=== PATIENT | female | born 1945 | race Caucasian/White ===

== ENCOUNTER 2020-04-12 14:14 | Outpatient (CLI) | payer MEDICARE, OTHER, SELFPAY ==
--- NOTE | 2020-04-12 14:26 | ECHO_ITS ---
Patient Info Name: Elham Nuñez Age: 74 years : 1945 Gender: Female Ht: 63 in Wt: 150 lbs BSA: 1.76 m2 HR: 81 bpm BP: 145 / 72 mmHg Heart Rhythm: Sinus Rhythm Technical Quality: Good Exam Date: 04/12/2020 2:37 PM Exam Location: [facility] Patient Status: Outpatient Admit Date: 04/12/2020 Staff Ordering Physician: Galo Hagan DO Instrument Engineer: Joselito Stokes RDCS Attending Provider: Galo Hagan DO Referring Physician: Bentley NEAL; Exam Type: CA echo doppler color flow Study Info Indications I34.0 - Nonrheumatic mitral (valve) insufficiency Complete two-dimensional, color flow and Doppler transthoracic echocardiogram is performed. Strain analysis performed. History/Risk Factors Mitral insufficiency. Summary 1. Left ventricular chamber dimension is normal. 2. Left ventricular systolic function is normal, estimated at 60-65%. 3. There is mildly increased left ventricular wall thickness. 4. The left ventricular diastolic function is grade I diastolic dysfunction. 5. E/e' 5 is not elevated. 6. Global longitudinal strain is normal at -22.2%. 7. There is mild mitral valve regurgitation. 8. There is trace tricuspid valve regurgitation. 9. No pulmonary hypertension, estimated pulmonary arterial systolic pressure is 32 mmHg. Left Ventricle E/e' 5 is not elevated. Global longitudinal strain is normal at -22.2%. Left ventricular chamber dimension is normal. Left ventricular systolic function is normal, estimated at 60-65%. There is mildly increased left ventricular wall thickness. The left ventricular diastolic function is grade I diastolic dysfunction. Right Ventricle Right ventricular chamber dimension is normal. Right ventricular systolic function is normal. Left Atria Left atrial chamber dimension is normal. Right Atria Right atrial chamber dimension is normal. Aortic Valve The aortic valve is trileaflet. There is no aortic valve stenosis. There is no aortic valve regurgitation. Pulmonic Valve There is no pulmonic regurgitation. Mitral Valve There is no mitral valve stenosis. There is mild mitral valve regurgitation. Tricuspid Valve There is trace tricuspid valve regurgitation. No pulmonary hypertension, estimated pulmonary arterial systolic pressure is 32 mmHg. Pericardium/Pleural There is no pericardial effusion. Inferior Vena Cava Normal inferior vena cava with >50% collapse upon inspiration consistent with normal right atrial pressure, 10 mmHg. Aorta The aortic root size at the sinus of Valsalva is normal. Left Ventricular Outflow Tract Name Value Normal LVOT 2D LVOT Diameter 1.8 cm LVOT Doppler LVOT Peak Gradient 5 mmHg LVOT Mean Gradient 2 mmHg LVOT VTI 21 cm LVOT VTI/AV VTI Ratio 0.9 LVOT Stroke Volume 52 ml LVOT CO 4.1 l/min LVOT CI 2.3 l/min/m2 Mitral Valve
== END 2020-04-12 14:15 | disposition home or self-care (01) ==
PROVIDERS: PCP Emergency Medicine; Visit Provider Internal Medicine Cardiovascular Disease
DX: I34.0 Nonrheumatic mitral (valve) insufficiency (principal)
CPT/HCPCS: 93306

== ENCOUNTER 2020-04-15 15:03 | Outpatient (CLI) | payer MEDICARE, OTHER, SELFPAY ==
[2020-04-15 16:13] LABS: Basophils Absolute Auto 0.1 K/mm3 (0.0-0.1); Eosinophils Absolute Auto 0.3 K/mm3 (0-0.3); Eosinophils Percent Auto 3.3 % (0-4.4); Hematocrit 35.5 % (37.0-47.0); Hemoglobin 11.8 g/dL (12.0-15.0); Immature Granulocyte Absolute 0.03 K/mm3 (0.00-0.031); Immature Granulocyte Percent A 0.3 % (0-0.5); Lymphocytes Absolute Auto 2.36 K/mm3 (0.9-3.2); Lymphocytes Percent Auto 27.5 % (18.3-44.2); Mean Corpuscular HGB Conc 33.2 g/dl (32-36); Mean Corpuscular Hemoglobin 29.7 pg (26-34); Mean Corpuscular Volume 89.4 fl (80-100); Mean Platelet Volume 9.9 fl (7.4-10.4); Monocytes Absolute Auto 0.7 K/mm3 (0.1-0.6); Neutrophils Absolute Auto 5.1 K/mm3 (1.3-6.7); Neutrophils Percent Auto 59.9 % (45.5-73.1); Platelet Count Result 310 k/mm3 (150-375); Red Blood Count 3.97 M/mm3 (4.2-5.4); Red Cell Distribution Width 12.9 % (11.5-14.5); White Blood Count 8.6 K/mm3 (4.5-10.0)
[2020-04-15 16:17] LABS: Add Urine Microscopic? YES; Appearance Urine Clear (Clear); Bacteria Urine Trace /hpf; Bilirubin Urine Negative (Negative); Blood Urine 1+ (Negative); Color Urine Straw (Yellow); Glucose Urine UA Negative (Negative); Ketones Urine Negative (Negative); Leukocyte Esterase Ur Negative LEU/UL (Negative); Nitrate Urine Negative (Negative); Protein Urine Negative (Negative); RBC Urine 21-50 /hpf (0-2); Specific Grav Ur 1.011 (1.001-1.035); Squamous Epithelial Cell Urine Many /hpf (Few); Urobilinogen Urine Negative mg/dL (<2.0); WBC Urine 0-3 /hpf
[2020-04-15 17:16] LABS: Alanine Aminotransferase 11 U/L (4-35); Albumin Level 4.4 g/dL (3.5-5.1); Alkaline Phosphatase 81 U/L (38-126); Aspartate Amino Transferase 23 U/L (14-36); Bilirubin,Total 0.3 mg/dL (0.2-1.3); Blood Urea Nitrogen 25 mg/dL (7-17); Calcium 9.3 mg/dL (8.4-10.2); Carbon Dioxide 28 mmol/L (22-30); Chloride 101 mmol/L (98-107); Cholesterol 220 mg/dL (0-200); Estimated Glomerular Filt Rate > 60; Glucose 89 mg/dL (65-105); HDL Direct 65 mg/dL; Phosphorus 3.2 mg/dL (2.5-4.5); Potassium 4.1 mmol/L (3.4-5.0); Sodium 136 mmol/L (137-145); Triglycerides 88 mg/dL (<150)
[2020-04-15 17:27] LABS: LDL Cholesterol Direct 110 mg/dL
[2020-04-15 17:33] LABS: Vitamin D 25 Hydroxy 73.4 ng/mL
[2020-04-15 18:20] LABS: Folic Acid 7.2 ng/mL (2.76->20)
== END 2020-04-15 15:04 | disposition home or self-care (01) ==
PROVIDERS: PCP Emergency Medicine; Visit Provider Emergency Medicine
DX: E78.5 Hyperlipidemia, unspecified (principal); G47.00 Insomnia, unspecified; G47.30 Sleep apnea, unspecified; I10 Essential (primary) hypertension; M79.7 Fibromyalgia; M81.0 Age-related osteoporosis without current pathological fracture; R53.83 Other fatigue
CPT/HCPCS: 36415; 80061; 80069; 80076; 81001; 82306; 82607; 82746; 84439; 84443; 85025

== ENCOUNTER 2020-04-22 14:26 | Outpatient (CLI) | payer MEDICARE, OTHER, SELFPAY ==
--- NOTE | ~2020-04-22 | CT_ITS ---
EXAMINATION: CT abdomen pelvis wo/w con DATE: 04/22/2020 15:52 INDICATION: Hematuria TECHNIQUE: Computed tomography (CT) of the abdomen and pelvis was performed without intravenous contr ast. CT of the abdomen and pelvis was then performed with a total of 130 mL Omnipaque 350 intravenous contrast using a double-bolus technique for simultaneous opacification of the renal parenchyma and r enal collecting system. The dose-length product (DLP) was 1062.02 mGy-cm. Automated exposure control and iterative reconstruction technique were employed. COMPARISON: 04/23/2013 FINDINGS: There are clustered tree-in-bud nodules of the right middle lobe. The heart size is normal. There are changes of bilateral mastectomy. Cysts of the liver measure up to 5 mm. Punctate calcifica tions in an otherwise normal spleen likely represent healed granulomatous disease. The pancreas, gall bladder, and adrenal glands are normal. Cysts of the kidneys measure up to 4.5 cm on the left. There is a 1.9 cm fat attenuation mass of the right kidney, consistent with an angiomyolipoma. There is a 2 mm nonobstructing stone of the right kidney lower pole. There is a 4 mm nonobstructing stone in the lower pole of the left kidney. No stones are identified in the ureters or bladder. There is no hydron ephrosis or hydroureter. A 6 mm hemorrhagic cyst is present in the right kidney lower pole. No suspic ious renal or urothelial lesion is identified. No pathologically enlarged abdominal or pelvic lymph n odes are identified. There is no free intraperitoneal gas or evidence of bowel obstruction. Colonic d iverticulosis is present without evidence of diverticulitis. A moderate volume of colonic stool is pr esent. Orthopedic screws are present in the left femoral neck. There is moderate lumbar spondylosis. IMPRESSION: 1. Bilateral nonobstructing nephrolithiasis. No suspicious renal or urothelial lesion identified. 2. Clustered tree-in-bud nodules of the right middle lobe, likely infectious or inflammatory. Reviewed, dictated and finalized at location A.
[2020-04-22 15:30] LABS: Estimated Glomerular Filt Rate > 60
== END 2020-04-22 14:27 | disposition home or self-care (01) ==
PROVIDERS: PCP Emergency Medicine; Visit Provider Emergency Medicine
DX: R31.9 Hematuria, unspecified (principal); N20.0 Calculus of kidney; R91.8 Other nonspecific abnormal finding of lung field
CPT/HCPCS: 36415; 74178; Q9967

== ENCOUNTER 2020-07-03 07:38 | Outpatient (CLI) | payer MEDICARE, OTHER, SELFPAY ==
[2020-07-03 08:47] LABS: Hematocrit 36.4 % (37.0-47.0); Hemoglobin 11.9 g/dL (12.0-15.0); Mean Corpuscular HGB Conc 32.7 g/dl (32-36); Mean Corpuscular Hemoglobin 29.4 pg (26-34); Mean Corpuscular Volume 89.9 fl (80-100); Mean Platelet Volume 9.6 fl (7.4-10.4); Platelet Count Result 260 k/mm3 (150-375); Red Blood Count 4.05 M/mm3 (4.2-5.4); Red Cell Distribution Width 13.6 % (11.5-14.5); White Blood Count 6.4 K/mm3 (4.5-10.0)
[2020-07-03 09:07] LABS: Iron 81 ug/dL (37-170)
[2020-07-03 09:08] LABS: Anion Gap 6 mmol/L (8-16); Blood Urea Nitrogen 22 mg/dL (7-17); Carbon Dioxide 30 mmol/L (22-30); Chloride 102 mmol/L (98-107); Estimated Glomerular Filt Rate > 60; Glucose 100 mg/dL (65-105); Phosphorus 3.2 mg/dL (2.5-4.5); Sodium 138 mmol/L (137-145)
[2020-07-03 09:12] LABS: Add Urine Microscopic? YES; Appearance Urine Cloudy (Clear); Bacteria Urine Trace /hpf; Bilirubin Urine Negative (Negative); Blood Urine Negative (Negative); Color Urine Yellow (Yellow); Glucose Urine UA Negative (Negative); Ketones Urine Negative (Negative); Leukocyte Esterase Ur Negative LEU/UL (NEGATIVE); Mucus Urine Rare /lpf; Nitrate Urine Negative (Negative); Protein Urine Negative (Negative); RBC Urine 0-2 /hpf (0-2); Specific Grav Ur 1.015 (1.001-1.035); Squamous Epithelial Cell Urine Few /hpf (Few); Urobilinogen Urine Negative mg/dL (<2.0); WBC Urine 0-3 /hpf (0-3)
[2020-07-03 09:20] LABS: Percent Iron Saturation 26 % (20-50)
[2020-07-03 09:22] LABS: Potassium 4.1 mmol/L (3.4-5.0)
== END 2020-07-03 07:39 | disposition home or self-care (01) ==
PROVIDERS: PCP Emergency Medicine; Visit Provider Emergency Medicine
DX: D64.9 Anemia, unspecified (principal); E87.1 Hypo-osmolality and hyponatremia; R31.9 Hematuria, unspecified
CPT/HCPCS: 36415; 80069; 81001; 82728; 83540; 83550; 85027

== ENCOUNTER 2020-07-25 07:43 | Emergency (ER) | payer MEDICARE, OTHER, SELFPAY ==
--- NOTE | ~2020-07-25 | XR_ITS ---
XR humerus LT 07/25/2020 08:34 Indication: Left arm pain. No acute injury. Procedure: 2 views left humerus Comparison: No prior studies for comparison. Findings: There is a healed left humeral diaphyseal fracture transfixed by side plate and screws. No acute fracture or traumatic malalignment. There are degenerative changes of the elbow. No focal soft tissue abnormality. No foreign bodies. Impression: 1: No acute fracture. Reviewed, dictated and finalized at location A. Impression: 1: No acute fracture.
[2020-07-25 07:50] VITALS: BP 138/100; PULSE 79; RESP 20; TEMP 36.4; O2SAT 96
--- NOTE | 2020-07-25 08:11 | ECG_ITS ---
Measurements Intervals [place] Rate: 80 P: 47 NM: 141 QRS: 13 QRSD: 82 T: 60 QT: 375 QTc: 434 Interpretive Statements SINUS RHYTHM EARLY PRECORDIAL R/S TRANSITION BASELINE ARTIFACT- V1 BORDERLINE ECG Electronically Signed On 07-25-2020 8:54:01 CDT by Galo Hagan D.O.
--- NOTE | 2020-07-25 08:11 | ED.GENADULT ---
HPI - General Adult General Chief complaint: Extremity Injury, Upper Stated complaint: Left Arm Pain Time Seen by Provider: 07/25/20 07:48 Source: patient History of Present Illness HPI narrative: Patient is a 75 y/o female complaining of left upper arm pain. She is unable to describe the character of pain. She rates her pain as 10/10. There is no alleviating or exacerbating factor. She states that she took hydrocodone which did not help. 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 She states that she has chronic left arm pain, but pain is worse since last night. There is no recent injury. She denies any chest pain, shortness of breath, neck pain. She is able to move her left arm. Related Data Home Medications Medication Instructions Recorded Confirmed brimonidine 0.2 % eye drops 1 drop EACH EYE Q8H 10/07/19 04/15/20 calcium carbonate 500 mg calcium 500 mg PO DAILY 10/07/19 04/15/20 (1,250 mg) capsule clonazepam 0.5 mg tablet 0.5 mg PO DAILY 10/07/19 04/15/20 ergocalciferol (vitamin D2) 1,250 50,000 unit PO WEEKLY 10/07/19 04/15/20 mcg (50,000 unit) capsule fluticasone propionate 50 1 spray NASAL DAILY 10/07/19 04/15/20 mcg/actuation nasal spray,suspension hydrocodone 10 mg-acetaminophen 1 tablet PO Q8H PRN 10/07/19 04/15/20 325 mg tablet hydroxypropyl cellulose 5 mg eye mg EACH EYE 10/07/19 04/15/20 inserts losartan 50 mg tablet 50 mg PO DAILY 10/07/19 04/15/20 sodium chloride 2 % eye drops 1 drop EACH EYE DAILY 10/07/19 04/15/20 teriparatide 20 mcg/dose (600 20 mcg SUB-Q DAILY 10/07/19 04/15/20 mcg/2.4 mL) subcutaneous pen injector timolol 0.5 % eye drops 1 drop EACH EYE Q12H 10/07/19 04/15/20 brimonidine 0.2 % eye drops 1 drop EACH EYE Q8H 01/05/20 04/15/20 white petrolatum-mineral oil 56.8 1 applic EACH EYE 4-6XD PRN 01/05/20 04/15/20 %-42.5 % eye ointment rosuvastatin 5 mg tablet 5 mg PO DAILY 04/21/20 Allergies Allergy/AdvReac Type Severity Reaction Status Date / Time Sulfa (Sulfonamide Allergy Unknown Unknown Verified 07/25/20 07:54 Antibiotics) trimethoprim Allergy Unknown Unknown Verified 07/25/20 07:54 Review of Systems Constitutional: Constitutional: Denies chills, Denies fever(s), Denies headache(s) and Denies weakness Eyes: Eyes: Denies blurry vision ENT: Denies headache(s) and Denies neck pain Cardiovascular: Cardiovascular: Denies chest pain and Denies dyspnea Respiratory: Respiratory: Denies cough and Denies dyspnea Gastrointestinal: Gastrointestinal: Denies abdominal pain, Denies diarrhea, Denies nausea and Denies vomiting Genitourinary: Genitourinary: Denies hematuria and Denies dysuria Musculoskeletal: Musculoskeletal: Denies back pain, Denies neck pain and Reports other (+left arm pain) Neurologic: Denies headache(s) and Denies weakness PMFSH Past Medical History Medical History 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 Chronic left hip pain Essential hypertension History of breast cancer History of cleft palate History of high cholesterol History of skin cancer Skin neoplasm Stage IV hemorrhoids Surgical History Surgical History History of bladder surgery History of cataract surgery History of eye surgery repair of crossed eyes History of hip surgery happened in 2011 History of hysterectomy performed around 1973 History of left mastectomy happened in 1989 History of repair of congenital cleft palate performed around 194 History of right mastectomy happened in 2012 History of surgery on arm 2019 Status post surgical removal of malignant neoplasm of skin performed around 2017 Family History Family History Sibling Family history of malignant neoplasm of cervix Family history of lung cancer, Onset Age: 58 Hear
[2020-07-25 08:28] LABS: Basophils Absolute Auto 0.1 K/mm3 (0.0-0.1); Basophils Percent Auto 0.7 % (0.2-1.2); Eosinophils Absolute Auto 0.2 K/mm3 (0-0.3); Eosinophils Percent Auto 1.8 % (0-4.4); Hematocrit 36.2 % (37.0-47.0); Immature Granulocyte Absolute 0.02 K/mm3 (0.00-0.031); Immature Granulocyte Percent A 0.2 % (0-0.5); Lymphocytes Absolute Auto 1.14 K/mm3 (0.9-3.2); Lymphocytes Percent Auto 13.9 % (18.3-44.2); Mean Corpuscular HGB Conc 33.1 g/dl (32-36); Mean Corpuscular Hemoglobin 30.3 pg (26-34); Mean Corpuscular Volume 91.4 fl (80-100); Mean Platelet Volume 9.4 fl (7.4-10.4); Monocytes Absolute Auto 0.4 K/mm3 (0.1-0.6); Monocytes Percent Auto 5.3 % (2.6-8.5); Neutrophils Absolute Auto 6.4 K/mm3 (1.3-6.7); Neutrophils Percent Auto 78.1 % (45.5-73.1); Platelet Count Result 224 k/mm3 (150-375); Red Blood Count 3.96 M/mm3 (4.2-5.4); Red Cell Distribution Width 13.1 % (11.5-14.5); White Blood Count 8.2 K/mm3 (4.5-10.0)
[2020-07-25 08:51] LABS: Anion Gap 5 mmol/L (8-16); Blood Urea Nitrogen 19 mg/dL (7-17); Calcium 8.8 mg/dL (8.4-10.2); Carbon Dioxide 31 mmol/L (22-30); Chloride 102 mmol/L (98-107); Estimated CRCL calculation 49 ml/min; Estimated Glomerular Filt Rate > 60; Glucose 162 mg/dL (65-105); Potassium 4.3 mmol/L (3.4-5.0); Sodium 138 mmol/L (137-145)
[2020-07-25 08:54] LABS: Troponin I < 0.012 ng/mL (0.000-0.034)
[2020-07-25 10:30] VITALS: BP 138/91; PULSE 79; RESP 20; O2SAT 98
[2020-07-25] MEDS: HYDROcodone/acetaminophen (*CRX) 5-325 MG TABLET 1 TAB PO (10:45)
--- NOTE | 2020-07-25 11:53 | PC.NURSE ---
PT STATES PAIN MEDICATION DIDNT HELP. DR GALLOWAY NOTIFIED. VRBO.
[2020-07-25 11:54] VITALS: BP 126/66; PULSE 77; RESP 20; O2SAT 98
[2020-07-25] MEDS: CYCLOBENZAPRINE HCL 10 MG TABLET PO (11:57)
[2020-07-25 12:18] LABS: Troponin I < 0.012 ng/mL (0.000-0.034)
[2020-07-25 12:32] LABS: CRP 1.2 mg/dL (<1.0)
[2020-07-25 12:38] VITALS: BP 133/77; PULSE 78; RESP 20; O2SAT 97
[2020-07-25 13:05] LABS: Erythrocyte Sedimentation Rate 20 mm/hr (0-20)
[2020-07-25 13:11] VITALS: BP 140/99; PULSE 74; RESP 20; O2SAT 97
[2020-07-25 13:27] VITALS: BP 140/99; PULSE 74; RESP 20; O2SAT 99
== END 2020-07-25 13:31 | disposition home or self-care (01) ==
PROVIDERS: Emergency Provider Emergency Medicine; PCP Emergency Medicine
DX: M79.622 Pain in left upper arm (principal); I10 Essential (primary) hypertension; E78.00 Pure hypercholesterolemia, unspecified; Z85.3 Personal history of malignant neoplasm of breast; Z90.13 Acquired absence of bilateral breasts and nipples; Z85.828 Personal history of other malignant neoplasm of skin; Z98.49 Cataract extraction status, unspecified eye
CPT/HCPCS: 36415; 73060; 80048; 84484; 85025; 85652; 86140; 93005; 99284; A9270

== ENCOUNTER 2023-01-15 08:24 | Outpatient (CLI) | payer MEDICARE, SELFPAY ==
--- NOTE | 2023-02-05 19:23 | WPDSLEEPSTUD ---
Sleep Study Date of Study: 01/15/23 Ordering Provider: Frederick Mendoza APRN Interpreting Physician: Nani Carvajal MD Sleep Study Type: Split Polysomnogram Height: 1.57 m Weight: 78.018 kg Body Mass Index: 31.4 Neck Circumference (inches): 15 [place]: 19 Reason for Sleep Study Hypersomnolence; prior home sleep test * 12/04/2019, snap home sleep test, AHI 31.6, consistent with severe obstructive sleep apnea;central apnea index 3.6, oxygen desaturation to 75% with 15 minute spent below 88%. Sleep History Elham Nuñez is a 77-year-old woman with a diagnosis of obstructive sleep apnea made on a home sleep test. Patient was on CPAP. She has problems with nasal allergies. She never awakens from sleep feeling short of breath. She rarely awakens at night with heartburn, belching or coughing. She occasionally snores but it is not loud enough that others complain about it. She frequently has trouble sleeping with a cold. She does not wake up gasping for breath at night or of breathing problems at night reported to her by others. She occasionally sweats excessively night. She does not notice her heart pounding or beating irregularly night. She constantly falls asleep during the day, occasionally falls asleep involuntarily but never falls asleep while driving. There is no loss of muscle tone with strong emotion. There is no daytime difficulties due to excessive sleepiness. She is retired. She does not feel paralyzed on waking or falling asleep. She does not have vivid dreamlike scenes on waking or falling asleep. She does not feel afraid to go to sleep. She does not have nightmares. She occasionally remembers her dreams. She does not have racing thoughts. She occasionally feels sad or depressed. She rarely has anxiety. She does not have muscular tension or notice parts her body jerking. She occasionally kicks at night. She constantly has crawling and aching feelings in her legs and leg pain at night. She does not have morning jaw pain. She does not grind her teeth during sleep. She frequently is bothered by pain during the day. She always is awakened by at night, always wakes up feeling stiff in the morning with sore achy muscles and pain in the neck and joints. She has dizziness and fatigue. Normal bedtime 9:30 p.m. falling asleep immediately, typically waking 3-4 times at night to go to the bathroom, walk for a little while and then she returns to sleep. She wakes the morning between 6 and 7:00 a.m.. Weekend schedule is the same. She estimates getting between 5 and 6 hours of sleep at night. she does not take naps during the day. A short nap is not refreshing. She is usually drowsy after waking for 3 hours or longer. She feels better in the morning compared to other times of day. Habits: She never smoked tobacco. No caffeine, alcohol or recreational substances. [facility] Past Medical History Medical History (Updated 02/05/23 @ 20:23 by Nani Carvajal MD) 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 Chronic left hip pain Essential hypertension History of breast cancer History of cleft palate History of high cholesterol History of skin cancer Skin neoplasm Stage IV hemorrhoids Surgical History Surgical History History of bladder surgery History of cataract surgery History of eye surgery repair of crossed eyes History of hip surgery happened in 2011 History of hysterectomy performed around 1973 History of left mastectomy happened in 1989 History of repair of congenital cleft palate performed around 194 History of right mastectomy happened in 2012 History of surgery on arm 2019 Status post surgical removal of malignant neoplasm of skin performed around 2017 Family History Family History Sibling Family history of malignant neoplasm of cervix Family history of lung cancer, Onset Age: 5
[2023-02-05 20:30] VITALS: BMI 31.4
== END 2023-01-16 06:56 | disposition home or self-care (01) ==
LOC: ANHCSM 08:26
PROVIDERS: PCP Emergency Medicine; Visit Provider Nurse Practitioner Family
DX: G47.10 Hypersomnia, unspecified (principal); G47.30 Sleep apnea, unspecified; G47.33 Obstructive sleep apnea (adult) (pediatric); G47.39 Other sleep apnea
CPT/HCPCS: 95810; 95811

== ENCOUNTER 2023-11-09 12:31 | Outpatient (CLI) | payer MEDICARE, SELFPAY ==
--- NOTE | 2023-11-09 12:56 | ECHO_ITS ---
Patient Info Name: Elham Nuñez Age: 78 years : 1945 Gender: Female Ht: 62 in Wt: 165 lbs BSA: 1.84 m2 HR: 82 bpm BP: 151 / 86 mmHg Technical Quality: Fair Exam Date: 11/09/2023 1:01 PM Exam Location: Echo Lab Patient Status: Outpatient Admit Date: 11/09/2023 Staff Ordering Physician: Galo Hagan DO Coat Joiner Lockstitch: Daysi Hoskins RDCS Attending Provider: Galo Hagan DO Referring Physician: Bentley NEAL; Exam Type: CA echo doppler color flow Study Info Indications - nonrheumatic mitral valve insuffieciency Complete two-dimensional, color flow and Doppler transthoracic echocardiogram is performed. Summary 1. Complete two-dimensional, color flow and Doppler transthoracic echocardiogram is performed. 2. Left ventricular chamber dimension is normal. 3. Left ventricular systolic function is normal, estimated at 60-65%. 4. The left ventricular diastolic function is grade I diastolic dysfunction. 5. E/e' 8 is minimally elevated. 6. There is mild aortic valve sclerosis. 7. There is trace aortic valve regurgitation. 8. There is mild mitral valve regurgitation. 9. There is mild tricuspid valve regurgitation. 10. No pulmonary hypertension, estimated pulmonary arterial systolic pressure is 29 mmHg. 11. There is trace pulmonic regurgitation. Left Ventricle E/e' 8 is minimally elevated. Left ventricular chamber dimension is normal. Left ventricular systolic function is normal, estimated at 60-65%. The left ventricular diastolic function is grade I diastolic dysfunction. Right Ventricle Right ventricular systolic function is normal and with normal TAPSE 2.2 cm. Right ventricular chamber dimension is normal. Left Atria Left atrial chamber dimension is normal. Right Atria Right atrial chamber dimension is normal. Aortic Valve The aortic valve is trileaflet. There is mild aortic valve sclerosis. There is no aortic valve stenosis. There is trace aortic valve regurgitation. Pulmonic Valve There is trace pulmonic regurgitation. Mitral Valve There is no mitral valve stenosis. There is mild mitral valve regurgitation. Tricuspid Valve There is mild tricuspid valve regurgitation. No pulmonary hypertension, estimated pulmonary arterial systolic pressure is 29 mmHg. Pericardium/Pleural There is no pericardial effusion. Inferior Vena Cava Normal inferior vena cava with >50% collapse upon inspiration consistent with normal right atrial pressure, 5 mmHg. Aorta The aortic root size at the sinus of Valsalva is normal. Left Ventricular Outflow Tract Name Value Normal LVOT 2D LVOT Diameter 2.0 cm LVOT Doppler LVOT Peak Gradient 4 mmHg LVOT Mean Gradient 3 mmHg LVOT VTI 22 cm LVOT VTI/AV VTI Ratio 1.0 LVOT Stroke Volume 70 ml LVOT CO 14.2 l/min LVOT CI 7.7 l/min/m2 Pulmonic Valve Name Value Normal
== END 2023-11-09 12:32 | disposition home or self-care (01) ==
PROVIDERS: PCP Emergency Medicine; Visit Provider Internal Medicine Cardiovascular Disease
DX: I34.0 Nonrheumatic mitral (valve) insufficiency (principal); I36.1 Nonrheumatic tricuspid (valve) insufficiency
CPT/HCPCS: 93306

== ENCOUNTER 2023-11-28 08:13 | Outpatient (CLI) | payer MEDICARE, SELFPAY ==
--- NOTE | ~2023-11-28 | US_ITS ---
EXAMINATION: US arterial ankle brachial ind DATE: 11/28/2023 09:07 INDICATION: Claudication TECHNIQUE: Segmental pressures and plethysmographic and Doppler waveforms of the brachial and lower e xtremity arteries were obtained. COMPARISON: None. FINDINGS: Right brachial artery pressure of 113 mm Hg. Patient refused pressure measurement in the left upper c hest medially due to prior surgery. The right ankle-brachial index (SHANNAN) is 1.25 (normal >= 0.9-1.0). The right great toe-brachial index (TBI) is 0.69 (normal >= 0.65). Arterial Doppler waveforms are triphasic with brisk systolic upstrok es at both right posterior tibial and dorsalis pedis arteries. The left SHANNAN is 1.25. The left TBI is 0.53. Arterial Doppler waveforms are triphasic with brisk systo lic upstrokes at both left posterior tibial and dorsalis pedis arteries. IMPRESSION: 1. 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 2. No significant arterial occlusive disease to the right lower limb with normal right SHANNAN and TBI. Reviewed, dictated and finalized at location A. 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 2. No significant arterial occlusive disease to the right lower limb with shilpa l right SHANNAN and TBI.
== END 2023-11-28 08:14 | disposition home or self-care (01) ==
LOC: ANHIMG 08:15
PROVIDERS: PCP Emergency Medicine; Visit Provider Emergency Medicine
DX: I73.9 Peripheral vascular disease, unspecified (principal)
CPT/HCPCS: 93922

== ENCOUNTER 2024-03-25 08:00 | Outpatient (CLI) | payer MEDICARE, SELFPAY ==
--- NOTE | ~2024-03-25 | XR_ITS ---
Clinical Indication: Intermittent asthma PA and lateral views of the chest: Comparison: 09/09/2017 Findings: The lungs are clear, without evidence of focal consolidation or pleural effusion. Cardiome diastinal silhouette is within normal limits. Prior ORIF of the left humerus partially imaged. Impression: Clear lungs. Reviewed, dictated and finalized at location . Impression: Clear lungs.
== END 2024-03-25 08:01 | disposition home or self-care (01) ==
PROVIDERS: PCP Emergency Medicine; Visit Provider Emergency Medicine
DX: J45.20 Mild intermittent asthma, uncomplicated (principal)
CPT/HCPCS: 71046

== ENCOUNTER 2025-01-11 12:03 | Emergency (ER) | payer MEDICARE, SELFPAY ==
--- NOTE | ~2025-01-11 | XR_ITS ---
XR hip LT 2V w AP pelvis Ordering provider: Gino Delgadillo MD History: . hip pain . Comparison: None. FINDINGS: BONES: No acute fracture or dislocation. 3 pins are seen in the left femoral neck. HIP JOINT SPACES severe bilateral hip osteoarthritic changes. SACROILIAC JOINT SPACES/LUMBAR SPINE: The sacroiliac joint spaces are normal. Mild degenerative gaspar es of the visualized lower lumbar spine. PUBIC SYMPHYSIS: Normal. SOFT TISSUES: Normal. IMPRESSION: No acute osseous abnormality pelvis and left hip. Reviewed, dictated and finalized at location A.
[2025-01-11 12:05] VITALS: BP 153/72; PULSE 80; RESP 16; TEMP 36.2; O2SAT 98
--- OUTSIDE RECORDS SUMMARY | 2025-01-11 12:05 | XMS_ITS | Continuity of Care Document ---
Author Organization [facility] Address [address] [place] [address] [place] [address] Phone Care Team Providers Care Hand Blocker Name Role Phone Darryl Baker MD Unavailable Unavailable Allergies, Adverse Reactions, Alerts Substance Reaction Status Criticality trimethoprim Active No Information Sulfa (Sulfonamide Antibiotics) Active No Information trimethobenzamide Active No Informa tion sulfamethazine Active No Informatio n Medications Medication Instructions Dosage Effective Dates (start - stop) Status Comments Neurontin 100 mg capsule take 1 capsule by oral route every day at bedtime 100 MG - Active avoid driving or operate machines Ritalin 10 mg tablet take 1 Tablet by oral route in the morning - Active Pepcid 40 mg tablet take 1 tablet by oral route every day 40 MG - Active hydrocodone 10 mg-acetaminophen 325 mg tablet take 1 by Oral route 3 times every day as needed 1 - Active PRN for pain, avoid driving or operate machines Ritalin 5 mg tablet take 1 tablet by oral route every morning - Active pramipexole 1 mg tablet take 1 tablet by oral route every bedtime 1 MG - Active Fosamax 70 mg tablet take 1 tablet by oral route every week in the morning, at least 30 min before first food, beverage, or medication of day 70 MG - Active cyanocobalamin (vit B-12) 1,000 mcg/mL injection solution inject 1 milliliter by intramuscular route every month 1000 MCG - Active syringe with needle 1 mL 25 gauge x 1 use with b12 shot monthly - Active Vitamin D2 1,250 mcg (50,000 unit) capsule take 1 capsule by oral route every other week - Active Singulair 10 mg tablet take 1 tablet by oral route every day in the evening 10 MG - Active Procedures Procedure Date OFFICE/OUTPATIENT VISIT, EST OFFICE/OUTPATIENT VISIT, EST Medicare Addendum OFFICE/OUTPATIENT VISIT, EST Medicare Addendum OFFICE/OUTPATIENT VISIT, EST Medicare Addendum OFFICE/OUTPATIENT VISIT, EST Medicare Addendum OFFICE/OUTPATIENT VISIT, EST Medicare Addendum OFFICE/OUTPATIENT VISIT, EST OFFICE/OUTPATIENT VISIT, EST OFFICE/OUTPATIENT VISIT, EST OFFICE/OUTPATIENT VISIT, EST Medicare Addendum OFFICE/OUTPATIENT VISIT, EST Medicare Addendum OFFICE/OUTPATIENT VISIT, EST OFFICE/OUTPATIENT VISIT, EST Medicare Addendum OFFICE/OUTPATIENT VISIT, EST Medicare Addendum OFFICE/OUTPATIENT VISIT, EST Medicare Addendum OFFICE/OUTPATIENT VISIT, EST Medicare Addendum OFFICE/OUTPATIENT VISIT, EST OFFICE/OUTPATIENT VISIT, EST OFFICE/OUTPATIENT VISIT, EST OFFICE/OUTPATIENT VISIT, EST OFFICE/OUTPATIENT VISIT, EST OFFICE/OUTPATIENT VISIT, EST OFFICE/OUTPATIENT VISIT, EST OFFICE/OUTPATIENT VISIT, EST OFFICE/OUTPATIENT VISIT, EST OFFICE/OUTPATIENT VISIT, EST PPPS, subseq visit OFFICE/OUTPATIENT VISIT, EST OFFICE/OUTPATIENT VISIT, EST OFFICE/OUTPATIENT VISIT, EST OFFICE/OUTPATIENT VISIT, EST OFFICE/OUTPATIENT VISIT, EST OFFICE/OUTPATIENT VISIT, EST OFFICE/OUTPATIENT VISIT, EST OFFICE/OUTPATIENT VISIT, EST OFFICE/OUTPATIENT VISIT, EST OFFICE/OUTPATIENT VISIT, EST OFFICE/OUTPATIENT VISIT, EST OFFICE/OUTPATIENT VISIT, EST OFFICE/OUTPATIENT VISIT, EST OFFICE/OUTPATIENT VISIT, EST OFFICE/OUTPATIENT VISIT, EST OFFICE/OUTPATIENT VISIT, EST OFFICE/OUTPATIENT VISIT, EST OFFICE/OUTPATIENT VISIT, EST OFFICE/OUTPATIENT VISIT, EST OFFICE/OUTPATIENT VISIT, EST OFFICE/OUTPATIENT VISIT, EST OFFICE/OUTPATIENT VISIT, EST OFFICE/OUTPATIENT VISIT, EST OFFICE/OUTPATIENT VISIT, EST OFFICE/OUTPATIENT VISIT, EST OFFICE/OUTPATIENT VISIT, EST OFFICE/OUTPATIENT VISIT, EST OFFICE/OUTPATIENT VISIT, EST OFFICE/OUTPATIENT VISIT, EST OFFICE/OUTPATIENT VISIT, EST OFFICE/OUTPATIENT VISIT, EST OFFICE/OUTPATIENT VISIT, EST OFFICE/OUTPATIENT VISIT, EST -2019 OFFICE/OUTPATIENT VISIT, EST OFFICE/OUTPATIENT VISIT, EST OFFICE/OUTPATIENT VISIT, EST OFFICE/OUTPATIENT VISIT, EST OFFICE/OUTPATIENT VISIT, EST OFFICE/OUTPATIENT VISIT, EST -2019 OFFICE/OUTPATIENT VISIT, EST -2019 OFFICE/OUTPATIENT VISIT, EST -2019 PPPS, initial visit OFFICE/OUTPATIENT VISIT, EST OFFICE/OUTPATIENT VISIT, EST OFFICE/OUTPATIENT VISIT, EST OFFICE/OUTPATIENT VISIT, EST OFFICE/OUTPATIENT VISIT, EST OFFICE/OUTPATIENT VISIT, EST OFFICE/OUTPATIENT VISIT, EST OFFICE/OUTPATIENT VISIT, EST OFFICE/OUTPATIENT VISIT, EST OFFICE/OUTPATIENT VISIT, EST OFFICE/OUTPATIENT VISIT, EST OFFICE/OUTPATIENT VISIT, EST OFFICE/OUTPATIENT VISIT, EST OFFICE/OUTPATIENT VISIT, EST OFFICE/OUTPATIENT VISIT, EST OFFICE/OUTPATIENT VISIT, EST OFFICE/OUTPATIENT VISIT, EST OFFICE/OUTPATIENT VISIT, EST OFFICE/OUTPATIENT VISIT, EST OFFICE/OUTPATIENT VISIT, EST OFFICE/OUTPATIENT VISIT, EST OFFICE/OUTPATIENT VISIT, EST OFFICE/OUTPATIENT VISIT, EST OFFICE/OUTPATIENT VISIT, EST OFFICE/OUTPATIENT VISIT, EST OFFICE/OUTPATIENT VISIT, EST OFFICE/OUTPATIENT VISIT, EST OFFICE/OUTPATIENT VISIT, EST OFFICE/OUTPATIENT VISIT, EST Initial preventive exam OFFICE/OUTPATIENT VISIT, EST OFFICE/OUTPATIENT VISIT, EST OFFICE/OUTPATIENT VISIT, EST OFFICE/OUTPATIENT VISIT, EST OFFICE/OUTPATIENT VISIT, EST OFFICE/OUTPATIENT VISIT, EST OFFICE/OUTPATIENT VISIT, EST OFFICE/OUTPATIENT VISIT, EST OFFICE/OUTPATIENT VISIT, EST OFFICE/OUTPATIENT VISIT, EST OFFICE/OUTPATIENT VISIT, EST OFFICE/OUTPATIENT VISIT, EST OFFICE/OUTPATIENT VISIT, EST OFFICE/OUTPATIENT VISIT, EST OFFICE/OUTPATIENT VISIT, EST OFFICE/OUTPATIENT VISIT, EST OFFICE/OUTPATIENT VISIT, EST PREV VISIT, EST, 65 & OVER OFFICE/OUTPATIENT VISIT, EST OFFICE/OUTPATIENT VISIT, EST OFFICE/OUTPATIENT VISIT, EST OFFICE/OUTPATIENT VISIT, EST OFFICE/OUTPATIENT VISIT, EST OFFICE/OUTPATIENT VISIT, EST OFFICE/OUTPATIENT VISIT, EST OFFICE/OUTPATIENT VISIT, EST OFFICE/OUTPATIENT VISIT, EST OFFICE/OUTPATIENT VISIT, EST OFFICE/OUTPATIENT VISIT, EST OFFICE/OUTPATIENT VISIT, EST OFFICE/OUTPATIENT VISIT, EST OFFICE/OUTPATIENT VISIT, EST OFFICE/OUTPATIENT VISIT, EST PREV VISIT, EST, 65 & OVER OFFICE/OUTPATIENT VISIT, EST OFFICE/OUTPATIENT VISIT, EST OFFICE/OUTPATIENT VISIT, EST OFFICE/OUTPATIENT VISIT, EST -2014 OFFICE/OUTPATIENT VISIT, EST OFFICE/OUTPATIENT VISIT, EST OFFICE/OUTPATIENT VISIT, EST OFFICE/OUTPATIENT VISIT, EST OFFICE/OUTPATIENT VISIT, EST OFFICE/OUTPATIENT VISIT, EST -2013 PREV VISIT, EST, 65 & OVER OFFICE/OUTPATIENT VISIT, EST OFFICE/OUTPATIENT VISIT, EST OFFICE/OUTPATIENT VISIT, EST OFFICE/OUTPATIENT VISIT, EST OFFICE/OUTPATIENT VISIT, EST -2013 OFFICE/OUTPATIENT VISIT, EST OFFICE/OUTPATIENT VISIT, EST OFFICE/OUTPATIENT VISIT, EST OFFICE/OUTPATIENT VISIT, EST OFFICE/OUTPATIENT VISIT, EST OFFICE/OUTPATIENT VISIT, EST OFFICE/OUTPATIENT VISIT, EST OFFICE/OUTPATIENT VISIT, EST OFFICE/OUTPATIENT VISIT, EST PREV VISIT, NEW, 65 & OVER Advance Directives Directive Yes / No Effective Date File Name No Information Encounters Encounter Description Practice Location Reason(s) For Visit Diagnoses Date Provider Providers Copied on Encounter OFFICE/OUTPA TIENT VISIT, [facility], [address] [place], [address], tel:[phone] [facility] RLS (chief complaint)fib romyalgia1 (chief complaint)fat igue1 (chief complaint)VENKATESH D1 (chief complaint) FatigueFibromyal giaRestless Legs SyndromeGERD w/o esophagitis 5 Samuel Garcia [address], [place], [place], [address] , [place]. tel:[phone] OFFICE/OUTPA TIENT VISIT, [facility], [address] [place], [address], [place] tel:[phone] [facility] pain (chief complaint)leg pain1 (chief complaint)fat igue1 (chief complaint) Restless Legs SyndromeFatigueF ibromyalgia 5 Samuel Garcia [address], [place], [place], [address] , [place]. tel:[phone] OFFICE/OUTPA TIENT VISIT, [facility], [address] [place], [address], [place] tel:[phone] [facility] lightheadness 1 (chief complaint)RLS (chief complaint) HypotensionRestl ess Legs Syndrome 5 Samuel Garcia [address], [address], [place], [place], [address] , [place]. tel:[phone] OFFICE/OUTPA TIENT VISIT, [facility], [address] [place], [address], [place] tel:[phone] [facility] pain (chief complaint)cou gh1 (chief complaint)RLS (chief complaint)sle ep apnea1 (chief complaint) FibromyalgiaAcut e bronchitisRestle ss Legs SyndromeObstruct lloyd sleep apnea hypopnea 5 Samuel Garcia [address], [place], [place], [address] , [place]. tel:[phone] OFFICE/OUTPA TIENT VISIT, [facility], [address] [place], [address], [place] tel:[phone] [facility] HTN (chief complaint)nec k pain1 (chief complaint)fib romyalgia1 (chief complaint) Essential (primary) hypertensionFibr omyalgiaOther muscle spasm 4 Samuel Andrews. [address], [place], [place], [address] , [place]. tel:[phone] OFFICE/OUTPA TIENT VISIT, [facility], [address] [place], [address], [place] tel:[phone] [facility] pain (chief complaint)RLS (chief complaint)nec k pain1 (chief complaint) FibromyalgiaRest less Legs SyndromeOther muscle spasm 4 Samuel Andrews. [address], [place], [place], [address] , [place]. tel:[phone] OFFICE/OUTPA TIENT VISIT, [facility], [address] [place], [address], [place] tel:[phone] [facility] pain (chief complaint)ost eoporosis1 (chief complaint)VENKATESH D1 (chief complaint) FibromyalgiaOste oporosisGERD w/o esophagitis 4 Samuel Andrews. [address] [place], [address] , [place]. tel:[phone] OFFICE/OUTPA TIENT VISIT, [facility], [address] [place], [address], [place] tel:[phone] [facility] pain (chief complaint)HTN (chief complaint)ophelia ma1 (chief complaint)hyp erglycemia1 (chief complaint) EdemaEssential (primary) hypertensionFibr omyalgiaHypergly cemiaRestless legs syndrome 4 Samuel Andrews. [address], [place], [place], [address] , [place]. tel:[phone] OFFICE/OUTPA TIENT VISIT, [facility], [address] [place], [address], [place] tel:[phone] [facility] pain (chief complaint)HTN (chief complaint)b12 (chief complaint)dry mouth1 (chief complaint) EdemaEssential (primary) hypertensionCyan ocobalamin deficiencyFibrom yalgiaDry mouth 4 Samuel Andrews. [address], [place], [place], [address] , [place]. [phone] OFFICE/OUTPA TIENT VISIT, [facility], [address] [place], [address], [place] tel:[phone] [facility] HTN (chief complaint)HLP (chief complaint)cou gh1 (chief complaint)ane mia1 (chief complaint)DM (chief complaint)fat igue1 (chief complaint) Essential (primary) hypertensionMixe d hyperlipidemiaTy pe 2 diabetes mellitus with diabetic nephropathyAnemi aFatigueCyanocob alamin deficiencyDry mouthFibromyalgi aOsteoporosisChr onic cough 4 Samuel Andrews. [address], [place], [place], [address] , [place]. [phone] OFFICE/OUTPA TIENT VISIT, [facility], [address] [place], [address], [place] tel:[phone] [facility] pain1 (chief complaint)cou gh1 (chief complaint)fat igue1 (chief complaint) FatigueChronic coughEssential (primary) hypertensionFibr omyalgia 4 Samuel Andrews. [address], [place], [place], [address] , [place]. [phone] OFFICE/OUTPA TIENT VISIT, [facility], [address], [place], [place], [address], [place] tel:[phone] [facility] cough1 (chief complaint)RLS (chief complaint)fat igue1 (chief complaint) FatigueMild intermittent asthma, uncomplicatedRes tless Legs Syndrome 4 Samuel Andrews. [address], [place], [place], [address] , [place]. tel:[phone] OFFICE/OUTPA TIENT VISIT, [facility], [address] [place], [address], [place] tel:[phone] [facility] fibromyalgia1 (chief complaint)ost eoporosis1 (chief complaint)cou gh1 (chief complaint)fat igue1 (chief complaint) Mild intermittent asthma, uncomplicatedFat igueFibromyalgia Osteoporosis 4 Samuel Andrews. [address], [place], [place], [address] , [place]. tel:[phone] OFFICE/OUTPA TIENT VISIT, [facility], [address] [place], [address], [place] tel:[phone] [facility] osteoporosis1 (chief complaint)dona n (chief complaint)fat igue1 (chief complaint)RLS 1 (chief complaint)cou gh1 (chief complaint) FatigueOsteoporo sisRestless Legs SyndromeFibromya lgiaMild intermittent asthma, uncomplicated Jan- 4 Samuel Andrews. [address], [place], [place], [address] , [place]. tel:[phone] OFFICE/OUTPA TIENT VISIT, [facility], [address] [place], [address], [place] tel:[phone] [facility] pain (chief complaint)ADD (chief complaint)cou gh1 (chief complaint)HTN (chief complaint) Acute bronchitisFibrom yalgiaFatigueObs tructive Sleep Apnea HypopneaEssentia l (primary) hypertension Jan-0 4 Samuel Andrews. [address], [place], [place], [address] , [place]. tel:[phone] OFFICE/OUTPA TIENT VISIT, [facility], [address] [place], [address], [place] tel:[phone] [facility] pain (chief complaint)fat igue1 (chief complaint) FatigueFibromyal laly 4 Baker Darryl. [address], [place], [place], [address] , [place]. tel:[phone] OFFICE/OUTPA TIENT VISIT, [facility], [address] [place], [address], [place] tel:[phone] [facility] pain1 (chief complaint)leg pain1 (chief complaint)leg weakness1 (chief complaint)fat igue1 (chief complaint) FibromyalgiaRest less Legs SyndromeObstruct lloyd Sleep Apnea HypopneaFatigueP eripheral vascular disease, unspecified 4 Samuel Andrews. [address], [place], [place], [address] , [place]. tel:[phone] OFFICE/OUTPA TIENT VISIT, [facility], [address], [address], [place] tel:[phone] [facility] GERD1 (chief complaint)dona n (chief complaint)leg pain1 (chief complaint)HTN (chief complaint) FibromyalgiaGERD w/o esophagitisRestl ess Legs SyndromeEssentia l (primary) hypertension 4 Baker Darryl. [address], [place], [place], [address] , [place]. tel:[phone] OFFICE/OUTPA TIENT VISIT, [facility], [address] [place], [address], [place] tel:[phone] [facility] pain (chief complaint)RLS (chief complaint)HTN (chief complaint)VENKATESH D1 (chief complaint) FibromyalgiaRest less Legs SyndromeEssentia l (primary) hypertensionGERD w/o esophagitis 3 Baker Darryl. [address], [place], [place], [address] , [place]. tel:[phone] OFFICE/OUTPA TIENT VISIT, [facility], [address] [place], [address], [place] tel:[phone] [facility] pain (chief complaint)RLS 1 (chief complaint)sin us (chief complaint) FibromyalgiaChro meera sinusitisRestles s legs syndrome 3 Samuel Andrews. [address], [place], [place], [address] , [place]. tel:[phone] OFFICE/OUTPA TIENT VISIT, [facility], [address], [place], [place], [address], [place] tel:[phone] [facility] fibromyalgia1 (chief complaint)RLS 1 (chief complaint)HTN (chief complaint)all ergy1 (chief complaint) Restless Legs SyndromeEssentia l (primary) hypertensionFibr omyalgiaAllergic rhinitis due to pollen 3 Samuel Andrews. [address], [place], [place], [address] , [place]. tel:[phone] OFFICE/OUTPA TIENT VISIT, [facility], [address], [place], [place], [address], [place] tel:[phone] [facility] HTN (chief complaint)all ergy1 (chief complaint)RLS (chief complaint)fib romyalgia1 (chief complaint) FibromyalgiaEsse ntial (primary) hypertensionAlle rgic rhinitis due to pollenRestless Legs Syndrome 3 Samuel Andrews. [address], [place], [place], [address] , [place]. tel:[phone] OFFICE/OUTPA TIENT VISIT, [facility], [address], [place], [place], [address], [place] tel:[phone] [facility] pain (chief complaint)RLS 1 (chief complaint)all ergy1 (chief complaint)VENKATESH D1 (chief complaint) FibromyalgiaRest less Legs SyndromeGERD w/o esophagitisAller gic rhinitis due to pollenEssential (primary) hypertension 3 Samuel Andrews. [address], [place], [place], [address] , [place]. tel:[phone] OFFICE/OUTPA TIENT VISIT, [facility], [address], [place], [place], [address], [place] tel:[phone] [facility] pain (chief complaint)leg 1 (chief complaint)all ergy1 (chief complaint)sle ep apnea1 (chief complaint) Restless Legs SyndromePrimary central sleep apneaFibromyalgi aAllergic rhinitis due to pollen 3 Samuel Andrews. [address], [place], [place], [address] , [place]. tel:[phone] OFFICE/OUTPA TIENT VISIT, [facility], [address], [place], [place], [address], [place] tel:[phone] [facility] pain (chief complaint)res tless leg (chief complaint)sle epapnea1 (chief complaint) FibromyalgiaPrim teodora central sleep apneaRestless Legs Syndrome 3 Samuel Andrews. [address], [place], [place], [address] , [place]. tel:[phone] OFFICE/OUTPA TIENT VISIT, [facility], [address], [place], [place], [address], [place] tel:[phone] [facility] pain (chief complaint)glu cose1 (chief complaint)ost eoporosis1 (chief complaint)ane mia1 (chief complaint)sic k (chief complaint)HTN (chief complaint) HyperglycemiaRen al diseaseAnemiaOst eoporosisEssenti al (primary) hypertensionAcut e bronchitisPrimar y central sleep apneaFibromyalgi a 3 Samuel Andrews. [address], [place], [place], [address] , [place]. tel:[phone] OFFICE/OUTPA TIENT VISIT, [facility], [address], [place], [place], [address], [place] tel:[phone] [facility] physical (chief complaint) Encounter for general adult medical exam w abnormal findingsOsteopor osisFibromyalgia Primary central sleep apneaEssential (primary) hypertensionGERD w/o esophagitis February-0 3 Samuel Andrews. [address], [place], [place], [address] , [place]. tel:[phone] OFFICE/OUTPA TIENT VISIT, [facility], [address], [place], [place], [address], [place] tel:[phone] [facility] osteoporosis1 (chief complaint)dona n (chief complaint)HTN (chief complaint)sle ep apnea1 (chief complaint)VENKATESH D1 (chief complaint) Essential (primary) hypertensionFibr omyalgiaOsteopor osisGERD w/o esophagitisPrima ry central sleep apnea Jan-0 3 Samuel Andrews. [address], [place], [place], [address] , [place]. tel:[phone] OFFICE/OUTPA TIENT VISIT, [facility], [address], [place], [place], [address], [place] tel:[phone] [facility] HTN (chief complaint)sle ep apnea1 (chief complaint)dona n (chief complaint)all ergy1 (chief complaint) Allergic rhinitis due to pollenEssential (primary) hypertensionFibr omyalgiaPrimary central sleep apnea Dec-0 3 Samuel Garcia [address], [place], [place], [address] , [place]. tel:[phone] OFFICE/OUTPA TIENT VISIT, [facility], [address], [place], [place], [address], [place] tel:[phone] [facility] HTN (chief complaint)sle ep apnea1 (chief complaint)dona n (chief complaint)VENKATESH D1 (chief complaint) FibromyalgiaAlle rgic rhinitis due to pollenGERD w/o esophagitisOsteo porosisPrimary central sleep apneaEssential (primary) hypertension Feb-0 2 3 Samuel Garcia [address], [place], [place], [address] , [place]. tel:[phone] OFFICE/OUTPA TIENT VISIT, [facility], [address], [place], [place], [address], tel:[phone] [facility] HTN (chief complaint)dona n (chief complaint) Essential (primary) hypertensionFibr omyalgia 3 Samuel Andrews. [address], [place], [place], [address] , [place]. tel:[phone] OFFICE/OUTPA TIENT VISIT, [facility], [address], [place], [place], [address], [place] tel:[phone] [facility] HTN (chief complaint)all ergy1 (chief complaint)dona n (chief complaint) FibromyalgiaEsse ntial (primary) hypertensionAlle rgic rhinitis due to pollen 2 Samuel Andrews. [address], [place], [place], [address] , [place]. tel:[phone] OFFICE/OUTPA TIENT VISIT, [facility], [address], [place], [place], [address], [place] tel:[phone] [facility] HTN (chief complaint)sle ep apnea1 (chief complaint)ost eoporosis1 (chief complaint)VENKATESH D1 (chief complaint)all ergy1 (chief complaint) OsteoporosisPrim teodora central sleep apneaEssential (primary) hypertensionFibr omyalgiaAllergic rhinitis due to pollenGERD w/o esophagitis 2 Samuel Andrews. [address], [place], [place], [address] , [place]. [phone] OFFICE/OUTPA TIENT VISIT, [facility], [address], [place], [place], [address], [place] tel:[phone] [facility] pain (chief complaint)sle ep apnea1 (chief complaint) FibromyalgiaPrim teodora central sleep apnea 2 Samuel Andrews. [address], [place], [place], [address] , [place]. tel:[phone] OFFICE/OUTPA TIENT VISIT, [facility], [address], [place], [place], [address], [place] tel:[phone] [facility] pain (chief complaint)sle ep apnea1 (chief complaint)HTN (chief complaint)ost eoporosis1 (chief complaint) OsteoporosisPrim teodora central sleep apneaEssential (primary) hypertensionFibr omyalgia 2 Samuel Andrews. [address], [place], [place], [address] , [place]. [phone] OFFICE/OUTPA TIENT VISIT, [facility], [address], [place], [place], [address], [place] tel:[phone] [facility] pain (chief complaint)HTN (chief complaint) FibromyalgiaEsse ntial (primary) hypertension 2 Samuel Andrews. [address], [place], [place], [address] , [place]. [phone] OFFICE/OUTPA TIENT VISIT, [facility], [address], [place], [place], [address], [place] tel:[phone] [facility] HTN (chief complaint)sle ep apnea1 (chief complaint)dona n1 (chief complaint) Essential (primary) hypertensionFibr omyalgiaPrimary central sleep apneaAllergic rhinitis due to pollen 2 Samuel Andrews. [address], [place], [place], [address] , [place]. [phone] OFFICE/OUTPA TIENT VISIT, [facility], [address] [place], [address], [place] tel:[phone] [facility] HTN (chief complaint)stephanie lucination1 (chief complaint) Hypertensive emergencyVisual hallucinations 2 Samuel Andrews. [address], [place], [place], [address] , [place]. tel:[phone] OFFICE/OUTPA TIENT VISIT, [facility], [address], [place], [place], [address], [place] tel:[phone] [facility] HTN (chief complaint) Hypertensive emergencyFatigue Dizziness 2 Samuel Andrews. [address], [place], [place], [address] , [place]. tel:[phone] OFFICE/OUTPA TIENT VISIT, [facility], [address], [place], [place], [address], [place] tel:[phone] [facility] fibromyalgia1 (chief complaint)sle ep apnea1 (chief complaint)HTN (chief complaint) Essential (primary) hypertensionSlee p apneaFibromyalgi aBenign paroxysmal vertigo, bilateral 2 Samuel Andrews. [address], [place], [place], [address] , [place]. tel:[phone] OFFICE/OUTPA TIENT VISIT, [facility], [address], [place], [place], [address], [place] tel:[phone] [facility] pain (chief complaint)diz ziness1 (chief complaint)ins omnia1 (chief complaint)fat igue1 (chief complaint)VENKATESH D1 (chief complaint) Sleep apneaInsomniaDiz zinessGERD w/o esophagitisFibro myalgia 2 Samuel Andrews. [address], [place], [place], [address] , [place]. tel:[phone] OFFICE/OUTPA TIENT VISIT, [facility], [address] [place], [address], [place] tel:[phone] [facility] osteoporosis1 (chief complaint)dona n (chief complaint)ins omnia1 (chief complaint)HTN (chief complaint) OsteoporosisEsse ntial (primary) hypertensionFibr omyalgiaInsomnia 2 Samuel Andrews. [address], [place], [place], [address] , [place]. [phone] OFFICE/OUTPA TIENT VISIT, [facility], [address], [place], [id number], [place] tel:[phone] [facility] pain (chief complaint)ins omnia1 (chief complaint) FibromyalgiaInso mnia Dec- 2 Samuel Andrews. [address], [place], [place], [address] , [place]. tel:[phone] OFFICE/OUTPA TIENT VISIT, [facility], [address], [place], [place], [address], [place] tel:[phone] [facility] pain (chief complaint)ins omnia1 (chief complaint)HTN (chief complaint) DizzinessEssenti al (primary) hypertensionFibr omyalgiaInsomnia Fe 2 Samuel Darryl. [address], [address], [place], [place], [address] , [place]. [phone] OFFICE/OUTPA TIENT VISIT, [facility], [address], [place], [place], [address], [place] tel:[phone] [facility] pain (chief complaint)ins omnia1 (chief complaint)lig htheadedness (chief complaint)arm pain1 (chief complaint) Lateral epicondylitis, right elbowFibromyalgi aInsomniaDizzine ss 2 Samuel Andrews. [address], [address], [place], [place], [address] , [place]. [phone] OFFICE/OUTPA TIENT VISIT, [facility], [address], [place], [place], [address], [place] tel:[phone] [facility] pain1 (chief complaint)ins omnia1 (chief complaint)diz zy1 (chief complaint)ost eoporosis1 (chief complaint)VENKATESH D1 (chief complaint) DizzinessGERD w/o esophagitisOsteo porosisInsomniaF ibromyalgia Sep- 1 Samuel Andrews. [address], [address], [place], [place], [address] , [place]. tel:[phone] OFFICE/OUTPA TIENT VISIT, [facility], [address], [place], [place], [address], [place] tel:[phone] [facility] HTN (chief complaint)dona n (chief complaint)ins omnia1 (chief complaint)sin us (chief complaint) FibromyalgiaEsse ntial (primary) hypertensionChro meera sinusitisInsomni a 1 Samuel Garcia [address], [place], [place], [address] , [place]. tel:[phone] OFFICE/OUTPA TIENT VISIT, [facility], [address], [place], [place], [address], [place] tel:[phone] [facility] sinus1 (chief complaint)HTN (chief complaint)fib romyalgia1 (chief complaint)ins omnia1 (chief complaint) Chronic sinusitisFibromy algiaEssential (primary) hypertensionEdem aInsomniaSolitar y lung nodule 1 Samuel Garcia [address], [address], [place], [place], [address] , [place]. tel:[phone] OFFICE/OUTPA TIENT VISIT, [facility], [address], [place], [place], [address], [place] tel:[phone] [facility] pain (chief complaint)ins omnia1 (chief complaint)HTN (chief complaint)sin us1 (chief complaint) InsomniaFibromya lgiaEssential (primary) hypertensionAlle rgic rhinitisEdema 1 Samuel Garcia [address], [address], [place], [place], [address] , [place]. [phone] OFFICE/OUTPA TIENT VISIT, [facility], [address], [place], [place], [address], [place] tel:[phone] [facility] pain (chief complaint)ins omnia1 (chief complaint)HTN (chief complaint)GED 1 (chief complaint) GERD w/o esophagitisFibro myalgiaInsomniaE ssential (primary) hypertension 1 Samuel Garcia [address], [place], [place], [address] , [place]. tel:[phone] OFFICE/OUTPA TIENT VISIT, [facility], [address], [place], [place], [address], [place] tel:[phone] [facility] insomnia1 (chief complaint)dona n (chief complaint)VENKATESH D1 (chief complaint)HTN (chief complaint) GERD w/o esophagitisFibro myalgiaInsomniaE ssential (primary) hypertension 1 Samuel Garcia [address], [address], [place], [place], [address] , [place]. tel:[phone] OFFICE/OUTPA TIENT VISIT, [facility], [address], [place], [place], [address], [place] tel:[phone] [facility] insomnia1 (chief complaint)dona n1 (chief complaint)VENKATESH D1 (chief complaint) GERD w/o esophagitisConst ipationFibromyal giaInsomnia 1 Samuel Garcia [address], [place], [place], [address] , [place]. tel:[phone] OFFICE/OUTPA TIENT VISIT, [facility], [address] [place], [address], tel:[phone] [facility] left arm numbness1 (chief complaint)dona n (chief complaint)ins omnia1 (chief complaint)con stipation1 (chief complaint)fat igue1 (chief complaint) ConstipationNeur opathyInsomniaFi bromyalgiaFatigu e 1 Samuel Garcia [address], [place], [place], [address] , [place]. tel:[phone] OFFICE/OUTPA TIENT VISIT, [facility], [address] [place], [address], [place] tel:[phone] [facility] pain (chief complaint)ins omnia1 (chief complaint)ost eoporosis1 (chief complaint)diz ziness1 (chief complaint) FibromyalgiaInso mniaOsteoporosis Dizziness 1 Samuel Garcia [address], [address], [place], [place], [address] , [place]. tel:[phone] OFFICE/OUTPA TIENT VISIT, [facility], [address], [place], [place], [address], [place] tel:[phone] [facility] pain (chief complaint)ins omnia1 (chief complaint)UTI 1 (chief complaint)ost eoporosis1 (chief complaint) Urinary tract infectionFibromy algiaInsomnia 1 Samuel Garcia [address], [place], [place], [address] , [place]. tel:[phone] OFFICE/OUTPA TIENT VISIT, [facility], [address], [place], [place], [address], [place] tel:[phone] [facility] fibromyalgia1 (chief complaint)ins omnia1 (chief complaint) FibromyalgiaInso mniaUrinary tract infection 1 Samuel Garcia [address], [place], [place], [address] , [place]. tel:[phone] OFFICE/OUTPA TIENT VISIT, [facility], [address], [place], [place], [address], [place] tel:[phone] [facility] sinus1 (chief complaint) Acute sinusitis 1 Samuel Garcia [address], [place], [place], [address] , [place]. tel:[phone] OFFICE/OUTPA TIENT VISIT, [facility], [address], [place], [place], [address], [place] tel:[phone] [facility] fibromyalgia1 (chief complaint)ins omnia1 (chief complaint) FibromyalgiaInso mnia 1 Samuel Garcia [address], [place], [place], [address] , [place]. tel:[phone] Referring Provider: Darryl Baker, [address], [place], [place], [address]. tel:[phone] OFFICE/OUTPA TIENT VISIT, [facility], [address], [place], [place], [address], [place] tel:[phone] [facility] pain (chief complaint)ins omnia1 (chief complaint) FibromyalgiaInso mnia Dec- 0 Samuel Andrews. [address], [place], [place], [address] , [place]. tel:[phone] Referring Provider: Betty Zelaya [address], [place], [place], [address]. tel:[phone] OFFICE/OUTPA TIENT VISIT, [facility], [address], [place], [place], [address], [place] tel:[phone] [facility] pain (chief complaint)ins omnia1 (chief complaint)HTN (chief complaint) FibromyalgiaInso mniaEssential (primary) hypertension Dec 0 Samuel Andrews. [address], [place], [place], [address] , [place]. tel:[phone] Referring Provider: Betty Zelaya [address], [place], [place], [address]. tel:[phone] OFFICE/OUTPA TIENT VISIT, [facility], [address], [place], [place], [address], [place] tel:[phone] [facility] pain (chief complaint)ins omnia1 (chief complaint) FibromyalgiaInso mnia 0 Samuel Andrews. [address], [place], [place], [address] , [place]. tel:[phone] Referring Provider: Darryl Baker [address], [place], [place], [address]. tel:[phone] OFFICE/OUTPA TIENT VISIT, [facility], [address], [place], [place], [address], [place] tel:[phone] [facility] pain (chief complaint)ins omnia1 (chief complaint)sle ep apnea1 (chief complaint)hem orrhoid (chief complaint) FibromyalgiaAnem iaInsomniaSleep apneaHemorrhoid 0 Samuel Andrews. [address], [facility], [place], [place], [address] , [place]. tel:[phone] Referring Provider: Darryl Baker, [address] [facility] A, [place], [place], [address]. tel:[phone] OFFICE/OUTPA TIENT VISIT, [facility], [address] [place], [address], [place] tel:[phone] [facility] fibromyalgia1 (chief complaint)ins omnia1 (chief complaint)ost eoporosis1 (chief complaint)hyp onatremia1 (chief complaint)ane mia1 (chief complaint)hem aturia1 (chief complaint) AnemiaHematuriaH yponatremiaInsom niaFibromyalgiaO steoporosis 0 Samuel Andrews. [address] [facility] [address], [place], [place], [address] , [place]. tel:[phone] Referring Provider: Betty Zelaya [facility] A, [place], [place], [address]. tel:[phone] OFFICE/OUTPA TIENT VISIT, [facility], [address] [facility] [place], [address], [place] tel:[phone] [facility] pain (chief complaint)ins omnia1 (chief complaint)HLP (chief complaint)sle ep apnea1 (chief complaint)sic k (chief complaint)hem orrhoid1 (chief complaint) FibromyalgiaHype rlipidemiaAnemia Sleep apneaHemorrhoidA cute bronchitisInsomn iaHyponatremia 0 Samuel Andrews. [address], [facility], [place], [place], [address] , [place]. tel:[phone] Referring Provider: Darryl Baker [address] [facility] [place], [address]. tel:[phone] OFFICE/OUTPA TIENT VISIT, [facility], [address] [facility] [place], [address], [place] tel:[phone] [facility] HLP (chief complaint)sle ep apnea1 (chief complaint)fib romyalgia1 (chief complaint)ins omnia1 (chief complaint)ane mia1 (chief complaint) AnemiaFibromyalg iaHematuriaHemor rhoidHyperlipide miaSleep apneaInsomniaSol itary lung nodule 0 Samuel Andrews. [address], [place], [place], [address] , [place]. tel:[phone] Referring Provider: Darryl Baker, [address], [place], [place], [address]. tel:[phone] OFFICE/OUTPA TIENT VISIT, [facility], [address], [place], [place], [address], [place] tel:[phone] [facility] HLP (chief complaint)ane mia1 (chief complaint)ane mia1 (chief complaint)dona n1 (chief complaint)sle ep apnea1 (chief complaint) HyperlipidemiaAn emiaInsomniaHema turiaHemorrhoidS leep apneaFibromyalgi a 0 Samuel Andrews. [address], [place], [place], [address] , [place]. tel:[phone] Referring Provider: Darryl Baker, [address], [place], [place], [address]. tel:[phone] OFFICE/OUTPA TIENT VISIT, [facility], [address], [place], [place], [address], [place] tel:[phone] [facility] sinus1 (chief complaint) Acute sinusitis 0 Samuel Andrews. [address], [place], [place], [address] , [place]. tel:[phone] Referring Provider: Darryl Baker, [address], [place], [place], [address]. tel:[phone] OFFICE/OUTPA TIENT VISIT, [facility], [address], [place], [place], [address], [place] tel:[phone] [facility] PHysical (chief complaint) Encounter for general adult medical exam w abnormal findingsFibromya lgiaSleep apneaOsteoporosi sInsomniaEssenti al (primary) hypertension 0 Samuel Andrews. [address], [place], [place], [address] , [place]. tel:[phone] Referring Provider: Darryl Baker, [address], [place], [place], [address]. tel:[phone] OFFICE/OUTPA TIENT VISIT, [facility], [address], [place], [place], [address], [place] tel:[phone] [facility] pain (chief complaint)ins omnia1 (chief complaint)sle ep apnea1 (chief complaint) FibromyalgiaSlee p apneaInsomnia 0 Samuel Andrews. [address], [place], [place], [address] , [place]. tel:[phone] Referring Provider: Darryl Baker [address], [place], [place], [address]. tel:[phone] OFFICE/OUTPA TIENT VISIT, [facility], [address], [place], [place], [address], [place] tel:[phone] [facility] HTN (chief complaint)fib romyalgia1 (chief complaint)ins omnia1 (chief complaint)sle ep apnea1 (chief complaint)glu cose (chief complaint) InsomniaSleep apneaFibromyalgi aEssential (primary) hypertensionEnco unter for screening for malignant neoplasm of colonHyperglycem ia 0 Samuel Andrews. [address], [place], [place], [address] , [place]. tel:[phone] Referring Provider: Betty Zelaya [address], [place], [place], [address]. tel:[phone] OFFICE/OUTPA TIENT VISIT, [facility], [address], [place], [place], [address], [place] tel:[phone] [facility] fibromyalgia1 (chief complaint)ost eoporosis1 (chief complaint)ins omnia1 (chief complaint)sle ep apnea1 (chief complaint) FibromyalgiaSlee p apneaOsteoporosi sInsomnia 0 Samuel Andrews. [address], [place], [place], [address] , [place]. tel:[phone] Referring Provider: Betty Zelaya [address], [place], [place], [address]. tel:[phone] OFFICE/OUTPA TIENT VISIT, [facility], [address], [place], [place], [address], [place] tel:[phone] [facility] pain (chief complaint)ins omnia1 (chief complaint)sin us (chief complaint)kne e pain1 (chief complaint) FatigueFibromyal giaInsomniaOsteo arthritis of knee, unspecifiedAller gic rhinitis 0 Samuel Andrews. [address], [place], [place], [address] , [place]. tel:[phone] Referring Provider: Betty Zelaya [address], [place], [place], [address]. tel:[phone] OFFICE/OUTPA TIENT VISIT, [facility], [address], [place], [place], [address], [place] tel:[phone] [facility] fibromyalgia1 (chief complaint)ins omnia1 (chief complaint)fat igue1 (chief complaint)sin us1 (chief complaint)HTN (chief complaint) FibromyalgiaInso mniaFatigueAcute sinusitisEssenti al (primary) hypertension 0 Samuel Andrews. [address], [place], [place], [address] , [place]. tel:[phone] Referring Provider: Betty Zelaya [address], [place], [place], [address]. tel:[phone] OFFICE/OUTPA TIENT VISIT, [facility], [address], [place], [place], [address], [place] tel:[phone] [facility] sinus allergy1 (chief complaint)dona n (chief complaint)ins omnia1 (chief complaint)fat igue1 (chief complaint) Allergic rhinitisFibromya lgiaInsomniaFati alejandra 9 Samuel Andrews. [address], [place], [place], [address] , [place]. tel:[phone] Referring Provider: Darryl Baker, Betty [address], [place], [place], [address]. tel:[phone] OFFICE/OUTPA TIENT VISIT, [facility], [address], [place], [place], [address], [place] tel:[phone] [facility] HTN (chief complaint)fib romyalgia1 (chief complaint)ins omnia1 (chief complaint)sin us allergy1 (chief complaint) FibromyalgiaInso mniaEssential (primary) hypertensionAlle rgic rhinitis 9 Samuel Andrews. [address], [place], [place], [address] , [place]. tel:[phone] Referring Provider: Betty Zelaya [address], [place], [place], [address]. tel:[phone] OFFICE/OUTPA TIENT VISIT, [facility], [address], [place], [place], [address], [place] tel:[phone] [facility] HTN (chief complaint)ophelia ma1 (chief complaint)chr onic pain1 (chief complaint)ins omnia1 (chief complaint) Essential (primary) hypertensionEdem aFibromyalgiaIns omnia 9 Samuel Andrews. [address], [place], [place], [address] , [place]. tel:[phone] Referring Provider: Betty Zelaya [address], [place], [place], [address]. tel:[phone] OFFICE/OUTPA TIENT VISIT, [facility], [address], [place], [place], [address], [place] tel:[phone] [facility] toe pain1 (chief complaint)fib romyalgia1 (chief complaint)ins omnia1 (chief complaint) FibromyalgiaInso mniaDermatophyto sis of nail 9 Samuel Andrews. [address], [place], [place], [address] , [place]. tel:[phone] Referring Provider: Darryl Baker, [address], [place], [place], [address]. tel:[phone] OFFICE/OUTPA TIENT VISIT, [facility], [address], [place], [place], [address], [place] tel:[phone] [facility] chronic pain1 (chief complaint)ins omnia1 (chief complaint) FibromyalgiaInso mnia 9 Samuel Andrews. [address], [place], [place], [address] , [place]. tel:[phone] Referring Provider: Betty Zelaya [address], [place], [place], [address]. tel:[phone] OFFICE/OUTPA TIENT VISIT, [facility], [address], [place], [place], [address], [place] tel:[phone] [facility] sinusitis1 (chief complaint)HTN (chief complaint)fib romyalgia1 (chief complaint)ins omnia1 (chief complaint) InsomniaFibromya lgiaEssential (primary) hypertensionAcut e sinusitis 9 Samuel Andrews. [address], [place], [place], [address] , [place]. tel:[phone] Referring Provider: Betty Zelaya [address], [place], [place], [address]. tel:[phone] OFFICE/OUTPA TIENT VISIT, [facility], [address], [place], [place], [address], [place] tel:[phone] [facility] HTN (chief complaint)fib romyalgia1 (chief complaint)ins omnia1 (chief complaint) Essential (primary) hypertensionFibr omyalgiaInsomnia 9 Samuel Garcia [address], [place], [place], [address] , [place]. tel:[phone] Referring Provider: Betty [address], [place], [place], [address]. tel:[phone] OFFICE/OUTPA TIENT VISIT, [facility], [address], [place], [place], [address], [place] tel:[phone] [facility] numbness1 (chief complaint)fib romyalgia1 (chief complaint)anx iety1 (chief complaint)gurinder ral regu (chief complaint) OsteoporosisFibr omyalgiaParesthe quinton of skinInsomniaNonr heumatic mitral valve prolapse 9 Samuel Garcia [address], [place], [place], [address] , [place]. tel:[phone] Referring Provider: Betty [address], [place], [place], [address]. tel:[phone] OFFICE/OUTPA TIENT VISIT, [facility], [address], [place], [place], [address], [place] tel:[phone] [facility] numbness1 (chief complaint)chr onic pain (chief complaint)ins omnia1 (chief complaint) FibromyalgiaInso mniaParesthesia of skin 9 Samuel [address], [place], [place], [address] , [place]. tel:[phone] Referring Provider: Betty [address], [place], [place], [address]. tel:[phone] OFFICE/OUTPA TIENT VISIT, [facility], [address], [place], [place], [address], [place] tel:[phone] [facility] PHysical (chief complaint) Encounter for general adult medical exam w abnormal findingsHyperlip idemiaEssential (primary) hypertensionOste oporosisFibromya lgiaInsomnia 9 Samuel Garcia [address], [place], [place], [address] , [place]. tel:[phone] Referring Provider: Betty Zelaya [facility], [place], [place], [address]. tel:[phone] OFFICE/OUTPA TIENT VISIT, [facility], [address], [place], [place], [address], tel:[phone] [facility] osteoporosis1 (chief complaint)fib romyalgia1 (chief complaint)sin us1 (chief complaint)HTN (chief complaint)ins omnia1 (chief complaint) FibromyalgiaOste oporosisEssentia l (primary) hypertensionAlle rgic rhinitisInsomnia 9 Samuel Andrews. [address], [place], [place], [address] , . tel:[phone] Referring Provider: Betty Zelaya [place], [address]. tel:[phone] OFFICE/OUTPA TIENT VISIT, [facility], [address] [place], [address], [place] tel:[phone] [facility] fibromyalgia1 (chief complaint)anx iety1 (chief complaint)fat igue1 (chief complaint)sin us (chief complaint) Allergic rhinitisFatigueF ibromyalgiaInsom fabiana 9 Samuel Andrews. [address] [facility] [address], [place], [place], [address] , [place]. tel:[phone] Referring Provider: Betty Zelaya [facility] A, [place], [place], [address]. tel:[phone] OFFICE/OUTPA TIENT VISIT, [facility], [address] [place], [address], [place] tel:[phone] [facility] sinus allergy1 (chief complaint)chr onic pain (chief complaint)ins omnia1 (chief complaint) InsomniaFibromya lgiaAllergic rhinitis 9 Samuel Andrews. [address], [place], [place], [address] , [place]. tel:[phone] Referring Provider: Betty Zelaya [address], [place], [place], [address]. tel:[phone] OFFICE/OUTPA TIENT VISIT, [facility], [address], [place], [place], [address], [place] tel:[phone] [facility] fibromyalgia1 (chief complaint)ins omnia1 (chief complaint)ost eoporosis1 (chief complaint)HTN (chief complaint) OsteoporosisEsse ntial (primary) hypertensionFibr omyalgiaInsomnia 8 Samuel Andrews. [address], [place], [place], [address] , [place]. tel:[phone] Referring Provider: Betty Zelaya [facility], [place], [place], [address]. tel:[phone] OFFICE/OUTPA TIENT VISIT, [facility], [address], [place], [place], [address], [place] tel:[phone] [facility] fibromyalgia1 (chief complaint)ins omnia1 (chief complaint) FibromyalgiaInso mnia 8 Samuel Andrews. [address], [place], [place], [address] , [place]. tel:[phone] Referring Provider: Betty Zelaya [address] [facility], [place], [place], [address]. tel:[phone] OFFICE/OUTPA TIENT VISIT, [facility], [address], [place], [place], [address], [place] tel:[phone] [facility] hlp (chief complaint)fib romyalgia1 (chief complaint)ins omnia1 (chief complaint) FibromyalgiaHype rlipidemiaInsomn iaPain in left shoulder 8 Samuel Andrews. [address], [place], [place], [address] , [place]. tel:[phone] Referring Provider: Betty Zelaya [address], [place], [place], [address]. tel:[phone] OFFICE/OUTPA TIENT VISIT, [facility], [address], [place], [place], [address], [place] tel:[phone] [facility] fibromyalgia1 (chief complaint)HTN (chief complaint)ins omnia1 (chief complaint)yaya ght loss1 (chief complaint) Essential (primary) hypertensionFibr omyalgiaAbnormal weight lossInsomnia 8 Samuel Andrews. [address], [place], [place], [address] , [place]. tel:[phone] Referring Provider: Betty Zelaya [address] [facility], [place], [place], [address]. tel:[phone] OFFICE/OUTPA TIENT VISIT, [facility], [address] [place], [address], [place] tel:[phone] [facility] arm pain1 (chief complaint)ins omnia1 (chief complaint)fib romyalgia1 (chief complaint)HTN (chief complaint)ost eoporosis1 (chief complaint) Essential (primary) hypertensionOste oporosisPain in left upper armFibromyalgiaI nsomniaHemorrhoi d 8 Samuel Andrews. [address], [place], [place], [address] , [place]. tel:[phone] Referring Provider: Betty Zelaya [facility], [place], [place], [address]. tel:[phone] OFFICE/OUTPA TIENT VISIT, [facility], [address], [place], [place], [address], [place] tel:[phone] [facility] hemorrhoid1 (chief complaint)fib romyalgia1 (chief complaint)anx iety1 (chief complaint)lauren dder prolase1 (chief complaint) FibromyalgiaCyst oceleBenign neoplasm of right kidneyHemorrhoid Insomnia 0 8 Samuel Andrews. [address], [place], [place], [address] , [place]. tel:[phone] Referring Provider: Darryl Baker, [address], [place], [place], [address]. tel:[phone] OFFICE/OUTPA TIENT VISIT, [facility], [address], [place], [place], [address], [place] tel:[phone] [facility] fibromyalgia1 (chief complaint)ins omnia1 (chief complaint)ang iomyolipoma1 (chief complaint)ora l numbness 1 (chief complaint) Benign neoplasm of right kidneyAcute sinusitisFibromy algiaParesthesia of skin 8 Samuel Andrews. [address], [place], [place], [address] , [place]. tel:[phone] Referring Provider: Darryl Baker [address], [place], [place], [address]. tel:[phone] OFFICE/OUTPA TIENT VISIT, [facility], [address], [place], [place], [address], [place] tel:[phone] [facility] fibromyalgia1 (chief complaint)ins omnia1 (chief complaint)gill al cyst1 (chief complaint) FibromyalgiaInso mniaBenign neoplasm of right kidneyCystocele 8 Samuel Andrews. [address], [place], [place], [address] , [place]. tel:[phone] Referring Provider: Betty Zelaya [address], [place], [place], [address]. tel:[phone] OFFICE/OUTPA TIENT VISIT, [facility], [address], [place], [place], [address], [place] tel:[phone] [facility] chronic pain (chief complaint)ins omnia1 (chief complaint)sin us1 (chief complaint) FibromyalgiaInso mniaChronic sinusitis 8 Samuel Andrews. [address], [address], [place], [place], [address] , [place]. tel:[phone] OFFICE/OUTPA TIENT VISIT, [facility], [address], [place], [place], [address], [place] tel:[phone] [facility] fibromyalgia1 (chief complaint)ost eoporosis1 (chief complaint)sin us1 (chief complaint)ins omnia1 (chief complaint) FibromyalgiaOste oporosisChronic sinusitisInsomni a 8 Samuel Andrews. [address], [place], [place], [address] , [place]. tel:[phone] OFFICE/OUTPA TIENT VISIT, [facility], [address], [place], [place], [address], [place] tel:[phone] [facility] Medicine PHysical (chief complaint) Encounter for general adult medical exam w abnormal findingsFibromya lgiaEssential (primary) hypertensionOste oporosis 8 Samuel Andrews. [address], [address], [place], [place], [address] , [place]. tel:[phone] OFFICE/OUTPA TIENT VISIT, [facility], [address], [place], [place], [address], [place] tel:[phone] [facility] sick (chief complaint) Acute bronchitisAcute upper respiratory infection, unspecified 8 Samuel Andrews. [address], [place], [place], [address] , [place]. tel:[phone] Referring Provider: Darryl Baker, [address], [place], [place], [address]. tel:[phone] OFFICE/OUTPA TIENT VISIT, [facility], [address], [place], [place], [address], [place] tel:[phone] [facility] fibromyalgia1 (chief complaint)ins omnia1 (chief complaint)HTn (chief complaint) FibromyalgiaInso mniaEssential (primary) hypertension 0 8 Samuel Andrews. [address], [place], [place], [address] , [place]. tel:[phone] OFFICE/OUTPA TIENT VISIT, [facility], [address], [place], [place], [address], [place] tel:[phone] [facility] fibromyalgia1 (chief complaint)ins omnia1 (chief complaint)ost eoporosis1 (chief complaint)col d (chief complaint) OsteoporosisFibr omyalgiaInsomnia Acute upper respiratory infection, unspecified 0 4 8 Samuel Andrews. [address], [place], [place], [address] , [place]. tel:[phone] Referring Provider: Betty Zelaya [address], [place], [place], [address]. tel:[phone] OFFICE/OUTPA TIENT VISIT, [facility], [address] [place], [address], [place] tel:[phone] [facility] sob1 (chief complaint)ins omnia1 (chief complaint)fib romyalgia1 (chief complaint) Shortness of breathAcute bronchitisFibrom yalgiaInsomnia Sep-0 6201 7 Samuel Andrews. [address], [place], [place], [address] , [place]. tel:[phone] Referring Provider: Betty Zelaya [facility] [place], [address]. tel:[phone] OFFICE/OUTPA TIENT VISIT, [facility], [address] [place], [address], [place] tel:[phone] [facility] jonit pain1 (chief complaint)anx iety1 (chief complaint)ost eoporosis1 (chief complaint)brant t pain1 (chief complaint)SOB (chief complaint) Shortness of breathOsteoporos isInsomniaFibrom yalgia Aug-0 8201 7 Samuel Andrews. [address], [place], [place], [address] , [place]. tel:[phone] Referring Provider: Betty Zelaya [facility] A, [place], [place], [address]. tel:[phone] OFFICE/OUTPA TIENT VISIT, [facility], [address], [place], [place], [address], [place] tel:[phone] [facility] osteoporosis1 (chief complaint)fib romyalgia1 (chief complaint)ins omnia1 (chief complaint)gill al cyst1 (chief complaint) InsomniaFibromya lgiaOsteoporosis Acquired renal cyst 7 Samuel Garcia [address] [facility] [address], [place], [place], [address] , [place]. tel:[phone] OFFICE/OUTPA TIENT VISIT, [facility], [address], [place], [place], [address], [place] tel:[phone] [facility] fibromyalgia1 (chief complaint)ins omnia1 (chief complaint) FibromyalgiaInso mnia 7 Samuel De La [address], [place], [place], [address] , [place]. [phone] OFFICE/OUTPA TIENT VISIT, [facility], [address], [place], [place], [address], [place] tel:[phone] [facility] insomnia1 (chief complaint)fib romyalgia1 (chief complaint)fat igue1 (chief complaint)HTN (chief complaint) FibromyalgiaFati gueInsomniaEssen tial (primary) hypertension 7 Samuel Garcia [address] [facility] A, [place], [place], [address] , [place]. tel:[phone] Referring Provider: Darryl Baker, [address] [facility] A, [place], [place], [address]. tel:[phone] OFFICE/OUTPA TIENT VISIT, [facility], [address], [place], [place], [address], [place] tel:[phone] [facility] fatigue1 (chief complaint)lef t shoulder pain1 (chief complaint)ost eoporosis1 (chief complaint)fib romyalgia1 (chief complaint)ins omnia1 (chief complaint) FatigueOsteoporo sisFibromyalgiaI nsomnia 7 Samuel Garcia [address] [facility] [place], [place], [address] , [place]. tel:[phone] Referring Provider: Betty Zelaya [facility] A, [place], [place], [address]. tel:[phone] OFFICE/OUTPA TIENT VISIT, [facility], [address], [place], [place], [address], [place] tel:[phone] [facility] fibromyalgia1 (chief complaint)anx iety1 (chief complaint)fat igue1 (chief complaint) FatigueGeneraliz ed anxiety disorderFibromya lgia 7 Samuel Andrews. [address] [facility] A, [place], [place], [address] , [place]. tel:[phone] Referring Provider: Betty Zelaya [facility] A, [place], [place], [address]. tel:[phone] OFFICE/OUTPA TIENT VISIT, [facility], [address], [place], [place], [address], [place] tel:[phone] [facility] fibromyalgia1 (chief complaint)ost eoporosis1 (chief complaint)anx iety1 (chief complaint)ski n CA1 (chief complaint) OsteoporosisFibr omyalgiaGenerali zed anxiety disorderBasal cell carcinoma of skin, unspecified 7 Samuel Andrews. [address], [place], [place], [address] , [place]. tel:[phone] Referring Provider: Betty Zelaya [facility] A, [place], [place], [address]. tel:[phone] OFFICE/OUTPA TIENT VISIT, [facility], [address], [place], [place], [address], [place] tel:[phone] [facility] osteoporosis1 (chief complaint)HTN (chief complaint)fib romyalgia1 (chief complaint)ins omnia1 (chief complaint) OsteoporosisChro meera pain syndromeGenerali zed anxiety disorderEssentia l (primary) hypertension 0 7 Samuel Andrews. [address], [place], [place], [address] , [place]. tel:[phone] Referring Provider: Betty Zelaya [address], [place], [place], [address]. tel:[phone] OFFICE/OUTPA TIENT VISIT, [facility], [address], [place], [place], [address], [place] tel:[phone] [facility] anxiety1 (chief complaint)fib romyalgia1 (chief complaint) FibromyalgiaGene ralized anxiety disorder Apr-0 4 7 Samuel Andrews. [address], [place], [place], [address] , [place]. tel:[phone] Referring Provider: Betty Zelaya [address], [place], [place], [address]. tel:[phone] OFFICE/OUTPA TIENT VISIT, [facility], [address], [place], [place], [address], [place] tel:[phone] [facility] fibromyalgia1 (chief complaint)anx iety1 (chief complaint) FibromyalgiaGene ralized Anxiety Disorder Mar-0 2 7 Samuel Andrews. [address], [place], [place], [address] , [place]. tel:[phone] Referring Provider: Betty Zelaya [address], [place], [place], [address]. tel:[phone] OFFICE/OUTPA TIENT VISIT, [facility], [address], [place], [place], [address], [place] tel:[phone] [facility] jont pain (chief complaint)anx iety1 (chief complaint)ost eoprosis1 (chief complaint) Chronic pain syndromeGenerali zed Anxiety DisorderOsteopor osis Feb-0 7 Samuel Andrews. [address], [place], [place], [address] , [place]. tel:[phone] Referring Provider: Betty Zelaya [address], [place], [place], [address]. tel:[phone] OFFICE/OUTPA TIENT VISIT, [facility], [address], [place], [place], [address], [place] tel:[phone] [facility] anxiety1 (chief complaint)fib romyalgia (chief complaint)elb ow pain1 (chief complaint)HLP (chief complaint) Chronic pain syndromeGenerali zed Anxiety DisorderPain in right elbow 7 Samuel Andrews. [address], [place], [place], [address] , [place]. tel:[phone] Referring Provider: Darryl Baker, [address], [place], [place], [address]. tel:[phone] PREV VISIT, EST, 65 & OVER [facility], [address], [place], [place], [address], [place] tel:[phone] [facility] PHysical (chief complaint) Encntr for general adult medical exam w/o abnormal findings 6 Samuel Andrews. [address], [place], [place], [address] , [place]. tel:[phone] Referring Provider: Betty Zelaya [address], [place], [place], [address]. tel:[phone] OFFICE/OUTPA TIENT VISIT, [facility], [address], [place], [place], [address], [place] tel:[phone] [facility] chronic pain1 (chief complaint)anx iety1 (chief complaint) FibromyalgiaGene ralized Anxiety Disorder 6 Samuel Andrews. [address], [place], [place], [address] , [place]. tel:[phone] Referring Provider: Betty Zelaya [address], [place], [place], [address]. tel:[phone] OFFICE/OUTPA TIENT VISIT, [facility], [address], [place], [place], [address], [place] tel:[phone] [facility] fibromyalgia1 (chief complaint)anx iety1 (chief complaint) FibromyalgiaGene ralized Anxiety Disorder 6 Samuel Andrews. [address], [place], [place], [address] , [place]. tel:[phone] Referring Provider: Betty Zelaya [address], [place], [place], [address]. tel:[phone] OFFICE/OUTPA TIENT VISIT, [facility], [address], [place], [place], [address], [place] tel:[phone] [facility] fibromyalgia1 (chief complaint)anx iety1 (chief complaint)vis ion change (chief complaint) FibromyalgiaGene ralized Anxiety Disorder 6 Samuel Andrews. [address], [place], [place], [address] , [place]. tel:[phone] Referring Provider: Betty Zelaya [address], [place], [place], [address]. tel:[phone] OFFICE/OUTPA TIENT VISIT, [facility], [address], [place], [place], [address], [place] tel:[phone] [facility] neck pain1 (chief complaint) Spasmodic torticollis 6 Samuel Andrews. [address], [place], [place], [address] , [place]. tel:[phone] Referring Provider: Betty Zelaya [address], [place], [place], [address]. tel:[phone] OFFICE/OUTPA TIENT VISIT, [facility], [address], [place], [place], [address], [place] tel:[phone] [facility] chronic pain (chief complaint)anx iety1 (chief complaint)HTN (chief complaint) FibromyalgiaGene ralized Anxiety DisorderEssentia l (primary) hypertension 6 Samuel Andrews. [address], [place], [place], [address] , [place]. tel:[phone] Referring Provider: Betty Zelaya [address], [place], [place], [address]. tel:[phone] OFFICE/OUTPA TIENT VISIT, [facility], [address], [place], [place], [address], [place] tel:[phone] [facility] chronic pedro (chief complaint)anx iety1 (chief complaint) Chronic pain syndromeGenerali zed Anxiety Disorder 6 Samuel Andrews. [address], [place], [place], [address] , [place]. tel:[phone] Referring Provider: Betty Zelaya [address], [place], [place], [address]. tel:[phone] OFFICE/OUTPA TIENT VISIT, [facility], [address], [place], [place], [address], [place] tel:[phone] [facility] chrnoic pain (chief complaint)Anx iety1 (chief complaint) FibromyalgiaGene ralized Anxiety Disorder 6 Samuel Andrews. [address], [place], [place], [address] , [place]. tel:[phone] Referring Provider: Betty Zelaya [address], [place], [place], [address]. tel:[phone] OFFICE/OUTPA TIENT VISIT, [facility], [address], [place], [place], [address], [place] tel:[phone] [facility] fibromyalgia (chief complaint)anx iety1 (chief complaint)HTN 1 (chief complaint) FibromyalgiaEsse ntial (primary) hypertensionGene ralized anxiety disorder 6 Samuel Andrews. [address], [place], [place], [address] , [place]. tel:[phone] Referring Provider: Betty Zelaya [address], [place], [place], [address]. tel:[phone] OFFICE/OUTPA TIENT VISIT, [facility], [address], [place], [place], [address], [place] tel:[phone] [facility] back pain1 (chief complaint)anx iety1 (chief complaint) FibromyalgiaGene ralized Anxiety Disorder 6 Samuel Andrews. [address], [address] [place], [address] , [place]. [phone] Referring Provider: Betty Zelaya [facility] [place], [address]. tel:[phone] OFFICE/OUTPA TIENT VISIT, [facility], [address] [place], [address], [place] [phone] [facility] HTN (chief complaint)anx iety1 (chief complaint)fib romyalgia (chief complaint)ost eoporosis1 (chief complaint) Other chronic painOsteoporosis Generalized Anxiety DisorderEssentia l (primary) hypertension 6 Samuel Andrews. [address] [facility] [address] [place], [address] , [place]. tel:[phone] Referring Provider: Betty Zelaya [facility] [place], [address]. tel:[phone] OFFICE/OUTPA TIENT VISIT, [facility], [address] [place], [address], [place] tel:[phone] [facility] HTN1 (chief complaint)fib romyalgia1 (chief complaint)anx iety1 (chief complaint)fat igue1 (chief complaint) FibromyalgiaGene ralized Anxiety DisorderSleep apneaEssential (primary) hypertension 6 Samuel Andrews. [address], [place], [place], [address] , [place]. [phone] Referring Provider: Betty Zelaya [facility] [place], [address]. tel:[phone] OFFICE/OUTPA TIENT VISIT, [facility], [address] [place], [address], [place] tel:[phone] [facility] HTN1 (chief complaint)ost eoporosis1 (chief complaint)Fib romyalgia1 (chief complaint)anx iety1 (chief complaint) Essential (primary) hypertensionFibr omyalgiaGenerali zed anxiety disorderOsteopor osis 6 5 Samuel Andrews. [address], [place], [place], [address] , [place]. tel:[phone] Referring Provider: Darryl Baker, Betty [facility] A, [place], [place], [address]. tel:[phone] OFFICE/OUTPA TIENT VISIT, [facility], [address], [place], [place], [address], [place] tel:[phone] [facility] HTN1 (chief complaint)Anx iety1 (chief complaint)fib romyalgia1 (chief complaint) FibromyalgiaGene ralized anxiety disorderEssentia l (primary) hypertensionAcqu ired renal cyst 5 Samuel Andrews. [address] [facility] [address], [place], [place], [address] , [place]. tel:[phone] Referring Provider: Betty Zelaya [facility] A, [place], [place], [address]. tel:[phone] OFFICE/OUTPA TIENT VISIT, [facility], [address] [facility] [place], [address], [place] tel:[phone] [facility] insulin resistance1 (chief complaint)anx iety1 (chief complaint)HTN 1 (chief complaint)gill al cyst1 (chief complaint) FibromyalgiaMeta bolic syndromeAcquired renal cystEssential (primary) hypertension 2 0201 5 Samuel Andrews. [address], [place], [place], [address] , [place]. tel:[phone] Referring Provider: Betty Zelaya [facility] A, [place], [place], [address]. tel:[phone] OFFICE/OUTPA TIENT VISIT, [facility], [address] [place], [address], [place] tel:[phone] [facility] Anxiety (chief complaint)fib romyalgia (chief complaint)glu cose (chief complaint) Dietary surveillance and counselingHyperg lycemiaProteinur iaGeneralized anxiety disorderUnspecif ied essential hypertension 5 Samuel Andrews. [address], [place], [place], [address] , [place]. tel:[phone] Referring Provider: Betty Zelaya [address], [place], [place], [address]. tel:[phone] PREV VISIT, EST, 65 & OVER [facility], [address], [place], [place], [address], [place] tel:[phone] [facility] Physical (chief complaint) Routine medical exam 5 Samuel Andrews. [address], [place], [place], [address] , [place]. [phone] Referring Provider: Betty Zelaya [address], [place], [place], [address]. tel:[phone] OFFICE/OUTPA TIENT VISIT, [facility], [address], [place], [place], [address], [place] [phone] [facility] osteoporosis (chief complaint)Crh oinc pain (chief complaint)Anx eity (chief complaint) OsteoporosisFibr omyalgiaGenerali zed anxiety disorder 5 Samuel Garcia [address], [place], [place], [address] , [place]. tel:[phone] Referring Provider: Betty Zelaya [address], [place], [place], [address]. tel:[phone] OFFICE/OUTPA TIENT VISIT, [facility], [address], [place], [place], [address], [place] tel:[phone] [facility] fibromyalgia (chief complaint)anx iety (chief complaint)ost eoporosis (chief complaint) Dietary surveillance and counselingMyalgi a and myositis, unspecifiedGener alized anxiety disorderMalignan t neoplasm of central portion of female breastOther osteoporosis Jan- 5 Samuel Andrews. [address], [place], [address] , . tel:[phone] Referring Provider: Betty Zelaya [place], [place], [address]. tel:[phone] OFFICE/OUTPA TIENT VISIT, [facility], [address] [place], [address], [place] tel:[phone] [facility] sinus symptoms (acute) (chief complaint)chr onic pain (chief complaint)anx iety (chief complaint)ost eoporosis (chief complaint) Other and unspecified diseases of upper respiratory tractInsomnia, OtherOther osteoporosisMyal laly and myositis, unspecified 5 Samuel Andrews. [address] [place], [place], [address] , . tel:[phone] Referring Provider: Betty Zelaya [place], [address]. tel:[phone] OFFICE/OUTPA TIENT VISIT, [facility], [address] [facility] [facility] [place], [address], [place] tel:[phone] [facility] osteoporosis (chief complaint)cou gh (chief complaint)dona n (chief complaint)anx iety (chief complaint) Dietary surveillance and counselingOther osteoporosisGene ralized anxiety disorderBronchit is, AcuteOpioid type dependence, unspecified use 5 Samuel Andrews. [address] [place], [place], [address] , [place]. tel:[phone] Referring Provider: Betty Zelaya [place], [place], [address]. tel:[phone] OFFICE/OUTPA TIENT VISIT, [facility], [address] [facility] [place], [address], [place] tel:[phone] [facility] chronic pain (chief complaint)Anx iety (chief complaint)HTN (chief complaint) Dietary surveillance and counselingLumbag oPain in joint involving pelvic region and thighHypertensio n, UnspecifiedGener alized anxiety disorder 5 Samuel Garcia [address], [place], [place], [address] , [place]. tel:[phone] Referring Provider: Betty Zelaya [address], [place], [place], [address]. tel:[phone] OFFICE/OUTPA TIENT VISIT, [facility], [address], [place], [place], [address], [place] tel:[phone] [facility] chronic pain (chief complaint)anx iety (chief complaint) Dietary surveillance and counselingMyalgi a and myositis, unspecifiedGener alized anxiety disorder 4 Samuel Garcia [address], [place], [place], [address] , [place]. tel:[phone] Referring Provider: Betty Zelaya [address], [place], [place], [address]. tel:[phone] OFFICE/OUTPA TIENT VISIT, [facility], [address], [place], [place], [address], [place] tel:[phone] [facility] osteoporosis (chief complaint)chr onic pain (chief complaint)ins omnia (chief complaint)quinten er cyst (chief complaint) Dietary surveillance and counselingOther osteoporosisGene ralized anxiety disorderCHRONIC PAIN NECSynovial cyst of popliteal space 4 Samuel Garcia [address], [place], [place], [address] , [place]. tel:[phone] Referring Provider: Betty Zelaya [address], [place], [place], [address]. tel:[phone] OFFICE/OUTPA TIENT VISIT, [facility], [address], [place], [place], [address], [place] tel:[phone] [facility] leg pain (chief complaint)ost eoporosis (chief complaint)HTN (chief complaint) Pain in joint involving lower legOther osteoporosisCHRO MEERA PAIN NECHypertension, Unspecified 4 Baker Darryl. [address], [place], [place], [address] , [place]. tel:[phone] Referring Provider: Darryl Baker, Betty [address], [place], [place], [address]. tel:[phone] OFFICE/OUTPA TIENT VISIT, [facility], [address], [place], [place], [address], [place] tel:[phone] [facility] osteoporosis (chief complaint)fib romyalgia (chief complaint)anx iety (chief complaint) Other osteoporosisCHRO MEERA PAIN NECGeneralized anxiety disorder 4 Samuel Andrews. [address], [place], [place], [address] , [place]. tel:[phone] Referring Provider: Darryl Baker, Betty [address], [place], [place], [address]. tel:[phone] OFFICE/OUTPA TIENT VISIT, [facility], [address], [place], [place], [address], [place] tel:[phone] [facility] osteoporosis (chief complaint)HLP (chief complaint)A1c (chief complaint)anx iety (chief complaint) Dietary surveillance and counselingOther osteoporosisOthe r and unspecified hyperlipidemiaHy perglycemiaGener alized anxiety disorder 4 Samuel Andrews. [address], [place], [place], [address] , [place]. tel:[phone] Referring Provider: Betty Zelaya [address], [place], [place], [address]. tel:[phone] PREV VISIT, EST, 65 & OVER [facility], [address], [place], [place], [address], [place] tel:[phone] [facility] Physical (chief complaint) Routine Medical ExamDietary surveillance and counselingRoutin e Medical Exam 4 Samuel Andrews. [address], [place], [place], [address] , [place]. tel:[phone] Referring Provider: Betty Zelaya [address], [place], [place], [address]. tel:[phone] OFFICE/OUTPA TIENT VISIT, [facility], [address] [place], [address], [place] tel:[phone] [facility] HTN (chief complaint)fib romyalgia (chief complaint)Ins omnia (chief complaint) Dietary surveillance and counselingHypert ension, UnspecifiedDizzi nessCHRONIC PAIN NEC 4 Samuel Andrews. [address], [place], [place], [address] , [place]. tel:[phone] Referring Provider: Betty Zelaya [facility] [place], [address]. tel:[phone] OFFICE/OUTPA TIENT VISIT, [facility], [address] [place], [address], [place] tel:[phone] [facility] SOB (chief complaint)cho rnic pain (chief complaint)Anx iety (chief complaint)diz ziness (chief complaint) Respiratory abnormality, unspecifiedCHRON IC PAIN NECDizzinessGene ralized anxiety disorder 4 Samuel Andrews. [address] [facility] [place] [address] , [place]. [phone] Referring Provider: Betty Zelaya [facility] [facility] [place], [address]. tel:[phone] OFFICE/OUTPA TIENT VISIT, [facility], [address] [place], [address], [place] tel:[phone] [facility] fibromyalgia (chief complaint)ins omnia (chief complaint)HTN (chief complaint)ost eoporosis (chief complaint) CHRONIC PAIN NECInsomnia, OtherHypertensio n, UnspecifiedOther osteoporosis 4 Samuel Andrews. [address], [place], [place], [address] , [place]. [phone] Referring Provider: Betty Zelaya [facility], [place], [place], [address]. tel:[phone] OFFICE/OUTPA TIENT VISIT, [facility], [address], [place], [place], [address], [place] tel:[phone] [facility] sinus infection (chief complaint)cho rnic pain (chief complaint)ins omnia (chief complaint)sima st pain (chief complaint) Dietary surveillance and counselingSinusi tis, AcuteInsomnia, OtherCHRONIC PAIN NEC 4 Samuel Andrews. [address], [place], [place], [address] , [place]. tel:[phone] Referring Provider: Betty Zelaya [address], [place], [place], [address]. tel:[phone] OFFICE/OUTPA TIENT VISIT, [facility], [address], [place], [place], [address], [place] tel:[phone] [facility] chronic pain (chief complaint)ins omnia (chief complaint)sima st pain (chief complaint) Dietary surveillance and counselingInsomn ia, OtherPain in joint involving shoulder regionChest Pain, Unspecified 4 Samuel Andrews. [address], [place], [place], [address] , [place]. [phone] Referring Provider: Betty Zelaya [address], [place], [place], [address]. tel:[phone] OFFICE/OUTPA TIENT VISIT, [facility], [address], [place], [place], [address], [place] tel:[phone] [facility] Insomnia (chief complaint)bethany ulder pain (chief complaint)cho rnic pain (chief complaint)fat igue (chief complaint) Insomnia, OtherFatigue / MalaisePain in joint involving shoulder region 4 Samuel Garcia [address], [place], [place], [address] , [place]. [phone] Referring Provider: Betty Zelaya [address], [place], [address]. tel:[phone] OFFICE/OUTPA TIENT VISIT, [facility], [address], [place], [place], [address], [place] tel:[phone] [facility] shoulder pain (chief complaint)anx iety (chief complaint) Dietary surveillance and counselingPain in joint involving shoulder region 3 Samuel Andrews. [address], [place], [place], [address] , [place]. tel:[phone] Referring Provider: Darryl Baker, [address], [place], [place], [address]. tel:[phone] OFFICE/OUTPA TIENT VISIT, [facility], [address], [place], [place], [address], [place] tel:[phone] [facility] chronic pain (chief complaint)anx iety (chief complaint)diz ziness (chief complaint) Dietary surveillance and counselingCHRONI C PAIN NECDizziness 3 Samuel Garcia [address], [place], [place], [address] , [place]. tel:[phone] OFFICE/OUTPA TIENT VISIT, [facility], [address], [place], [place], [address], [place] tel:[phone] [facility] dizziness (chief complaint)chr onic pain (chief complaint) Dietary surveillance and counselingDizzin essCHRONIC PAIN NECGeneralized anxiety disorder 3 Samuel Garcia [address], [place], [place], [address] , [place]. tel:[phone] OFFICE/OUTPA TIENT VISIT, [facility], [address], [place], [place], [address], [place] tel:[phone] [facility] dizziness (chief complaint) VertigoChest Pain, UnspecifiedDieta ry surveillance and counselingOther osteoporosisMusc le weakness (generalized) 3 Samuel Andrews. [address], [place], [place], [address] , [place]. tel:[phone] Referring Provider: Betty Zelaya [address], [place], [place], [address]. tel:[phone] OFFICE/OUTPA TIENT VISIT, [facility], [address], [place], [place], [address], [place] tel:[phone] [facility] fibromyalgia (chief complaint)HLP (chief complaint)Hyp erglycemia (chief complaint)sharyn ast CA (chief complaint) Dietary surveillance and counselingOther osteoporosisOthe r and unspecified hyperlipidemiaHy perglycemiaCHRON IC PAIN NEC Jun-0 3 Samuel Andrews. [address], [place], [place], [address] , [place]. [phone] Referring Provider: Betty Zelaya [address], [place], [address]. tel:[phone] OFFICE/OUTPA TIENT VISIT, [facility], [address], [place], [place], [address], [place] tel:[phone] [facility] breast CA (chief complaint)ost eoporosis (chief complaint)chr onic pain (chief complaint) CHRONIC PAIN NECMalignant neoplasm of central portion of female breastOther osteoporosis Aug- 3 Samuel Andrews. [address], [place], [place], [address] , [place]. [phone] Referring Provider: Betty Zelaya [address], [place], [place], [address]. tel:[phone] OFFICE/OUTPA TIENT VISIT, [facility], [address], [place], [place], [address], [place] tel:[phone] [facility] breast CA (chief complaint)chr onic pain (chief complaint)HTN (chief complaint) Malignant neoplasm of central portion of female breastHypertensi on, UnspecifiedCHRON IC PAIN NEC 3 Samuel Andrews. [address], [place], [place], [address] , [place]. tel:[phone] Referring Provider: Darryl Baker [address], [place], [place], [address]. tel:[phone] OFFICE/OUTPA TIENT VISIT, EST [facility], [address], [place], [place], [address], [place] tel:[phone] [facility] Breast CA (chief complaint)ost eoporosis (chief complaint)anx iety (chief complaint) Dietary surveillance and counselingMalign ant neoplasm of central portion of female breastOther osteoporosisFati alejandra / Malaise 3 Samuel Andrews. [address], [place], [place], [address] , [place]. tel:[phone] Referring Provider: Darryl Baker, [address], [place], [place], [address]. tel:[phone] [facility], [address], [place], [place], [address], [place] tel:[phone] [facility] Lump or mass in breast 3 Samuel Andrews. [address], [place], [place], [address] , [place]. tel:[phone] Referring Provider: Darryl Baker, [address], [place], [place], [address]. tel:[phone] PREV VISIT, NEW, 65 & OVER [facility], [address], [place], [place], [address], [place] tel:[phone] [facility] Physical (chief complaint) Dietary surveillance and counselingRoutin e Medical ExamRoutine Medical Exam 3 Samuel Andrews. [address], [place], [place], [address] , [place]. tel:[phone] Referring Provider: Darryl Baker, [address], [place], [place], [address]. tel:[phone] Family History Family Member Type Diagnosis Age At Onset Father Problem (finding) Alcoholism Father Problem (finding) liver cirrhosis Brother Problem (finding) Unknown Disease Mother Problem (finding) arthritis Brother Problem (finding) No Family history of No history of Other Payers Payer name Insurance type Covered alliance party ID Authormahoganyabhilash tinima(s) Medicare [place] WP MB [id number] [employer] Senior Supplemental Ins CI [id number] Social History Type Description Quantity Date Captured Comments Alcohol Use Details No Caffeine Use Details Unknown Tobacco Use Status Never smoked tobacco 2024 Smoking Status Never smoker Sex Female Vital Signs Date / Time: Height Weight BMI Pulse Rate Blood Pressure Temperature Respiratory Rate Body Surface Area Head Circumference BMI percentile Pulse Ox Inhaled Ox 9:39 AM 62.00 in 167.00 lbs 30.5 4 kg/m eter (2) 67 /min 120/70 mm[Hg] 97.4 F 16 /min Chief Complaint And Reason For Visit From encounter dated '01/07/2025 09:26'. RLS (chief complaint). Description: Pt has RLS .Pt is on mirapex and she started neurontin qhs since last week and her RLS is better. fibromyalgia1 (chief complaint). Description: Pt has fibromyalgia and chronic back pain Pt takes norco PRN for pain and doing ok. fatigue1 (chief complaint). Description: Pt has hypersomnia .Pt does have sleep apnea GERD1 (chief complaint). Description: Pt has intermittent GERD Pt takes pepcid and doing ok Plan Of Treatment Date Type Action Status Goal Depression screening. Due on due Goal Cognitive assessment. Due on due Goal Td vaccine. Due on due Goal Zoster vaccine. Due on due Goal Pneumococcal vaccine. Due on due Goal Colonoscopy. Due on 025 due Goal Influenza vaccine. Due on due Goal Td vaccine. Due on due Goal Cognitive assessment. Due on due Goal Depression screening. Due on due Goal Zoster vaccine. Due on due Goal Pneumococcal vaccine. Due on due Goal Colonoscopy. Due on due Goal Influenza vaccine. Due on due Goal Influenza vaccine. Due on due Goal Colonoscopy. Due on due Goal Pneumococcal vaccine. Due on due Goal Zoster vaccine. Due on due Goal Td vaccine. Due on due Goal Cognitive assessment. Due on due Goal Depression screening. Due on due Goal Zoster vaccine. Due on due Goal Pneumococcal vaccine. Due on due Goal Colonoscopy. Due on due Goal Influenza vaccine. Due on due Goal Td vaccine. Due on due Goal Cognitive assessment. Due on due Goal Depression screening. Due on due Goal Influenza vaccine. Due on due Goal Colonoscopy. Due on due Goal Pneumococcal vaccine. Due on due Goal Zoster vaccine. Due on due Goal Td vaccine. Due on due Goal Cognitive assessment. Due on due Goal Depression screening. Due on due Goal Depression screening. Due on due Goal Cognitive assessment. Due on due Goal Td vaccine. Due on due Goal Influenza vaccine. Due on due Goal Colonoscopy. Due on due Goal Pneumococcal vaccine. Due on due Goal Zoster vaccine. Due on due Goal Zoster vaccine. Due on due Goal Pneumococcal vaccine. Due on due Goal Colonoscopy. Due on due Goal Influenza vaccine. Due on due Goal Depression screening. Due on due Goal Cognitive assessment. Due on due Goal Td vaccine. Due on due Goal Zoster vaccine. Due on due Goal Pneumococcal vaccine. Due on due Goal Colonoscopy. Due on due Goal Influenza vaccine. Due on due Goal Depression screening. Due on due Goal Cognitive assessment. Due on due Goal Td vaccine. Due on due Goal Zoster vaccine. Due on due Goal Pneumococcal vaccine. Due on due Goal Colonoscopy. Due on due Goal Influenza vaccine. Due on due Goal Depression screening. Due on due Goal Cognitive assessment. Due on due Goal Td vaccine. Due on due Goal Influenza vaccine. Due on due Goal Colonoscopy. Due on due Goal Pneumococcal vaccine. Due on due Goal Zoster vaccine. Due on due Goal Depression screening. Due on due Goal Cognitive assessment. Due on due Goal Td vaccine. Due on due Goal Td vaccine. Due on due Goal Cognitive assessment. Due on due Goal Depression screening. Due on due Goal Influenza vaccine. Due on due Goal Colonoscopy. Due on due Goal Pneumococcal vaccine. Due on due Goal Zoster vaccine. Due on due Goal Zoster vaccine. Due on due Goal Pneumococcal vaccine. Due on due Goal Colonoscopy. Due on due Goal Influenza vaccine. Due on due Goal Td vaccine. Due on due Goal Cognitive assessment. Due on due Goal Depression screening. Due on due Goal Zoster vaccine. Due on due Goal Pneumococcal vaccine. Due on due Goal Colonoscopy. Due on due Goal Influenza vaccine. Due on due Goal Td vaccine. Due on due Goal Cognitive assessment. Due on due Goal Depression screening. Due on due Goal Influenza vaccine. Due on Ap due Goal Colonoscopy. Due on due Goal Pneumococcal vaccine. Due on due Goal Zoster vaccine. Due on due Goal Td vaccine. Due on due Goal Cognitive assessment. Due on due Goal Depression screening. Due on due Goal Depression screening. Due on due Goal Cognitive assessment. Due on due Goal Td vaccine. Due on due Goal Influenza vaccine. Due on Ap due Goal Colonoscopy. Due on due Goal Pneumococcal vaccine. Due on due Goal Zoster vaccine. Due on due Goal Td vaccine. Due on due Goal Cognitive assessment. Due on due Goal Depression screening. Due on due Goal Influenza vaccine. Due on Id due Goal Colonoscopy. Due on due Goal Pneumococcal vaccine. Due on due Goal Zoster vaccine. Due on due Goal Depression screening. Due on due Goal Cognitive assessment. Due on due Goal Td vaccine. Due on due Goal Influenza vaccine. Due on due Goal Colonoscopy. Due on due Goal Pneumococcal vaccine. Due on due Goal Zoster vaccine. Due on due Goal Td vaccine. Due on due Goal Cognitive assessment. Due on due Goal Depression screening. Due on due Goal Influenza vaccine. Due on due Goal Colonoscopy. Due on due Goal Pneumococcal vaccine. Due on due Goal Zoster vaccine. Due on due Goal Depression screening. Due on due Goal Cognitive assessment. Due on due Goal Td vaccine. Due on due Goal Zoster vaccine. Due on due Goal Pneumococcal vaccine. Due on due Goal Colonoscopy. Due on due Goal Influenza vaccine. Due on due Goal Influenza vaccine. Due on due Goal Colonoscopy. Due on due Goal Pneumococcal vaccine. Due on due Goal Zoster vaccine. Due on due Goal Depression screening. Due on due Goal Cognitive assessment. Due on due Goal Td vaccine. Due on due Goal Colonoscopy. Due on due Goal Pneumococcal vaccine. Due on due Goal Zoster vaccine. Due on due Goal Td vaccine. Due on due Goal Cognitive assessment. Due on due Goal Depression screening. Due on due Goal Influenza vaccine. Due on due Goal Zoster vaccine. Due on due Goal Pneumococcal vaccine. Due on due Goal Colonoscopy. Due on due Goal Td vaccine. Due on due Goal Cognitive assessment. Due on due Goal Depression screening. Due on due Goal Influenza vaccine. Due on due Goal Influenza vaccine. Due on due Goal Depression screening. Due on due Goal Cognitive assessment. Due on due Goal Td vaccine. Due on due Goal Zoster vaccine. Due on due Goal Pneumococcal vaccine. Due on due Goal Colonoscopy. Due on due Goal Cognitive assessment. Due on due Goal Depression screening. Due on due Goal Influenza vaccine. Due on due Goal Td vaccine. Due on due Goal Zoster vaccine. Due on due Goal Pneumococcal vaccine. Due on due Goal Colonoscopy. Due on due Goal Colonoscopy. Due on due Goal Pneumococcal vaccine. Due on due Goal Zoster vaccine. Due on due Goal Td vaccine. Due on due Goal Cognitive assessment. Due on due Goal Depression screening. Due on due Goal Influenza vaccine. Due on due Goal Zoster vaccine. Due on due Goal Pneumococcal vaccine. Due on due Goal Colonoscopy. Due on due Goal Td vaccine. Due on due Goal Cognitive assessment. Due on due Goal Depression screening. Due on due Goal Influenza vaccine. Due on due Goal Colonoscopy. Due on due Goal Pneumococcal vaccine. Due on due Goal Zoster vaccine. Due on due Goal Td vaccine. Due on due Goal Cognitive assessment. Due on due Goal Depression screening. Due on due Goal Influenza vaccine. Due on due Goal Zoster vaccine. Due on due Goal Influenza vaccine. Due on due Goal Pneumococcal vaccine. Due on due Goal Colonoscopy. Due on due Goal Td vaccine. Due on due Goal Cognitive assessment. Due on due Goal Depression screening. Due on due Goal Colonoscopy. Due on due Goal Pneumococcal vaccine. Due on due Goal Influenza vaccine. Due on due Goal Zoster vaccine. Due on due Goal Td vaccine. Due on due Goal Cognitive assessment. Due on due Goal Depression screening. Due on due Goal Zoster vaccine. Due on due Goal Influenza vaccine. Due on due Goal Pneumococcal vaccine. Due on due Goal Colonoscopy. Due on due Goal Td vaccine. Due on due Goal Cognitive assessment. Due on due Goal Depression screening. Due on due Goal Depression screening. Due on due Goal Cognitive assessment. Due on due Goal Td vaccine. Due on due Goal Zoster vaccine. Due on due Goal Influenza vaccine. Due on due Goal Pneumococcal vaccine. Due on due Goal Colonoscopy. Due on due Goal Td vaccine. Due on due Goal Cognitive assessment. Due on due Goal Depression screening. Due on due Goal Zoster vaccine. Due on due Goal Influenza vaccine. Due on due Goal Pneumococcal vaccine. Due on due Goal Colonoscopy. Due on due Goal Colonoscopy. Due on due Goal Pneumococcal vaccine. Due on due Goal Influenza vaccine. Due on due Goal Zoster vaccine. Due on due Goal Td vaccine. Due on due Goal Cognitive assessment. Due on due Goal Depression screening. Due on due Goal Zoster vaccine. Due on due Goal Influenza vaccine. Due on due Goal Pneumococcal vaccine. Due on due Goal Colonoscopy. Due on due Goal Td vaccine. Due on due Goal Cognitive assessment. Due on due Goal Depression screening. Due on due Goal Colonoscopy. Due on due Goal Pneumococcal vaccine. Due on due Goal Influenza vaccine. Due on due Goal Zoster vaccine. Due on due Goal Td vaccine. Due on due Goal Cognitive assessment. Due on due Goal Depression screening. Due on due Goal Zoster vaccine. Due on due Goal Influenza vaccine. Due on due Goal Pneumococcal vaccine. Due on due Goal Colonoscopy. Due on due Goal Td vaccine. Due on due Goal Cognitive assessment. Due on due Goal Depression screening. Due on due Goal Depression screening. Due on due Goal Td vaccine. Due on due Goal Zoster vaccine. Due on due Goal Influenza vaccine. Due on due Goal Pneumococcal vaccine. Due on due Goal Colonoscopy. Due on due Goal Cognitive assessment. Due on due Goal Td vaccine. Due on due Goal Depression screening. Due on due Goal Zoster vaccine. Due on due Goal Influenza vaccine. Due on due Goal Pneumococcal vaccine. Due on due Goal Colonoscopy. Due on due Goal Cognitive assessment. Due on due Goal Td vaccine. Due on due Goal Depression screening. Due on due Goal Zoster vaccine. Due on due Goal Influenza vaccine. Due on due Goal Pneumococcal vaccine. Due on due Goal Colonoscopy. Due on due Goal Cognitive assessment. Due on due Goal Cognitive assessment. Due on due Goal Colonoscopy. Due on due Goal Pneumococcal vaccine. Due on due Goal Influenza vaccine. Due on due Goal Zoster vaccine. Due on due Goal Td vaccine. Due on due Goal Depression screening. Due on due Goal Zoster vaccine. Due on due Goal Influenza vaccine. Due on due Goal Pneumococcal vaccine. Due on due Goal Colonoscopy. Due on due Goal Cognitive assessment. Due on due Goal Td vaccine. Due on due Goal Depression screening. Due on due Goal Depression screening. Due on due Goal Td vaccine. Due on due Goal Zoster vaccine. Due on due Goal Influenza vaccine. Due on due Goal Pneumococcal vaccine. Due on due Goal Colonoscopy. Due on due Goal Cognitive assessment. Due on due Goal Td vaccine. Due on due Goal Depression screening. Due on due Goal Zoster vaccine. Due on due Goal Influenza vaccine. Due on due Goal Pneumococcal vaccine. Due on due Goal Colonoscopy. Due on due Goal Cognitive assessment. Due on due Goal Depression screening. Due on due Goal Td vaccine. Due on due Goal Zoster vaccine. Due on due Goal Influenza vaccine. Due on due Goal Pneumococcal vaccine. Due on due Goal Colonoscopy. Due on due Goal Cognitive assessment. Due on due Goal Cognitive assessment. Due on due Goal Colonoscopy. Due on due Goal Pneumococcal vaccine. Due on due Goal Influenza vaccine. Due on due Goal Zoster vaccine. Due on due Goal Depression screening. Due on due Goal Td vaccine. Due on due Goal Td vaccine. Due on due Goal Depression screening. Due on due Goal Cognitive assessment. Due on due Goal Colonoscopy. Due on due Goal Pneumococcal vaccine. Due on due Goal Influenza vaccine. Due on due Goal Zoster vaccine. Due on due Goal Zoster vaccine. Due on due Goal Influenza vaccine. Due on due Goal Pneumococcal vaccine. Due on due Goal Colonoscopy. Due on due Goal Cognitive assessment. Due on due Goal Td vaccine. Due on due Goal Depression screening. Due on due Goal Cognitive assessment. Due on due Goal Colonoscopy. Due on due Goal Pneumococcal vaccine. Due on due Goal Influenza vaccine. Due on due Goal Zoster vaccine. Due on due Goal Td vaccine. Due on due Goal Depression screening. Due on due Goal Depression screening. Due on due Goal Td vaccine. Due on due Goal Cognitive assessment. Due on due Goal Colonoscopy. Due on due Goal Pneumococcal vaccine. Due on due Goal Influenza vaccine. Due on due Goal Zoster vaccine. Due on due Goal Zoster vaccine. Due on due Goal Influenza vaccine. Due on due Goal Pneumococcal vaccine. Due on due Goal Colonoscopy. Due on due Goal Cognitive assessment. Due on due Goal Depression screening. Due on due Goal Td vaccine. Due on due Goal Td vaccine. Due on due Goal Depression screening. Due on due Goal Zoster vaccine. Due on due Goal Influenza vaccine. Due on due Goal Pneumococcal vaccine. Due on due Goal Colonoscopy. Due on due Goal Cognitive assessment. Due on due Goal Td vaccine. Due on due Goal Depression screening. Due on due Goal Zoster vaccine. Due on due Goal Influenza vaccine. Due on due Goal Pneumococcal vaccine. Due on due Goal Colonoscopy. Due on due Goal Cognitive assessment. Due on due Goal Td vaccine. Due on due Goal Depression screening. Due on due Goal Zoster vaccine. Due on due Goal Influenza vaccine. Due on due Goal Pneumococcal vaccine. Due on due Goal Colonoscopy. Due on due Goal Cognitive assessment. Due on due Goal Cognitive assessment. Due on due Goal Colonoscopy. Due on due Goal Pneumococcal vaccine. Due on due Goal Influenza vaccine. Due on due Goal Zoster vaccine. Due on due Goal Depression screening. Due on due Goal Td vaccine. Due on due Goal Td vaccine. Due on due Goal Depression screening. Due on due Goal Zoster vaccine. Due on due Goal Influenza vaccine. Due on due Goal Pneumococcal vaccine. Due on due Goal Colonoscopy. Due on due Goal Cognitive assessment. Due on due Goal Cognitive assessment. Due on due Goal Colonoscopy. Due on due Goal Pneumococcal vaccine. Due on due Goal Influenza vaccine. Due on due Goal Zoster vaccine. Due on due Goal Depression screening. Due on due Goal Td vaccine. Due on due Goal Cognitive assessment. Due on due Goal Colonoscopy. Due on due Goal Pneumococcal vaccine. Due on due Goal Influenza vaccine. Due on due Goal Zoster vaccine. Due on due Goal Depression screening. Due on due Goal Td vaccine. Due on due Goal Cognitive assessment. Due on due Goal Colonoscopy. Due on due Goal Pneumococcal vaccine. Due on due Goal Influenza vaccine. Due on due Goal Zoster vaccine. Due on due Goal Depression screening. Due on due Goal Td vaccine. Due on due Goal Td vaccine. Due on due Goal Depression screening. Due on due Goal Zoster vaccine. Due on due Goal Influenza vaccine. Due on due Goal Pneumococcal vaccine. Due on due Goal Colonoscopy. Due on due Goal Cognitive assessment. Due on due Goal Cognitive assessment. Due on due Goal Colonoscopy. Due on due Goal Pneumococcal vaccine. Due on due Goal Influenza vaccine. Due on due Goal Zoster vaccine. Due on due Goal Depression screening. Due on due Goal Td vaccine. Due on due Goal Cognitive assessment. Due on due Goal Colonoscopy. Due on due Goal Pneumococcal vaccine. Due on due Goal Influenza vaccine. Due on due Goal Zoster vaccine. Due on due Goal Depression screening. Due on due Goal Td vaccine. Due on due Goal Cognitive assessment. Due on due Goal Colonoscopy. Due on due Goal Pneumococcal vaccine. Due on due Goal Influenza vaccine. Due on due Goal Zoster vaccine. Due on due Goal Depression screening. Due on due Goal Td vaccine. Due on due Goal Cognitive assessment. Due on due Goal Colonoscopy. Due on due Goal Pneumococcal vaccine. Due on due Goal Influenza vaccine. Due on due Goal Zoster vaccine. Due on due Goal Depression screening. Due on due Goal Td vaccine. Due on due Goal Cognitive assessment. Due on due Goal Colonoscopy. Due on due Goal Pneumococcal vaccine. Due on due Goal Influenza vaccine. Due on due Goal Zoster vaccine. Due on due Goal Depression screening. Due on due Goal Td vaccine. Due on due Goal Cognitive assessment. Due on due Goal Colonoscopy. Due on due Goal Pneumococcal vaccine. Due on due Goal Influenza vaccine. Due on due Goal Zoster vaccine. Due on due Goal Depression screening. Due on due Goal Td vaccine. Due on due Goal Td vaccine. Due on due Goal Depression screening. Due on due Goal Lipid panel. Due on due Goal Sigmoidoscopy. Due on due Goal Zoster vaccine. Due on due Goal FOBT. Due on due Goal Influenza vaccine. Due on due Goal Pneumococcal vaccine. Due on due Goal Colonoscopy. Due on due Goal Cognitive assessment. Due on due Goal Cognitive assessment. Due on due Goal Colonoscopy. Due on due Goal Pneumococcal vaccine. Due on due Goal Influenza vaccine. Due on due Goal FOBT. Due on due Goal Zoster vaccine. Due on due Goal Sigmoidoscopy. Due on due Goal Lipid panel. Due on due Goal Depression screening. Due on due Goal Td vaccine. Due on due Goal Td vaccine. Due on due Goal Depression screening. Due on due Goal Lipid panel. Due on due Goal Sigmoidoscopy. Due on due Goal Zoster vaccine. Due on due Goal FOBT. Due on due Goal Influenza vaccine. Due on due Goal Pneumococcal vaccine. Due on due Goal Colonoscopy. Due on due Goal Cognitive assessment. Due on due Goal Cognitive assessment. Due on due Goal Colonoscopy. Due on due Goal Pneumococcal vaccine. Due on due Goal Influenza vaccine. Due on due Goal FOBT. Due on due Goal Zoster vaccine. Due on due Goal Sigmoidoscopy. Due on due Goal Lipid panel. Due on due Goal Depression screening. Due on due Goal Td vaccine. Due on due Goal Cognitive assessment. Due on due Goal Colonoscopy. Due on due Goal Pneumococcal vaccine. Due on due Goal Influenza vaccine. Due on due Goal FOBT. Due on due Goal Zoster vaccine. Due on due Goal Sigmoidoscopy. Due on due Goal Lipid panel. Due on due Goal Depression screening. Due on due Goal Td vaccine. Due on due Goal Lipid panel. Due on due Goal Sigmoidoscopy. Due on due Goal Zoster vaccine. Due on due Goal FOBT. Due on due Goal Cognitive assessment. Due on due Goal Colonoscopy. Due on due Goal Pneumococcal vaccine. Due on due Goal Influenza vaccine. Due on due Goal Td vaccine. Due on due Goal Depression screening. Due on due Goal Lipid panel. Due on due Goal Sigmoidoscopy. Due on due Goal Zoster vaccine. Due on due Goal FOBT. Due on due Goal Cognitive assessment. Due on due Goal Colonoscopy. Due on due Goal Pneumococcal vaccine. Due on due Goal Influenza vaccine. Due on due Goal Td vaccine. Due on due Goal Depression screening. Due on due Goal Influenza vaccine. Due on due Goal Pneumococcal vaccine. Due on due Goal Colonoscopy. Due on due Goal Depression screening. Due on due Goal Td vaccine. Due on due Goal Cognitive assessment. Due on due Goal FOBT. Due on due Goal Zoster vaccine. Due on due Goal Sigmoidoscopy. Due on due Goal Lipid panel. Due on due Goal Special diet education compl eted Goal Cognitive assessment. Due on due Goal FOBT. Due on due Goal Zoster vaccine. Due on due Goal Sigmoidoscopy. Due on due Goal Lipid panel. Due on due Goal Influenza vaccine. Due on De due Goal Pneumococcal vaccine. Due on due Goal Colonoscopy. Due on due Goal Depression screening. Due on due Goal Td vaccine. Due on due Goal Td vaccine. Due on due Goal Depression screening. Due on due Goal Colonoscopy. Due on due Goal Pneumococcal vaccine. Due on due Goal Influenza vaccine. Due on due Goal Lipid panel. Due on due Goal Sigmoidoscopy. Due on due Goal Zoster vaccine. Due on due Goal FOBT. Due on due Goal Cognitive assessment. Due on due Goal Cognitive assessment. Due on due Goal FOBT. Due on due Goal Zoster vaccine. Due on due Goal Sigmoidoscopy. Due on due Goal Lipid panel. Due on due Goal Influenza vaccine. Due on due Goal Pneumococcal vaccine. Due on due Goal Colonoscopy. Due on due Goal Depression screening. Due on due Goal Td vaccine. Due on due Goal Cognitive assessment. Due on due Goal FOBT. Due on due Goal Zoster vaccine. Due on due Goal Sigmoidoscopy. Due on due Goal Lipid panel. Due on due Goal Influenza vaccine. Due on due Goal Pneumococcal vaccine. Due on due Goal Colonoscopy. Due on due Goal Depression screening. Due on due Goal Td vaccine. Due on due Goal Special diet education compl eted Goal Td vaccine. Due on due Goal Depression screening. Due on due Goal Colonoscopy. Due on due Goal Pneumococcal vaccine. Due on due Goal Influenza vaccine. Due on due Goal Lipid panel. Due on due Goal Sigmoidoscopy. Due on due Goal Zoster vaccine. Due on due Goal FOBT. Due on due Goal Cognitive assessment. Due on due Goal Cognitive assessment. Due on due Goal FOBT. Due on due Goal Zoster vaccine. Due on due Goal Sigmoidoscopy. Due on due Goal Lipid panel. Due on due Goal Influenza vaccine. Due on due Goal Pneumococcal vaccine. Due on due Goal Colonoscopy. Due on due Goal Depression screening. Due on due Goal Td vaccine. Due on due Goal Special diet education compl eted Goal Td vaccine. Due on due Goal Depression screening. Due on due Goal Colonoscopy. Due on due Goal Pneumococcal vaccine. Due on due Goal Influenza vaccine. Due on due Goal Lipid panel. Due on due Goal Sigmoidoscopy. Due on due Goal Zoster vaccine. Due on due Goal FOBT. Due on due Goal Cognitive assessment. Due on due Goal Special diet education compl eted Goal Td vaccine. Due on due Goal Depression screening. Due on due Goal Colonoscopy. Due on due Goal Pneumococcal vaccine. Due on due Goal Influenza vaccine. Due on due Goal Lipid panel. Due on due Goal Sigmoidoscopy. Due on due Goal Zoster vaccine. Due on due Goal FOBT. Due on due Goal Cognitive assessment. Due on due Goal Special diet education compl eted Goal Td vaccine. Due on due Goal Depression screening. Due on due Goal Colonoscopy. Due on due Goal Pneumococcal vaccine. Due on due Goal Influenza vaccine. Due on due Goal Lipid panel. Due on due Goal Sigmoidoscopy. Due on due Goal Zoster vaccine. Due on due Goal FOBT. Due on due Goal Cognitive assessment. Due on due Goal Special diet education compl eted Goal Td vaccine. Due on due Goal Depression screening. Due on due Goal Colonoscopy. Due on due Goal Pneumococcal vaccine. Due on due Goal Influenza vaccine. Due on due Goal Lipid panel. Due on due Goal Sigmoidoscopy. Due on due Goal Zoster vaccine. Due on due Goal FOBT. Due on due Goal Cognitive assessment. Due on due Goal Cognitive assessment. Due on due Goal FOBT. Due on due Goal Zoster vaccine. Due on due Goal Sigmoidoscopy. Due on due Goal Lipid panel. Due on due Goal Influenza vaccine. Due on due Goal Pneumococcal vaccine. Due on due Goal Colonoscopy. Due on due Goal Depression screening. Due on due Goal Td vaccine. Due on due Goal Cognitive assessment. Due on due Goal FOBT. Due on due Goal Zoster vaccine. Due on due Goal Sigmoidoscopy. Due on due Goal Lipid panel. Due on due Goal Influenza vaccine. Due on due Goal Pneumococcal vaccine. Due on due Goal Colonoscopy. Due on due Goal Depression screening. Due on due Goal Td vaccine. Due on due Goal Cognitive assessment. Due on due Goal FOBT. Due on due Goal Zoster vaccine. Due on due Goal Sigmoidoscopy. Due on due Goal Lipid panel. Due on due Goal Influenza vaccine. Due on due Goal Pneumococcal vaccine. Due on due Goal Colonoscopy. Due on due Goal Depression screening. Due on due Goal Td vaccine. Due on due Goal Td vaccine. Due on 18 due Goal Depression screening. Due on due Goal Colonoscopy. Due on due Goal Pneumococcal vaccine. Due on due Goal Influenza vaccine. Due on due Goal Lipid panel. Due on due Goal Sigmoidoscopy. Due on due Goal Zoster vaccine. Due on due Goal FOBT. Due on due Goal Cognitive assessment. Due on due Goal Lipid panel. Due on due Goal Sigmoidoscopy. Due on due Goal Zoster vaccine. Due on due Goal FOBT. Due on due Goal Cognitive assessment. Due on due Goal Td vaccine. Due on due Goal Depression screening. Due on due Goal Colonoscopy. Due on due Goal Pneumococcal vaccine. Due on due Goal Influenza vaccine. Due on due Goal Influenza vaccine. Due on due Goal Pneumococcal vaccine. Due on due Goal Colonoscopy. Due on due Goal Depression screening. Due on due Goal Td vaccine. Due on due Goal Cognitive assessment. Due on due Goal FOBT. Due on due Goal Zoster vaccine. Due on due Goal Sigmoidoscopy. Due on due Goal Lipid panel. Due on due Goal Influenza vaccine. Due on due Goal Pneumococcal vaccine. Due on due Goal Colonoscopy. Due on due Goal Depression screening. Due on due Goal Td vaccine. Due on 18 due Goal Cognitive assessment. Due on due Goal FOBT. Due on due Goal Zoster vaccine. Due on due Goal Sigmoidoscopy. Due on due Goal Lipid panel. Due on due Goal Lipid panel. Due on due Goal Sigmoidoscopy. Due on due Goal Zoster vaccine. Due on due Goal FOBT. Due on due Goal Cognitive assessment. Due on due Goal Td vaccine. Due on due Goal Depression screening. Due on due Goal Colonoscopy. Due on due Goal Pneumococcal vaccine. Due on due Goal Influenza vaccine. Due on due Goal Lipid panel. Due on due Goal Sigmoidoscopy. Due on due Goal Zoster vaccine. Due on due Goal FOBT. Due on due Goal Cognitive assessment. Due on due Goal Td vaccine. Due on due Goal Depression screening. Due on due Goal Colonoscopy. Due on due Goal Pneumococcal vaccine. Due on due Goal Influenza vaccine. Due on due Goal Lipid panel. Due on due Goal Sigmoidoscopy. Due on due Goal Zoster vaccine. Due on due Goal FOBT. Due on due Goal Cognitive assessment. Due on due Goal Td vaccine. Due on due Goal Depression screening. Due on due Goal Colonoscopy. Due on due Goal Pneumococcal vaccine. Due on due Goal Influenza vaccine. Due on due Goal Lipid panel. Due on due Goal Sigmoidoscopy. Due on due Goal Zoster vaccine. Due on due Goal FOBT. Due on due Goal Cognitive assessment. Due on due Goal Td vaccine. Due on due Goal Depression screening. Due on due Goal Colonoscopy. Due on due Goal Pneumococcal vaccine. Due on due Goal Influenza vaccine. Due on due Goal Influenza vaccine. Due on due Goal Pneumococcal vaccine. Due on due Goal Colonoscopy. Due on due Goal Depression screening. Due on due Goal Td vaccine. Due on due Goal Cognitive assessment. Due on due Goal FOBT. Due on due Goal Zoster vaccine. Due on due Goal Sigmoidoscopy. Due on due Goal Lipid panel. Due on due Goal Influenza vaccine. Due on due Goal Pneumococcal vaccine. Due on due Goal Colonoscopy. Due on due Goal Depression screening. Due on due Goal Td vaccine. Due on due Goal Cognitive assessment. Due on due Goal FOBT. Due on due Goal Zoster vaccine. Due on due Goal Sigmoidoscopy. Due on due Goal Lipid panel. Due on 018 due Goal Sigmoidoscopy. Due on due Goal Zoster vaccine. Due on due Goal FOBT. Due on due Goal Cognitive assessment. Due on due Goal Td vaccine. Due on 18 due Goal Influenza vaccine. Due on due Goal Pneumococcal vaccine. Due on due Goal Colonoscopy. Due on due Goal Depression screening. Due on due Goal Sigmoidoscopy. Due on due Goal Depression screening. Due on due Goal FOBT. Due on due Goal Influenza vaccine. Due on due Goal Pneumococcal vaccine. Due on due Goal Td vaccine. Due on due Goal Colonoscopy. Due on 018 due Goal Zoster vaccine. Due on due Goal Cognitive assessment. Due on due Goal Pneumococcal vaccine. Due on due Goal Sigmoidoscopy. Due on due Goal Influenza vaccine. Due on due Goal FOBT. Due on due Goal Cognitive assessment. Due on due Goal Depression screening. Due on due Goal Td vaccine. Due on due Goal Zoster vaccine. Due on due Goal Colonoscopy. Due on 018 due Goal Colonoscopy. Due on 018 due Goal Influenza vaccine. Due on due Goal Sigmoidoscopy. Due on due Goal FOBT. Due on due Goal Zoster vaccine. Due on due Goal Pneumococcal vaccine. Due on due Goal Depression screening. Due on due Goal Cognitive assessment. Due on due Goal Td vaccine. Due on 18 due Goal Colonoscopy. Due on due Goal FOBT. Due on due Goal Depression screening. Due on due Goal Zoster vaccine. Due on due Goal Sigmoidoscopy. Due on due Goal Cognitive assessment. Due on due Goal Pneumococcal vaccine. Due on due Goal Influenza vaccine. Due on due Goal Td vaccine. Due on 17 due Goal Sigmoidoscopy. Due on due Goal Influenza vaccine. Due on due Goal Cognitive assessment. Due on due Goal Depression screening. Due on due Goal Td vaccine. Due on 17 due Goal Pneumococcal vaccine. Due on due Goal FOBT. Due on due Goal Zoster vaccine. Due on due Goal Colonoscopy. Due on 017 due Goal Pneumococcal vaccine. Due on due Goal FOBT. Due on due Goal Colonoscopy. Due on 017 due Goal Zoster vaccine. Due on due Goal Influenza vaccine. Due on due Goal Td vaccine. Due on 17 due Goal Cognitive assessment. Due on due Goal Sigmoidoscopy. Due on due Goal Depression screening. Due on due Goal Zoster vaccine. Due on due Goal Sigmoidoscopy. Due on due Goal Influenza vaccine. Due on due Goal Colonoscopy. Due on 017 due Goal FOBT. Due on due Goal Td vaccine. Due on 17 due Goal Pneumococcal vaccine. Due on due Goal Cognitive assessment. Due on due Goal Depression screening. Due on due Goal FOBT. Due on due Goal Td vaccine. Due on 17 due Goal Zoster vaccine. Due on due Goal Sigmoidoscopy. Due on due Goal Colonoscopy. Due on 017 due Goal Influenza vaccine. Due on due Goal Depression screening. Due on due Goal Pneumococcal vaccine. Due on due Goal Cognitive assessment. Due on due Goal Cognitive assessment. Due on due Goal FOBT. Due on due Goal Influenza vaccine. Due on due Goal Td vaccine. Due on 17 due Goal Colonoscopy. Due on due Goal Zoster vaccine. Due on due Goal Pneumococcal vaccine. Due on due Goal Sigmoidoscopy. Due on due Goal Depression screening. Due on due Goal Depression screening. Due on due Goal Influenza vaccine. Due on due Goal Pneumococcal vaccine. Due on due Goal Cognitive assessment. Due on due Goal Sigmoidoscopy. Due on due Goal Td vaccine. Due on due Goal FOBT. Due on due Goal Zoster vaccine. Due on due Goal Colonoscopy. Due on due Goal Cognitive assessment. Due on due Goal FOBT. Due on due Goal Td vaccine. Due on due Goal Influenza vaccine. Due on due Goal Zoster vaccine. Due on due Goal Sigmoidoscopy. Due on due Goal Pneumococcal vaccine. Due on due Goal Depression screening. Due on due Goal Colonoscopy. Due on due Goal Influenza vaccine. Due on due Goal Zoster vaccine. Due on due Goal Td vaccine. Due on 17 due Goal Pneumococcal vaccine. Due on due Goal FOBT. Due on due Goal Colonoscopy. Due on due Goal Sigmoidoscopy. Due on due Goal Depression screening. Due on due Goal Cognitive assessment. Due on due Goal Pneumococcal vaccine. Due on due Goal Td vaccine. Due on due Goal Sigmoidoscopy. Due on due Goal Cognitive assessment. Due on due Goal Depression screening. Due on due Goal Zoster vaccine. Due on due Goal FOBT. Due on due Goal Colonoscopy. Due on due Goal Influenza vaccine. Due on due Goal Pneumococcal vaccine. Due on due Goal Sigmoidoscopy. Due on due Goal Zoster vaccine. Due on due Goal Cognitive assessment. Due on due Goal Depression screening. Due on due Goal Influenza vaccine. Due on due Goal FOBT. Due on due Goal Td vaccine. Due on due Goal Colonoscopy. Due on due Goal Colonoscopy. Due on due Goal Zoster vaccine. Due on due Goal Td vaccine. Due on due Goal Influenza vaccine. Due on due Goal Depression screening. Due on due Goal Cognitive assessment. Due on due Goal FOBT. Due on due Goal Pneumococcal vaccine. Due on due Goal Sigmoidoscopy. Due on due Goal Depression screening. Due on due Goal Influenza vaccine. Due on due Goal Sigmoidoscopy. Due on due Goal Cognitive assessment. Due on due Goal Zoster vaccine. Due on due Goal Td vaccine. Due on 17 due Goal Colonoscopy. Due on 017 due Goal FOBT. Due on due Goal Pneumococcal vaccine. Due on due Goal Cognitive assessment. Due on due Goal Colonoscopy. Due on 016 due Goal FOBT. Due on due Goal Sigmoidoscopy. Due on due Goal Td vaccine. Due on 16 due Goal Zoster vaccine. Due on due Goal Depression screening. Due on due Goal Influenza vaccine. Due on due Goal Pneumococcal vaccine. Due on due Goal Td vaccine. Due on 16 due Goal Pneumococcal vaccine. Due on due Goal Zoster vaccine. Due on due Goal FOBT. Due on due Goal Sigmoidoscopy. Due on due Goal Influenza vaccine. Due on due Goal Depression screening. Due on due Goal Cognitive assessment. Due on due Goal Colonoscopy. Due on due Goal Pneumococcal vaccine. Due on due Goal Sigmoidoscopy. Due on due Goal Td vaccine. Due on 16 due Goal FOBT. Due on due Goal Cognitive assessment. Due on due Goal Colonoscopy. Due on due Goal Zoster vaccine. Due on due Goal Influenza vaccine. Due on due Goal Depression screening. Due on due Goal Zoster vaccine. Due on due Goal FOBT. Due on due Goal Sigmoidoscopy. Due on due Goal Colonoscopy. Due on due Goal Cognitive assessment. Due on due Goal Pneumococcal vaccine. Due on due Goal Td vaccine. Due on due Goal Influenza vaccine. Due on due Goal Depression screening. Due on due Goal Colonoscopy. Due on due Goal Pneumococcal vaccine. Due on due Goal Sigmoidoscopy. Due on due Goal FOBT. Due on due Goal Depression screening. Due on due Goal Influenza vaccine. Due on due Goal Td vaccine. Due on 16 due Goal Zoster vaccine. Due on due Goal Cognitive assessment. Due on due Goal Zoster vaccine. Due on due Goal Sigmoidoscopy. Due on due Goal Cognitive assessment. Due on due Goal Td vaccine. Due on 16 due Goal Influenza vaccine. Due on due Goal Pneumococcal vaccine. Due on due Goal FOBT. Due on due Goal Depression screening. Due on due Goal Colonoscopy. Due on due Goal Zoster vaccine. Due on due Goal Td vaccine. Due on 16 due Goal Depression screening. Due on due Goal Pneumococcal vaccine. Due on due Goal FOBT. Due on due Goal Colonoscopy. Due on 016 due Goal Influenza vaccine. Due on due Goal Cognitive assessment. Due on due Goal Sigmoidoscopy. Due on due Goal Cognitive assessment. Due on due Goal Td vaccine. Due on 16 due Goal Zoster vaccine. Due on due Goal Sigmoidoscopy. Due on due Goal FOBT. Due on due Goal Colonoscopy. Due on due Goal Depression screening. Due on due Goal Influenza vaccine. Due on due Goal Pneumococcal vaccine. Due on due Goal Td vaccine. Due on 16 due Goal Cognitive assessment. Due on due Goal Depression screening. Due on due Goal Influenza vaccine. Due on due Goal FOBT. Due on due Goal Sigmoidoscopy. Due on due Goal Colonoscopy. Due on due Goal Zoster vaccine. Due on due Goal Pneumococcal vaccine. Due on due Goal Colonoscopy. Due on due Goal FOBT. Due on due Goal Zoster vaccine. Due on due Goal Td vaccine. Due on 16 due Goal Depression screening. Due on due Goal Pneumococcal vaccine. Due on due Goal Cognitive assessment. Due on due Goal Influenza vaccine. Due on due Goal Sigmoidoscopy. Due on due Goal Depression screening. Due on due Goal Td vaccine. Due on 16 due Goal Cognitive assessment. Due on due Goal Sigmoidoscopy. Due on due Goal Zoster vaccine. Due on due Goal Influenza vaccine. Due on due Goal FOBT. Due on due Goal Pneumococcal vaccine. Due on due Goal Colonoscopy. Due on 016 due Goal Pneumococcal vaccine. Due on due Goal Sigmoidoscopy. Due on due Goal Zoster vaccine. Due on due Goal Td vaccine. Due on 16 due Goal FOBT. Due on due Goal Influenza vaccine. Due on due Goal Depression screening. Due on due Goal Cognitive assessment. Due on due Goal Colonoscopy. Due on due Goal Influenza vaccine. Due on due Goal Pneumococcal vaccine. Due on due Goal Zoster vaccine. Due on due Goal Colonoscopy. Due on due Goal FOBT. Due on due Goal Depression screening. Due on due Goal Sigmoidoscopy. Due on due Goal Cognitive assessment. Due on due Goal Td vaccine. Due on 15 due Goal Colonoscopy. Due on due Goal Sigmoidoscopy. Due on due Goal Zoster vaccine. Due on due Goal Cognitive assessment. Due on due Goal FOBT. Due on due Goal Depression screening. Due on due Goal Pneumococcal vaccine. Due on due Goal Influenza vaccine. Due on due Goal Td vaccine. Due on 15 due Goal Influenza vaccine. Due on due Goal Sigmoidoscopy. Due on due Goal FOBT. Due on due Goal Pneumococcal vaccine. Due on due Goal Cognitive assessment. Due on due Goal Depression screening. Due on due Goal Colonoscopy. Due on due Goal Zoster vaccine. Due on due Goal Td vaccine. Due on due Goal FOBT. Due on due Goal Zoster vaccine. Due on due Goal Sigmoidoscopy. Due on due Goal Cognitive assessment. Due on due Goal Pneumococcal vaccine. Due on due Goal Influenza vaccine. Due on due Goal Colonoscopy. Due on due Goal Depression screening. Due on due Goal Td vaccine. Due on due Goal Cognitive assessment. Due on due Goal Sigmoidoscopy. Due on due Goal Td vaccine. Due on due Goal Colonoscopy. Due on due Goal Depression screening. Due on due Goal FOBT. Due on due Goal Pneumococcal vaccine. Due on due Goal Influenza vaccine. Due on due Goal Zoster vaccine. Due on due Goal Colonoscopy. Due on due Goal Cognitive assessment. Due on due Goal Depression screening. Due on due Goal FOBT. Due on due Goal Influenza vaccine. Due on due Goal Pneumococcal vaccine. Due on due Goal Sigmoidoscopy. Due on due Goal Td vaccine. Due on 15 due Goal Zoster vaccine. Due on due Referral Ordered: US ARTERIAL ANKLE/BRACIAL IND ordered Referral Ordered: Allergy and Immunology (related to Allergic rhinitis due to pollen) ordered Referral Ordered: Referrals: Allergy and Immunology. Evaluate and treat ordered Referral Ordered: Suleman Artaega -Allopathic & Osteopathic Physicians : Otolaryngology (related to Sleep apnea) ordered Referral Referred To: Suleman Arteaga [address] [place], [place], [phone] Ordered: Referrals: Allopathic & Osteopathic Physicians : Otolaryngology. Suleman Arteaga. Evaluate and treat ordered Referral Ordered: CT ANGIOGRAPHY, NECK ordered Referral Ordered: CT ANGIOGRAPHY, HEAD ordered Referral Ordered: Otolaryngology (related to Chronic sinusitis) ordered Referral Ordered: Referrals: Otolaryngology. Evaluate and treat ordered Referral Ordered: UPPER GI ENDOSCOPY, BIOPSY ordered Referral Ordered: CT ABDOMEN&PELVIS W/CONTRAST ordered Referral Ordered: SLEEP STUDY, ATTENDED ordered Referral Ordered: VERN DILL -Podiatric Medicine & Surgery Service Providers : Pension Manager (related to Dermatophytosis of nail) ordered Referral Referred To: VERN DILL [address] [place], [place], [id number] Ordered: Referrals: Podiatric Medicine & Surgery Service Providers : Pension Manager. VERN DILL. Evaluate and treat ordered Referral Ordered: Galo Hagan -Allopathic & Osteopathic Physicians : Internal Medicine : Cardiovascular Disease (related to Nonrheumatic mitral valve prolapse) ordered Referral Referred To: Galo Hagan [address] [place], [place] [id number] Ordered: Referrals: Allopathic & Osteopathic Physicians : Internal Medicine : Cardiovascular Disease. Galo Hagan. Evaluate and treat ordered Referral Referred To: Carlos Acharya MD [address] [place], [place], [id number] Ordered: Referrals: Carlos Acharya MD Evaluate and treat ordered Referral Ordered: CT MAXILLOFACIAL W/O DYE (SINUSES) SF ordered Referral Ordered: CHEST X-RAY PA/LAT TWO-VIEWS ordered Referral Ordered: Tiff Connors (related to Osteoporosis) ordered Referral Referred To: Tiff Connors [address] [place], [place] [id number] Ordered: Referrals: Tiff Connors. Evaluate and treat ordered Referral Ordered: Physical Therapy (related to Encntr for general adult medical exam w/o abnormal findings) ordered Referral Referred To: Physical Therapy Ordered: Referrals: Physical Therapy. Evaluate and treat ordered Referral Ordered: Pulmonology (related to Sleep apnea) ordered Referral Ordered: Referrals: Pulmonology. Evaluate and treat ordered Referral Ordered: Urology (related to Acquired renal cyst) ordered Referral Ordered: Referrals: Urology. 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 ordered Referral Ordered: Referral: Genrl Surg. ordered Referral Ordered: MRI BRAIN W/O & W/DYE ordered Referral Ordered: GUIDANCE FOR NEEDLE, BREAST ordered Referral Ordered: DXA BONE DENSITY, AXIAL ordered Referral Ordered: MAMMOGRAM, SCREENING ordered History Of Present Illness Encounter Date Complaint History Of Prese nt Illness RLS Pt has RLS .Pt i s on mirapex and she started neurontin qhs since last week and her RLS is better. fibromyalgia1 Pt has fibromyal laly and chronic back pain Pt takes norco PRN for pain and doing ok. fatigue1 Pt has hypersomn ia .Pt does have sleep apnea GERD1 Pt has intermitt ent GERD Pt takes pepcid and doing ok pain Pt has fibromyal laly and chronic back pain Pt takes norco PRN for pain and doing ok. Pt failed neurontin leg pain1 pt has persisten t bilateral lower leg numbness and tingling and urge to move her legs, especially at night Pt states that the symptoms tend to get better with leg movement. Pt is on mirapex 1 mg at night and she is doing better but not good enough fatigue1 Pt has chronic f atigue Pt denies any sob . Pt is on cpap at night and she is also using b12 shot monthly Pt also failed multiple stimulant. pt does not sleep well at night .She wakes up frequently lightheadness1 Pt feels lighthe adedness and slightly dizzy recently. Her bp is around 90/66. Pt was told to stop taking hctz last week which she did and her bp is ok this morning Pt denies any chest pain or headache . RLS Pt has RLS. Pt h as been taking mirapex 1 mg qhs and her symptoms significantly improved . pain Pt has fibromyal laly and chronic back pain Pt takes norco PRN for pain and doing ok. Pt failed neurontin cough1 Pt c/o phlegmy c ough with green phlegm for several days Pt denies any sob or fever. 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 Pt t akes hctz and she is doing well. Pt needs bp refilled Pt denies any edema neck pain1 Pt c/o mild righ t side neck pain, especially when she turns her head for several weeks Pt denies any radiculopathy Pt denies any arm numbness or tingling or weakness .Pt notices sharp pain. Pt took flexeril which did help and her neck pain resolved. . fibromyalgia1 Pt has fibromyal laly and chronic back pain Pt takes norco PRN for pain and doing ok. Pt failed neurontin pain Pt has fibromyal laly and chronic back pain Pt takes norco PRN for pain and doing ok. Pt failed neurontin RLS Pt has RLS. Pt d oing ok with mirapex. Pt needs refill neck pain1 Pt c/o mild righ t side neck pain, especially when she turns her head for several weeks Pt denies any radiculopathy Pt denies any arm numbness or tingling or weakness .Pt notices sharp pain pain Pt has fibromyal laly and chronic back pain Pt takes norco PRN for pain and doing ok. Pt failed neurontin osteoporosis1 Pt has osteoporo sis Pt is off reclast and she is on fosamax now Pt will repeat bone density soon GERD1 Pt has intermitt ent GERD Pt needs pepcid refilled. Pt doing ko pain Pt has fibromyal laly and chronic back pain Pt takes norco PRN for pain and doing ok. Pt failed neurontin HTN Pt has HTN pt is on hctz and her bp is stable edema1 Pt has bilateral trace lower extremity edema Pt denies any sob or chest pain hyperglycemia1 Pt has mild high glucose .Pt states that her glucose is around 100 at home. Pt denies any polyuria polydipsia pain Pt has fibromyal laly and chronic back pain Pt takes norco PRN for pain and doing ok. Pt failed neurontin HTN Pt has HTN, Pt t zack fang and her bp is ok, however, pt notices bilateral LE swelling since several weeks ago Pt denies any chest pain or sob Pt denies any calf pain . b12 Pt has b12 defic iency and chronic fatigue Pt started B12 injection last month and she notices more energy. Pt dry mouth1 Pt states that d ry mouth better since off adderall HTN Pt has HTN Pt sangita fang and her bp is ok. Pt states that she has dry mouth and stomach upset with norvasc. Pt denies any chest pain or headache HLP Pt has mild high LDL cough1 Pt has chronic d ry cough, which improved since off losartan. Pt denies any sob. Pt never picked up airduo. I called pharmacy and pharmacy told me patient closed the airduo on her own and she did not want it. anemia1 Pt has mild anem ia with normal iron pt denies any bleeding DM Pt has borderlin e DM. Pt denies any polyuria, polydipsia. Pt denies any neuropathy fatigue1 Pt has chronic f atigue. Pt has borderline low b12 and anemia. Pt has sleep apnea Pt has nena with sleep specialist soon Pt states that adderall dose not help, Pt also has dry mouth since starting adderall pain1 Pt has fibromyal laly and chronic back pain Pt takes norco PRN for pain and doing ok cough1 pt has chronic d ry cough .Pt denies any sob Pt coughs throughout the day Pt had normal chest x ray. inhaler was not covered. Pt denies any hemoptysis. fatigue1 Pt has chronic f atigue. Pt has hypersomnia Pt states that she can not barely keeps awake during the day Pt does have sleep apnea and she uses cpap sometimes but she does not think it is helping her fatigue. Pt uses 6 hours cpap nightly RLS Pt has RLS. Pt t akes mirapex and doing ok, Pt needs it refilled fatigue1 pt has sleep surface miner ea with chronic fatigue. Pt failed vyvanse and adderall. Pt has sleep apnea but she does not use cpap nightly. Nuvigil is not covered by insurance. cough1 Pt has persisten t dry cough for several months Pt denies any chest pain or sob or fever or hemoptysis . pt denies any wheezing. 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 Pt has not done chest x ray yet. fatigue1 Pt has chronic f atigue and sleep apnea Pt is noncompliant with cpap .Pt tried nuvigil and she thinks that it is helping slightly and she feels more awake during the day cough1 Pt has persisten t dry cough for several months Pt denies any chest pain or sob or fever or hemoptysis . pt denies any wheezing. Pt did not picker operator fluticasone/salmeterol yet fibromyalgia1 Pt has fibromyal laly and chronic back pain Pt states that percocet makes her drowsy and she wants to go back to norco osteoporosis1 Pt has osteoporo sis Pt unable to tolerate fosamax and prolia. Pt takes calcium and D only .Pt is not doing weight bearing exercise osteoporosis1 Pt has osteoporo sis. Pt failed prolia which caused diffuse bone pain Pt stopped prolia and she was started on fosamax recently but is causing her to have nausea and stomach upset after the shot. pain Pt has fibromyal laly. Pt takes norco PRN for pain Pt failed neurontin. Pt failed NSAID and ultram . Pt states that leg, hip, shoulder hurts and norco is not helping with her pain anymore fatigue1 Pt has chronic f atigue, Pt has sleep apnea but she is noncompliant with cpap. Pt states that adderall is not helping with her fatigue RLS1 Pt states that m irapex does help but she still has RLS symptoms cough1 Pt has persisten t dry cough for several weeks Pt denies any chest pain or sob or fever or hemoptysis .Pt denies any sob pt denies any wheezing cough1 Pt c/o persisten t dry and productive cough for one week Pt denies any wheezing or sob Pt denies any chest pain .Pt states that she coughs all day and all night Pt states that her has similar symptoms. Pt denies any fever. Pt denies any sore throat, sinus symptoms HTN Pt has HTN pt ta kes losartan and her bp is borderline high today Pt denies any chest pain or headache. ADD Pt has chronic f atigue and she has sleep apnea Pt states that adderall did not do too much to keep her awake in the morning or during the day Pt uses cpap nightly but she is not sure if it is helping her fatigue pain Pt has fibromyal laly. Pt takes norco PRN for pain Pt failed neurontin. Pt failed NSAID and ultram ,Pt doing ok with norco Pt denies any worsening pain. pain Pt has fibromyal laly. Pt takes norco PRN for pain Pt failed neurontin. Pt failed NSAID and ultram ,Pt doing ok with norco Pt denies any worsening pain. fatigue1 Pt has chronic f atigue Pt has sleep apnea and she uses cpap nightly but still feels very tired . Pt states that she can fall asleep anytime during the day .her daughter tried vyvanse which worked for her and she wants to try vyvanse also. The vyvanse brand name is over $250 and generic is not available.. leg pain1 Pt c/o chronic b ilateral lower leg pain and urge to move her legs, especially at night .Pt denies any neuropathy Pt denies any cold extremity Pt states that both her lower leg feels fatigue and pain when she walks as well. pt has to get up 2 o'clock in the morning and walk around due to urge for her leg to move. Pt states that she is doing better with higher dose of mirapex. . Pt denies any claudication Pt had arterial doppler study done both LE which showed mild disease on left leg only. Pt denies any cold extremity or discoloration leg weakness1 Pt c/o bilateral leg weakness and she does have some low back pain. her symptoms have been going on for more than 3 months. Pt denies any injury. Pt denies any leg swelling. Pt denies any neuropathy. Pt does have fibromyalgia. Pt denies any loss of bowel or bladder control or saddle area paresthesia. pain1 Pt has fibromyal laly. Pt takes norco PRN for pain Pt failed neurontin. Pt failed NSAID and ultram ,Pt doing ok with norco Pt denies any worsening pain. fatigue1 Pt has chronic f atigue Pt has sleep apnea and she uses cpap nightly but still feels very tired . Pt states that she can fall asleep anytime during the day .her daughter tried vyvanse which worked for her and she wants to try vyvanse also pain Pt has fibromyal laly. Pt takes norco PRN for pain Pt failed neurontin. Pt failed NSAID and ultram ,Pt doing ok with norco Pt denies any worsening pain. leg pain1 Pt c/o chronic b ilateral lower leg pain and urge to move her legs, especially at night .Pt denies any neuropathy Pt denies any cold extremity Pt states that both her lower leg feels fatigue and pain when she walks as well. pt has to get up 2 o'clock in the morning and walk around due to urge for her leg to move. Pt states that mirapex helped initially but not anymore. Pt notices occasional LE swelling but not now pt denies any orthopnea PND HTN Pt has HTN Pt ta kes losartan and her bp is stable. Pt needs refill GERD1 Pt has chronic G ERD Pt states that omeprazole caused her stomach to knot up and she went back to pepcid. Pt doing ok pain Pt has fibromyal laly. Pt takes norco PRN for pain Pt failed neurontin. Pt failed NSAID and ultram ,Pt doing ok with norco Pt denies any worsening pain. RLS Pt has RLS. Pt s tates that mirapex is helping very well. HTN Pt has HTN Pt ta kes losartan and her bp is ok Pt has MR pt denies any chest pain or sob Pt saw cardiology recently and she will do cardiac echo GERD1 Pt c/o frequent belching and some reflux feeling pt denies any abd pain, early satiety, abd pain or weight loss. Pt takes pepcid daily pain Pt has fibromyal laly. Pt takes norco PRN for pain Pt failed neurontin. Pt failed NSAID and ultram ,Pt doing ok with norco Pt denies any worsening pain. Pt wants to go back to 10 mg norco RLS1 Pt c/o bilateral leg pain and numbness and tingling and worse at night. .Pt states that she has the urge to move her leg and also feels some tenderness all over her leg at night. Pt has to move her leg around to help. pt states that requip is not working sinus Pt c/o chronic s inus congestion with nasal drainage. Pt is on singular and nasal sprays. Pt is seeing ENT .Pt also c/o acute onset of productive cough as well with yellow phlegm for several days. Pt had negative allergy testing fibromyalgia1 Pt has fibromyal laly. Pt takes norco PRN for pain Pt failed neurontin. Pt failed NSAID and ultram ,Pt doing ok with norco Pt denies any worsening pain. Pt states that norco 7.5 mg does not work as well as 10 mg RLS1 Pt has RLS .Pt s tates that she has the urge to move her leg and also feels some tenderness all over her leg at night. Pt has to move her leg around to help. pt states that requip is not working HTN Pt has HTn. Pt t akes losartan and her bp is stable allergy1 Pt has chronic s inus allergy .Pt failed flonase and atrovent nasal spray Pt saw line ordering clinician who recommended sinu surgery but she is not interested. HTN Pt has HTN Pt ta kes losartan and her bp is borderline high today Pt denies any chest pain or headache Her bp has been around 150/90 recently at home. RLS Pt has RLS and s leep apnea. Pt is struggling with cpap and also she did not think requip helped either. Pt feels tired all the time Pt also never did colonguard. allergy1 Pt has chronic s inus allergy Pt has chronic running nose. Pt does NOT want nasal inhalers Pt also did not think singulair or OTC anti histamine helped either. Pt has nena with line ordering clinician specialist next week fibromyalgia1 Pt has fibromyal laly. Pt takes norco PRN for pain Pt failed neurontin. Pt failed NSAID and ultram ,Pt doing ok with norco Pt denies any worsening pain. GERD1 Pt has chronic G ERD Pt takes pepcid Pt denies any abd pain or nausea, vomiting pain Pt has fibromyal laly. Pt takes norco PRN for pain Pt failed neurontin. Pt failed NSAID and ultram ,Pt doing ok with norco Pt denies any worsening pain. RLS1 Pt c/o urge to m ove her leg at nigh and she wakes up frequently and has to move her leg. Pt has chronic neuropathy. pt c/o bilateral leg cramping as well. Pt still has not picked up requip. Pt forgot to ask the pharmacy allergy1 Pt has seasonal allergy which is not well controlled. Pt failed flonase and singulair. Pt states that cpap makes the allergy worse. Pt has not heard from clinical transformation specialist yet leg1 Pt has ? restles s leg syndrome .Pt never picked up requip. she does not know why allergy1 Pt has seasonal allergy which is not well controlled. Pt failed flonase and singulair. Pt states that cpap makes the allergy worse. 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 Pt takes norco PRN for pain Pt failed neurontin. Pt failed NSAID and ultram ,Pt doing ok with norco Pt denies any worsening pain. pain Pt has fibromyal laly. Pt takes norco PRN for pain Pt failed neurontin. Pt failed NSAID and ultram ,Pt doing ok with norco Pt denies any worsening pain. restless leg Pt c/o urge to m ove her leg at nigh and she wakes up frequently and has to move her leg. 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 sick Pt c/o acute ons et of productive cough with yellow phlegm sinus congestion without any sob or chest pain Pt denies any sore throat .or fever HTN Pt has HTN Pt ta kes losartan only and her bp is ok Pt is off hydralazine anemia1 Pt has borderlin e low hemoglobin and iron and ferritin ok. Pt denies any bleeding pain Pt has fibromyal laly. Pt takes norco PRN for pain Pt failed neurontin. Pt failed NSAID and ultram ,Pt doing ok with norco Pt denies any worsening pain. glucose1 Pt has mildly hi gh glucose Pt denies any polyuria, polydipsia .Pt has borderline low renal osteoporosis1 Pt has osteoporo sis. Pt gets prolia. Pt takes calcium and D. her vitamin D is high Her endo recently told her to take vitamin D every other week physical Pt needs annual physical pt has HTN Pt takes losartan and hydralazine and she states that her bp sometimes drop to 100/70 and she feels dizzy. Pt states that sometimes her bp is around 145/90 in the morning and sometimes it is running lower and she feels dizzy. Pt has osteoporosis. Pt takes prolia. Pt takes calcium and D. Pt has GERD. Pt takes pepcid daily and doing ok. Pt has fibromyalgia Pt takes norco for pain and doing ok. Pt has sleep apnea and she is waiting for cpap from [facility]. Pt denies any other complaints osteoporosis1 Pt has osteoporo sis. Pt just had prolia shot and she had lab done by endo and she was told to cut down vitamin D to every other week. Pt had bone density done also pain Pt has fibromyal laly. Pt takes norco PRN for pain Pt failed neurontin. Pt failed NSAID and ultram ,Pt doing ok with norco Pt denies any worsening pain. HTN Pt has HTn pt ta kes losartan ad hydralazine and her bp is ok. bystolic is not covered by insurance so she did not pick it up sleep apnea1 Pt had in lab sl eep study done and she states that she had a horrible night doing the study. GERD1 PIt has been eat ing ice cream every night .Pt notices slightly more belching at night. pt takes pepcid. Pt denies any abd pain HTN Pt has HTN Pt ta kes hydralazine and losartan and she is very confused and she is not sure if she is taking bystolic. Her bp is ok now and her bp throughout the day is still around 145-150/90 per patient. 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 Pt is seeing pulmonary and she decides to do CPAP titration study soon. allergy1 Pt has sinus all ergy. Pt uses nasal spray Pt stopped singulair which did not help Pt states that she is doing ok. pain Pt has fibromyal laly. Pt takes norco PRN for pain Pt failed neurontin. Pt failed NSAID and ultram ,Pt doing ok with norco Pt denies any worsening pain. GERD1 Pt has chronic G ERD. Pt doing ok with pepcid Pt denies any abd pain. HTN Pt has HTN, pt i s on losartan and hydralazine and she is off norvasc. Pt states that her bp is still high. Pt states that bp is around 160/100 in the morning. Pt denies any chest pain. Pt s seeing cardiology who recently increased her hydralazine dose and stopped norvasc. 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 However, pt does not want to do in lab study. Pt c/o chronic fatigue. Pt has sinus allergy .Pt doing ok with singulair pain Pt has fibromyal laly. Pt takes norco PRN for pain Pt failed neurontin. Pt failed NSAID and ultram ,Pt doing ok with norco Pt denies any worsening pain. HTN Pt has HTN. Pt t akes norvasc and losartan and her junior systems administrator started her on hydralazine recently. Her bp is running high in the morning at home around 160/98. Pt denies any chest pain or headache. pain Pt has fibromyal laly. Pt takes norco PRN for pain Pt failed neurontin. Pt failed NSAID and ultram ,Pt doing ok with norco Pt denies any worsening pain. HTN Pt has HTN. Pt t akes losartan and norvasc and her bp is persistently high, especially in the morning Pt denies any chest pain or headache. Pt takes losartan in the morning and norvasc at night. allergy1 Pt has chronic s inus allergy Pt failed flonase and multiple other nasal spray. Pt takes anti-histamine but she thinks that it is raising her bp. Pt takes singulair and doing much better. pain Pt has fibromyal laly. Pt takes norco PRN for pain Pt failed neurontin. Pt failed NSAID and ultram ,Pt doing ok with norco Pt denies any worsening pain. HTN Pt has HTN. Pt t akes losartan in the morning and also norvasc at night. Pt states that sometimes her bp is around 150/90 at night time. Pt denies any chest pain or headache sleep apnea1 Pt c/o chronic f atigue. pt does have sleep apnea .pt was evaluated by ENT recently and she is not candidate for inspire. Pt is being set up for new cpap osteoporosis1 Pt has osteoporo sis pt takes calcium and D and she gets prolia shot as well Pt sees bone specialist GERD1 Pt has GERD and she is doing ok with pepcid Pt denies any abd pain or nausea, vomiting allergy1 Pt has chronic s inus allergy Pt failed flonase and multiple other nasal spray. Pt takes anti-histamine but she thinks that it is raising her bp. pain Pt has fibromyal laly. Pt takes norco PRN for pain Pt failed neurontin. Pt failed NSAID and ultram ,Pt doing ok with norco Pt denies any worsening pain. 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 Pt has nena with cpap specialist in august. Pt still feels fatigue. Pt does have sinus allergy and she is seeing ENT now but she needs to see sleep apnea specialist first before returning to ENT. osteoporosis Pt has osteoporo sis. Pt takes calcium and D and she sees endo and she gets prolia shot. Pt will have shot next week. Pt not sure if she wants to continue prolia. She states that bone density does show improvement with prolia pain Pt has fibromyal laly. Pt takes norco PRN for pain Pt failed neurontin. Pt failed NSAID and ultram ,Pt doing ok with norco Pt denies any worsening pain. Pt failed neurontin HTN Pt has HTN. Pt t akes losartan and norvasc and her bp has been stable at home and she has not had the need to use clonidine. Her bp is around 135-140/80 pain Pt has fibromyal laly. Pt takes norco PRN for pain Pt failed neurontin. Pt failed NSAID and ultram ,Pt doing ok with norco Pt denies any worsening pain HTN Pt takes losarta n and norvasc and her bp is stable. Pt had lipid lab done and was told ok by cardiology HTN Pt has HTN pt ta kes losartan and she only needs to take clonidine x 2 during lass month when her bp went up to 159. Pt went to see her junior systems administrator yesterday and was started on norvasc 5 mg in addition to daily losartan. Her bp is ok today in office . 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 Pt went to see ENT last week for inspire and was told that she needs to see a sleep specialist instead, which she already saw in the past .Pt was referred to a new sleep specialist by ENT. Pt also was told that she needs a skin allergy testing after seeing the sleep specialist, which the ENT will arrange. pt does have sinus congestion chronically and she failed flonase, etc .She was told that she is not candidate for inspireeeeeee pain1 Pt has fibromyal laly. Pt takes norco PRN for pain Pt failed neurontin. Pt failed NSAID and ultram ,Pt doing ok with norco Pt denies any worsening pain HTN Pt has HTN, Pt t akes losartan 100 mg daily. Her bp was high at ER yesterday as well as in office. Pt also had some headache and malaise and fatigue last week but she is better today. Her bp is ok currently. Pt states that her headache and fatigue and dizziness also improved today. pt went to Er yesterday and she had brain CT which showed global atrophy with chronic ischemic change without evidences of acute intracranial process. Lab ok. Troponin ok. Pt wa given clonidine x one dose in ER. Her BP was 180 hallucination1 Pt has been seei ng things that are not there per patient during last several days. She states that she saw a giraffe yesterday in ER and she also asked her about why he is using a calculator? Pt overall has normal mental status. Pt currently is not confused. Pt denies any acute headache, mental status, nausea, vomiting, etc .pt denies any chest pain HTN Pt c/o lighthead edness, severe fatigue, really bad pressure headache and overall malaise x one week. Pt denies any chest pain ,Pt denies any sob Pt denies any acute vision change. Pt takes losartan 100 mg daily and her bp was ok until last week and has been consistently high. Her bp is around 170/120 today in office. HTN Pt takes losarta n and her bp is borderline high. Pt denies any chest pain or headache. 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 Pt states that meclizine made her feeling worse and fatigue. Pt could not tolerate meclizine and she is not taking anything now and she feels ok actually fibromyalgia1 Pt has fibromyal laly. Pt takes norco PRN for pain. Pt failed neurontin. Pt failed NSAID and ultram ,Pt doing ok with norco Pt denies any worsening pain dizziness1 Pt has frequent dizziness and vertigo. Pt denies any orthostasis. pt states that sometimes rooms spins Pt states that sometimes positional change causes dizziness and vertigo Pt denies any chest pain. Pt had negative CTA head and neck. Pt denies any palpitation GERD1 Pt has chronic G ERD Pt doing ok with pepcid. pt needs refill Pt denies any abd pain insomnia1 Pt has insomnia and mild anxiety Pt weaned herself off klonopin and doing ok Pt denies any depression or any suicidal or homicidal thought. fatigue1 Pt has fatigue. Pt has severe sleep apnea with oxygen desaturation. Pt tried multiple masks for CPAP and she could not tolerate any CPAP. Pt denies any sob pain Pt has fibromyal laly. Pt takes norco PRN for pain Pt failed neurontin. Pt failed NSAID and ultram ,Pt doing ok with norco Pt denies any worsening pain osteoporosis1 Pt has osteoporo sis. Pt had bone density last month and bone specialist told her it is improving. She received another prolia shot recently. Pt tolerating it ok Pt takes calcium and D pain Pt has fibromyal laly. Pt takes norco PRN for pain Pt failed neurontin. Pt failed NSAID and ultram ,Pt doing ok with norco Pt denies any worsening pain insomnia1 Pt has insomnia pt takes klonopin qhs PRn and doing ok Pt denies any snoring .Pt has sleep apnea but she does not want to use cpap. HTN Pt has HTN Pt ta kes losartan and her bp is stable insomnia1 Pt has insomnia Pt takes klonopin qhs prn. . Pt has sleep apnea but she does not use cpap. Pt denies any depression or any suicidal thought. Pt has mild anxiety Pt denies any crying spells pain Pt has fibromyal laly. Pt takes norco PRN for pain Pt failed neurontin. Pt failed NSAID and ultram ,Pt doing ok with norco Pt denies any worsening pain pain Pt has fibromyal laly. Pt takes norco PRN for pain Pt failed neurontin. Pt failed NSAID and ultram ,Pt doing ok with norco Pt denies any worsening pain insomnia1 Pt has insomnia Pt takes klonopin qhs prn. . Pt has sleep apnea but she does not use cpap. Pt denies any depression or any suicidal thought. Pt has mild anxiety HTN Pt takes losarta n/hctz and her bp is around 120/80 Pt no longer feels dizziness. Her CTA of head and neck is ok. pain Pt has fibromyal laly. Pt takes norco PRN for pain Pt failed neurontin. Pt failed NSAID and ultram ,Pt doing ok with norco Pt denies any worsening pain insomnia1 Pt has insomnia Pt takes klonopin qhs prn. . Pt has sleep apnea but she does not use cpap. Pt denies any depression or any suicidal thought. Pt has mild anxiety lightheadedness Pt has been havi ng lightheadedness. pt denies any syncope Pt denies any chest pain or headache. Pt has not done CTA of neck and head yet arm pain1 Pt c/o right elb ow and right forearm pain without numbness and tingling for several weeks. Pt denies any right forearm weakness, numbness and tingling. Pt denies any injury Pt sometimes wakes up at night with right elbow and forearm and bicep achiness Pt denies any neck pain or radiculopathy or right shoulder pain. Pt states that pain comes and goes. Pt does a lot twist and lifting with right arm. Pt denies any injury. Pt denies any radiation of pain down to right hand dizzy1 Pt feels lighthe adedness frequently. pt denies any orthostasis. Pt states that she always feels lightheadedness and she really does not notice any difference now from the past .Pt denies any headache Pt denies any head injury or waking up at night with headache. she is poor historian and she then states that she feels more frequent dizziness for the past two weeks Pt checked her bp during dizziness and is in normal range pt also checked her glucose which is normal range pt denies any vertigo pt denies any syncope Pt denies any vision change. pt states that when she lean forward, her lightheadedness really gets worse. Pt denies any dizziness when she turn her head. Pt denies any chest pain or palpitation, Pt saw ENT recently and she was started on ipratropium and flonase nasal spray which did help her nasal drainage slightly. Pt denies any ear pain or tinnitus. Pt does have chronic hearing loss and she uses [facility] osteoporosis1 Pt has osteoporo sis. Pt takes calcium and d and she gets prolia every 6 months Pt sees endo GERD Pt has GERD Pt t zack pepcid Pt denies any abd pain or abd pain pt is noncompliant with EGD pain1 Pt has fibromyal laly. Pt takes norco PRN for pain Pt failed neurontin. Pt failed NSAID and ultram ,Pt doing ok with norco Pt denies any worsening pain insomnia1 Pt has insomnia Pt takes klonopin qhs prn. . Pt has sleep apnea but she does not use cpap. Pt denies any depression or any suicidal thought. Pt has mild anxiety HTN Pt has HTN. Pt t akes losartan/hctz and her bp is around 120/70. Pt denies any chest pain or headache pain Pt has fibromyal laly. Pt takes norco PRN for pain Pt failed neurontin. Pt failed NSAID and ultram ,Pt doing ok with norco Pt denies any worsening pain insomnia1 Pt has insomnia Pt takes klonopin qhs prn. . Pt has sleep apnea but she does not use cpap. Pt denies any depression or any suicidal thought. Pt has mild anxiety sinus Pt has chronic c lear nasal sinus drainage. Pt tried flonase and astelin nasal spray but did not work. Pt is using coricidin which helps. Pt has nena with ENT next week Pt denies any epistaxis sinus1 Pt has chronic s inus congestion Pt had sinus CT done which showed mastoiditis and also turbinate hypertrophy. Pt takes flonase and astelin nasal spray but she still has difficulty breathing her nose. Pt denies any nasal bleeding HTN Pt has HTN Pt ta kes losartan/hctz since last month and LE edema improved. Her bp is around 130/70. Pt is off norvasc . fibromyalgia Pt has fibromyal laly. Pt takes norco PRN for pain Pt failed neurontin. Pt failed NSAID and ultram ,Pt doing ok with norco Pt denies any worsening pain insomnia Pt has insomnia Pt takes klonopin qhs prn. . Pt has sleep apnea but she does not use cpap. Pt denies any depression or any suicidal thought. Pt has mild anxiety pain Pt has fibromyal laly. Pt takes norco PRN for pain Pt failed neurontin. Pt failed NSAID and ultram ,Pt doing ok with norco Pt denies any worsening pain insomnia Pt has insomnia Pt takes klonopin qhs prn. . Pt has sleep apnea but she does not use cpap. Pt denies any depression or any suicidal thought. Pt has mild anxiety HTN Pt has HTN Pt ta kes losartan 100 mg daily. Her bp is borderline high Pt is off norvasc .Pt notices mild swelling around lower leg, worse at night but better in the morning Pt denies any sob or chest pain sinus1 Pt c/o chronic s inus congestion, nasal drainage, sinus pressure and frontal headache Pt denies any ear pain Pt is using flonase but not helping Pt sneezes a lot HTN Pt has HTN Her b p fluctuates and she feels dizzy when her bp is low . Pt was taking losartan 50 mg and norvasc 2.5 mg and her bp was too low and junior systems administrator told her to stop norvasc and take 100 mg losartan instead? she has been taking 100 mg losartan and now her bp is around 140/100 today. Her bp was 104/54 while on losartan 50 mg and norvasc 2.5 mg. Pt denies any dizziness or chest pain now GED1 Pt no longer has GERd since on pepcid and off naproxen. Pt wants to hold off EGD and colonoscopy pain Pt has fibromyal laly. Pt takes norco PRN for pain Pt failed neurontin. Pt failed NSAID and ultram ,Pt doing ok with norco Pt denies any worsening pain insomnia1 Pt has insomnia Pt takes klonopin qhs prn. . Pt has sleep apnea but she does not use cpap. Pt denies any depression or any suicidal thought. Pt has mild anxiety GERD1 Pt has intermitt ent GERD, especially at night and also chronic constipation for at least 4 months Pt is also mildly anemic. Pt denies any weight loss or abd pain pt also has bloating. Pt denies any blood in stool. Pt states that pepcid really helped her stomach symptoms and heart burn. pt has not heard from GI yet HTN Pt is on losarta n and she is off norvasc per cardiology. Pt feels much more energy. Pt states that she went to cardiology and bp was low and she was told to stop norvasc and her bp is ok now. Pt also stopped naproxen which also helped her bp per pt pain Pt has fibromyal laly. Pt takes norco PRN for pain Pt failed neurontin. Pt failed NSAID and ultram ,Pt doing ok with norco Pt denies any worsening pain insomnia Pt has insomnia Pt takes klonopin qhs prn. . Pt has sleep apnea but she does not use cpap. Pt denies any depression or any suicidal thought. Pt has mild anxiety pain1 Pt has fibromyal laly. Pt takes norco PRN for pain Pt failed neurontin. Pt failed NSAID and ultram ,Pt doing ok with norco Pt denies any worsening pain insomnia1 Pt has insomnia Pt takes klonopin qhs prn. . Pt has sleep apnea but she does not use cpap. Pt denies any depression or any suicidal thought. Pt has mild anxiety GERD1 Pt has intermitt ent GERD, especially at night and also chronic constipation for at least 3 months Pt is also mildly anemic. Pt denies any weight loss or abd pain pt also has bloating. Pt denies any blood in stool left arm numbness1 Pt c/o chroni c left arm and hand numbness and tingling. Pt had NCS which was normal Pt does have neck pain with mild left radiculopathy. Pt is seeing ortho at [facility] and she was started on cymbalta 30 mg recently which partially helped her left arm paresthesia. Pt denies any cold extremity or any finger discoloration pain Pt has insomnia Pt takes klonopin qhs prn. . Pt has sleep apnea but she does not use cpap. Pt denies any depression or any suicidal thought. insomnia1 Pt has insomnia Pt takes klonopin qhs prn. . Pt has sleep apnea but she does not use cpap. Pt denies any depression or any suicidal thought. Pt denies any crying spells constipation1 Pt has chronic c onstipation Pt takes laxative OTC frequently Pt saw her public health training assistant and was started on linzess 72 mcg which caused some diarrhea. Pt denies any abd pain Pt denies any blood in stool. fatigue1 Pt feels chronic fatigue Pt has significant sleep apnea but she could not tolerate the cpap. Pt denies any sob insomnia Pt has insomnia Pt takes klonopin qhs prn. . Pt has sleep apnea but she does not use cpap. Pt denies any depression or any suicidal thought. pain Pt has fibromyal laly. Pt takes norco PRN for pain Pt failed neurontin. Pt failed NSAID and ultram ,Pt doing ok with norco Pt denies any worsening pain osteoporosis1 Pt has osteoporo sis. Pt takes calcium and d and she gets prolia infusion every 6 months Pt has some bone pain with prolia but her bone density last fall showed improvement of bone density per pt. her endo told her to continue prolia for now dizziness1 Pt notices mild dizziness recently, worse when she stand up from lying down position Pt notices mild dizziness for two weeks pt does have chronic sinus issue Pt denies any vertigo .Pt checked her glucose which is around 100. Pt states that her bp has been around 120/80 at home Pt denies any chest pain or headache Pt denies any vertigo ,Pt denies any syncope. Pt denies any chest palpitation osteoporosis1 pain Pt has fibromyal laly. Pt takes norco PRN for pain Pt failed neurontin. Pt failed NSAID and ultram ,Pt doing ok with norco Pt denies any worsening pain insomnia Pt has insomnia Pt takes klonopin qhs prn. . Pt has sleep apnea but she does not use cpap. Pt denies any depression or any suicidal thought. UTI Pt c/o acute UTI symptoms since last night pt c/o dysuria, urinary frequency, urgency and low pelvic pressure Pt denies any flank pain, fever, chill insomnia1 Pt has insomnia Pt takes klonopin qhs prn. . Pt does have some snoring Pt denies any depression or any suicidal thought. fibromyalgia Pt has fibromyal laly. Pt takes norco PRN for pain Pt failed neurontin. Pt failed NSAID and ultram ,Pt doing ok with norco Pt denies any worsening pain sinus1 Pt c/o acute ons et of sinus congestion, sinus pain, purulent sinus drainage, postnasal drainage, mild dizziness for two days Pt denies any sore throat, fever, coughing, sob Pt denies any loss of taste and smell. Pt wants abx insomnia Pt has insomnia Pt takes klonopin qhs prn. . Pt does have some snoring Pt denies any depression or any suicidal thought. Pt is noncompliant with cpap fibromyalgia Pt has fibromyal laly. Pt takes norco PRN for pain Pt failed neurontin. Pt failed NSAID and ultram ,Pt doing ok with norco Pt denies any worsening pain pain Pt has fibromyal laly. Pt takes norco PRN for pain Pt failed neurontin. Pt failed NSAID and ultram ,Pt doing ok with norco Pt denies any worsening pain insomnia1 Pt has insomnia Pt takes klonopin qhs prn. . Pt does have some snoring Pt denies any depression or any suicidal thought. Pt is noncompliant with cpap pain Pt has fibromyal laly. Pt takes norco PRN for pain Pt failed neurontin. Pt failed NSAID and ultram ,Pt doing ok with norco Pt denies any worsening pain insomnia1 Pt has insomnia Pt takes klonopin qhs prn. . Pt does have some snoring Pt denies any depression or any suicidal thought. Pt is noncompliant with cpap HTN Pt takes losarta n and norvasc and her bp is around 120/70 at home. Pt denies any swelling. pain Pt has fibromyal laly. Pt takes norco PRN for pain Pt failed neurontin. Pt failed NSAID and ultram ,Pt doing ok with norco Pt denies any worsening pain insomnia1 Pt has insomnia Pt takes klonopin qhs prn. Pt states that she has been taking 0.25 mg qhs and doing ok. Pt does have some snoring Pt denies any depression or any suicidal thought pain Pt has fibromyal laly. Pt takes norco PRN for pain Pt failed neurontin. Pt failed NSAID and ultram ,Pt doing ok with norco Pt denies any worsening pain insomnia1 Pt has insomnia Pt takes klonopin qhs prn. Pt states that she has been taking 0.25 mg qhs and doing ok. Pt does have some snoring Pt denies any depression or any suicidal thought sleep apnea1 Pt as sleep apne a Pt is noncompliant with cpap. Pt states that insurance took the cpap machine away hemorrhoid pt has intermitt ent bleeding hemorrhoid Pt is noncompliant with surgery referral. Pt still has not done colonguard either. osteoporosis1 Pt has osteoporo sis. Pt takes calcium and D and she got another prolia and caused her to have muscle pain and she decided not to get prolia anymore Pt had bone density 7 months ago at [facility] and was told she has osteoporosis hyponatremia1 Pt has hyponatre diego. Pt had repeat lab done and her sodium is ok now anemia1 Pt has stable no rmocytic anemia ,Her iron and ferritin is ok. pt does not want colonoscopy and she is noncompliant with colonguard Pt does have hemorrhoid with bleeding sometimes but she is noncompliant with surgery also hematuria1 Pt had hematuria . Pt had repeat UA which is negative for hematuria. Urine cytology not done Pt denies any UTI symptoms fibromyalgia1 Pt has fibromyal laly. Pt takes norco PRN for pain Pt failed neurontin. Pt failed NSAID and ultram ,Pt doing ok with norco Pt denies any worsening pain insomnia1 Pt has insomnia Pt takes klonopin qhs prn and doing ok Pt does have some snoring Pt denies any depression or any suicidal thought pain Pt has fibromyal laly. Pt takes norco PRN for pain Pt failed neurontin. 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 Pt is still noncompliant with CPAP. sick Pt c/o productiv e coughing with green phlegm, mild sinus congestion pt denies any fever, chill, sore throat or any sob. Pt denies any headache or GI symptoms. her has similar symptoms and was tested negative for COVID-19. hemorrhoid1 Pt has not made nena with Dr acharya yet. Pt denies any rectal bleeding Pt is noncompliant HLP Pt states that s he has myalgia with crestor so she stopped taking it after two weeks . fibromyalgia1 Pt has fibromyal laly. Pt takes norco PRN for pain Pt failed neurontin. 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 Pt has been using a new face mask and she has dry mouth despite humidifier. Pt just started to use it for several nights and she states that she keeps waking up at night with the mask. She has very poor tolerance for the cpap despite severe sleep apnea. Pt is rather complainant. pt feels severe fatigue anemia1 Pt has mild anem ia. pt does have bleeding external hemorrhoid. Pt is noncompliant with surgery. Pt has mild hematuria HLP Pt has persisten t HLP. Pt has not been eating healthy. Pt eats a lot of greasy food. anemia1 Pt has mild anem ic on lab. Pt states that she has external hemorrhoid. Pt notices some occasional bright red blood per rectum. Pt notices the hemorrhoid for several months. Pt states that she feels slightly lightheadedness sometimes in the morning but seems slightly worse recently. Pt denies any sob Pt denies any pre and syncope anemia1 Pt has blood in urine. Pt denies any urinary symptoms. Pt denies any flank pain pain1 Pt has fibromyal laly and also insomnia Pt takes norco and klonopin qhs Pt doing ok sleep apnea1 Pt is noncomplia nt with cpap. Pt tried 4 different masks but not working. Pt still feels fatigue sinus1 pt c/o acute sin us pain with purulent sinus drainage, mild sore throat, ear pain, productive cough for one week Pt denies any sob or fever Pt states that she feels typical of a sinus infection and abx usually works PHysical Pt needs annual physical. Pt has osteoporosis. Pt takes vitamin D and she has prolia infusion once yearly. Pt sees endo from [facility]. Pt has fibromyalgia and chronic pain Pt takes norco and doing ok Pt failed neurontin. Pt has insomnia and anxiety. Pt takes klonopin qhs PRn and doing ok. Pt has HTn Pt takes losartan and norvasc and she does not check her bp at home. Pt denies any chest pain or headache. Pt has sleep apnea. pt told me she needs heated hose? Pt states that elmersuzanne told her she needs that. Pt has some difficulty with leaking tube and dries mouth with current setting with humidifier. Pt has not noticed much improvement in her energy level pain Pt has fibromyal laly. Pt takes norco PRN for pain Pt failed neurontin. 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 pt feels fatigue Pt does snore at night Pt feels restless while asleep fibromyalgia1 Pt has fibromyal laly. Pt takes norco PRN for pain Pt failed neurontin. Pt failed NSAID and ultram ,Pt doing ok with norco Pt denies any worsening pain insomnia1 Pt has insomnia Pt takes klonopin qhs prn and doing ok Pt does have some snoring Pt denies any depression or any suicidal thought HTN Pt has HTn Pt ta kes norvasc and losartan and she states that her BP is around 130/70 at home Pt denies any chest pain or headache osteoporosis1 Pt has osteoporo sis Pt just saw her bone specialist and she is off forteo now and she will start prolia. 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 Pt takes norco PRN for pain Pt failed neurontin sinus Pt continues to have clear nasal drainage despite using atrovent nasal spray. Pt denies any purulent sinus drainage knee pain1 Pt has bilateral knee pain Pt sees ortho currently Pt failed steroid injection. Pt told me previous ortho does not want her to get knee replacement. Her current ortho told her that her previous MD did want to do knee replacement. Pt is confused pain Pt has fibromyal laly pt takes norco prn for pain and doing ok. Pt denies any worsening pain. Pt failed neurontin. Pt doing ok with norco insomnia1 Pt has insomnia Pt takes klonopin qhs prn and doing ok Pt does have some snoring Pt supposes to do sleep study. Pt could not set up with [facility]. Pt does not want to give her credit card number for deposit fibromyalgia1 Pt has fibromyal laly pt takes norco prn for pain and doing ok. Pt denies any worsening pain. Pt failed neurontin. Pt doing ok with norco insomnia1 Pt has insomnia Pt takes klonopin qhs prn and doing ok Pt does have some snoring fatigue1 Pt has chronic f atigue Pt is in the process of setting up home sleep study. sinus1 Pt has chronic s inus allergy pt states that atrovent nasal spray is helping Pt c/o acute worsening sinus congestion and some purulent sinus drainage for one week Pt denies any fever, chill, sore throat coughing HTN Pt has HTN. Pt t akes losartan and norvasc and her BP is stable sinus allergy1 Pt has chronic s inus congestion Pt denies any purulent sinus drainage Pt failed flonase. Pt states that atrovent nasal spray works much better. Pt states that she can breath through her nose much better and she no longer has constant sinus drainage. Pt denies any sinus pain or any purulent sinus drainage Pt denies any sore throat pain Pt has fibromyal laly pt takes norco prn for pain and doing ok. Pt denies any worsening pain. Pt failed neurontin insomnia1 Pt has insomnia Pt takes klonopin qhs prn and doing ok Pt denies any snoring or any trouble with breathing at night fatigue1 Pt has chronic f atigue, Pt snores at night. Pt wakes up feeling tired. HTN P felt dizziness with losartan/hctz. She is off that. Pt is back on norvasc and losartan and her BP is ok now PT denies any chest pain or dizziness or joint pain fibromyalgia1 Pt has fibromyal laly pt takes norco prn for pain and doing ok. Pt denies any worsening pain insomnia1 Pt has insomnia Pt takes klonopin qhs prn and doing ok Pt denies any snoring or any trouble with breathing at night sinus allergy1 Pt has chronic s inus congestion, stuffy nose, itchy eyes. Flonase does not work anymore HTN Pt has mild HTN Pt takes norvasc and losartan and her BP is borderline. Pt denies any chest pain or headache edema1 Pt states that s he has some bilateral ankle edema during the day and towards the night but is better in the morning Pt denies any sob or chest pain Pt denies any frequent urination at night chronic pain1 Pt has fibromyal laly, Pt takes norco PRn for pain insomnia1 Pt has insomnia and anxiety. Pt takes Klonopin qhs PRN and doing ok toe pain1 pt has chronic b ilateral big toenail thickness and she has hard time cutting both and she has some big toe pain on both side. pt denies any injury or numbness. Pt states that the big toenail pushes against the shoes all the time. fibromyalgia1 Pt has chronic f ibromyalgia and neck and back pain Pt denies any worsening pain, pt failed NSAID and ultram Pt takes norco for pain Pt failed neurontin. Pt denies any loss of bladder control insomnia1 Pt has insomnia Pt takes klonopin qhs PRN and doing ok. Pt denies any depression or any suicidal or homicidal thought chronic pain1 Pt has chronic f ibromyalgia and neck and back pain. Pt takes norco PRN for pain Pt failed NSAID and ultram Pt doing ok with norco insomnia1 PT has insomnia. Pt takes klonopin qhs PRN qhs and doing ok. Pt denies any trouble with breathing or waking up at night with sob sinusitis1 Pt c/o acute sin us pain, purulent drainage, sinus pain for one week Pt denies any sore throat Pt has difficulty breathing through her nose. Pt denies any sore throat or fever Pt denies any coughing. pt is using anti histamine and flonase which helped slightly HTN Pt takes losarta n and norvasc currently. Her BP is stable. Pt denies any chest pain or headache or sob or palpitation fibromyalgia1 Pt has fibromyal laly and neck and back pain Pt has upper shoulder pain pt takes norco PRN for pain and doing ok. Pt failed NSAID and ultram and neurontin insomnia1 Pt has mild anxi ety and insomnia. Pt takes klonopin PRN qhs and doing ok. Pt denies any snoring or any trouble with breathing Pt has mild fatigue due to chronic condition insomnia1 Pt has chronic i nsomnia. Pt denies any snoring or any trouble with breathing at night. Pt doing ok with klonopin HTN Pt has mitral re gurgitation. Pt denies any chest pedro or sob Pt just seen cardiology and she was started on norvasc in addition to losartan. Pt denies any swelling fibromyalgia1 Pt has fibromyal laly pt takes norco PRN for pain. Pt failed NSAID and ultram numbness1 Pt denies any fa cial and right side numbness. Pt denies any weakness. her MRI of brain and carotid doppler were ok. fibromyalgia1 Pt has fibromyal laly. Pt takes norco PRN for pain Pt failed NSAID and ultram. anxiety1 Pt has anxiety a nd insomnia Pt takes klonopin qhs PRN and doing ok. Pt denies any snoring mitral regu Pt denies any ch est pain or exertional dyspnea. Pt has mitral valve regurg. Pt denies any edema numbness1 Pt denies any fu rther right face and right arm numbness and tingling. Pt has not had any episodes of difficulty with speech, etc. Pt denies any headache. Pt denies any mental status change. Pt denies any chest pain or palpitation. chronic pain Pt has fibromyal laly. Pt takes norco for pain and doing ok. insomnia1 Pt has insomnia Pt takes klonopin PRN qhs and doing ok. PHysical Pt needs annual physical. Pt has fibromyalgia. Pt takes norco PRN for pain, Pt failed NSAID and ultram. Pt has insomnia pt takes klonopin qhs PRN and doing ok. Pt denies any snoring .Pt denies any fatigue. Pt has osteoporosis. Pt sees bone specialist and is on forteo now. Pt denies any bone pain pt has HTn. Pt takes losartan and doing ok. Pt just had left humeral fracture surgery with hardware. Pt was told no NSAID by surgeon. Pt has a lot of breakthrough pain. Pt states that she experienced several episodes of feeling out of it, unable to speak during last month lasting several mins. Pt denies any weakness or vision change or headache or unilateral weakness. Pt feels right facial and right arm tingling during episodes Pt denies any other complaints osteoporosis1 Pt has osteoporo sis. Pt is seeing bone specialist. pt is off fosamax. Pt is on calcium and vitamin D and also Forteo now. Pt notices mild joint pain with Forteo. fibromyalgia1 Pt has chronic p ain due to fibromyalgia. Pt takes norco PRN for pain. Pt failed neurontin HTN Pt has HTN. Pt t akes losartan. Her BP is stable insomnia1 Pt has chronic i nsomnia. Pt denies any snoring. Pt doing ok with klonopin qhs PRN sinus1 Pt has sinus all ergy. Pt doing much better with flonase. Pt notices mild dry sinus with flonase. Pt denies any bleeding. fibromyalgia1 Pt has fibromyal laly. Pt has neck and back pain. pt takes norco PRN for pain. Pt failed NSAID and ultram anxiety1 Pt has chronic a nxiety. pt denies any depression or any suicidal thought pt denies any crying spells fatigue1 Pt feels fatigue . for several months Pt states that she feels sleepy all day. Pt does snore. Pt does wake up at night for sob sinus Pt has chronic s inus congestion. Pt has nasal congestion all the time. Pt has hard time breath through her nose Pt states that xyzal has not helped. Pt denies any purulent sinus drainage. Pt denies any sore throat chronic pain Pt has chronic f ibromyalgia and back and neck pain. Pt has left shoulder and upper arm pain. Pt is seeing ortho. Pt is wearing left upper arm splint, Pt denies any hand numbness or tingling insomnia1 Pt has insomnia. pt takes klonopin qhs PRn and doing ok. Pt denies any depression or any suicidal thought sinus allergy1 Pt has chronic s inus allergy. Pt has sinus congestion. Pt does not like flonase or any type of nasal spray. Pt wants to try xyzal. Her sister told me it helped her? fibromyalgia1 Pt has fibromyal laly and chronic neck and back pain. Pt denies any worsening pain Pt denies any loss of bladder control insomnia1 pt has insomnia. Pt takes klonopin qhs and doing ok Pt denies any snoring .Pt sleeping ok with it osteoporosis1 Pt is calcium an d vitamin D and she takes fosamax for osteoporosis. Pt has left shoulder fracture and she is wearing sling for 3-4 months with splint by ortho. Pt has difficulty time with healing. Pt c./o left shoulder pain. HTN Pt has HTN. Pt t akes losartan 50 mg daily. Her BP is borderline high. Pt denies any chest pain or headache fibromyalgia1 Pt has chronic f ibromyalgia and back pain. Pt denies any worsening pain Pt denies any loss of bladder control insomnia1 pt has insomnia and she takes klonopin qhs PRn and doing ok. Pt denies any depression or any suicidal thought. hlp Pt has mild HLP pt does not eat poorly fibromyalgia1 Pt has chronic n adolfo and back pain pt has humerus fracture and she is wearing a sling and cast now. pt has been squeezing a ball on left hand a lot recently and she has been having left shoulder pain for several days. Pt wants to know if she can take some naproxen, which used to help Pt denies any new injury. Pt takes norco PRN insomnia1 Pt has insomnia Pt takes klonopin qhs PRn Pt denies any snoring or any trouble with breathing at night fibromyalgia1 Pt has fibromyal laly and neck and back pain pt denies any worsening pain Pt denies any loss of bladder control. pt failed NSAID and ultram HTN Pt takes losarta n. Her BP is stable. insomnia1 Pt has insomnia Pt takes klonopin qhs PRN Pt doing ok Pt denies any snoring or any trouble with breathing at night weight loss1 Pt has lost some weight recently Pt states that she does not want endoscopy Pt denies any lower GI issue. Pt states that she has not had any appetite recently due to shoulder pain Pt denies any GERD arm pain1 Pt tripped and f ell two weeks ago and she suffered a proximal humeral fracture Pt just seen orthopedic and she was given a plastic cast left shoulder to left upper arm area. Pt notices rather severe pain and her left hand is swelling since the fracture. pt has been taking norco for her left arm pain and is helping insomnia1 Pt has insomnia Pt takes klonopin qhs PRN. Pt doing ok fibromyalgia1 Pt has fibromyal laly, Pt takes norco PRN for pain pt doing ok. Pt denies any worsening pain HTN Pt has HTn. Pt t zack fang and her BP is slightly high. Pt is in pain due to arm fracture. osteoporosis1 Pt is on fosamax , calcium and vitamin D. Pt is seeing bone specialist hemorrhoid1 Pt states that s he notices external hemorrhoid with some bleeding sometimes for several months. Pt notices mild pain Pt denies any constipation. He notices some bright red blood when she wipe sometimes fibromyalgia1 Pt has fibromyal laly. Pt takes norco PRN for pain. Pt failed neurontin. Pt has chronic neck and upper back pain. Pt denies any worsening pain. anxiety1 Pt has chronic a nxiety and insomnia Pt denies any trouble with snoring or any trouble with breathing at night .Pt takes klonopin PRN qhs and doing. Pt denies any suicidal or homicidal thought Pt denies any crying spells bladder prolase1 Pt has bladder prolapse. Pt will have bladder surgery soon by urology Pt also has angiomyolipoma. Dr. Albarado retired. She will see Dr. hernandez fibromyalgia1 Pt has fibromyal laly and chronic back pain. Pt takes norco PRN for pain and doing ok. Pt denies any worsening pain. pt failed neurontin, NSAID ultram, codeine insomnia1 Pt has chronic i nsomnia. pt takes klonopin qhs and doing ok. angiomyolipoma1 Pt has right gill al angiomyolipoma. Pt had another ultrasound done which showed slightly enlargement. Pt is seeing urology now. Pt denies any flank pain oral numbness 1 Pt states that lorne carrillo wakes up last week and feels some mild numbness around her lip and mouth. Pt denies any headache Pt states that the symptoms resolved after several hours Pt denies any headache. pt denies any neurologic deficit. Pt denies any speech issue. pt denies any motor and sensory issue now. Pt c/o acute onset of sinus drainage and sinus pain with some purulent sinus drainage fibromyalgia1 Pt has fibromyal laly and chronic back pain. Pt takes norco PRN for pain. pt failed neurontin and ultram and NSAID insomnia1 Pt has chronic i nsomnia and anxiety. Pt takes klonopin qhs PRN and doing ok. Pt denies any depression or any suicidal thought renal cyst1 Pt has renal ang iomyolipoma and renal cyst. Pt is concerned about the lesion. Pt actually is going to see a new urologist for bladder surgery and she wants to know if she can get her cyst checked. chronic pain Pt has chronic n adolfo and back pain due to fibromyalgia. Pt denies any worsening pain. Pt denies any loss of bladder control. pt failed ultram, codeine, NSAID> Pt takes norco PRN for pain and doing ok insomnia1 Pt has insomnia and anxiety ,Pt takes klonopin qhs PRN and doing ok. Pt denies any depression or any suicidal thought. Pt denies any crying spells sinus1 Pt has chronic s inus congestion. Pt has difficulty breathing through her nose. Pt does not want to do sinus CT. Pt states that she does not want surgery fibromyalgia1 Pt has fibromyal laly. Pt takes norco PRN for pain. Pt doing ok osteoporosis1 Pt has osteoporo sis. Pt is seeing bone specialist and she is back on fosamax and calcium and D now. Pt was told to try weight bearing exercise sinus1 Pt has chronic s inus congestion and she failed flonase. Pt feels that she has chronic bilateral hearing loss on hearing aid but seems worse lately due to sinus blockage. Pt states that she feels that her ear opens up when she tries to hold her nose and try to blow. Pt states that her hearing will improve for a short amount of time but returning to muffled hearing again. Pt denies any ear pain insomnia1 Pt has chronic i nsomnia. Pt takes klonopin qhs PRN and doing ok. Pt denies any depression or any suicidal thought PHysical p[t needs annual physical. Pt has nena with osteoporosis md next week. Pt takes calcium and D and she failed fosamax. Pt is trying weight bearing exercise. Pt has fibromyalgia an chronic neck and back pain. pt denies any worsening pain. Pt denies any loss of bladder control. Pt has HTN. Pt takes losartan and her bP is borderline todya. Pt denies any chest pain or headache. Pt denies any other complaints sick Pt c/o feeling s inus congestion, diffiulty breathing through her nose, sore throat, ear pain, sinus headache, produictive couging throughtout the night and day and unable to sleep for two days. Pt denies any fever, ,chill .Pt denies any sick contact .Pt denies any recent travel. Pt failed OT meds. Pt denies any GI issue fibromyalgia1 Pt has fibromyal laly. Pt takes norco PRN for pain. Pt failed neurontin Pt doing ok currently insomnia1 Pt has chronic i nsomnia. Pt denie any snoring or any trouble with breathing. Pt doing ok with meds HTn Pt has HTn. Pt t akes losartan and her BP is stable. Pt denies any chest pain or headache fibromyalgia1 Pt has fibromyal laly. Pt has neck and back pain. Pt doing ok with norco PRN. Pt denies any worsening pain insomnia1 pt has insomnia. Pt denies any snoring or any trouble with breathing at night osteoporosis1 Pt has osteoporo sis. Pt is on calcium and d and fosamax now. Pt denies any fracture Pt just seen the osteoporosis specialist and is getting some lab done cold Pt has persisten t sore throat, sinus congestion, purulent phlegm with coughing for one week Pt denies any fever. Pt denies any sick contact. pt failed OTC meds insomnia1 Pt has insomnia and anxiety. pt takes klonpin PRN qhs and doing ok. Pt denies any depression or any suicidal thought fibromyalgia1 Pt has fibromyal laly and chronic neck and back pain. Her neck and t spine xray showed arthritis change. Pt takes norco PRn for pain and doing ok sob1 Pt feels mild so b sometimes with exertion. Pt has normal chset xray. pt denies any chset pain. Pt states that venotlin helps. Pt wants another one called in so she can get it before insurance run out. pt c/o coughing up phlegm for one week, worse at night. jonit pain1 Pt has fibromyal laly Pt has diffuse low back, knee, shoulder pain. Pt feels some neck stiffness and some bilateral hand numnbess and tingling recently. Pt states taht flexeril does help. Pt also feels that her hand gets cold easily anxiety1 Pt has mild anxi ety and insomnia. Pt takes klonopin PRN and qhs PRN. Pt deneis any depression or any suicidal thought. Pt denies any cyring spells osteoporosis1 Pt takes calcium and D and she has appointemnt with bone specialist in november 15 foot pain1 pt c/o bilateal plantar foot pain for last 4 weeks. Pt denies any injury. Pt feels mild numbness. Pt states that pain is worse in the morning but gets better once he walks a little in the morning. SOB Pt notices mild sob recenlty when she leans forward or with any activity. Pt deneis any chest pain. Pt deneis any coughing osteoporosis1 Pt has osteoporo sis. Pt took fosamax for at least 2-3 years pt is on calcium and D. Pt denies any fracture fibromyalgia1 Pt has fibromyal laly. Pt takes norco for pain PRn and doign ok. Pt failed neurontin. insomnia1 Pt takes klonpin PRN qhs for insomnia and anxiety at night pt denies any depression or any suicidal thought renal cyst1 pt has beingn re nal cyst. Pt is seeing urology. Pt was called by urology for follow up today. Pt has angiomyolipoma. pt denies any flank pain fibromyalgia1 Pt has fibromyal laly. Pt has chronic upper back and shoulder and low back muscle pain. Pt deneis any worsening pain. Pt takes norco and flexeril PRN for pain and doing ok insomnia1 Pt has insomnia Pt takes klonpin PRN qhs and doing ok Pt denies any snoring, Pt feels tired a lot throughout the day insomnia1 Pt has insomnia. Pt takes klonpin qhs PRN and doing ok. pt denies any depression on any suicidal or homicidal thought. Pt denies any cyring spellls. Pt doing ok with klonopin. Pt denies any snoring or any trouble with breathing at night fibromyalgia1 Pt has fibrommya lgia. Pt has back and neck pain. Pt takes norco for pain.. Pt denies any worsening pain fatigue1 Pt states that s he feels more fatigue with adderall and she could not tolerate it. Pt stopped adderall on her own. Pt states that flexeril in addition to klonopin do help her with insomnia. HTN Pt takes losarta n and her BP is slighlty high. Pt denies any chest pain or headache fatigue1 Pt c/o chronic f atigue, Pt states that adderall helps her slighlty but it wears off very quickly in the morning time. Pt denies any chest pain or headache. Pt feels fatigue in the morning and throughout the day. pt states that she wakes up frequently at night due to unable to breath through her nose. Pt denies any snoring at night. .Pt denies breathing issue at night left shoulder pain1 Pt c/o sudde n onset of left upper shoulder and left side of neck pain for one week. Pt denies any injury. Pt denies any neck pain or any radiculopathy to left arm. Pt denies zhen arm numbness or weakness. osteoporosis1 Pt has osteoposi s. Pt failed fosamax. Pt is on calcium and vitamin D. Pt denies any h /o fracture fibromyalgia1 Pt has fibromyal laly. Pt takes norco for pain. Pt denies worsening pain. Pt has upper and lower back pain. insomnia1 Pt has chornic i nsomnia and anxiety. PIt takes klonpin PRN qhs and doing ok. Pt denies any depression or any suicidal thought. Pt denies any cyring spells fibromyalgia1 Pt has fibromyal laly. Pt has chornic low back muscle pain. Pt takes norco for pain. Pt failed neurontin and mobic. Pt denies any loss of bowel or bladder control. Pt denies any worsening pain anxiety1 Pt has chronic a nxiety and insomnia. pt takes klonpn PRN and doing ok. Pt denies any depression or any suicidal or homicidal thought fatigue1 Pt has severe fa tigue. Pt denies any chest pain or sob. pt feels fatigue for several years. Pt had benign lab recently. Pt also is under a lot of stress as well. Pt denies any snoring or any trouble with breathing at night. Pt states that she dozes off all day fibromyalgia1 Pt has fibromyal laly and chronic joint pain. Pt is seeing ortho. Pt does not have RA or any connective tissue disease osteoporosis1 Pt has osteoporo sis. Pt has been taking fosamax for 2-3 years. Pt takes calcium and D. Pt denies any fracture anxiety1 Pt has chronic a nxiety and insomnia. Pt takes klonpin PRN and doing ok. 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 Pt is seeing dermatology and will have surgery soon insomnia1 Pt has chronic a nxieyt and insomnia. pt takes klonpin PRN and doing ok. Pt denies any depression or any suicidal thought. Pt denies any cyring spells osteoporosis1 Pt has osteoporo sis. pt takes calcium and D and is trying weight bearing exercise Pt has not donebone density yet HTN Pt takes losatan and her BP is borderline today. Pt denies any chest pain or headache fibromyalgia1 Pt has chornic f ibromyalgia and diffuse pain around low back and upper back. Pt takes norco PRN for pain. Pt denies any wrosening pain. Pt failed NSAID anxiety1 Pt has chornic a nxiety and insomnia. Pt takes klonpin pRN for anxiety Pt denies any depression or any suicidal thought fibromyalgia1 Pt has fibromyal laly and diffuse joint and muscle pain. Pt failed mobic again. Pt denies any worsening pain fibromyalgia1 Pt has fibromyal laly and diffuse pain all over body. Pt has not done RA factor yet. Pt failed NSAID anxiety1 Pt has chronic i nsomnia. Pt takes klonopin PRN qhs Pt doing ok. Pt denies any depression or any suicidal thought Pt deneis any crying spells jont pain Pt has fibromyal laly and chornic joint pain. Pt has arthritis. Pt went to ER and was told she has pseudogout in her elbow and knee Pt could not tolerate mobic in the past Pt has appointment with ortho today anxiety1 Pt has chronic a nxiety ,Pt denies any depression or any suicidal thought. Pt takes klonpin PRn and doing ok Pt denies any crying spells osteoprosis1 Pt has osteoporo sis. Pt takes calcium, fosamax and vitamin D. Pt denies fx Pt denies any jaw pain anxiety1 Pt has chornic a nxiety and insomnia. Pt takes klonpin PRn and doing ok Pt denies any depression or any suicidal thought fibromyalgia Additional infor woodrow: Pt has fibromyalgia. Pt atkes norco for pain and doing ok. Pt has chronic upper back and joint pain. elbow pain1 Pt c/o acute ons et of right elbow and forearm and wrist pain two weeks ago without injury. Pt went to ER and was told she had gout and xray showed severe degenerative disease and elbowe effusion. Pt was told to stop fosamax. HLP Pt has mild HLP and also high glucose pt denies any polyuria polydipsia PHysical Pt needs annual physical. Pt has fibromyalgia. Pt has chronic diffuse pain. Pt takes norco for pain. Pt has insomnia and she takes klonpin PRn and doing ok. Pt has history of right masectomy. Pt c/o persistent right side chest wall and right arm pain. Pt denies any swelling. Pt also takes fosamax and losartan. Pt denies any other complaints chronic pain1 Pt has chronic l ow back and muscle pain. pt has fibromyalgia. Pt states that mobic did help at the beginning. but not anymore anxiety1 Pt has anxiety a nd insomnia. pt takes klonpin PRN. Pt doing ok. Pt denies any depression or any suicidal thought fibromyalgia1 Pt has fibromyal laly and diffuse joint pain. Pt has arthritis. Pt takes norcor for pain PRn and she still has a lot of breakthrough pain. Pt denies any injury anxiety1 Pt has chronic a nxiety. Pt denies any depression or any suicidal thought. Pt takes klonpin PRN for insomnia and anxiety and doing ok. fibromyalgia1 Pt has fibromyal laly and chronic low back pain. Pt takes norco. Pt states that neurontin is not helping and made it worse. pt stopped neurontin. Pt denies any wrosening pain. Pt has 6/10 pain anxiety1 Pt has chronic a nxiety and insomnia Pt takes klonpin PRn. Pt is doing ok. Pt denies any depression or any suicidal thought vision change Pt notices visio n getting worse lately. Pt states that reading is worse neck pain1 Pt woke up last Sunday with left side neck pain with radiation of pain down to left shoulder and left upper arm. Pt denies any numnbess. Pt states that it is getting better but she still has pain. Pt denies any headahe chronic pain Pt has chronic b ack and hip and knee pain. pt has arthritis and fibromyalgia. Pt takes norco for pain Pt failed NSAID anxiety1 Pt has chronic a nxiety and insomnia. pt takes klonopin PRN. Pt denies any depression or any suciidal thought. Pt denies any crying spells HTN Pt takes losarta n and her BP is ok. Pt denie any chest pain or headache chronic pedro Pt has fibromyal laly and chronic back apin. Pt takes norco for pain and is stable. Pt denies any worsening pain anxiety1 Pt has chronic a nxiety . Pt denies any depression or any suicidal thought. Pt takes klonpin PRN and doign ok chrnoic pain Pt has chronic f ibromyalgia and chronic pain. Pt deneis any wrosening pain. Pt takes norco for pain and doing ok. Pt denies any wrosening pain Anxiety1 Pt has chronic a nxiety. Pt denies any depression or any suicidal thought. Pt takes klonpin and doing ok. Pt denies any crying spells fibromyalgia Additional infor mation: Pt has chronic fibromyalgia and back pain. Pt takes norco for pain. Pt does not want to try neurontin. HTN1 Pt has HTN. Pt t akes losartan. Pt denies any chest pain or headache anxiety1 Pt has chronic a nxeity and insomnia. Pt takes klonopin qhs PRN and doing ok Pt denies any crying spells back pain1 Pt has fibromyal laly and chronic low back pain. pt denies any sciatica pt denies any loss of bowel or bladder control anxiety1 Pt has chronic a nxiety. Pt denie any depression or any suicidal thought. Pt takes klonpin pRN and doing ok HTN Pt has HTN. Pt t akes losartan. Her BP is ok. Pt is on low salt diet anxiety1 Pt has chronic a nxiety and insomnia. Pt takes klopin qhs and doing ok. Pt denies any suicidal or homicidal thought Pt denies any crying spells fibromyalgia Additional infor woodrow: Pt has fibromyalgia. Pt takes norco for pain Pt denies any worsening pain. osteoporosis1 Pt has osteoporo sis. pt takes calcium and vitamin D and fosamax. Pt doign ok Pt denies any history of frx Pt denies any abd pain or GERd symptoms HTN1 Pt takes losarta n. Her BP is high still. Pt states that her BP is normal sometimes but sometimes over 140. Pt denies any chest pain or headache Pt tolerating losatan ok fibromyalgia1 Pt has fibromyal laly and chronic back pain. Pt takes norco for pain Pt tolerating ok Pt denies any worsneing pain anxiety1 Pt has chronic a nxiety and insomnia. Pt takes klonpoin qhs pRN and doing ok. Pt denies any suicidal or homicdial thoguht. fatigue1 Pt has been snor ing and she feels fatigue in the morning Pt has above symptoms for several months. HTN1 Pt unable to tg erate lisinopril. Pt feels nauseated Pt states that her BP is around 150s. Pt denies any chest pain or headache osteoporosis1 Pt has osteoporo sis. Pt takes fosamax and calcium and vitamin D and tolerating ok Pt denies any bone or jaw pain. Pt denies any stomach upset Fibromyalgia1 Pt has fibromyal laly and chronic pain. Pt takes norco for pain Pt doing ok. Pt denies any worsenign pain anxiety1 Pt has chronic a nxiety and insomnia Pt takes klopin qhs Pt denies any depression or any suicidal thought. HTN1 Pt has been taki ng norvac Pt states that she feels more achey all over body and her gum hurt since taking norvasc. Her BP is ok today. Pt denies any leg swelling Anxiety1 Pt has chronic a nxiety Pt denies any depression or any suicidal thought Pt has insomnia Pt takes klonopin qhs PRN Pt denies any snoring or any trouble with breasthing at night fibromyalgia1 Pt has fibromyal laly. Pt has chronic pain all over body. Pt states that her pain is worse recently due to cold weather insulin resistance1 Pt has mild insulin resistance. Pt denies any polyuria, polydipsia anxiety1 Pt has chronic a nxiety. PT denies any depression or any suicidal thought. Pt denies any crying spells HTN1 Pt has persisten tly HTN. Pt deneis any chest pain, headache. Her BP is high at home also around 150s renal cyst1 Pt has right gill al angimyolipioma and left renal cyst and getting bigger on ultrasound. Pt does not have any microalbumin in her urine Anxiety The patient pres ents with anxious/fearful thoughts but denies fatigue. The patient denies any vomiting. Additional information: Pt has chronic anxiety and insomnia. Pt takes klonpin. Pt denies any depression or any suicidasl thought. fibromyalgia Additional infor woodrow: Pt has fibromyalgia. Pt takes norco PRN for pain Pt denies any worsening pain. glucose Pt has mild elev ated glucose and and proteinuria. Pt denies any polyguria, polydipsia Physical Pt needs annual physical. Pt has osteoporosis and takes calcium and vitamin D. Pt takes klonpin PRN for anxiety. Pt denies any depression or any suicidal thought. Pt denies any other complaints osteoporosis Additional infor woodrow: Pt has osteoporosis. Pt is taking fosamax now. Pt really has not been on fosmax consistently until 3 months ago. Pt is tolerating it ok. pt is taking calcium and vitamin d now. Pt deniesjoint pain. Crhoinc pain Pt has chronic f ibromyalgia and chronic pain. Pt takes norco for pain. PT denies any wrosening apin Anxeity Pt takes klonpin for anxiety and insomnia. Pt denies any depression or any suicidal thought Instructions Date Instruction Additional Infor woodrow Special diet education Related t o Body mass index (BMI) 25.0-25.9, adult Weight management Related to Ins omnia Weight gain advised Related to B sandro mass index (BMI) 24.0-24.9, adult Increase physical activity Relat ed to Allergic rhinitis Medications as instructed Relate d to Fibromyalgia Weight gain advised Related to B sandro mass index (BMI) 24.0-24.9, adult Increase activity. Related to Es sential (primary) hypertension Follow a low sodium diet. Relate d to Essential (primary) hypertension Special diet education Related t o Body mass index (BMI) 24.0-24.9, adult Medications as instructed Relate d to Fibromyalgia Medications as instructed Relate d to Fibromyalgia Special diet education Related t o Body mass index (BMI) 24.0-24.9, adult Increase physical activity Relat ed to Insomnia Weight management Related to Ins omnia Follow a low sodium diet. Relate d to Essential (primary) hypertension Increase activity. Related to Es sential (primary) hypertension Special diet education Related t o Body mass index (BMI) 24.0-24.9, adult Special diet education Related t o Body mass index (BMI) 25.0-25.9, adult Increase physical activity Relat ed to Osteoporosis Weight management Related to Ost eoporosis Special diet education Related t o Body mass index (BMI) 24.0-24.9, adult Medications as instructed Relate d to Fibromyalgia Increase physical activity Relat ed to Encounter for general adult medical exam w abnormal findings Weight management Related to Enc ounter for general adult medical exam w abnormal findings Medications as instructed Relate d to Fibromyalgia Increase physical activity Relat ed to Allergic rhinitis Increase physical activity Relat ed to Insomnia Increase physical activity Relat ed to Osteoporosis Medications as instructed Relate d to Fibromyalgia Increase physical activity Relat ed to Fibromyalgia Follow a low sodium diet. Relate d to Essential (primary) hypertension Increase activity. Related to Es sential (primary) hypertension Follow a low sodium diet. Relate d to Essential (primary) hypertension Medications as instructed Relate d to Fibromyalgia Increase physical activity Relat ed to Benign neoplasm of right kidney Weight management Related to [place] ign neoplasm of right kidney Medications as instructed Relate d to Fibromyalgia Medications as instructed Relate d to Fibromyalgia Prescribed Activity and Exercise Education Related to Dietary Surveillance and Counseling Prescribed Diet Educ ation/Lifestyle Education Regarding Diet Related to Dietary Surveillance and Counseling Prescribed Activity and Exercise Education Related to Dietary Surveillance and Counseling Prescribed Diet Educ ation/Lifestyle Education Regarding Diet Related to Dietary Surveillance and Counseling Increase physical activity Relat ed to Acute bronchitis Prescribed Diet Educ ation/Lifestyle Education Regarding Diet Related to Dietary Surveillance and Counseling Medications as instructed Relate d to Fibromyalgia Prescribed Activity and Exercise Education Related to Dietary Surveillance and Counseling Prescribed Diet Educ ation/Lifestyle Education Regarding Diet Related to Dietary Surveillance and Counseling Increase physical activity Relat ed to Osteoporosis Weight management Related to Ost eoporosis Prescribed Activity and Exercise Education Related to Dietary Surveillance and Counseling Prescribed Activity and Exercise Education Related to Dietary Surveillance and Counseling Prescribed Diet Educ ation/Lifestyle Education Regarding Diet Related to Dietary Surveillance and Counseling Increase physical activity Relat ed to Shortness of breath Weight management Related to [place] rtness of breath Weight management Related to [place] rtness of breath Increase physical activity Relat ed to Insomnia Weight management Related to Ins omnia Increase physical activity Relat ed to Insomnia Weight management Related to Ins omnia Prescribed Diet Educ ation/Lifestyle Education Regarding Diet Related to Dietary Surveillance and Counseling Increase physical activity Relat ed to Fibromyalgia Prescribed Activity and Exercise Education Related to Dietary Surveillance and Counseling Weight management Related to Fib romyalgia Increase physical activity Relat ed to Fibromyalgia Prescribed Activity and Exercise Education Related to Dietary Surveillance and Counseling Prescribed Diet Educ ation/Lifestyle Education Regarding Diet Related to Dietary Surveillance and Counseling Prescribed Activity and Exercise Education Related to Dietary Surveillance and Counseling Prescribed Diet Educ ation/Lifestyle Education Regarding Diet Related to Dietary Surveillance and Counseling Prescribed Activity and Exercise Education Related to Dietary Surveillance and Counseling Prescribed Diet Educ ation/Lifestyle Education Regarding Diet Related to Dietary Surveillance and Counseling Prescribed Activity and Exercise Education Related to Dietary Surveillance and Counseling Prescribed Diet Educ ation/Lifestyle Education Regarding Diet Related to Dietary Surveillance and Counseling Prescribed Activity and Exercise Education Related to Dietary Surveillance and Counseling Prescribed Diet Educ ation/Lifestyle Education Regarding Diet Related to Dietary Surveillance and Counseling Prescribed Diet Educ ation/Lifestyle Education Regarding Diet Related to Dietary Surveillance and Counseling Prescribed Activity and Exercise Education Related to Dietary Surveillance and Counseling Prescribed Activity and Exercise Education Related to Dietary Surveillance and Counseling Prescribed Diet Educ ation/Lifestyle Education Regarding Diet Related to Dietary Surveillance and Counseling Prescribed Activity and Exercise Education Related to Dietary Surveillance and Counseling Prescribed Diet Educ ation/Lifestyle Education Regarding Diet Related to Dietary Surveillance and Counseling Physical activity counseling Rel ated to Dietary surveillance counseling Decrease caloric intake Related to Dietary surveillance counseling Physical activity counseling Rel ated to Dietary surveillance counseling Decrease caloric intake Related to Dietary surveillance counseling Physical activity counseling Rel ated to Dietary surveillance counseling Decrease caloric intake Related to Dietary surveillance counseling Decrease caloric intake Related to Dietary surveillance counseling Physical activity counseling Rel ated to Dietary surveillance counseling Dietary counseling Related to Di etary surveillance counseling Decrease caloric intake Related to Dietary surveillance counseling Decrease caloric intake Related to Dietary surveillance counseling Dietary counseling Related to Di etary surveillance counseling Dietary counseling Related to Di etary surveillance counseling Decrease caloric intake Related to Dietary surveillance counseling Dietary counseling Related to Di etary surveillance counseling Decrease caloric intake Related to Dietary surveillance counseling Dietary counseling Related to Di etary surveillance counseling Decrease caloric intake Related to Dietary surveillance counseling Dietary counseling Related to Di etary surveillance counseling Decrease caloric intake Related to Dietary surveillance counseling Dietary counseling Related to Di etary surveillance counseling Decrease caloric intake Related to Dietary surveillance counseling Dietary counseling Related to Di etary surveillance counseling Decrease caloric intake Related to Dietary surveillance counseling Dietary counseling Related to Di etary surveillance counseling Decrease caloric intake Related to Dietary surveillance counseling Dietary counseling Related to Di etary surveillance counseling Decrease caloric intake Related to Dietary surveillance counseling Dietary counseling Related to Di etary surveillance counseling Decrease caloric intake Related to Dietary surveillance counseling weight bearing exercise Related to Other osteoporosis Dietary counseling Related to Di etary surveillance counseling Decrease caloric intake Related to Dietary surveillance counseling Decrease caloric intake Related to Dietary surveillance counseling Dietary counseling Related to Di etary surveillance counseling Assessments Type Assessment Date assessment Fatigue assessment Fibromyalgia assessment Restless Legs Syndrome assessment GERD w/o esophagitis Mental Status Date Cognitive Assessment Orientation - [place] ed to time, place, person, situation.
--- OUTSIDE RECORDS SUMMARY | 2025-01-11 12:06 | XMS_ITS | Clinical Summary ---
Author Organization [facility] Address [address] [place] [address] Care Team Providers Care Armature Rewinder Name Role Phone Darryl Baker MD Primary Care Provider Source Comments [facility],non-owned Affiliates and Associated Physician Practices is amultiple site organization consisting of ambulatory clinics and hospital sitesin [place], [place], [place] and [place]. This disclosure is being madepursuant to the Care Everywhere program and may not contain all information available regarding this patient. Last updated 18.[facility] Allergies Active Allergy Reactions Criticality Noted Date Comments Cyclobenzaprine Unknown 05/08/2022 Erythromycin Other Low 11/11/2019 Escitalopram Other Low 11/11/2019 Rash Away Rash Medium 11/09/2022 Sulfamethazine Other Low 03/25/2013 Trimethobenzamide Unknown 03/25/2013 Trimethoprim Unknown 03/25/2013 Medications * Be aware that medications may not be up to date on this document. Alwaysverify current medications with the patient. Medication Sig Dispensed Refills Start Date End Date Status vitamin D, ergocalciferol, (DRISDOL) 64196 UNITS capsule Take 1 (one) capsule by mouth q7days 05/17/2017 Active HYDROcodone-acetamino phen (NORCO) 7.5-325 MG tablet Take 1 (one) tablet by mouth 3X/day PRN 08/09/2017 Active anastrozole (ARIMIDEX) 1 MG tablet Take 1 mg by mouth DAILY. 10/30/2017 Active losartan (COZAAR) 100 MG tablet Take 1 (one) tablet by mouth once daily 03/07/2022 Active famotidine (PEPCID) 40 MG tablet Take 1 (one) tablet by mouth once daily 04/17/2022 Active cloNIDine (CATAPRES) 0.1 MG tablet as directed 04/14/2022 Active aspirin EC (ECOTRIN) 81 MG tablet Take 1 (one) tablet by mouth every morning Active timolol maleate (TIMOPTIC) 0.5 % ophthalmic solution 05/02/2022 Activ e magnesium Cl-Calcium Carbonate (SLOW-MAG) 71.5 mg9 MG tablet Slow-Mag 71.5 mg tablet,delayed release TAKE ONE TABLET DAILY AT BEDTIME Active amLODIPine (NORVASC) 5 MG tablet Take 1 tablet by mouth once daily Active calcium acetate (PHOSLO) 667 MG tablet Take 2 (two) tablets by mouth 2 times daily Active sodium chloride, hypertonic, (CARLOS 128) 2 % ophthalmic solution Instill 1 (one) drop into left eye at bedtime Active brimonidine (Alphagan) 0.2 % ophthalmic solution 06/30/2022 Activ e latanoprost (Xalatan) 0.005 % ophthalmic solution 06/30/2022 Active clonazePAM (KlonoPIN) 0.5 MG tablet Take 0.5 mg by mouth 2 times daily Active montelukast (Singulair) 10 MG tablet Take 1 (one) tablet by mouth every 24 hours 09/28/2022 Active hydrALAZINE (Apresoline) 50 MG tablet Take 1 (one) tablet by mouth as directed 10/26/2022 Active amLODIPine (Norvasc) 10 MG tablet Take 1 (one) tablet by mouth as directed 09/28/2022 Active hydrALAZINE (Apresoline) 50 MG tablet Take 1 (one) tablet by mouth every 12 hours 10/31/2022 Active Active Problems Problem Noted Date Diagnosed Date Age-related osteoporosis wit hout current pathological fracture 10/30/2017 Immunizations Name Administration Dates Next Due INFLUENZA VACCINE 08/29/2022,08/11/2018 INFLUENZA VACCINE, HIGH-DOSE , QUADR. (FLUZONE HIGH-DOSE QUADRIVALENT; 65Y+), 0.7 ML (HD-IIV4) 09/09/2017 Family History Medical History Relation Name Comments CAD (Coronary Artery Disease) Brother CVA Mother Diabetes - Type 2 Sister Relation Name Status Comments Brother Mother Sister Social History Tobacco Use Types Packs/Day Years Used Date Smoking Tobacco: Never Smokeless Tobacco: Never Tobacco Cessation:Counseling Given: Not Answered Alcohol Use Standard Drinks/Week Comments No 0 (1 standard drink = 0.6 oz pur e alcohol) Sex and Gender Information Value Date Recorded Sex Assigned at Not on file Gender Identity Not on file Sexual Orientation Not on file Last Filed Vital Signs Vital Sign Reading Time Taken Comments Blood Pressure 133/78 11/09/2022 8:58 AM MELT ROOM OPERATOR Pulse 77 11/09/2022 8:58 AM MELT ROOM OPERATOR Temperature 36.7 C (98.1 F) 05/08/2022 12:35 PM CDT Respiratory Rate - - Oxygen Saturation 98% 12/31/2017 8:50 AM MELT ROOM OPERATOR Inhaled Oxygen Concentration - - Weight 73 kg (161 lb) 11/09/2022 8:58 AM MELT ROOM OPERATOR Height 157.5 cm (5' 2 ) 11/09/2022 8:58 AM MELT ROOM OPERATOR Body Mass Index 29.45 11/09/2022 8:58 AM MELT ROOM OPERATOR Plan of Treatment Health Maintenance Due Date Last Done Comments BONE DENSITY TESTING 1945 MEDICARE AWV 12 MONTHS 1944 DTAP/TDAP/TD VACCINES (1 - Tdap) 1963 PNEUMOCOCCAL VACCINE 50+ (1 of 1 - PCV) 1994 ZOSTER VACCINE (1 of 2) 1994 Respiratory Syncytial Virus (RSV) Vaccine Pt: or over 60 yrs (1 - 1-dose 75+ series) 2019 COVID-19 VACCINE ( - 2023-2 5 season) 2024 INFLUENZA VACCINE (#1) 2024 2, 08/11/2018, 09/09/2017 DEPRESSION SCREENING 10/29/2024 HEPATITIS B VACCINE Aged Out No longe r eligible based on patient's age to complete this topic HIB VACCINE Aged Out No longer eligi ble based on patient's age to complete this topic HPV VACCINE Aged Out No longer eligi ble based on patient's age to complete this topic MENINGOCOCCAL (Group B) VACCINE SHARED DECISION-MAKING Aged Out No longer eligible based on patient's age to complete this topic MENINGOCOCCAL GROUPS A/C/Y/W VACCINE Aged Out No longer eligible b ased on patient's age to complete this topic Care Teams Armature Rewinder Relationship Specialty Start Date End Date Darryl Baker MD [address] [place] [address] PCP - General 08/13/17
--- OUTSIDE RECORDS SUMMARY | 2025-01-11 12:06 | XMS_ITS | Referral Summary ---
Author Organization [facility] Address [address] [place] [address] Care Team Providers Care Fretted String Instrument Repairer Name Role Phone Darryl Baker MD Primary Care Provider [phone] Source Comments [facility],non-owned Affiliates and Associated Physician Practices is amultiple site organization consisting of ambulatory clinics and hospital sitesin [place], [place], [place] and [place]. This disclosure is being madepursuant to the Care Everywhere program and may not contain all information available regarding this patient. Last updated 18.[facility] Allergies Active Allergy Reactions Criticality Noted Date [...] End Date Status vitamin D, ergocalciferol, (DRISDOL) 80920 UNITS capsule Take 1 (one) capsule by [...] HIGH-DOSE QUADRIVALENT; 65Y+), 0.7 ML (HD-IIV4) 09/09/2017 Social History Tobacco Use Types Packs/Day Years [...] Comments Blood Pressure 133/78 11/09/2022 8:58 AM OFFICE REP Pulse 77 11/09/2022 8:58 AM OFFICE REP Temperature 36.7 C (98.1 F) 05/08/2022 12:35 PM CDT Respiratory Rate - - Oxygen Saturation 98% 12/31/2017 8:50 AM OFFICE REP Inhaled Oxygen Concentration - - Weight 73 kg (161 lb) 11/09/2022 8:58 AM OFFICE REP Height 157.5 cm (5' 2 ) 11/09/2022 8:58 AM OFFICE REP Body Mass Index 29.45 11/09/2022 8:58 AM OFFICE REP Plan of Treatment Not on file Care Teams Fretted String Instrument Repairer Relationship Specialty Start Date End Date Darryl Baker MD [address] [facility] [address] [place] [address] PCP - General 08/13/17
--- OUTSIDE RECORDS SUMMARY | 2025-01-11 12:06 | XMS_ITS ---
Author Organization [facility] Address [address] [place] [address] Phone Care Team Providers Care Button And Buckle Maker Name Role Phone Darryl Baker MD Primary Care Provider Active Problems Problem Noted Date Diagnosed Date Angiomyolipoma of kidney 11/11/2019 Closed fracture of shaft of left humerus 019 Age-related osteoporosis wit hout current pathological fracture 10/30/2017 Neuropathy, cervical plexus 10/16/2016 Bone pain 05/09/2016 Disorder of upper respiratory system 01/11/2015 Opioid dependence 12/16/2014 Synovial cyst of popliteal space 09/17/2014 Acute sinusitis 01/26/2014 Insomnia 11/20/2013 Shoulder joint pain 10/23/2013 Malignant neoplasm of right breast in female, estrogen receptor positive 09/09/2013 Cancer Staging:Clinical: Unsigned Pathologic stage from 11/11/2018:Stage IA(T1c, N0, cM0) - Signed by Sacha Harrell MD on 11/11/2018 Overview (11/22/2018): Breast CA Arthritis 09/09/2013 Overview (02/01/2017): Arthritis Bone density finding 09/09/2013 Overview (02/01/2017): Decreased bone density Dizziness and giddiness 08/29/2013 Generalized anxiety disorder 08/29/2013 Chest pain 07/25/2013 Muscle weakness 07/25/2013 Vertigo as late effect of stroke 07/25/2013 Abnormal blood chemistry level 07/02/2013 Hyperlipidemia 07/02/2013 Essential hypertension 05/06/2013 Overview (02/01/2021): High blood pressure Malaise and fatigue 04/16/2013 Osteoporosis 04/16/2013 Primary malignant neoplasm o f central portion of female breast 04/16/2013 Current Treatment and Therapy Plans No current plan information found. Past Treatment and Therapy Plans Lifetime Dose Tracking * Chemical Lifetime Dose Automatic Entry Manual Entr y Fluoro Time 2.2 minutes 2.2 minutes 0 minutes Air kerma at the reference point (Ka,r) 1.792 mGy 1 .792 mGy 0 mGy
--- OUTSIDE RECORDS SUMMARY | 2025-01-11 12:06 | XMS_ITS | Referral Summary ---
Author Organization [facility] Address [address] [place] [address] Phone Care Team Providers Care Senior Communications Specialist Name Role Phone Darryl Baker MD Primary Care Provider [phone] Allergies Active Allergy Reactions Criticality Noted Date Comments Cyclobenzaprine Unknown Erythromycin Base Other (See comments) Low 11/11/19 20 Escitalopram Other (See comments) Low 11/11/2019 Sulfa (Sulfonamide Antibiotics) Other (See comments) Low 03/25/2013 Elevates BP Trimethobenzamide Unknown 03/25/2013 Trimethoprim Unknown 03/25/2013 Zinc Oxide-White Petrolatum Rash Medium 11/09/19 23 Medications ergocalciferol (VITAMIN D) 50,000 unit capsuleIndicat ions:sunday Take 1 capsule (50,000 Units total) by mouth once a week Every 14 days 05/17/20 17 Active timolol (TIMOPTIC) 0.5 % ophthalmic solutionIndica tions:open angle glaucoma Administer 1 drop into both eyes 2 (two) times a day 11/08/19 19 Active aspirin 81 mg tabletIndicati ons:primary prevention Take 1 tablet (81 mg total) by mouth every morning Active senna-docusate (PERICOLACE) 8.6-50 mgIndications: constipation Take 2 tablets by mouth 2 (two) times a day 60 tablet 2 01/10/20 19 Active brimonidine (ALPHAGAN) 0.2 % ophthalmic solution 02/11/20 19 Active amLODIPine (NORVASC) 2.5 mg tablet Take 4 tablets (10 mg total) by mouth daily 5 04/02/20 19 Active latanoprost (XALATAN) 0.005 % ophthalmic solution 05/21/20 19 Active HYDROcodone-ac etaminophen (NORCO) 10-325 mg per tablet Take by mouth every 8 hours 25mg daily 08/05/20 20 Active calcium carbonate (CALCIUM 600 ORAL) Take by mouth Active sodium chloride (CARLOS 128 OPHT) Administer into affected eye(s) Active magnesium oxide (MAG-OX) 250 mg (150.8 mg elemental) tabletIndicati ons:hypomagnes emia 400 mg daily Active pramipexole (MIRAPEX) 0.5 mg tablet Take 1 tablet (0.5 mg total) by mouth nightly 12/24/19 24 Active alendronate (FOSAMAX) 70 mg tablet TAKE 1 TABLET BY MOUTH EVERY 7 DAYS EVERY MORNING WITH GLASS OF WATER ON AN EMPTY STOMACH AND DO NOT TAKE ANYTHING ELSE OR LIE DOWN FOR 30 MINUTES 12 tablet 3 12/24/19 25 Active alendronate (FOSAMAX) 70 mg tablet Take 1 tablet (70 mg total) by mouth every 7 days Take in the morning with a full glass of water, on an empty stomach, and do not take anything else by mouth or lie down for the next 30 min. 12 tablet 3 01/25/20 24 025 Discontinued Active Problems Problem Noted Date Diagnosed Date [...] f central portion of female breast 04/16/2013 Immunizations Immunization Administration Dates Next Due Influenza, Trivalent, High D ose, Split, Preservative Free, Intramuscular 09/09/2017 Influenza, Unspecified 08/11/2018 Social History Tobacco Use Types Packs/Day Years Used Date Smoking Tobacco: Never Smokeless Tobacco: Never Tobacco Cessation:Counseling Given: Not Answered Alcohol Use Standard Drinks/Week Comments No 0 (1 standard drink = 0.6 oz pur e alcohol) Comments No Sex and Gender Information Value Date Recorded Sex Assigned at Not on file Legal Sex Female 12:34 PM MONORAIL CAR OPERATOR Gender Identity Not on file Sexual Orientation Not on file Last Filed Vital Signs Vital Sign Reading Time Taken Comments Blood Pressure 157/93 11/11/2019 3:31 PM MONORAIL CAR OPERATOR Pulse 79 11/11/2019 3:31 PM MONORAIL CAR OPERATOR Temperature 36.6 C (97.8 F) 11/11/2019 3:31 PM MONORAIL CAR OPERATOR Respiratory Rate 16 11/11/2019 3:31 PM MONORAIL CAR OPERATOR Oxygen Saturation 94% 11/11/2019 3:31 PM MONORAIL CAR OPERATOR Inhaled Oxygen Concentration - - Weight 72.1 kg (159 lb) 07/30/2024 11:00 AM CDT Height 157.5 cm (5' 2 ) 07/30/2024 11:00 AM CDT Body Mass Index 29.08 07/30/2024 11:00 AM CDT Plan of Treatment Not on file Medical Devices Implanted Type Area Senior Safety Support Manager Device Identifier Shelf Expiration Date Model / Serial / Lot Allosource [id number] 10cm Frozen Graft Bone Fibula Segment - [id number] Implanted:Qty: 1 on 01/08/2019 by Chauncey Mojica MD at [facility] Left: Humerus Allosource 10/04/2022 [id number] / / [id number] Synthes 241.923 Lcp Combi Philos Long [id number] 10 Hole Shaft Lock Compression - [id number] Implanted:Qty: 1 on 01/08/2019 by Chauncey Mojica MD at [facility] Left: Humerus Synthes I 241.923 / / Synthes 204.828 3.5mm 6mm 28mm 2.5mm Self Tap Small Hexagonal Socket Low Profile - [id number] Implanted:Qty: 3 on 01/08/2019 by Chauncey Mojica MD at [facility] Left: Humerus Synthes I 204.828 / / Synthes 212.110 3.5mm 2.9mm 28mm Self Tap Lock Stardrive Conical Head T15 Full - [id number] Implanted:Qty: 3 on 01/08/2019 by Chauncey Mojica MD at [facility] Left: Humerus Synthes I 212.110 / / Synthes 212.119 3.5mm 2.9mm 45mm Self Tap Lock Stardrive Conical Head T15 Full - [id number] Implanted:Qty: 1 on 01/08/2019 by Chaunecy Mojica MD at [facility] Left: Humerus Synthes I 212.119 / / Synthes 212.118 3.5mm 2.9mm 42mm Self Tap Lock Stardrive Conical Head Full Thread - [id number] Implanted:Qty: 2 on 01/08/2019 by Chauncey Mojica MD at [facility] Left: Humerus Synthes I 212.118 / / Synthes 212.112 3.5mm 2.9mm 32mm Self Tap Lock Stardrive Conical Head T15 Full - [id number] Implanted:Qty: 1 on 01/08/2019 by Chaucney Mojica MD at [facility] Left: Humerus Synthes I 212.112 / / Procedures Procedure Name Priority Date/Time Associated Diagnosis Comments DEXA TBS AXIAL SKELETON BONE DENSITY 1 OR MORE SITES Schedule Routine, Read Routine (OP Routine) 01/25/2024 1:56 PM CDT Age-related osteoporosis without current pathological fracture from Last 3 Months or Most Recently Relevant to Health Maintenance Results * Dexa TBS Axial Skeleton Bone Density 1 or more sites (01/25/2024 1:56 PM CDT) Anatomical Region Laterality Modality Wrist, Body N/A Radiographic Precious ging Narrative 01/25/2024 4:34 PM CDT Patient Name: Elham Nuñez Date of : 1945 Date of scan: 01/25/2024 Bone mineral density was performed on a HoloUni-Control Discovery Densitometer. Based on machine cross-calibration and precision studies the least significant changes of this densitometer is 0.024 g/cm2 at the spine, 0.020 g/cm2 at the total proximal femur, and 0.014g/cm2 at the forearm. HISTORY: This is a 78 y.o. postmenopausal female with a history of breast cancer, osteoporosis, and vitamin D deficiency. She reports that she has never smoked. She has never used smokeless tobacco. Currently on treatment with calcium, vitamin D, and denosumab (Prolia), previously treated with aromatase inhibitor, and current complaint of arm pain, back pain, neck pain, and leg pain. INDICATIONS: Menopause status, treatment monitoring, history of prior hip fracture, vitamin D deficiency, and history of osteoporosis. FINDINGS: BONE MINERAL DENSITY OF THE LUMBAR SPINE Bone Mineral Density (BMD) of the lumbar spine was measured from L1-L4 and the average density was calculated to be 1.083 gm/cm2. This corresponds to a T-score (standard deviations from the mean of young adults) of 0.3. When compared to the previous study of 01/23/2023 there has been a 0.026 gm/cm (2.5%) increase in bone density that is considered significant. BONE MINERAL DENSITY OF THE PROXIMAL FEMUR Bone Mineral Density (BMD) of the right hip total was found to be 0.750 gm/cm2. This corresponds to a T-score standard deviations from the mean of young adults of -1.6. Femoral neck is 0.562 gm/cm2 with a T-score (standard deviations from the mean of young adults) of -2.6. When compared to the previous study of 01/23/2023 there has been no significant changes in bone density. BONE MINERAL DENSITY OF THE FOREARM Bone Mineral density (BMD) of the left proximal 1/3 of the radius measures 0.484 gm/cm2. This corresponds to a T-score (standard deviations from the mean of young adults) of -3.5. When compared to the previous study of 01/23/2023 there has been no significant changes in bone density. A forearm bone density study was performed in addition to the routine study because of the need to provide a comparison to the previous exam. SUMMARY: Bone mineral density shows evidence of osteoporosis and marked increase risk of fracture. There has been a significant increase in bone density since previous measurement. The lumbar spine Trabecular Bone Score is 1.314 which suggests normal bone microarchitecture, compared to the general population. Final decisions regarding diagnostic or therapeutic recommendations should include BMD, TBS, additional clinical risk factors as well the clinical context of the patient. Please see attached TBS results for further details. ADDITIONAL COMMENTS: Postmenopausal Women and Men Over 50: Diagnostic criteria: Osteoporosis: BMD at or below -2.5 T-score; Osteopenia (low bone mass): BMD between -1.0 and -2.5 T-score. If the patient has a history of a fragility fracture, a fracture that occurred with trauma equivalent to a fall from a standing position or less, then the diagnosis is osteoporosis regardless of bone density. The history and data sections of the bone mineral density scan were prepared by Vivian Leos) DOMENICO who is accredited by the International Society of Clinical Densitometry. The overall patient assessment and scan interpretation were performed by Luz Pineda MD who is certified by the International Society of Clinical Densitometry. [id number] Luz Pineda MD IMG DXA PROCEDURES Final Resu lt from Last 3 Months or Most Recently Relevant to Health Maintenance Insurance MEDICARE [employer] MEDICARE [facility] MEDICARE [employer]ET[employer] SENIOR SUPPLEMENT Advance Directives For more information, please contact: [phone] * Full Code (Latest Code Status on File) Date Activated Date Inactivated Comments 01/08/2019 9:54 PM 01/09/2019 8:22 PM * Full Code Date Activated Date Inactivated Comments 01/08/2019 9:54 PM 01/08/2019 9:54 PM Care Teams Senior Communications Specialist Relationship Specialty Start Date End Date Darryl Baker MD PCP - General 09/09/13
--- OUTSIDE RECORDS SUMMARY | 2025-01-11 12:06 | XMS_ITS | Continuity of Care Document ---
Author Organization [facility] Address [address] [place] [address] Phone Care Team Providers Care Leave Specialist Name Role Phone Jose Alberto Donnelly Unavailable Unavailable Procedures Procedure Date Office/outpatient Visit, Est Office/outpatient Visit, Est Office/outpatient Visit, Est Office/outpatient Visit, Est Office/outpatient Visit, Est Refraction Office/outpatient Visit, Est Eye Exam Established Pt Advance Directives Directive Yes / No Effective Date File Name No Information Encounters Encounter Description Practice Location Reason(s) For Visit Diagnoses Date Provider Providers Copied on Encounter Office/outpat ient Visit, [facility], [address] [place] [address] [address], [place], [place], [id number], tel:[phone] [facility] No Information 2201 0 Cony Abrams. [address] , [address], [place], [place], [facility], [place]. tel:[phone] Office/outpat ient Visit, [facility], [address] [place] [address] [address], [place], [place], [id number], tel:[phone] [facility] No Information [phone] 0 Cony Abrams. [address], [address], [place], [address], [place]. tel:[phone] Office/outpat ient Visit, [facility], [address], [place], [place], [id number], [place] tel:[phone] [facility] [place] No Information -[phone] 0 Alley Ayala. [address], [place], [facility], [place]. tel:[phone] [facility], [address] [place] [address] [address], [place], [place], [id number], [place] tel:[phone] [facility] No Information [address] Cony Ed[address]. [address], [place], [place], [facility], [place]. tel:[phone] Office/outpat ient Visit, [facility], [address] [place] [address] [address], [place], [place], [id number], [place] tel:[phone] [facility] [place] No Information [address] Doiolvin Ed[address]. [facility] [address] , [address], [place], [place], [facility], [place]. tel:[phone] Office/outpat ient Visit, [facility], [address] [place] [address] [address], [place], [place], [id number], [place] tel:[phone] [facility] [place] No Information 2-200 7 Cony Ed[address]. [address] , [address], [place], [facility], [place]. tel:[phone] [facility], [address] [place] [address] [address], [place], [place], [id number], [place] tel:[phone] [facility] No Information 1-200 7 Doisy Ed[address]. [address] , [address], [place], [facility], [place]. tel:[phone] Family History Family Member Type Diagnosis Age At Onset No Information Payers Payer name Insurance type Covered green party ID Authoriza tion(s) No Information Social History Type Description Quantity Date Captured Comments Sex Female Smoking Status No Information Chief Complaint And Reason For Visit No Information Reason For Referral Reason For Referral No Information History Of Present Illness Encounter Date Complaint History Of Prese nt Illness No Information Functional Status Date Functional Assessmen t No Information Instructions Date Instruction Additional Infor mation No Information Assessments Type Assessment Date No Information Patient Care Teams Name Effective Dates (start - stop) Status Members No Information
--- OUTSIDE RECORDS SUMMARY | 2025-01-11 12:06 | XMS_ITS | Patient Health Summary ---
Author Organization [facility] Address [address] [place] [address] Care Team Providers Care Tobacco Prevention Health Educator Name Role Phone Darryl Baker MD Primary Care Provider Note from [facility],non-owned Affiliates and Associated Physician Practices is amultiple site organization consisting of ambulatory clinics and hospital sitesin [place], [place], [place] and [place]. This disclosure is being madepursuant to the Care Everywhere program and may not contain all information available regarding this patient. Last updated 18.[facility] Allergies * Cyclobenzaprine(Unknown) * Erythromycin(Other) -Low Criticality * Escitalopram(Other) -Low Criticality * Rash Away(Rash) -Medium Criticality * Sulfamethazine(Other) -Low Criticality * Trimethobenzamide(Unknown) * Trimethoprim(Unknown) Medications * Be aware that medications may not be up to date on this document. Alwaysverify current medications with the patient. * vitamin D, ergocalciferol, (DRISDOL) 50984 UNITS capsule(Started 05/17/2017) Take 1 (one) capsule by mouth q7days * HYDROcodone-acetaminophen (NORCO) 7.5-325 MG tablet(Started 08/09/2017) Take 1 (one) tablet by mouth 3X/day PRN * anastrozole (ARIMIDEX) 1 MG tablet(Started 10/30/2017) Take 1 mg by mouth DAILY. * losartan (COZAAR) 100 MG tablet(Started 03/07/2022) Take 1 (one) tablet by mouth once daily * famotidine (PEPCID) 40 MG tablet(Started 04/17/2022) Take 1 (one) tablet by mouth once daily * cloNIDine (CATAPRES) 0.1 MG tablet(Started 04/14/2022) as directed * aspirin EC (ECOTRIN) 81 MG tablet Take 1 (one) tablet by mouth every morning * timolol maleate (TIMOPTIC) 0.5 % ophthalmic solution(Started 05/02/2022) * magnesium Cl-Calcium Carbonate (SLOW-MAG) 71.5 mg9 MG tablet Slow-Mag 71.5 mg tablet,delayed release TAKE ONE TABLET DAILY AT BEDTIME * amLODIPine (NORVASC) 5 MG tablet Take 1 tablet by mouth once daily * calcium acetate (PHOSLO) 667 MG tablet Take 2 (two) tablets by mouth 2 times daily * sodium chloride, hypertonic, (CARLOS 128) 2 % ophthalmic solution Instill 1 (one) drop into left eye at bedtime * brimonidine (Alphagan) 0.2 % ophthalmic solution(Started 06/30/2022) * latanoprost (Xalatan) 0.005 % ophthalmic solution(Started 06/30/2022) * clonazePAM (KlonoPIN) 0.5 MG tablet Take 0.5 mg by mouth 2 times daily * montelukast (Singulair) 10 MG tablet(Started 09/28/2022) Take 1 (one) tablet by mouth every 24 hours * hydrALAZINE (Apresoline) 50 MG tablet(Started 10/26/2022) Take 1 (one) tablet by mouth as directed * amLODIPine (Norvasc) 10 MG tablet(Started 09/28/2022) Take 1 (one) tablet by mouth as directed * hydrALAZINE (Apresoline) 50 MG tablet(Started 10/31/2022) Take 1 (one) tablet by mouth every 12 hours Active Problems Problem Noted Date Diagnosed Date Age-related osteoporosis wit hout current pathological fracture 10/30/2017 Immunizations * INFLUENZA VACCINE(Given 08/29/2022, 08/11/2018) * INFLUENZA VACCINE, HIGH-DOSE, QUADR. (FLUZONE HIGH-DOSE QUADRIVALENT; 65Y+), 0.7 ML (HD-IIV4)(Given 09/09/2017) Social History Tobacco Use Types Packs/Day Years [...] Comments Blood Pressure 133/78 11/09/2022 8:58 AM SWITCHING OPERATOR Pulse 77 11/09/2022 8:58 AM SWITCHING OPERATOR Temperature 36.7 C (98.1 F) 05/08/2022 12:35 PM CDT Respiratory Rate - - Oxygen Saturation 98% 12/31/2017 8:50 AM SWITCHING OPERATOR Inhaled Oxygen Concentration - - Weight 73 kg (161 lb) 11/09/2022 8:58 AM SWITCHING OPERATOR Height 157.5 cm (5' 2 ) 11/09/2022 8:58 AM SWITCHING OPERATOR Body Mass Index 29.45 11/09/2022 8:58 AM SWITCHING OPERATOR Procedures * LAB RESULTS ORDER(Performed 08/18/2022) * AMBULATORY REFERRAL TO SLEEP SPECIALIST(Performed 08/10/2022) Performed for GLORY (obstructive sleep apnea) * VITAMIN D 25-HYDROXY(Performed 11/17/2017) * PROSTATE SPECIFIC ANTIGEN SCREEN(Performed 11/17/2017) * TSH(Performed 11/17/2017) * COLLAGEN C-TELOPEPTIDE (CTX)(Performed 11/17/2017) * ALKALINE PHOSPHATASE BLOOD BONE SPECIFIC(Performed 11/17/2017) * RENAL FUNCTION PANEL(Performed 11/17/2017) * CALCIUM URINE RANDOM(Performed 11/17/2017) Results * LAB RESULTS ORDER (08/18/2022) 08/18/2022 Narrative 08/18/2022 Ordered by an unspecified provider. Scanned Document LAB - THERAPEUTIC DR ROTH MONITORING ORDERABLES * Ref to Sleep Specialist - Ciaran (08/10/2022 2:32 PM CDT) Jesus Linn MD OUTPATIENT REFERRALS * COLLAGEN C-TELOPEPTIDE (CTX) (11/17/2017 8:23 AM SWITCHING OPERATOR) C-Telopeptide 392 pg/mL [facility] ([facility]) Comment: Reference Range: NOT ESTABLISHED Adult Female Reference Ranges for C-Telopeptide (CTx): 18-29 years: 64-640 pg/mL 30-39 years: 60-650 pg/mL 40-49 years: 40-465 pg/mL >49 years: Not Established No reference range is provided for postmenopausal women because of the increased rate of bone turnover post-menopause. It is recommended that results for postmenopausal women be compared to the premenopausal reference range as this will give a better indication of their rate of bone loss. Test Performed at: [facility] [address] [place] [address] GHASSAN SPIVEY MD PHD 11/17/2017 8:23 AM SWITCHING OPERATOR 11/17/2017 8:27 AM SWITCHING OPERATOR Tiff Connors MD LAB - CHEMISTRY LEXY HAYDEN Performing Organization Address City/[facility]/ZIP Co de Phone Number [facility] ([facility]) [address] [place] [address] * ALKALINE PHOSPHATASE BLOOD BONE SPECIFIC (11/17/2017 8:23 AM SWITCHING OPERATOR) Bone Specific 13.7 5.6 - 29.0 mcg/L [facility]) Comment: Test Performed at: [facility] [address] [place] [address] GHASSAN SPIVEY MD PHD 11/17/2017 8:23 AM SWITCHING OPERATOR 11/17/2017 8:27 AM SWITCHING OPERATOR Tiff Connors MD LAB - CHEMISTRY LEXY HAYDEN Performing Organization Address [facility]/ZIP Co de Phone Number [facility] ([facility]) [address] [place] [address] * VITAMIN D 25-HYDROXY (11/17/2017 8:23 AM SWITCHING OPERATOR) Vitamin D, 25 Hydroxy Total 64 30 - 100 ng/mL [facility] ([facility]) Comment: Vitamin D Status 25-OH Vitamin D: Deficiency: <20 ng/mL Insufficiency: 20 - 29 ng/mL Optimal: > or = 30 ng/mL For 25-OH Vitamin D testing on patients on D2-supplementation and patients for whom quantitation of D2 and D3 fractions is required, the QuestAssureD() 25-OH VIT D, (D2,D3), LC/MS/MS is recommended: order code 56670 (patients >2yrs). For more information on this test, go to: http://education.avolution/faq/ZLI012 (This link is being provided for informational/educational purposes only.) REPORT COMMENT: FASTING:NO Test Performed at: [facility] [place] [address] [place] [address] JOSE AYOUB DO,MPH 11/17/2017 8:23 AM SWITCHING OPERATOR 11/17/2017 8:27 AM SWITCHING OPERATOR Tiff Connors MD LAB - CHEMISTRY LEXY HAYDEN [facility] Organization Address City/State/ZIP Co de Phone Number [facility] ([facility]) [address] * (ABNORMAL) RENAL FUNCTION PANEL (11/17/2017 8:23 AM SWITCHING OPERATOR) Glucose 125(H) 65 - 99 mg/dL [facility] ([facility]) Comment: Fasting reference interval For someone without known diabetes, a glucose value between 100 and 125 mg/dL is consistent with prediabetes and should be confirmed with a follow-up test. BUN 19 7 - 25 mg/dL [facility] ([facility]) Creatinine 0.81 0.60 - 0.93 mg/dL [facility] ([facility]) Comment: For patients >49 years of age, the reference limit for Creatinine is approximately 13% higher for people identified as -Vietnamese. eGFR non- 72 > OR = 60 mL/min/1 .73m2 [facility] ([facility]) eGFR 84 > OR = 60 mL/min/1 .73m2 [facility]) BUN/Creatinine Ratio NOT APPLICABLE 6 - 22 (calc) [facility]) Sodium 137 135 - 146 mmol/L [facility] ([facility]) Potassium 4.6 3.5 - 5.3 mmol/L [facility] ([facility]) Chloride 102 98 - 110 mmol/L [facility] ([facility]) CO2 29 20 - 31 mmol/L [facility] ([facility]) Calcium 9.7 8.6 - 10.4 mg/dL [facility]) Phosphorus 3.9 2.1 - 4.3 mg/dL [facility]) Albumin 4.0 3.6 - 5.1 g/dL [facility]) Comment: Test Performed at: [employer] [address] [facility] [place] [place] [address] JOSE AYOUB DO,MPH 11/17/2017 8:23 AM SWITCHING OPERATOR 11/17/2017 8:27 AM SWITCHING OPERATOR Tiff Connors MD LAB - CHEMISTRY LEXY HAYDEN Performing Organization Address [facility] de Phone Number [facility] ([facility]) [address] [place] [address] * PROSTATE SPECIFIC ANTIGEN SCREEN (11/17/2017 8:23 AM SWITCHING OPERATOR) PSA Total <0.1 ng/mL [facility]) Comment: The total PSA value from this assay system is standardized against the WHO standard. The test result will be approximately 20% lower when compared to the equimolar-standardized total PSA (Kisha Waitsfield). Comparison of serial PSA results should be interpreted with this fact in mind. This test was performed using the Siemens chemiluminescent method. Values obtained from different assay methods cannot be used interchangeably. PSA levels, regardless of value, should not be interpreted as absolute evidence of the presence or absence of disease. Reference Range Female: Not established Male: < or = 4.0 Test Performed at: [employer] [address] [place] [address] JOSE AYOUB DO,MPH 11/17/2017 8:23 AM SWITCHING OPERATOR 11/17/2017 8:27 AM SWITCHING OPERATOR Tiff Connors MD LAB - CHEMISTRY LEXY HAYDEN Performing Organization Address [facility] Co de Phone Number [facility] ([facility]) [address] [place] [address] * CALCIUM URINE RANDOM (11/17/2017 8:23 AM SWITCHING OPERATOR) Calcium/Creatini ne Ratio 130 10 - 320 mg/g creat [facility] ([facility]) Calcium Urine 11.3 mg/dL [facility] ([facility]) Comment: Reference Range Not established Creatinine Urine 87 20 - 320 mg/dL [facility] ([facility]) Comment: Test Performed at: [employer] [place] [address] JOSE AYOUB DO,MPH 11/17/2017 8:23 AM SWITCHING OPERATOR 11/17/2017 8:27 AM SWITCHING OPERATOR Tiff Connors MD LAB - URINE CHEMISTR Y ORDERABLES Performing Organization Address [facility]/ZIP Co de Phone Number [facility] ([facility]) [address] * TSH (11/17/2017 8:23 AM SWITCHING OPERATOR) TSH 2.66 0.40 - 4.50 mIU/L [facility]) Comment: Test Performed at: [facility] [address] [place] [address] JOSE AYOUB DO,MPH 11/17/2017 8:23 AM SWITCHING OPERATOR 11/17/2017 8:27 AM SWITCHING OPERATOR Tiff Connors MD LAB - CHEMISTRY ORDE RABLES Performing Organization Address [facility] Co de Phone Number [facility] ([facility]) [address] Care Teams Tobacco Prevention Health Educator Relationship Specialty Start Date End Date Darryl Baker MD [address] [facility] [address] [place] [address] PCP - General 08/13/17
--- OUTSIDE RECORDS SUMMARY | 2025-01-11 12:06 | XMS_ITS | Clinical Summary ---
Author Organization [facility] Address [address] [place] [address] Phone Care Team Providers Care Jet Ski Mechanic Name Role Phone Darryl Baker MD Primary Care Provider Allergies Active Allergy Reactions Criticality Noted Date [...] Preservative Free, Intramuscular 09/09/2017 Influenza, Unspecified 08/11/2018 Surgical History Surgery Date Site/Laterality Comments BREAST BIOPSY MASTECTOMY HYSTERECTOMY APPENDECTOMY OOPHORECTOMY TOTAL HIP ARTHROPLASTY Left EPIDURAL INJECTION LEFT CERVICAL THORACIC 1 LEVEL 2020 Left Medical History Medical History Date Comments Hypertension Breast cancer (HCC) Skin cancer Fibromyalgia Osteoporosis Hip fracture (HCC) Left History of chemotherapy 1988 breast c ancer Family History Medical History Relation Name Comments Alcohol abuse Father Diabetes Mother Stroke Mother Other Other 1 Lung cancer Other 2 Breast cancer Sister Lung cancer Sister Osteoporosis Sister Broken bones Neg Hx Hip fracture Neg Hx Kyphosis Neg Hx Scoliosis Neg Hx Relation Name Status Comments Father Mother Other 1 Other 2 Sister Social History Tobacco Use Types Packs/Day Years Used Date Smoking Tobacco: Never Smokeless Tobacco: Never Tobacco Cessation:Counseling Given: Not Answered Alcohol Use Standard Drinks/Week Comments No 0 (1 standard drink = 0.6 oz pur e alcohol) Comments No Sex and Gender Information Value Date Recorded Sex Assigned at Not on file Legal Sex Female 12:34 PM GELATIN POWDER MIXER Gender Identity Not on file Sexual Orientation Not on file Obstetrics History Last Filed Vital Signs Vital Sign Reading Time Taken Comments Blood Pressure 157/93 11/11/2019 3:31 PM GELATIN POWDER MIXER Pulse 79 11/11/2019 3:31 PM GELATIN POWDER MIXER Temperature 36.6 C (97.8 F) 11/11/2019 3:31 PM GELATIN POWDER MIXER Respiratory Rate 16 11/11/2019 3:31 PM GELATIN POWDER MIXER Oxygen Saturation 94% 11/11/2019 3:31 PM GELATIN POWDER MIXER Inhaled Oxygen Concentration - - Weight 72.1 kg (159 lb) 07/30/2024 11:00 AM CDT Height 157.5 cm (5' 2 ) 07/30/2024 11:00 AM CDT Body Mass Index 29.08 07/30/2024 11:00 AM CDT Plan of Treatment Health Maintenance Due Date Last Done Comments Depression Screening 1944 Fall Risk Assessment 1944 DTaP/Tdap/Td Vaccine (1 - Tdap) 1955 Hepatitis B Screening 1962 Pneumococcal vaccine 65+ (1 of 2 - PCV) 1963 Zoster Vaccine (1 of 2) 1994 Well Visit 65+ 2009 Influenza Vaccine (#1) 2024 , 08/11/2018, 09/09/2017 Osteoporosis Screening-Bone Density Scan 01/24/2026 01/25/2024, 01/23/2023, 01/04/2022, Additional history exists Medical Devices Implanted Type Area Roller Structural Mill Device Identifier Shelf Expiration Date Model / Serial / Lot Allosource [id number] 10cm Frozen Graft Bone Fibula Segment - [id number] Implanted:Qty: 1 on 01/08/2019 by Chauncey Mojica MD at [facility] Left: Humerus Allosource 10/04/2022 [id number] / / [id number] Synthes 241.923 Lcp Combi Philos Long [id number] 10 Hole Shaft Lock Compression - [id number] Implanted:Qty: 1 on 01/08/2019 by Chauncey Mojica MD at [facility] Left: Humerus Synthes I 241.923 / / Synthes 204.828 3.5mm 6mm 28mm 2.5mm Self Tap Small Hexagonal Socket Low Profile - [id number] Implanted:Qty: 3 on 01/08/2019 by Chauncey Mojica MD at [facility] Left: Humerus Synthes I 204.828 / / Synthes 212.110 3.5mm 2.9mm 28mm Self Tap Lock Stardrive Conical Head T15 Full - [id number] Implanted:Qty: 3 on 01/08/2019 by Chauncey Mojica MD at [facility] Left: Humerus Synthes I 212.110 / / Synthes 212.119 3.5mm 2.9mm 45mm Self Tap Lock Stardrive Conical Head T15 Full - [id number] Implanted:Qty: 1 on 01/08/2019 by Chauncey Mojica MD at [facility] Left: Humerus Synthes I 212.119 / / Synthes 212.118 3.5mm 2.9mm 42mm Self Tap Lock Stardrive Conical Head Full Thread - [id number] Implanted:Qty: 2 on 01/08/2019 by Chauncey Mojica MD at [facility] Left: Humerus Synthes I 212.118 / / Synthes 212.112 3.5mm 2.9mm 32mm Self Tap Lock Stardrive Conical Head T15 Full - [id number] Implanted:Qty: 1 on 01/08/2019 by Chauncey Mojica MD at [facility] Left: Humerus Synthes I 212.112 / / [...] Bone mineral density was performed on a Rezora Discovery Densitometer. Based on machine cross-calibration and [...] by the International Society of Clinical Densitometry. [id number] Luz Pineda MD IMG DXA PROCEDURES Final Resu lt from Last 3 Months or Most Recently Relevant to Health Maintenance Insurance [facility] MEDICARE [facility] AETNA SENIOR SUPPLEMENT Advance Directives For more information, please contact: [phone] * Full Code (Latest Code Status on File) Date Activated Date Inactivated Comments 01/08/2019 9:54 PM 01/09/2019 8:22 PM * Full Code Date Activated Date Inactivated Comments 01/08/2019 9:54 PM 01/08/2019 9:54 PM Care Teams Jet Ski Mechanic Relationship Specialty Start Date End Date Darryl Baker MD PCP - General 09/09/13
--- OUTSIDE RECORDS SUMMARY | 2025-01-11 13:08 | XMS_ITS | Continuity of Care Document ---
Author Organization [facility] Address [address] [place] [address] Phone Care Team Providers Care Waiter/Waitress Formal Name Role Phone Jose Alberto Donnelly Unavailable [...] Providers Copied on Encounter Office/outpat ient Visit, [facility], [address] [place] [address] [address], [place], [place], [id number], tel:[phone] [facility] [place] No Information [address]. [address] [place] , [address], [place], [place], [facility], [place]. tel:[phone] Office/outpat ient Visit, [facility], [address] [place] [address] [address], [place], [place], [id number], tel:[phone] [facility] No Information 8-201 0 Cony Abrams. [address] [facility] [address] [facility], [address], [place], [address], [place]. tel:[phone] Office/outpat ient Visit, [facility], [address], [place], [place], [id number], [place] tel:[phone] [facility] [place] No Information -[address] Alley Ayala. [address], [place], [place], [facility], [place]. tel:[phone] [facility]pat [facility], [facility], [address] [place] [address] [address], [place], [place], [id number], [place] tel:[phone] [facility] No Information [address]. [address], [place], [place], [facility], [place]. tel:[phone] Office/outpat ient Visit, [facility], [address] [place] [address] [address], [place], [place], [id number], [place] tel:[phone] [facility] [place] No Information [address] Doiolvin Ed[address]. [facility] , [address], [place], [place], [facility], [place]. tel:[phone] Office/outpat ient Visit, [facility], [address] [place] [address] [address], [place], [place], [id number], [place] tel:[phone] [facility] [place] No Information 2-[address] Cony Ed[address]. [address] , [address], [place], [place], [facility], [place]. tel:[phone] [facility], [address] [place] [address] [address], [place], [place], [id number], [place] tel:[phone] [facility] No Information 1-[address] Doisy [address]. [address] , [address], [place], [place], [facility], [place]. tel:[phone] Family History Family Member Type Diagnosis Age At Onset No Information Payers Payer name Insurance type Covered libertarian ID Authoriza tion(s) No Information Social History [...]
--- OUTSIDE RECORDS SUMMARY | 2025-01-11 13:09 | XMS_ITS ---
Author Organization [facility] Address [address] [place] [address] Phone Care Team Providers Care Low Altitude Air Defense Gunner Name Role Phone Darryl Baker MD Primary [...]
--- OUTSIDE RECORDS SUMMARY | 2025-01-11 13:09 | XMS_ITS | Continuity of Care Document ---
Author Organization [facility] Address [address] [place] [address] [place] [address] Phone Care Team Providers Care Casing Blower Name Role Phone Darryl Baker MD Unavailable [...] Providers Copied on Encounter OFFICE/OUTPA TIENT VISIT, [facility], [address] [place], [address], tel:[phone] [facility] RLS (chief complaint)fib romyalgia1 (chief complaint)fat igue1 (chief complaint)VENKATESH D1 (chief complaint) FatigueFibromyal giaRestless Legs SyndromeGERD w/o esophagitis 5 Samuel Garcia [address], [place], [place], [address] , [place]. tel:[phone] OFFICE/OUTPA TIENT VISIT, [facility], [address] [place], [address], [place] tel:[phone] [facility] pain (chief complaint)leg pain1 (chief complaint)fat igue1 (chief complaint) Restless Legs SyndromeFatigueF ibromyalgia 5 Samuel Garcia [address], [address], [place], [place], [address] , [place]. tel:[phone] OFFICE/OUTPA TIENT VISIT, [facility], [address] [place], [address], [place] tel:[phone] [facility] lightheadness 1 (chief complaint)RLS (chief complaint) HypotensionRestl ess Legs Syndrome 5 Samuel Garcia [address], [address], [place], [place], [address] , [place]. tel:[phone] OFFICE/OUTPA TIENT VISIT, [facility], [address] [place], [address], [place] tel:[phone] [facility] pain (chief complaint)cou gh1 (chief complaint)RLS (chief complaint)sle ep apnea1 (chief complaint) FibromyalgiaAcut e bronchitisRestle ss Legs SyndromeObstruct lloyd sleep apnea hypopnea 5 Samuel Garcia [address], [address], [place], [place], [address] , [place]. tel:[phone] OFFICE/OUTPA TIENT VISIT, [facility], [address] [place], [address], [place] tel:[phone] [facility] HTN (chief complaint)nec k pain1 (chief complaint)fib romyalgia1 (chief complaint) Essential (primary) hypertensionFibr omyalgiaOther muscle spasm 4 Samuel Andrews. [address], [address], [place], [place], [address] , [place]. tel:[phone] OFFICE/OUTPA TIENT VISIT, [facility], [address] [place], [address], [place] tel:[phone] [facility] pain (chief complaint)RLS (chief complaint)nec k pain1 (chief complaint) FibromyalgiaRest less Legs SyndromeOther muscle spasm 4 Samuel Andrews. [address], [address], [place], [place], [address] , [place]. tel:[phone] OFFICE/OUTPA TIENT VISIT, [facility], [address] [place], [address], [place] tel:[phone] [facility] pain (chief complaint)ost eoporosis1 (chief complaint)VENKATESH D1 (chief complaint) FibromyalgiaOste oporosisGERD w/o esophagitis 4 Samuel Andrews. [address] [place], [address] , [place]. tel:[phone] OFFICE/OUTPA TIENT VISIT, [facility], [address] [place], [address], [place] tel:[phone] [facility] pain (chief complaint)HTN (chief complaint)ophelia ma1 (chief complaint)hyp erglycemia1 (chief complaint) EdemaEssential (primary) hypertensionFibr omyalgiaHypergly cemiaRestless legs syndrome 4 Samuel Andrews. [address], [place], [place], [address] , [place]. tel:[phone] OFFICE/OUTPA TIENT VISIT, [facility], [address] [place], [address], [place] tel:[phone] [facility] pain (chief complaint)HTN (chief complaint)b12 (chief complaint)dry mouth1 (chief complaint) EdemaEssential (primary) hypertensionCyan ocobalamin deficiencyFibrom yalgiaDry mouth 4 Samuel Andrews. [address], [address], [place], [place], [address] , [place]. [phone] OFFICE/OUTPA TIENT VISIT, [facility], [address] [place], [address], [place] tel:[phone] [facility] HTN (chief complaint)HLP (chief complaint)cou gh1 (chief complaint)ane mia1 (chief complaint)DM (chief complaint)fat igue1 (chief complaint) Essential (primary) hypertensionMixe d hyperlipidemiaTy pe 2 diabetes mellitus with diabetic nephropathyAnemi aFatigueCyanocob alamin deficiencyDry mouthFibromyalgi aOsteoporosisChr onic cough 4 Samuel Andrews. [address], [place], [place], [address] , [place]. [phone] OFFICE/OUTPA TIENT VISIT, [facility], [address] [place], [address], [place] tel:[phone] [facility] pain1 (chief complaint)cou gh1 (chief complaint)fat igue1 (chief complaint) FatigueChronic coughEssential (primary) hypertensionFibr omyalgia 4 Samuel Andrews. [address], [address], [place], [place], [address] , [place]. [phone] OFFICE/OUTPA TIENT VISIT, [facility], [address], [place], [place], [address], [place] tel:[phone] [facility] cough1 (chief complaint)RLS (chief complaint)fat igue1 (chief complaint) FatigueMild intermittent asthma, uncomplicatedRes tless Legs Syndrome 4 Samuel Andrews. [address], [address], [place], [place], [address] , [place]. tel:[phone] OFFICE/OUTPA TIENT VISIT, [facility], [address] [place], [address], [place] tel:[phone] [facility] fibromyalgia1 (chief complaint)ost eoporosis1 (chief complaint)cou gh1 (chief complaint)fat igue1 (chief complaint) Mild intermittent asthma, uncomplicatedFat igueFibromyalgia Osteoporosis 4 Samuel Andrews. [address], [place], [place], [address] , [place]. tel:[phone] OFFICE/OUTPA TIENT VISIT, [facility], [address] [place], [address], [place] tel:[phone] [facility] osteoporosis1 (chief complaint)dona n (chief complaint)fat igue1 (chief complaint)RLS 1 (chief complaint)cou gh1 (chief complaint) FatigueOsteoporo sisRestless Legs SyndromeFibromya lgiaMild intermittent asthma, uncomplicated Jan- 4 Samuel Andrews. [address], [address], [place], [place], [address] , [place]. tel:[phone] OFFICE/OUTPA TIENT VISIT, [facility], [address] [place], [address], [place] tel:[phone] [facility] pain (chief complaint)ADD (chief complaint)cou gh1 (chief complaint)HTN (chief complaint) Acute bronchitisFibrom yalgiaFatigueObs tructive Sleep Apnea HypopneaEssentia l (primary) hypertension Jan-0 4 Samuel Andrews. [address], [address], [place], [place], [address] , [place]. tel:[phone] OFFICE/OUTPA TIENT VISIT, [facility], [address] [place], [address], [place] tel:[phone] [facility] pain (chief complaint)fat igue1 (chief complaint) FatigueFibromyal laly 4 Baker Darryl. [address], [address], [place], [place], [address] , [place]. tel:[phone] OFFICE/OUTPA TIENT VISIT, [facility], [address] [place], [address], [place] tel:[phone] [facility] pain1 (chief complaint)leg pain1 (chief complaint)leg weakness1 (chief complaint)fat igue1 (chief complaint) FibromyalgiaRest less Legs SyndromeObstruct lloyd Sleep Apnea HypopneaFatigueP eripheral vascular disease, unspecified 4 Samuel Andrews. [address], [address], [place], [place], [address] , [place]. tel:[phone] OFFICE/OUTPA TIENT VISIT, [facility], [address], [address], [place] tel:[phone] [facility] GERD1 (chief complaint)dona n (chief complaint)leg pain1 (chief complaint)HTN (chief complaint) FibromyalgiaGERD w/o esophagitisRestl ess Legs SyndromeEssentia l (primary) hypertension 4 Baker Darryl. [address], [address], [place], [place], [address] , [place]. tel:[phone] OFFICE/OUTPA TIENT VISIT, [facility], [address], [address], [place] tel:[phone] [facility] pain (chief complaint)RLS (chief complaint)HTN (chief complaint)VENKATESH D1 (chief complaint) FibromyalgiaRest less Legs SyndromeEssentia l (primary) hypertensionGERD w/o esophagitis 3 Baker Darryl. [address], [address], [place], [place], [address] , [place]. tel:[phone] OFFICE/OUTPA TIENT VISIT, [facility], [address] [place], [address], [place] tel:[phone] [facility] pain (chief complaint)RLS 1 (chief complaint)sin us (chief complaint) FibromyalgiaChro meera sinusitisRestles s legs syndrome 3 Samuel Andrews. [address], [address], [place], [place], [address] , [place]. tel:[phone] OFFICE/OUTPA TIENT VISIT, [facility], [address], [place], [place], [address], [place] tel:[phone] [facility] fibromyalgia1 (chief complaint)RLS 1 (chief complaint)HTN (chief complaint)all ergy1 (chief complaint) Restless Legs SyndromeEssentia l (primary) hypertensionFibr omyalgiaAllergic rhinitis due to pollen 3 Samuel Andrews. [address], [address], [place], [place], [address] , [place]. tel:[phone] OFFICE/OUTPA TIENT VISIT, [facility], [address], [place], [place], [address], [place] tel:[phone] [facility] HTN (chief complaint)all ergy1 (chief complaint)RLS (chief complaint)fib romyalgia1 (chief complaint) FibromyalgiaEsse ntial (primary) hypertensionAlle rgic rhinitis due to pollenRestless Legs Syndrome 3 Samuel Andrews. [address], [address], [place], [place], [address] , [place]. tel:[phone] OFFICE/OUTPA TIENT VISIT, [facility], [address], [place], [place], [address], [place] tel:[phone] [facility] pain (chief complaint)RLS 1 (chief complaint)all ergy1 (chief complaint)VENKATESH D1 (chief complaint) FibromyalgiaRest less Legs SyndromeGERD w/o esophagitisAller gic rhinitis due to pollenEssential (primary) hypertension 3 Samuel Andrews. [address], [address], [place], [place], [address] , [place]. tel:[phone] OFFICE/OUTPA TIENT VISIT, [facility], [address], [place], [place], [address], [place] tel:[phone] [facility] pain (chief complaint)leg 1 (chief complaint)all ergy1 (chief complaint)sle ep apnea1 (chief complaint) Restless Legs SyndromePrimary central sleep apneaFibromyalgi aAllergic rhinitis due to pollen 3 Samuel Andrews. [address], [address], [place], [place], [address] , [place]. tel:[phone] OFFICE/OUTPA TIENT VISIT, [facility], [address], [place], [place], [address], [place] tel:[phone] [facility] pain (chief complaint)res tless leg (chief complaint)sle epapnea1 (chief complaint) FibromyalgiaPrim teodora central sleep apneaRestless Legs Syndrome 3 Samuel Andrews. [address], [address], [place], [place], [address] , [place]. tel:[phone] OFFICE/OUTPA TIENT VISIT, [facility], [address], [place], [place], [address], [place] tel:[phone] [facility] pain (chief complaint)glu cose1 (chief complaint)ost eoporosis1 (chief complaint)ane mia1 (chief complaint)sic k (chief complaint)HTN (chief complaint) HyperglycemiaRen al diseaseAnemiaOst eoporosisEssenti al (primary) hypertensionAcut e bronchitisPrimar y central sleep apneaFibromyalgi a 3 Samuel Andrews. [address], [address], [place], [place], [address] , [place]. tel:[phone] OFFICE/OUTPA TIENT VISIT, [facility], [address], [place], [place], [address], [place] tel:[phone] [facility] physical (chief complaint) Encounter for general adult medical exam w abnormal findingsOsteopor osisFibromyalgia Primary central sleep apneaEssential (primary) hypertensionGERD w/o esophagitis February-0 3 Samuel Andrews. [address], [place], [place], [address] , [place]. tel:[phone] OFFICE/OUTPA TIENT VISIT, [facility], [address], [place], [place], [address], [place] tel:[phone] [facility] osteoporosis1 (chief complaint)dona n (chief complaint)HTN (chief complaint)sle ep apnea1 (chief complaint)VENKATESH D1 (chief complaint) Essential (primary) hypertensionFibr omyalgiaOsteopor osisGERD w/o esophagitisPrima ry central sleep apnea Jan-0 3 Samuel Andrews. [address], [place], [place], [address] , [place]. tel:[phone] OFFICE/OUTPA TIENT VISIT, [facility], [address], [place], [place], [address], [place] tel:[phone] [facility] HTN (chief complaint)sle ep apnea1 (chief complaint)dona n (chief complaint)all ergy1 (chief complaint) Allergic rhinitis due to pollenEssential (primary) hypertensionFibr omyalgiaPrimary central sleep apnea Dec-0 3 Samuel Garcia [address], [address], [place], [place], [address] , [place]. tel:[phone] OFFICE/OUTPA TIENT VISIT, [facility], [address], [place], [place], [address], [place] tel:[phone] [facility] HTN (chief complaint)sle ep apnea1 (chief complaint)dona n (chief complaint)VENKATESH D1 (chief complaint) FibromyalgiaAlle rgic rhinitis due to pollenGERD w/o esophagitisOsteo porosisPrimary central sleep apneaEssential (primary) hypertension Feb-0 2 3 Samuel Garcia [address], [address], [place], [place], [address] , [place]. tel:[phone] OFFICE/OUTPA TIENT VISIT, [facility], [address], [place], [place], [address], tel:[phone] [facility] HTN (chief complaint)dona n (chief complaint) Essential (primary) hypertensionFibr omyalgia 3 Samuel Andrews. [address], [address], [place], [place], [address] , [place]. tel:[phone] OFFICE/OUTPA TIENT VISIT, [facility], [address], [place], [place], [address], [place] tel:[phone] [facility] HTN (chief complaint)all ergy1 (chief complaint)dona n (chief complaint) FibromyalgiaEsse ntial (primary) hypertensionAlle rgic rhinitis due to pollen 2 Samuel Andrews. [address], [address], [place], [place], [address] , [place]. tel:[phone] OFFICE/OUTPA TIENT VISIT, [facility], [address], [place], [address], [place] tel:[phone] [facility] HTN (chief complaint)sle ep apnea1 (chief complaint)ost eoporosis1 (chief complaint)VENKATESH D1 (chief complaint)all ergy1 (chief complaint) OsteoporosisPrim teodora central sleep apneaEssential (primary) hypertensionFibr omyalgiaAllergic rhinitis due to pollenGERD w/o esophagitis 2 Samuel Andrews. [address], [address], [place], [place], [address] , [place]. [phone] OFFICE/OUTPA TIENT VISIT, [facility], [address], [place], [place], [address], [place] tel:[phone] [facility] pain (chief complaint)sle ep apnea1 (chief complaint) FibromyalgiaPrim teodora central sleep apnea 2 Samuel Andrews. [address], [address], [place], [place], [address] , [place]. tel:[phone] OFFICE/OUTPA TIENT VISIT, [facility], [address], [place], [place], [address], [place] tel:[phone] [facility] pain (chief complaint)sle ep apnea1 (chief complaint)HTN (chief complaint)ost eoporosis1 (chief complaint) OsteoporosisPrim teodora central sleep apneaEssential (primary) hypertensionFibr omyalgia 2 Samuel Andrews. [address], [place], [place], [address] , [place]. [phone] OFFICE/OUTPA TIENT VISIT, [facility], [address], [place], [place], [address], [place] tel:[phone] [facility] pain (chief complaint)HTN (chief complaint) FibromyalgiaEsse ntial (primary) hypertension 2 Samuel Andrews. [address], [place], [address] , [place]. [phone] OFFICE/OUTPA TIENT VISIT, [facility], [address], [place], [place], [address], [place] tel:[phone] [facility] HTN (chief complaint)sle ep apnea1 (chief complaint)dona n1 (chief complaint) Essential (primary) hypertensionFibr omyalgiaPrimary central sleep apneaAllergic rhinitis due to pollen 2 Samuel Andrews. [address], [place], [place], [address] , [place]. [phone] OFFICE/OUTPA TIENT VISIT, [facility], [address] [place], [address], [place] tel:[phone] [facility] HTN (chief complaint)stephanie lucination1 (chief complaint) Hypertensive emergencyVisual hallucinations 2 Samuel Andrews. [address], [place], [place], [address] , [place]. tel:[phone] OFFICE/OUTPA TIENT VISIT, [facility], [address], [place], [place], [address], [place] tel:[phone] [facility] HTN (chief complaint) Hypertensive emergencyFatigue Dizziness 2 Samuel Andrews. [address], [place], [place], [address] , [place]. tel:[phone] OFFICE/OUTPA TIENT VISIT, [facility], [address], [place], [place], [address], [place] tel:[phone] [facility] fibromyalgia1 (chief complaint)sle ep apnea1 (chief complaint)HTN (chief complaint) Essential (primary) hypertensionSlee p apneaFibromyalgi aBenign paroxysmal vertigo, bilateral 2 Samuel Andrews. [address], [place], [address] , [place]. tel:[phone] OFFICE/OUTPA TIENT VISIT, [facility], [address], [place], [place], [address], [place] tel:[phone] [facility] pain (chief complaint)diz ziness1 (chief complaint)ins omnia1 (chief complaint)fat igue1 (chief complaint)VENKATESH D1 (chief complaint) Sleep apneaInsomniaDiz zinessGERD w/o esophagitisFibro myalgia 2 Samuel Andrews. [address], [place], [place], [address] , [place]. tel:[phone] OFFICE/OUTPA TIENT VISIT, [facility], [address] [place], [address], [place] tel:[phone] [facility] osteoporosis1 (chief complaint)dona n (chief complaint)ins omnia1 (chief complaint)HTN (chief complaint) OsteoporosisEsse ntial (primary) hypertensionFibr omyalgiaInsomnia 2 Samuel Andrews. [address], [place], [place], [address] , [place]. [phone] OFFICE/OUTPA TIENT VISIT, [facility], [address], [place], [address], [place] tel:[phone] [facility] pain (chief complaint)ins omnia1 (chief complaint) FibromyalgiaInso mnia Dec- 2 Samuel Andrews. [address], [place], [place], [address] , [place]. tel:[phone] OFFICE/OUTPA TIENT VISIT, [facility], [address], [place], [address], [place] tel:[phone] [facility] pain (chief complaint)ins omnia1 (chief complaint)HTN (chief complaint) DizzinessEssenti al (primary) hypertensionFibr omyalgiaInsomnia Fe 2 Samuel Darryl. [address], [place], [address] , [place]. [phone] OFFICE/OUTPA TIENT VISIT, [facility], [address], [place], [place], [address], [place] tel:[phone] [facility] pain (chief complaint)ins omnia1 (chief complaint)lig htheadedness (chief complaint)arm pain1 (chief complaint) Lateral epicondylitis, right elbowFibromyalgi aInsomniaDizzine ss 2 Samuel Andrews. [address], [place], [place], [address] , [place]. [phone] OFFICE/OUTPA TIENT VISIT, [facility], [address], [place], [place], [address], [place] tel:[phone] [facility] pain1 (chief complaint)ins omnia1 (chief complaint)diz zy1 (chief complaint)ost eoporosis1 (chief complaint)VENKATESH D1 (chief complaint) DizzinessGERD w/o esophagitisOsteo porosisInsomniaF ibromyalgia Sep- 1 Samuel Andrews. [address], [place], [place], [address] , [place]. tel:[phone] OFFICE/OUTPA TIENT VISIT, [facility], [address], [place], [address], [place] tel:[phone] [facility] HTN (chief complaint)dona n (chief complaint)ins omnia1 (chief complaint)sin us (chief complaint) FibromyalgiaEsse ntial (primary) hypertensionChro meera sinusitisInsomni a 1 Samuel Garcia [address], [address], [place], [place], [address] , [place]. tel:[phone] OFFICE/OUTPA TIENT VISIT, [facility], [address], [place], [place], [address], [place] tel:[phone] [facility] sinus1 (chief complaint)HTN (chief complaint)fib romyalgia1 (chief complaint)ins omnia1 (chief complaint) Chronic sinusitisFibromy algiaEssential (primary) hypertensionEdem aInsomniaSolitar y lung nodule 1 Samuel Garcia [address], [address], [place], [place], [address] , [place]. tel:[phone] OFFICE/OUTPA TIENT VISIT, [facility], [address], [place], [place], [address], [place] tel:[phone] [facility] pain (chief complaint)ins omnia1 (chief complaint)HTN (chief complaint)sin us1 (chief complaint) InsomniaFibromya lgiaEssential (primary) hypertensionAlle rgic rhinitisEdema 1 Samuel Garcia [address], [address], [place], [address] , [place]. [phone] OFFICE/OUTPA TIENT VISIT, [facility], [address], [place], [place], [address], [place] tel:[phone] [facility] pain (chief complaint)ins omnia1 (chief complaint)HTN (chief complaint)GED 1 (chief complaint) GERD w/o esophagitisFibro myalgiaInsomniaE ssential (primary) hypertension 1 Samuel Garcia [address], [place], [place], [address] , [place]. tel:[phone] OFFICE/OUTPA TIENT VISIT, [facility], [address], [place], [place], [address], [place] tel:[phone] [facility] insomnia1 (chief complaint)dona n (chief complaint)VENKATESH D1 (chief complaint)HTN (chief complaint) GERD w/o esophagitisFibro myalgiaInsomniaE ssential (primary) hypertension 1 Samuel Garcia [address], [address], [place], [place], [address] , [place]. tel:[phone] OFFICE/OUTPA TIENT VISIT, [facility], [address], [place], [place], [address], [place] tel:[phone] [facility] insomnia1 (chief complaint)dona n1 (chief complaint)VENKATESH D1 (chief complaint) GERD w/o esophagitisConst ipationFibromyal giaInsomnia 1 Samuel Garcia [address], [place], [place], [address] , [place]. tel:[phone] OFFICE/OUTPA TIENT VISIT, [facility], [address] [place], [address], tel:[phone] [facility] left arm numbness1 (chief complaint)dona n (chief complaint)ins omnia1 (chief complaint)con stipation1 (chief complaint)fat igue1 (chief complaint) ConstipationNeur opathyInsomniaFi bromyalgiaFatigu e 1 Samuel Garcia [address], [address], [place], [place], [address] , [place]. tel:[phone] OFFICE/OUTPA TIENT VISIT, [facility], [address] [place], [address], [place] tel:[phone] [facility] pain (chief complaint)ins omnia1 (chief complaint)ost eoporosis1 (chief complaint)diz ziness1 (chief complaint) FibromyalgiaInso mniaOsteoporosis Dizziness 1 Samuel Garcia [address], [address], [place], [place], [address] , [place]. tel:[phone] OFFICE/OUTPA TIENT VISIT, [facility], [address], [place], [place], [address], [place] tel:[phone] [facility] pain (chief complaint)ins omnia1 (chief complaint)UTI 1 (chief complaint)ost eoporosis1 (chief complaint) Urinary tract infectionFibromy algiaInsomnia 1 Samuel Garcia [address], [address], [place], [address] , [place]. tel:[phone] OFFICE/OUTPA TIENT VISIT, [facility], [address], [place], [address], [place] tel:[phone] [facility] fibromyalgia1 (chief complaint)ins omnia1 (chief complaint) FibromyalgiaInso mniaUrinary tract infection 1 Samuel Garcia [address], [address], [place], [place], [address] , [place]. tel:[phone] OFFICE/OUTPA TIENT VISIT, [facility], [address], [place], [place], [address], [place] tel:[phone] [facility] sinus1 (chief complaint) Acute sinusitis 1 Samuel Garcia [address], [address], [place], [place], [address] , [place]. tel:[phone] OFFICE/OUTPA TIENT VISIT, [facility], [address], [place], [place], [address], [place] tel:[phone] [facility] fibromyalgia1 (chief complaint)ins omnia1 (chief complaint) FibromyalgiaInso mnia 1 Samuel Garcia [address], [place], [place], [address] , [place]. tel:[phone] Referring Provider: Darryl Baker, [address], [place], [place], [address]. tel:[phone] OFFICE/OUTPA TIENT VISIT, [facility], [address], [place], [place], [address], [place] tel:[phone] [facility] pain (chief complaint)ins omnia1 (chief complaint) FibromyalgiaInso mnia Dec- 0 Samuel Andrews. [address], [address], [place], [place], [address] , [place]. tel:[phone] Referring Provider: Betty Zelaya [address], [place], [place], [address]. tel:[phone] OFFICE/OUTPA TIENT VISIT, [facility], [address], [place], [place], [address], [place] tel:[phone] [facility] pain (chief complaint)ins omnia1 (chief complaint)HTN (chief complaint) FibromyalgiaInso mniaEssential (primary) hypertension Dec 0 Samuel Andrews. [address], [address], [place], [place], [address] , [place]. tel:[phone] Referring Provider: Betty Zelaya [address], [place], [place], [address]. tel:[phone] OFFICE/OUTPA TIENT VISIT, [facility], [address], [place], [place], [address], [place] tel:[phone] [facility] pain (chief complaint)ins omnia1 (chief complaint) FibromyalgiaInso mnia 0 Samuel Andrews. [address], [address], [place], [place], [address] , [place]. tel:[phone] Referring Provider: Darryl Baker [address], [place], [place], [address]. tel:[phone] OFFICE/OUTPA TIENT VISIT, [facility], [address], [place], [place], [address], [place] tel:[phone] [facility] pain (chief complaint)ins omnia1 (chief complaint)sle ep apnea1 (chief complaint)hem orrhoid (chief complaint) FibromyalgiaAnem iaInsomniaSleep apneaHemorrhoid 0 Samuel Andrews. [address], [facility] A, [place], [place], [address] , [place]. tel:[phone] Referring Provider: Darryl Baker, [address] [facility] A, [place], [place], [address]. tel:[phone] OFFICE/OUTPA TIENT VISIT, [facility], [address] [place], [place], [address], [place] tel:[phone] [facility] fibromyalgia1 (chief complaint)ins omnia1 (chief complaint)ost eoporosis1 (chief complaint)hyp onatremia1 (chief complaint)ane mia1 (chief complaint)hem aturia1 (chief complaint) AnemiaHematuriaH yponatremiaInsom niaFibromyalgiaO steoporosis 0 Samuel Andrews. [address] [facility] [address], [place], [place], [address] , [place]. tel:[phone] Referring Provider: Betty Zelaya [facility] A, [place], [place], [address]. tel:[phone] OFFICE/OUTPA TIENT VISIT, [facility], [address] [facility] [place], [place], [address], [place] tel:[phone] [facility] pain (chief complaint)ins omnia1 (chief complaint)HLP (chief complaint)sle ep apnea1 (chief complaint)sic k (chief complaint)hem orrhoid1 (chief complaint) FibromyalgiaHype rlipidemiaAnemia Sleep apneaHemorrhoidA cute bronchitisInsomn iaHyponatremia 0 Samuel Andrews. [address], [facility] A, [place], [place], [address] , [place]. tel:[phone] Referring Provider: Darryl Baker [address] [facility] [place], [address]. tel:[phone] OFFICE/OUTPA TIENT VISIT, [facility], [address] [facility] [place] [address], [place] tel:[phone] [facility] HLP (chief complaint)sle ep apnea1 (chief complaint)fib romyalgia1 (chief complaint)ins omnia1 (chief complaint)ane mia1 (chief complaint) AnemiaFibromyalg iaHematuriaHemor rhoidHyperlipide miaSleep apneaInsomniaSol itary lung nodule 0 Samuel Andrews. [address], [address], [place], [place], [address] , [place]. tel:[phone] Referring Provider: Darryl Baker, [address], [place], [place], [address]. tel:[phone] OFFICE/OUTPA TIENT VISIT, [facility], [address], [place], [place], [address], [place] tel:[phone] [facility] HLP (chief complaint)ane mia1 (chief complaint)ane mia1 (chief complaint)dona n1 (chief complaint)sle ep apnea1 (chief complaint) HyperlipidemiaAn emiaInsomniaHema turiaHemorrhoidS leep apneaFibromyalgi a 0 Samuel Andrews. [address], [address], [place], [place], [address] , [place]. tel:[phone] Referring Provider: Darryl Baker, [address], [place], [place], [address]. tel:[phone] OFFICE/OUTPA TIENT VISIT, [facility], [address], [place], [place], [address], [place] tel:[phone] [facility] sinus1 (chief complaint) Acute sinusitis 0 Samuel Andrews. [address], [address], [place], [place], [address] , [place]. tel:[phone] Referring Provider: Darryl Baker, [address], [place], [place], [address]. tel:[phone] OFFICE/OUTPA TIENT VISIT, [facility], [address], [place], [place], [address], [place] tel:[phone] [facility] PHysical (chief complaint) Encounter for general adult medical exam w abnormal findingsFibromya lgiaSleep apneaOsteoporosi sInsomniaEssenti al (primary) hypertension 0 Samuel Andrews. [address], [place], [place], [address] , [place]. tel:[phone] Referring Provider: Darryl Baker, [address], [place], [place], [address]. tel:[phone] OFFICE/OUTPA TIENT VISIT, [facility], [address], [place], [place], [address], [place] tel:[phone] [facility] pain (chief complaint)ins omnia1 (chief complaint)sle ep apnea1 (chief complaint) FibromyalgiaSlee p apneaInsomnia 0 Samuel Andrews. [address], [place], [place], [address] , [place]. tel:[phone] Referring Provider: Darryl Baker [address], [place], [place], [address]. tel:[phone] OFFICE/OUTPA TIENT VISIT, [facility], [address], [place], [place], [address], [place] tel:[phone] [facility] HTN (chief complaint)fib romyalgia1 (chief complaint)ins omnia1 (chief complaint)sle ep apnea1 (chief complaint)glu cose (chief complaint) InsomniaSleep apneaFibromyalgi aEssential (primary) hypertensionEnco unter for screening for malignant neoplasm of colonHyperglycem ia 0 Samuel Andrews. [address], [address], [place], [place], [address] , [place]. tel:[phone] Referring Provider: Betty Zelaya [address], [place], [place], [address]. tel:[phone] OFFICE/OUTPA TIENT VISIT, [facility], [address], [place], [place], [address], [place] tel:[phone] [facility] fibromyalgia1 (chief complaint)ost eoporosis1 (chief complaint)ins omnia1 (chief complaint)sle ep apnea1 (chief complaint) FibromyalgiaSlee p apneaOsteoporosi sInsomnia 0 Samuel Andrews. [address], [address], [place], [place], [address] , [place]. tel:[phone] Referring Provider: Betty Zelaya [address], [place], [place], [address]. tel:[phone] OFFICE/OUTPA TIENT VISIT, [facility], [address], [place], [place], [address], [place] tel:[phone] [facility] pain (chief complaint)ins omnia1 (chief complaint)sin us (chief complaint)kne e pain1 (chief complaint) FatigueFibromyal giaInsomniaOsteo arthritis of knee, unspecifiedAller gic rhinitis 0 Samuel Andrews. [address], [place], [place], [address] , [place]. tel:[phone] Referring Provider: Betty Zelaya [address], [place], [place], [address]. tel:[phone] OFFICE/OUTPA TIENT VISIT, [facility], [address], [place], [place], [address], [place] tel:[phone] [facility] fibromyalgia1 (chief complaint)ins omnia1 (chief complaint)fat igue1 (chief complaint)sin us1 (chief complaint)HTN (chief complaint) FibromyalgiaInso mniaFatigueAcute sinusitisEssenti al (primary) hypertension 0 Samuel Andrews. [address], [place], [place], [address] , [place]. tel:[phone] Referring Provider: Betty Zelaya [address], [place], [place], [address]. tel:[phone] OFFICE/OUTPA TIENT VISIT, [facility], [address], [place], [place], [address], [place] tel:[phone] [facility] sinus allergy1 (chief complaint)dona n (chief complaint)ins omnia1 (chief complaint)fat igue1 (chief complaint) Allergic rhinitisFibromya lgiaInsomniaFati alejandra 9 Samuel Andrews. [address], [place], [place], [address] , [place]. tel:[phone] Referring Provider: Darryl Baker, [address], [place], [place], [address]. tel:[phone] OFFICE/OUTPA TIENT VISIT, [facility], [address], [place], [place], [address], [place] tel:[phone] [facility] HTN (chief complaint)fib romyalgia1 (chief complaint)ins omnia1 (chief complaint)sin us allergy1 (chief complaint) FibromyalgiaInso mniaEssential (primary) hypertensionAlle rgic rhinitis 9 Samuel Andrews. [address], [place], [place], [address] , [place]. tel:[phone] Referring Provider: Betty Zelaya [address], [place], [place], [address]. tel:[phone] OFFICE/OUTPA TIENT VISIT, [facility], [address], [place], [place], [address], [place] tel:[phone] [facility] HTN (chief complaint)ophelia ma1 (chief complaint)chr onic pain1 (chief complaint)ins omnia1 (chief complaint) Essential (primary) hypertensionEdem aFibromyalgiaIns omnia 9 Samuel Andrews. [address], [place], [place], [address] , [place]. tel:[phone] Referring Provider: Betty Zelaya [address], [place], [place], [address]. tel:[phone] OFFICE/OUTPA TIENT VISIT, [facility], [address], [place], [place], [address], [place] tel:[phone] [facility] toe pain1 (chief complaint)fib romyalgia1 (chief complaint)ins omnia1 (chief complaint) FibromyalgiaInso mniaDermatophyto sis of nail 9 Samuel Andrews. [address], [place], [place], [address] , [place]. tel:[phone] Referring Provider: Darryl Baker, [address], [place], [place], [address]. tel:[phone] OFFICE/OUTPA TIENT VISIT, [facility], [address], [place], [place], [address], [place] tel:[phone] [facility] chronic pain1 (chief complaint)ins omnia1 (chief complaint) FibromyalgiaInso mnia 9 Samuel Andrews. [address], [place], [place], [address] , [place]. tel:[phone] Referring Provider: Betty Zelaya [address], [place], [place], [address]. tel:[phone] OFFICE/OUTPA TIENT VISIT, [facility], [address], [place], [place], [address], [place] tel:[phone] [facility] sinusitis1 (chief complaint)HTN (chief complaint)fib romyalgia1 (chief complaint)ins omnia1 (chief complaint) InsomniaFibromya lgiaEssential (primary) hypertensionAcut e sinusitis 9 Samuel Andrews. [address], [place], [place], [address] , [place]. tel:[phone] Referring Provider: Betty Zelaya [address], [place], [place], [address]. tel:[phone] OFFICE/OUTPA TIENT VISIT, [facility], [address], [place], [place], [address], [place] tel:[phone] [facility] HTN (chief complaint)fib romyalgia1 (chief complaint)ins omnia1 (chief complaint) Essential (primary) hypertensionFibr omyalgiaInsomnia 9 Samuel Garcia [address], [place], [place], [address] , [place]. tel:[phone] Referring Provider: Betty [address], [place], [place], [address]. tel:[phone] OFFICE/OUTPA TIENT VISIT, [facility], [address], [place], [place], [address], [place] tel:[phone] [facility] numbness1 (chief complaint)fib romyalgia1 (chief complaint)anx iety1 (chief complaint)gurinder ral regu (chief complaint) OsteoporosisFibr omyalgiaParesthe quinton of skinInsomniaNonr heumatic mitral valve prolapse 9 Samuel Garcia [address], [address], [place], [place], [address] , [place]. tel:[phone] Referring Provider: Betty [address], [place], [place], [address]. tel:[phone] OFFICE/OUTPA TIENT VISIT, [facility], [address], [place], [place], [address], [place] tel:[phone] [facility] numbness1 (chief complaint)chr onic pain (chief complaint)ins omnia1 (chief complaint) FibromyalgiaInso mniaParesthesia of skin 9 Samuel De La O[address], [place], [place], [address] , [place]. tel:[phone] Referring Provider: Betty [address], [place], [place], [address]. tel:[phone] OFFICE/OUTPA TIENT VISIT, [facility], [address], [place], [place], [address], [place] tel:[phone] [facility] PHysical (chief complaint) Encounter for general adult medical exam w abnormal findingsHyperlip idemiaEssential (primary) hypertensionOste oporosisFibromya lgiaInsomnia 9 Samuel Garcia [address], [address], [place], [place], [address] , [place]. tel:[phone] Referring Provider: Betty Zelaya [facility] A, [place], [place], [address]. tel:[phone] OFFICE/OUTPA TIENT VISIT, [facility], [address], [place], [place], [address], tel:[phone] [facility] osteoporosis1 (chief complaint)fib romyalgia1 (chief complaint)sin us1 (chief complaint)HTN (chief complaint)ins omnia1 (chief complaint) FibromyalgiaOste oporosisEssentia l (primary) hypertensionAlle rgic rhinitisInsomnia 9 Samuel Andrews. [address], [address], [place], [place], [address] , . tel:[phone] Referring Provider: Betty Zelaya [place], [address]. tel:[phone] OFFICE/OUTPA TIENT VISIT, [facility], [address] [place], [address], [place] tel:[phone] [facility] fibromyalgia1 (chief complaint)anx iety1 (chief complaint)fat igue1 (chief complaint)sin us (chief complaint) Allergic rhinitisFatigueF ibromyalgiaInsom fabiana 9 Samuel Andrews. [address] [facility] [address], [place], [place], [address] , [place]. tel:[phone] Referring Provider: Betty Zelaya [facility] A, [place], [place], [address]. tel:[phone] OFFICE/OUTPA TIENT VISIT, [facility], [address] [place], [address], [place] tel:[phone] [facility] sinus allergy1 (chief complaint)chr onic pain (chief complaint)ins omnia1 (chief complaint) InsomniaFibromya lgiaAllergic rhinitis 9 Samuel Andrews. [address], [place], [place], [address] , [place]. tel:[phone] Referring Provider: Betty Zelaya [address], [place], [place], [address]. tel:[phone] OFFICE/OUTPA TIENT VISIT, [facility], [address], [place], [place], [address], [place] tel:[phone] [facility] fibromyalgia1 (chief complaint)ins omnia1 (chief complaint)ost eoporosis1 (chief complaint)HTN (chief complaint) OsteoporosisEsse ntial (primary) hypertensionFibr omyalgiaInsomnia 8 Samuel Andrews. [address], [place], [place], [address] , [place]. tel:[phone] Referring Provider: Betty Zelaya [facility] A, [place], [place], [address]. tel:[phone] OFFICE/OUTPA TIENT VISIT, [facility], [address], [place], [place], [address], [place] tel:[phone] [facility] fibromyalgia1 (chief complaint)ins omnia1 (chief complaint) FibromyalgiaInso mnia 8 Samuel Andrews. [address], [place], [place], [address] , [place]. tel:[phone] Referring Provider: Betty Zelaya [address] [facility] [address], [place], [place], [address]. tel:[phone] OFFICE/OUTPA TIENT VISIT, [facility], [address], [place], [place], [address], [place] tel:[phone] [facility] hlp (chief complaint)fib romyalgia1 (chief complaint)ins omnia1 (chief complaint) FibromyalgiaHype rlipidemiaInsomn iaPain in left shoulder 8 Samuel Andrews. [address], [place], [place], [address] , [place]. tel:[phone] Referring Provider: Betty Zelaya [address], [place], [place], [address]. tel:[phone] OFFICE/OUTPA TIENT VISIT, [facility], [address], [place], [place], [address], [place] tel:[phone] [facility] fibromyalgia1 (chief complaint)HTN (chief complaint)ins omnia1 (chief complaint)yaya ght loss1 (chief complaint) Essential (primary) hypertensionFibr omyalgiaAbnormal weight lossInsomnia 8 Samuel Andrews. [address], [place], [place], [address] , [place]. tel:[phone] Referring Provider: Betty Zelaya [address] [facility] [address], [place], [place], [address]. tel:[phone] OFFICE/OUTPA TIENT VISIT, [facility], [address] [place], [address], [place] tel:[phone] [facility] arm pain1 (chief complaint)ins omnia1 (chief complaint)fib romyalgia1 (chief complaint)HTN (chief complaint)ost eoporosis1 (chief complaint) Essential (primary) hypertensionOste oporosisPain in left upper armFibromyalgiaI nsomniaHemorrhoi d 8 Samuel Andrews. [address], [place], [place], [address] , [place]. tel:[phone] Referring Provider: Betty Zelaya [facility], [place], [place], [address]. tel:[phone] OFFICE/OUTPA TIENT VISIT, [facility], [address], [place], [place], [address], [place] tel:[phone] [facility] hemorrhoid1 (chief complaint)fib romyalgia1 (chief complaint)anx iety1 (chief complaint)lauren dder prolase1 (chief complaint) FibromyalgiaCyst oceleBenign neoplasm of right kidneyHemorrhoid Insomnia 0 8 Samuel Andrews. [address], [place], [place], [address] , [place]. tel:[phone] Referring Provider: Darryl Baker, [address], [place], [place], [address]. tel:[phone] OFFICE/OUTPA TIENT VISIT, [facility], [address], [place], [place], [address], [place] tel:[phone] [facility] fibromyalgia1 (chief complaint)ins omnia1 (chief complaint)ang iomyolipoma1 (chief complaint)ora l numbness 1 (chief complaint) Benign neoplasm of right kidneyAcute sinusitisFibromy algiaParesthesia of skin 8 Samuel Andrews. [address], [address], [place], [place], [address] , [place]. tel:[phone] Referring Provider: Darryl Baker [address], [place], [place], [address]. tel:[phone] OFFICE/OUTPA TIENT VISIT, [facility], [address], [place], [place], [address], [place] tel:[phone] [facility] fibromyalgia1 (chief complaint)ins omnia1 (chief complaint)gill al cyst1 (chief complaint) FibromyalgiaInso mniaBenign neoplasm of right kidneyCystocele 8 Samuel Andrews. [address], [place], [place], [address] , [place]. tel:[phone] Referring Provider: Betty Zelaya [address], [place], [place], [address]. tel:[phone] OFFICE/OUTPA TIENT VISIT, [facility], [address], [place], [place], [address], [place] tel:[phone] [facility] chronic pain (chief complaint)ins omnia1 (chief complaint)sin us1 (chief complaint) FibromyalgiaInso mniaChronic sinusitis 8 Samuel Andrews. [address], [address], [place], [place], [address] , [place]. tel:[phone] OFFICE/OUTPA TIENT VISIT, [facility], [address], [place], [place], [address], [place] tel:[phone] [facility] fibromyalgia1 (chief complaint)ost eoporosis1 (chief complaint)sin us1 (chief complaint)ins omnia1 (chief complaint) FibromyalgiaOste oporosisChronic sinusitisInsomni a 8 Samuel Andrews. [address], [address], [place], [place], [address] , [place]. tel:[phone] OFFICE/OUTPA TIENT VISIT, [facility], [address], [place], [place], [address], [place] tel:[phone] [facility] PHysical (chief complaint) Encounter for general adult medical exam w abnormal findingsFibromya lgiaEssential (primary) hypertensionOste oporosis 8 Samuel Andrews. [address], [place], [place], [address] , [place]. tel:[phone] OFFICE/OUTPA TIENT VISIT, [facility], [address], [place], [place], [address], [place] tel:[phone] [facility] sick (chief complaint) Acute bronchitisAcute upper respiratory infection, unspecified 8 Samuel Andrews. [address], [place], [place], [address] , [place]. tel:[phone] Referring Provider: Darryl Baker, [address], [place], [place], [address]. tel:[phone] OFFICE/OUTPA TIENT VISIT, [facility], [address], [place], [place], [address], [place] tel:[phone] [facility] fibromyalgia1 (chief complaint)ins omnia1 (chief complaint)HTn (chief complaint) FibromyalgiaInso mniaEssential (primary) hypertension 0 8 Samuel Andrews. [address], [address], [place], [place], [address] , [place]. tel:[phone] OFFICE/OUTPA TIENT VISIT, [facility], [address], [place], [place], [address], [place] tel:[phone] [facility] fibromyalgia1 (chief complaint)ins omnia1 (chief complaint)ost eoporosis1 (chief complaint)col d (chief complaint) OsteoporosisFibr omyalgiaInsomnia Acute upper respiratory infection, unspecified 0 4 8 Samuel Andrews. [address], [place], [place], [address] , [place]. tel:[phone] Referring Provider: Betty Zelaya [address], [place], [place], [address]. tel:[phone] OFFICE/OUTPA TIENT VISIT, [facility], [address] [place], [address], [place] tel:[phone] [facility] sob1 (chief complaint)ins omnia1 (chief complaint)fib romyalgia1 (chief complaint) Shortness of breathAcute bronchitisFibrom yalgiaInsomnia Sep-0 6201 7 Samuel Andrews. [address], [address], [place], [place], [address] , [place]. tel:[phone] Referring Provider: Betty Zelaya [facility] [place], [address]. tel:[phone] OFFICE/OUTPA TIENT VISIT, [facility], [address] [place], [address], [place] tel:[phone] [facility] jonit pain1 (chief complaint)anx iety1 (chief complaint)ost eoporosis1 (chief complaint)brant t pain1 (chief complaint)SOB (chief complaint) Shortness of breathOsteoporos isInsomniaFibrom yalgia Aug-0 8201 7 Samuel Andrews. [address], [address], [place], [place], [address] , [place]. tel:[phone] Referring Provider: Betty Zelaya [facility] [address], [place], [place], [address]. tel:[phone] OFFICE/OUTPA TIENT VISIT, [facility], [address], [place], [place], [address], [place] tel:[phone] [facility] osteoporosis1 (chief complaint)fib romyalgia1 (chief complaint)ins omnia1 (chief complaint)gill al cyst1 (chief complaint) InsomniaFibromya lgiaOsteoporosis Acquired renal cyst 7 Samuel Garcia [address] [facility] [address], [place], [place], [address] , [place]. tel:[phone] OFFICE/OUTPA TIENT VISIT, [facility], [address], [place], [place], [address], [place] tel:[phone] [facility] fibromyalgia1 (chief complaint)ins omnia1 (chief complaint) FibromyalgiaInso mnia 7 Samuel De La [address], [place], [place], [address] , [place]. [phone] OFFICE/OUTPA TIENT VISIT, [facility], [address], [place], [place], [address], [place] tel:[phone] [facility] insomnia1 (chief complaint)fib romyalgia1 (chief complaint)fat igue1 (chief complaint)HTN (chief complaint) FibromyalgiaFati gueInsomniaEssen tial (primary) hypertension 7 Samuel Garcia [address] [facility] [address], [place], [place], [address] , [place]. tel:[phone] Referring Provider: Darryl Baker, [address] [facility] [address], [place], [place], [address]. tel:[phone] OFFICE/OUTPA TIENT VISIT, [facility], [address], [place], [place], [address], [place] tel:[phone] [facility] fatigue1 (chief complaint)lef t shoulder pain1 (chief complaint)ost eoporosis1 (chief complaint)fib romyalgia1 (chief complaint)ins omnia1 (chief complaint) FatigueOsteoporo sisFibromyalgiaI nsomnia 7 Samuel Garcia [address] [facility], [place], [place], [address] , [place]. tel:[phone] Referring Provider: Betty Zelaya [facility] A, [place], [place], [address]. tel:[phone] OFFICE/OUTPA TIENT VISIT, [facility], [address], [place], [place], [address], [place] tel:[phone] [facility] fibromyalgia1 (chief complaint)anx iety1 (chief complaint)fat igue1 (chief complaint) FatigueGeneraliz ed anxiety disorderFibromya lgia 7 Samuel Andrews. [address] [facility] [address], [place], [place], [address] , [place]. tel:[phone] Referring Provider: Betty Zelaya [facility] A, [place], [place], [address]. tel:[phone] OFFICE/OUTPA TIENT VISIT, [facility], [address], [place], [place], [address], [place] tel:[phone] [facility] fibromyalgia1 (chief complaint)ost eoporosis1 (chief complaint)anx iety1 (chief complaint)ski n CA1 (chief complaint) OsteoporosisFibr omyalgiaGenerali zed anxiety disorderBasal cell carcinoma of skin, unspecified 7 Samuel Andrews. [address], [place], [place], [address] , [place]. tel:[phone] Referring Provider: Betty Zelaya [facility], [place], [place], [address]. tel:[phone] OFFICE/OUTPA TIENT VISIT, [facility], [address], [place], [place], [address], [place] tel:[phone] [facility] osteoporosis1 (chief complaint)HTN (chief complaint)fib romyalgia1 (chief complaint)ins omnia1 (chief complaint) OsteoporosisChro meera pain syndromeGenerali zed anxiety disorderEssentia l (primary) hypertension 0 7 Samuel Andrews. [address], [place], [place], [address] , [place]. tel:[phone] Referring Provider: Betty Zelaya [address], [place], [place], [address]. tel:[phone] OFFICE/OUTPA TIENT VISIT, [facility], [address], [place], [place], [address], [place] tel:[phone] [facility] anxiety1 (chief complaint)fib romyalgia1 (chief complaint) FibromyalgiaGene ralized anxiety disorder Apr-0 4 7 Samuel Andrews. [address], [place], [place], [address] , [place]. tel:[phone] Referring Provider: Betty Zelaya [address], [place], [place], [address]. tel:[phone] OFFICE/OUTPA TIENT VISIT, [facility], [address], [place], [place], [address], [place] tel:[phone] [facility] fibromyalgia1 (chief complaint)anx iety1 (chief complaint) FibromyalgiaGene ralized Anxiety Disorder Mar-0 2 7 Samuel Andrews. [address], [place], [place], [address] , [place]. tel:[phone] Referring Provider: Betty Zelaya [address], [place], [place], [address]. tel:[phone] OFFICE/OUTPA TIENT VISIT, [facility], [address], [place], [place], [address], [place] tel:[phone] [facility] jont pain (chief complaint)anx iety1 (chief complaint)ost eoprosis1 (chief complaint) Chronic pain syndromeGenerali zed Anxiety DisorderOsteopor osis Feb-0 7 Samuel Andrews. [address], [place], [place], [address] , [place]. tel:[phone] Referring Provider: Betty Zelaya [address], [place], [place], [address]. tel:[phone] OFFICE/OUTPA TIENT VISIT, [facility], [address], [place], [place], [address], [place] tel:[phone] [facility] anxiety1 (chief complaint)fib romyalgia (chief complaint)elb ow pain1 (chief complaint)HLP (chief complaint) Chronic pain syndromeGenerali zed Anxiety DisorderPain in right elbow 7 Samuel Andrews. [address], [place], [place], [address] , [place]. tel:[phone] Referring Provider: Darryl Baker, [address], [place], [place], [address]. tel:[phone] PREV VISIT, EST, 65 & OVER [facility], [address], [place], [place], [address], [place] tel:[phone] [facility] PHysical (chief complaint) Encntr for general adult medical exam w/o abnormal findings 6 Samuel Andrews. [address], [place], [place], [address] , [place]. tel:[phone] Referring Provider: Betty Zelaya [address], [place], [place], [address]. tel:[phone] OFFICE/OUTPA TIENT VISIT, [facility], [address], [place], [address], [place] tel:[phone] [facility] chronic pain1 (chief complaint)anx iety1 (chief complaint) FibromyalgiaGene ralized Anxiety Disorder 6 Samuel Andrews. [address], [place], [place], [address] , [place]. tel:[phone] Referring Provider: Betty Zelaya [address], [place], [place], [address]. tel:[phone] OFFICE/OUTPA TIENT VISIT, [facility], [address], [place], [place], [address], [place] tel:[phone] [facility] fibromyalgia1 (chief complaint)anx iety1 (chief complaint) FibromyalgiaGene ralized Anxiety Disorder 6 Samuel Andrews. [address], [place], [place], [address] , [place]. tel:[phone] Referring Provider: Betty Zelaya [address], [place], [place], [address]. tel:[phone] OFFICE/OUTPA TIENT VISIT, [facility], [address], [place], [place], [address], [place] tel:[phone] [facility] fibromyalgia1 (chief complaint)anx iety1 (chief complaint)vis ion change (chief complaint) FibromyalgiaGene ralized Anxiety Disorder 6 Samuel Andrews. [address], [place], [place], [address] , [place]. tel:[phone] Referring Provider: Betty Zelaya [address], [place], [place], [address]. tel:[phone] OFFICE/OUTPA TIENT VISIT, [facility], [address], [place], [place], [address], [place] tel:[phone] [facility] neck pain1 (chief complaint) Spasmodic torticollis 6 Samuel Andrews. [address], [place], [place], [address] , [place]. tel:[phone] Referring Provider: Betty Zelaya [address], [place], [place], [address]. tel:[phone] OFFICE/OUTPA TIENT VISIT, [facility], [address], [place], [place], [address], [place] tel:[phone] [facility] chronic pain (chief complaint)anx iety1 (chief complaint)HTN (chief complaint) FibromyalgiaGene ralized Anxiety DisorderEssentia l (primary) hypertension 6 Samuel Andrews. [address], [place], [place], [address] , [place]. tel:[phone] Referring Provider: Betty Zelaya [address], [place], [place], [address]. tel:[phone] OFFICE/OUTPA TIENT VISIT, [facility], [address], [place], [place], [address], [place] tel:[phone] [facility] chronic pedro (chief complaint)anx iety1 (chief complaint) Chronic pain syndromeGenerali zed Anxiety Disorder 6 Samuel Andrews. [address], [place], [place], [address] , [place]. tel:[phone] Referring Provider: Betty Zelaya [address], [place], [place], [address]. tel:[phone] OFFICE/OUTPA TIENT VISIT, [facility], [address], [place], [place], [address], [place] tel:[phone] [facility] chrnoic pain (chief complaint)Anx iety1 (chief complaint) FibromyalgiaGene ralized Anxiety Disorder 6 Samuel Andrews. [address], [place], [place], [address] , [place]. tel:[phone] Referring Provider: Betty Zelaya [address], [place], [address]. tel:[phone] OFFICE/OUTPA TIENT VISIT, [facility], [address], [place], [place], [address], [place] tel:[phone] [facility] fibromyalgia (chief complaint)anx iety1 (chief complaint)HTN 1 (chief complaint) FibromyalgiaEsse ntial (primary) hypertensionGene ralized anxiety disorder 6 Samuel Andrews. [address], [place], [address] , [place]. tel:[phone] Referring Provider: Betty Zelaya [address], [place], [place], [address]. tel:[phone] OFFICE/OUTPA TIENT VISIT, [facility], [address], [place], [place], [address], [place] tel:[phone] [facility] back pain1 (chief complaint)anx iety1 (chief complaint) FibromyalgiaGene ralized Anxiety Disorder 6 Samuel Andrews. [address], [address], [address] , [place]. [phone] Referring Provider: Betty Zelaya [facility] [place], [address]. tel:[phone] OFFICE/OUTPA TIENT VISIT, [facility], [address], [address], [place] [phone] [facility] HTN (chief complaint)anx iety1 (chief complaint)fib romyalgia (chief complaint)ost eoporosis1 (chief complaint) Other chronic painOsteoporosis Generalized Anxiety DisorderEssentia l (primary) hypertension 6 Samuel Andrews. [address] [facility] [address], [address] , [place]. tel:[phone] Referring Provider: Betty Zelaya [facility] [place], [address]. tel:[phone] OFFICE/OUTPA TIENT VISIT, [facility], [address] [place], [address], [place] tel:[phone] [facility] HTN1 (chief complaint)fib romyalgia1 (chief complaint)anx iety1 (chief complaint)fat igue1 (chief complaint) FibromyalgiaGene ralized Anxiety DisorderSleep apneaEssential (primary) hypertension 6 Samuel Andrews. [address], [place], [place], [address] , [place]. [phone] Referring Provider: Betty Zelaya [facility] [place], [address]. tel:[phone] OFFICE/OUTPA TIENT VISIT, [facility], [address] [place], [address], [place] tel:[phone] [facility] HTN1 (chief complaint)ost eoporosis1 (chief complaint)Fib romyalgia1 (chief complaint)anx iety1 (chief complaint) Essential (primary) hypertensionFibr omyalgiaGenerali zed anxiety disorderOsteopor osis 6 5 Samuel Andrews. [address], [place], [place], [address] , [place]. tel:[phone] Referring Provider: Darryl Baker, Betty [facility] A, [place], [place], [address]. tel:[phone] OFFICE/OUTPA TIENT VISIT, [facility], [address], [place], [place], [address], [place] tel:[phone] [facility] HTN1 (chief complaint)Anx iety1 (chief complaint)fib romyalgia1 (chief complaint) FibromyalgiaGene ralized anxiety disorderEssentia l (primary) hypertensionAcqu ired renal cyst 5 Samuel Andrews. [address] [facility] [address], [place], [place], [address] , [place]. tel:[phone] Referring Provider: Betty Zelaya [facility], [place], [place], [address]. tel:[phone] OFFICE/OUTPA TIENT VISIT, [facility], [address] [facility] [place], [place], [address], [place] tel:[phone] [facility] insulin resistance1 (chief complaint)anx iety1 (chief complaint)HTN 1 (chief complaint)gill al cyst1 (chief complaint) FibromyalgiaMeta bolic syndromeAcquired renal cystEssential (primary) hypertension 2 0201 5 Samuel Andrews. [address], [place], [place], [address] , [place]. tel:[phone] Referring Provider: Betty Zelaya [facility], [place], [place], [address]. tel:[phone] OFFICE/OUTPA TIENT VISIT, [facility], [address] [place], [address], [place] tel:[phone] [facility] Anxiety (chief complaint)fib romyalgia (chief complaint)glu cose (chief complaint) Dietary surveillance and counselingHyperg lycemiaProteinur iaGeneralized anxiety disorderUnspecif ied essential hypertension 5 Samuel Andrews. [address], [place], [place], [address] , [place]. tel:[phone] Referring Provider: Betty Zelaya [address], [place], [place], [address]. tel:[phone] PREV VISIT, EST, 65 & OVER [facility], [address], [place], [place], [address], [place] tel:[phone] [facility] Physical (chief complaint) Routine medical exam 5 Samuel Andrews. [address], [place], [place], [address] , [place]. tel:[phone] Referring Provider: Betty Zelaya [address], [place], [place], [address]. tel:[phone] OFFICE/OUTPA TIENT VISIT, [facility], [address], [place], [place], [address], [place] [phone] [facility] osteoporosis (chief complaint)Crh oinc pain (chief complaint)Anx eity (chief complaint) OsteoporosisFibr omyalgiaGenerali zed anxiety disorder 5 Samuel Garcia [address], [place], [place], [address] , [place]. tel:[phone] Referring Provider: Betty Zelaya [address], [place], [place], [address]. tel:[phone] OFFICE/OUTPA TIENT VISIT, [facility], [address], [place], [place], [address], [place] tel:[phone] [facility] fibromyalgia (chief complaint)anx iety (chief complaint)ost eoporosis (chief complaint) Dietary surveillance and counselingMyalgi a and myositis, unspecifiedGener alized anxiety disorderMalignan t neoplasm of central portion of female breastOther osteoporosis Jan- 5 Samuel Andrews. [address], [address] , . tel:[phone] Referring Provider: Betty Zelaya [place], [address]. tel:[phone] OFFICE/OUTPA TIENT VISIT, [facility], [address] [place], [address], [place] tel:[phone] [facility] sinus symptoms (acute) (chief complaint)chr onic pain (chief complaint)anx iety (chief complaint)ost eoporosis (chief complaint) Other and unspecified diseases of upper respiratory tractInsomnia, OtherOther osteoporosisMyal laly and myositis, unspecified 5 Samuel Andrews. [address] [place], [place], [address] , . tel:[phone] Referring Provider: Betty Zelaya [place], [place], [address]. tel:[phone] OFFICE/OUTPA TIENT VISIT, [facility], [address] [place], [address], [place] tel:[phone] [facility] osteoporosis (chief complaint)cou gh (chief complaint)dona n (chief complaint)anx iety (chief complaint) Dietary surveillance and counselingOther osteoporosisGene ralized anxiety disorderBronchit is, AcuteOpioid type dependence, unspecified use 5 Samuel Andrews. [address], [place], [address] , [place]. tel:[phone] Referring Provider: Betty Zelaya [place], [address]. tel:[phone] OFFICE/OUTPA TIENT VISIT, [facility], [address] [facility] [place], [place], [address], [place] tel:[phone] [facility] chronic pain (chief complaint)Anx iety (chief complaint)HTN (chief complaint) Dietary surveillance and counselingLumbag oPain in joint involving pelvic region and thighHypertensio n, UnspecifiedGener alized anxiety disorder 5 Samuel Garcia [address], [place], [place], [address] , [place]. tel:[phone] Referring Provider: Betty Zelaya [address], [place], [place], [address]. tel:[phone] OFFICE/OUTPA TIENT VISIT, [facility], [address], [place], [place], [address], [place] tel:[phone] [facility] chronic pain (chief complaint)anx iety (chief complaint) Dietary surveillance and counselingMyalgi a and myositis, unspecifiedGener alized anxiety disorder 4 Samuel Garcia [address], [place], [place], [address] , [place]. tel:[phone] Referring Provider: Betty Zelaya [address], [place], [place], [address]. tel:[phone] OFFICE/OUTPA TIENT VISIT, [facility], [address], [place], [place], [address], [place] tel:[phone] [facility] osteoporosis (chief complaint)chr onic pain (chief complaint)ins omnia (chief complaint)quinten er cyst (chief complaint) Dietary surveillance and counselingOther osteoporosisGene ralized anxiety disorderCHRONIC PAIN NECSynovial cyst of popliteal space 4 Samuel Garcia [address], [place], [place], [address] , [place]. tel:[phone] Referring Provider: Betty Zelaya [address], [place], [place], [address]. tel:[phone] OFFICE/OUTPA TIENT VISIT, [facility], [address], [place], [place], [address], [place] tel:[phone] [facility] leg pain (chief complaint)ost eoporosis (chief complaint)HTN (chief complaint) Pain in joint involving lower legOther osteoporosisCHRO MEERA PAIN NECHypertension, Unspecified 4 Baker Darryl. [address], [place], [place], [address] , [place]. tel:[phone] Referring Provider: Darryl Baker, Betty [address], [place], [place], [address]. tel:[phone] OFFICE/OUTPA TIENT VISIT, [facility], [address], [place], [place], [address], [place] tel:[phone] [facility] osteoporosis (chief complaint)fib romyalgia (chief complaint)anx iety (chief complaint) Other osteoporosisCHRO MEERA PAIN NECGeneralized anxiety disorder 4 Samuel Andrews. [address], [place], [place], [address] , [place]. tel:[phone] Referring Provider: Darryl Baker, Betty [address], [place], [place], [address]. tel:[phone] OFFICE/OUTPA TIENT VISIT, [facility], [address], [place], [place], [address], [place] tel:[phone] [facility] osteoporosis (chief complaint)HLP (chief complaint)A1c (chief complaint)anx iety (chief complaint) Dietary surveillance and counselingOther osteoporosisOthe r and unspecified hyperlipidemiaHy perglycemiaGener alized anxiety disorder 4 Samuel Andrews. [address], [place], [place], [address] , [place]. tel:[phone] Referring Provider: Betty Zelaya [address], [place], [place], [address]. tel:[phone] PREV VISIT, EST, 65 & OVER [facility], [address], [place], [place], [address], [place] tel:[phone] [facility] Physical (chief complaint) Routine Medical ExamDietary surveillance and counselingRoutin e Medical Exam 4 Samuel Andrews. [address], [place], [place], [address] , [place]. tel:[phone] Referring Provider: Betty Zelaya [address], [place], [place], [address]. tel:[phone] OFFICE/OUTPA TIENT VISIT, [facility], [address] [place], [address], [place] tel:[phone] [facility] HTN (chief complaint)fib romyalgia (chief complaint)Ins omnia (chief complaint) Dietary surveillance and counselingHypert ension, UnspecifiedDizzi nessCHRONIC PAIN NEC 4 Samuel Andrews. [address], [place], [place], [address] , [place]. tel:[phone] Referring Provider: Betty Zelaya [facility] [place], [address]. tel:[phone] OFFICE/OUTPA TIENT VISIT, [facility], [address] [place], [address], [place] tel:[phone] [facility] SOB (chief complaint)cho rnic pain (chief complaint)Anx iety (chief complaint)diz ziness (chief complaint) Respiratory abnormality, unspecifiedCHRON IC PAIN NECDizzinessGene ralized anxiety disorder 4 Samuel Andrews. [address] [facility] [place], [address] , [place]. [phone] Referring Provider: Betty Zelaya [facility] [place], [address]. tel:[phone] OFFICE/OUTPA TIENT VISIT, [facility], [address] [place], [address], [place] tel:[phone] [facility] fibromyalgia (chief complaint)ins omnia (chief complaint)HTN (chief complaint)ost eoporosis (chief complaint) CHRONIC PAIN NECInsomnia, OtherHypertensio n, UnspecifiedOther osteoporosis 4 Samuel Andrews. [address], [place], [place], [address] , [place]. [phone] Referring Provider: Betty Zelaya [facility], [place], [place], [address]. tel:[phone] OFFICE/OUTPA TIENT VISIT, [facility], [address], [place], [place], [address], [place] tel:[phone] [facility] sinus infection (chief complaint)cho rnic pain (chief complaint)ins omnia (chief complaint)sima st pain (chief complaint) Dietary surveillance and counselingSinusi tis, AcuteInsomnia, OtherCHRONIC PAIN NEC 4 Samuel Andrews. [address], [place], [place], [address] , [place]. tel:[phone] Referring Provider: Betty Zelaya [address], [place], [place], [address]. tel:[phone] OFFICE/OUTPA TIENT VISIT, [facility], [address], [place], [address], [place] tel:[phone] [facility] chronic pain (chief complaint)ins omnia (chief complaint)sima st pain (chief complaint) Dietary surveillance and counselingInsomn ia, OtherPain in joint involving shoulder regionChest Pain, Unspecified 4 Samuel Andrews. [address], [place], [place], [address] , [place]. [phone] Referring Provider: Betty Zelaya [address], [place], [place], [address]. tel:[phone] OFFICE/OUTPA TIENT VISIT, [facility], [address], [place], [place], [address], [place] tel:[phone] [facility] Insomnia (chief complaint)bethany ulder pain (chief complaint)cho rnic pain (chief complaint)fat igue (chief complaint) Insomnia, OtherFatigue / MalaisePain in joint involving shoulder region 4 Samuel Garcia [address], [address], [place], [place], [address] , [place]. [phone] Referring Provider: Betty Zelaya [address], [place], [place], [address]. tel:[phone] OFFICE/OUTPA TIENT VISIT, [facility], [address], [place], [place], [address], [place] tel:[phone] [facility] shoulder pain (chief complaint)anx iety (chief complaint) Dietary surveillance and counselingPain in joint involving shoulder region 3 Samuel Andrews. [address], [place], [place], [address] , [place]. tel:[phone] Referring Provider: Darryl Baker, [address], [place], [place], [address]. tel:[phone] OFFICE/OUTPA TIENT VISIT, [facility], [address], [place], [place], [address], [place] tel:[phone] [facility] chronic pain (chief complaint)anx iety (chief complaint)diz ziness (chief complaint) Dietary surveillance and counselingCHRONI C PAIN NECDizziness 3 Samuel Garcia [address], [address], [place], [place], [address] , [place]. tel:[phone] OFFICE/OUTPA TIENT VISIT, [facility], [address], [place], [place], [address], [place] tel:[phone] [facility] dizziness (chief complaint)chr onic pain (chief complaint) Dietary surveillance and counselingDizzin essCHRONIC PAIN NECGeneralized anxiety disorder 3 Samuel Garcia [address], [address], [place], [place], [address] , [place]. tel:[phone] OFFICE/OUTPA TIENT VISIT, [facility], [address], [place], [place], [address], [place] tel:[phone] [facility] dizziness (chief complaint) VertigoChest Pain, UnspecifiedDieta ry surveillance and counselingOther osteoporosisMusc le weakness (generalized) 3 Samuel Andrews. [address], [place], [place], [address] , [place]. tel:[phone] Referring Provider: Betty Zelaya [address], [place], [place], [address]. tel:[phone] OFFICE/OUTPA TIENT VISIT, [facility], [address], [place], [place], [address], [place] tel:[phone] [facility] fibromyalgia (chief complaint)HLP (chief complaint)Hyp erglycemia (chief complaint)sharyn ast CA (chief complaint) Dietary surveillance and counselingOther osteoporosisOthe r and unspecified hyperlipidemiaHy perglycemiaCHRON IC PAIN NEC Jun-0 3 Samuel Andrews. [address], [place], [place], [address] , [place]. [phone] Referring Provider: Betty Zelaya [address], [place], [place], [address]. tel:[phone] OFFICE/OUTPA TIENT VISIT, [facility], [address], [place], [place], [address], [place] tel:[phone] [facility] breast CA (chief complaint)ost eoporosis (chief complaint)chr onic pain (chief complaint) CHRONIC PAIN NECMalignant neoplasm of central portion of female breastOther osteoporosis Aug- 3 Samuel Andrews. [address], [place], [place], [address] , [place]. [phone] Referring Provider: Betty Zelaya [address], [place], [place], [address]. tel:[phone] OFFICE/OUTPA TIENT VISIT, [facility], [address], [place], [place], [address], [place] tel:[phone] [facility] breast CA (chief complaint)chr onic pain (chief complaint)HTN (chief complaint) Malignant neoplasm of central portion of female breastHypertensi on, UnspecifiedCHRON IC PAIN NEC 3 Samuel Andrews. [address], [address], [place], [place], [address] , [place]. tel:[phone] Referring Provider: Darryl Baker [address], [place], [place], [address]. tel:[phone] OFFICE/OUTPA TIENT VISIT, EST [facility], [address], [place], [place], [address], [place] tel:[phone] [facility] Breast CA (chief complaint)ost eoporosis (chief complaint)anx iety (chief complaint) Dietary surveillance and counselingMalign ant neoplasm of central portion of female breastOther osteoporosisFati alejandra / Malaise 3 Samuel Andrews. [address], [place], [place], [address] , [place]. tel:[phone] Referring Provider: Darryl Baker, [address], [place], [place], [address]. tel:[phone] [facility], [address], [place], [place], [address], [place] tel:[phone] [facility] [facility] Lump or mass in breast [address]. [address], [address], [place], [place], [address] , [place]. tel:[phone] Referring Provider: Darryl Baker, [address], [place], [place], [id number]. tel:[phone] PREV VISIT, NEW, 65 & OVER [facility], [address], [place], [place], [id number], [place] tel:[phone] [facility] Medicine Physical (chief complaint) Dietary surveillance and counselingRoutin e Medical ExamRoutine Medical Exam [address] Andrews. [address], [address], [place], [place], [address] , [place]. tel:[phone] Referring Provider: Darryl Baker, [address], [place], [place], [address]. tel:[phone] Family History Family Member Type Diagnosis Age At Onset Father Problem (finding) Alcoholism Father Problem (finding) liver cirrhosis Brother Problem (finding) Unknown Disease Mother Problem (finding) arthritis Brother Problem (finding) No Family history of No history of Other Payers Payer name Insurance type Covered republican ID Authormahoganyabhilash tinima(s) Medicare Of [place] WP MB [id number] Aetna Senior Supplemental Ins CI [id number] Social History Type Description Quantity Date Captured [...] on due Goal Influenza vaccine. Due on Md due Goal Colonoscopy. Due on due Goal [...] Evaluate and treat ordered Referral Ordered: Suleman Arteaga -Allopathic & Osteopathic Physicians : Otolaryngology (related to Sleep apnea) ordered Referral Referred To: Suleman Arteaga [address] [place], [place], [id number] Ordered: Referrals: Allopathic & Osteopathic Physicians : [...] -Podiatric Medicine & Surgery Service Providers : Sales Support Coordinator (related to Dermatophytosis of nail) ordered Referral Referred To: VERN DILL [address] [facility],[address] [place], [place], [phone] Ordered: Referrals: Podiatric Medicine & Surgery Service Providers : Sales Support Coordinator. VERN DILL. Evaluate and treat ordered Referral Ordered: Galo Hagan -Allopathic & Osteopathic Physicians : Internal Medicine : Cardiovascular Disease (related to Nonrheumatic mitral valve prolapse) ordered Referral Referred To: Galo Hagan [address] [place], [place] [id number] Ordered: Referrals: Allopathic & Osteopathic Physicians : Internal Medicine : Cardiovascular Disease. Galo Hagan. Evaluate and treat ordered Referral Referred To: Carlos Acharya MD [address] [place], [place], [id number] Ordered: Referrals: Carlos Acharya MD Evaluate and treat ordered Referral Ordered: CT MAXILLOFACIAL W/O DYE (SINUSES) SF ordered Referral Ordered: CHEST X-RAY PA/LAT TWO-VIEWS ordered Referral Ordered: Tiff Connors (related to Osteoporosis) ordered Referral Referred To: Tiff Connors [address] [place], [place] [id number] Ordered: Referrals: Tiff Connors. 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 Pt failed vyvanse and adderall. Pt has sleep apnea but she does not use cpap nightly. Nuvigil is not covered by insurance. cough1 Pt has persisten t dry cough for several months Pt denies any chest pain or sob or fever or hemoptysis . pt denies any wheezing. Pt did not cone picker fluticasone/salmeterol yet due to insurance coverage issue. [...] pt denies any wheezing. Pt did not cone picker fluticasone/salmeterol yet fibromyalgia1 Pt has fibromyal laly [...] flonase and atrovent nasal spray Pt saw family specialist who recommended sinu surgery but she is [...] histamine helped either. Pt has nena with family specialist specialist next week fibromyalgia1 Pt has fibromyal [...] allergy worse. Pt has not heard from media services specialist yet leg1 Pt has ? restles s leg syndrome .Pt never picked up requip. she does not know why allergy1 Pt has seasonal allergy which is not well controlled. Pt failed flonase and singulair. Pt states that cpap makes the allergy worse. sleep apnea1 Pt has sleep show design supervisor ea and she has been using cpap [...] has chronic neuropathy sleepapnea1 Pt has sleep show design supervisor ea Pt started cpap two weeks ago [...] and she is waiting for cpap [facility]. Pt denies any other complaints [...] or headache sleep apnea1 Pt has sleep show design supervisor ea. Pt is seeing pulmonary and she [...] her HTN sleep apnea1 Pt has sleep show design supervisor ea Pt feels fatigue Pt is not [...] t akes norvasc and losartan and her ornamental plasterer helper started her on hydralazine recently. Her bp [...] failed neurontin sleep apnea1 Pt has sleep show design supervisor ea Pt is noncompliant with CPAP. Pt will see sleep specialist soon and she needs a copy of the sleep study results sleep apnea Pt has sleep show design supervisor ea but she could not tolerate CPAP. [...] to 159. Pt went to see her ornamental plasterer helper yesterday and was started on norvasc 5 mg in addition to daily losartan. Her bp is ok today in office . sleep apnea1 Pt has sleep show design supervisor ea pt could not tolerate cpap. Pt [...] any edema sleep apnea1 Pt has sleep show design supervisor ea and chronic fatigue and some vertigo [...] and her bp was too low and ornamental plasterer helper told her to stop norvasc and take [...] left radiculopathy. Pt is seeing ortho at [facility] and she was started on cymbalta 30 [...] takes laxative OTC frequently Pt saw her benefits coordinator and was started on linzess 72 mcg [...] had bone density 7 months ago at [facility] and was told she has osteoporosis hyponatremia1 [...] osteoporosis shot sleep apnea1 Pt has sleep show design supervisor ea. Pt is still noncompliant with CPAP. [...] suicidal thought sleep apnea1 Pt has sleep show design supervisor ea. 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 chronic pain Pt has fibromyal layl. Pt takes norco for pain and doing [...] physical activity Relat ed to Allergic rhinitis Weight gain advised Related to B sandro mass index (BMI) 24.0-24.9, adult Medications as instructed Relate d to Fibromyalgia Increase activity. Related to Es sential (primary) [...] Weight management Related to Ins omnia Increase activity. Related to Es sential (primary) [...] activity Relat ed to Acute bronchitis Prescribed Activity and Exercise Education Related to Dietary Surveillance and Counseling Prescribed Diet Educ ation/Lifestyle Education Regarding Diet Related to Dietary Surveillance and Counseling Medications as instructed Relate d to Fibromyalgia Prescribed Diet Educ ation/Lifestyle Education Regarding Diet [...] Weight management Related to Ins omnia Prescribed Activity and Exercise Education Related to Dietary Surveillance and Counseling Prescribed Diet Educ ation/Lifestyle Education Regarding Diet Related to Dietary Surveillance and Counseling Increase physical activity Relat ed to Fibromyalgia Weight management Related to Fib romyalgia Increase [...] caloric intake Related to Dietary surveillance counseling Assessments Type Assessment Date assessment Fatigue assessment Fibromyalgia assessment Restless Legs Syndrome assessment GERD w/o esophagitis Mental Status Date Cognitive Assessment Orientation - [place] ed to time, place, person, situation.
--- OUTSIDE RECORDS SUMMARY | 2025-01-11 13:09 | XMS_ITS | Referral Summary ---
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 Gender Identity Not on file Sexual Orientation Not on file Last Filed Vital Signs Vital Sign Reading Time Taken Comments Blood Pressure 157/93 11/11/2019 3:31 PM INTERPRETER DEAF Pulse 79 11/11/2019 3:31 PM INTERPRETER DEAF Temperature 36.6 C (97.8 F) 11/11/2019 3:31 PM INTERPRETER DEAF Respiratory Rate 16 11/11/2019 3:31 PM INTERPRETER DEAF Oxygen Saturation 94% 11/11/2019 3:31 PM INTERPRETER DEAF Inhaled Oxygen Concentration - - Weight 72.1 kg (159 lb) 07/30/2024 11:00 AM CDT Height 157.5 cm (5' 2 ) 07/30/2024 11:00 AM CDT Body Mass Index 29.08 07/30/2024 11:00 AM CDT Plan of Treatment Not on file Medical Devices Implanted Type Area Billing Administrator Device Identifier Shelf Expiration Date Model / Serial / Lot Allosource [id number] 10cm Frozen Graft Bone Fibula Segment - [id number] Implanted:Qty: 1 on 01/08/2019 by Chauncey Mojica MD at [facility] Left: Humerus Allosource 10/04/2022 [id number] / / [id number] Synthes 241.923 Lcp Combi Philos Long [id number] 10 Hole Shaft Lock Compression - [id number] Implanted:Qty: 1 on 01/08/2019 by Chauncey Mojica MD at [facility] Left: Humerus Synthes I 241.923 / / Synthes 204.828 3.5mm 6mm 28mm 2.5mm Self Tap Small Hexagonal Socket Low Profile - [id number] Implanted:Qty: 3 on 01/08/2019 by Chauncey Mojica MD at [facility] Left: Humerus Synthes I 204.828 / / Synthes 212.110 3.5mm 2.9mm 28mm Self Tap Lock Stardrive Conical Head T15 Full - [id number] Implanted:Qty: 3 on 01/08/2019 by Chauncey Mojica MD at [facility] Left: Humerus Synthes I 212.110 / / Synthes 212.119 3.5mm 2.9mm 45mm Self Tap Lock Stardrive Conical Head T15 Full - [id number] Implanted:Qty: 1 on 01/08/2019 by Chauncey Mojica MD at [facility] Left: Humerus Synthes I 212.119 / / Synthes 212.118 3.5mm 2.9mm 42mm Self Tap Lock Stardrive Conical Head Full Thread - [id number] Implanted:Qty: 2 on 01/08/2019 by Chauncey Mojica MD at [facility] Left: Humerus Synthes I 212.118 / / Synthes 212.112 3.5mm 2.9mm 32mm Self Tap Lock Stardrive Conical Head T15 Full - [id number] Implanted:Qty: 1 on 01/08/2019 by Chauncey Mojica MD at [facility] Left: Humerus Synthes I 212.112 / / [...] Bone mineral density was performed on a [employer] Discovery Densitometer. Based on machine cross-calibration and [...] by the International Society of Clinical Densitometry. [id number] Luz Pineda MD IMG DXA PROCEDURES Final Resu lt from Last 3 Months or Most Recently Relevant to Health Maintenance Insurance MEDICARE AETNA MEDICARE [facility] MEDICARE AETNA SENIOR SUPPLEMENT Advance Directives For more information, please contact: [phone] * Full Code (Latest Code Status on File) Date Activated Date Inactivated Comments 01/08/2019 9:54 PM 01/09/2019 8:22 PM * Full Code Date Activated Date Inactivated Comments 01/08/2019 9:54 PM 01/08/2019 9:54 PM Care Teams Promotions Associate Relationship Specialty Start Date End Date Darryl Baker MD PCP - General 09/09/13
--- OUTSIDE RECORDS SUMMARY | 2025-01-11 13:09 | XMS_ITS | Clinical Summary ---
Author Organization [facility] Address [address] [place] [address] Care Team Providers Care System Admin Name Role Phone Darryl Baker MD Primary Care Provider [phone] Source Comments [facility],non-owned Affiliates and Associated Physician Practices is amultiple site organization consisting of ambulatory clinics and hospital sitesin [place], [place], [place] and [place]. This disclosure is being madepursuant to the Care Everywhere program and may not contain all information available regarding this patient. 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 Pulse 77 11/09/2022 8:58 AM SUPERVISOR MOTORCYCLE REPAIR SHOP Temperature 36.7 C (98.1 F) 05/08/2022 12:35 PM CDT Respiratory Rate - - Oxygen Saturation 98% 12/31/2017 8:50 AM SUPERVISOR MOTORCYCLE REPAIR SHOP Inhaled Oxygen Concentration - - Weight 73 kg (161 lb) 11/09/2022 8:58 AM SUPERVISOR MOTORCYCLE REPAIR SHOP Height 157.5 cm (5' 2 ) 11/09/2022 8:58 AM SUPERVISOR MOTORCYCLE REPAIR SHOP Body Mass Index 29.45 11/09/2022 8:58 AM SUPERVISOR MOTORCYCLE REPAIR SHOP Plan of Treatment Health Maintenance Due Date [...] age to complete this topic Care Teams System Admin Relationship Specialty Start Date End Date Darryl Baker MD [address] [place] [address] PCP - General 08/13/17
--- OUTSIDE RECORDS SUMMARY | 2025-01-11 13:09 | XMS_ITS | Referral Summary ---
Author Organization [facility] Address [address] [place] [address] Care Team Providers Care Maintainer Central Office Name Role Phone Darryl Baker MD Primary Care Provider [phone] Source Comments [facility],non-owned Affiliates and Associated Physician Practices is amultiple site organization consisting of ambulatory clinics and hospital sitesin [place], [place], [place] and [place]. This disclosure is being madepursuant to the Care Everywhere program and may not contain all information available regarding this patient. Last updated 18.[facility] Allergies Active Allergy Reactions Criticality Noted Date [...] End Date Status vitamin D, ergocalciferol, (DRISDOL) 17463 UNITS capsule Take 1 (one) capsule by [...] Comments Blood Pressure 133/78 11/09/2022 8:58 AM HONING MACHINE OPERATOR PRODUCTION Pulse 77 11/09/2022 8:58 AM HONING MACHINE OPERATOR PRODUCTION Temperature 36.7 C (98.1 F) 05/08/2022 12:35 PM CDT Respiratory Rate - - Oxygen Saturation 98% 12/31/2017 8:50 AM HONING MACHINE OPERATOR PRODUCTION Inhaled Oxygen Concentration - - Weight 73 kg (161 lb) 11/09/2022 8:58 AM HONING MACHINE OPERATOR PRODUCTION Height 157.5 cm (5' 2 ) 11/09/2022 8:58 AM HONING MACHINE OPERATOR PRODUCTION Body Mass Index 29.45 11/09/2022 8:58 AM HONING MACHINE OPERATOR PRODUCTION Plan of Treatment Not on file Care Teams Maintainer Central Office Relationship Specialty Start Date End Date Darryl Baker MD [address] [facility] [address] [place] [address] PCP - General 08/13/17
--- OUTSIDE RECORDS SUMMARY | 2025-01-11 13:09 | XMS_ITS | Clinical Summary ---
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 Gender Identity Not on file Sexual Orientation Not on file Obstetrics History Last Filed Vital Signs Vital Sign Reading Time Taken Comments Blood Pressure 157/93 11/11/2019 3:31 PM CAR WHACKER Pulse 79 11/11/2019 3:31 PM CAR WHACKER Temperature 36.6 C (97.8 F) 11/11/2019 3:31 PM CAR WHACKER Respiratory Rate 16 11/11/2019 3:31 PM CAR WHACKER Oxygen Saturation 94% 11/11/2019 3:31 PM CAR WHACKER Inhaled Oxygen Concentration - - Weight 72.1 [...] history exists Medical Devices Implanted Type Area In Processing Instructor Device Identifier Shelf Expiration Date Model / Serial / Lot Allosource [id number] 10cm Frozen Graft Bone Fibula Segment - [id number] Implanted:Qty: 1 on 01/08/2019 by Chauncey Mojica MD at [facility] Left: Humerus Allosource 10/04/2022 [id number] / / [id number] Synthes 241.923 Lcp Combi Philos Long [id number] 10 Hole Shaft Lock Compression - [id number] Implanted:Qty: 1 on 01/08/2019 by Chauncey Mojica MD at [facility] Left: Humerus Synthes I 241.923 / / Synthes 204.828 3.5mm 6mm 28mm 2.5mm Self Tap Small Hexagonal Socket Low Profile - [id number] Implanted:Qty: 3 on 01/08/2019 by Chauncey Mojica MD at [facility] Left: Humerus Synthes I 204.828 / / Synthes 212.110 3.5mm 2.9mm 28mm Self Tap Lock Stardrive Conical Head T15 Full - [id number] Implanted:Qty: 3 on 01/08/2019 by Chauncey Mojica MD at [facility] Left: Humerus Synthes I 212.110 / / Synthes 212.119 3.5mm 2.9mm 45mm Self Tap Lock Stardrive Conical Head T15 Full - [id number] Implanted:Qty: 1 on 01/08/2019 by Chauncey Mojica MD at [facility] Left: Humerus Synthes I 212.119 / / Synthes 212.118 3.5mm 2.9mm 42mm Self Tap Lock Stardrive Conical Head Full Thread - [id number] Implanted:Qty: 2 on 01/08/2019 by Chauncey Mojica MD at [facility] Left: Humerus Synthes I 212.118 / / Synthes 212.112 3.5mm 2.9mm 32mm Self Tap Lock Stardrive Conical Head T15 Full - [id number] Implanted:Qty: 1 on 01/08/2019 by Chauncey Mojica MD at [facility] Left: Humerus Synthes I 212.112 [...] Bone mineral density was performed on a [employer] Discovery Densitometer. Based on machine cross-calibration and [...] by the International Society of Clinical Densitometry. [id number] Luz Pineda MD IMG DXA PROCEDURES Final Resu lt from Last 3 Months or Most Recently Relevant to Health Maintenance Insurance [facility] MEDICARE [facility] AETNA SENIOR SUPPLEMENT Advance Directives For more information, please contact: [phone] * Full Code (Latest Code Status on File) Date Activated Date Inactivated Comments 01/08/2019 9:54 PM 01/09/2019 8:22 PM * Full Code Date Activated Date Inactivated Comments 01/08/2019 9:54 PM 01/08/2019 9:54 PM Care Teams Citizenship Teacher Relationship Specialty Start Date End Date Darryl Baker MD PCP - General 09/09/13
--- OUTSIDE RECORDS SUMMARY | 2025-01-11 13:09 | XMS_ITS | Patient Health Summary ---
Author Organization [facility] Address [address] [place] [address] Care Team Providers Care Continuing Education Instructor Name Role Phone Darryl Baker MD Primary Care Provider [phone] [facility] from [facility],non-owned Affiliates and Associated Physician Practices is amultiple site organization consisting of ambulatory clinics and hospital sitesin [place], [place], [place] and [place]. This disclosure is being madepursuant to the Care Everywhere program and may not contain all information available regarding this patient. Last updated 18.[facility] Allergies * Cyclobenzaprine(Unknown) * Erythromycin(Other) -Low Criticality * Escitalopram(Other) -Low Criticality * Rash Away(Rash) -Medium Criticality * Sulfamethazine(Other) -Low Criticality * Trimethobenzamide(Unknown) * Trimethoprim(Unknown) Medications * Be aware that medications may not be up to date on this document. Alwaysverify current medications with the patient. * vitamin D, ergocalciferol, (DRISDOL) 94194 UNITS capsule(Started 05/17/2017) Take 1 (one) capsule [...] Comments Blood Pressure 133/78 11/09/2022 8:58 AM PHYSICIAN GYNECOLOGIST Pulse 77 11/09/2022 8:58 AM PHYSICIAN GYNECOLOGIST Temperature 36.7 C (98.1 F) 05/08/2022 12:35 PM CDT Respiratory Rate - - Oxygen Saturation 98% 12/31/2017 8:50 AM PHYSICIAN GYNECOLOGIST Inhaled Oxygen Concentration - - Weight 73 kg (161 lb) 11/09/2022 8:58 AM PHYSICIAN GYNECOLOGIST Height 157.5 cm (5' 2 ) 11/09/2022 8:58 AM PHYSICIAN GYNECOLOGIST Body Mass Index 29.45 11/09/2022 8:58 AM PHYSICIAN GYNECOLOGIST Procedures * LAB RESULTS ORDER(Performed 08/18/2022) * [...] * COLLAGEN C-TELOPEPTIDE (CTX) (11/17/2017 8:23 AM PHYSICIAN GYNECOLOGIST) C-Telopeptide 392 pg/mL [facility]) Comment: Reference Range: NOT ESTABLISHED Adult Female [...] rate of bone loss. Test Performed at: [facility] [address] [place] [address] GHASSAN SPIVEY MD PHD 11/17/2017 8:23 AM PHYSICIAN GYNECOLOGIST 11/17/2017 8:27 AM PHYSICIAN GYNECOLOGIST Tiff Connors MD LAB - CHEMISTRY LEXY HAYDEN Performing Organization Address City/[facility]/ZIP Co de Phone Number [facility] ([facility]) [address] [place] [address] * ALKALINE PHOSPHATASE BLOOD BONE SPECIFIC (11/17/2017 8:23 AM PHYSICIAN GYNECOLOGIST) Bone Specific 13.7 5.6 - 29.0 mcg/L [facility]) Comment: Test Performed at: [facility] [address] [place] [address] GHASSAN SPIVEY MD PHD 11/17/2017 8:23 AM PHYSICIAN GYNECOLOGIST 11/17/2017 8:27 AM PHYSICIAN GYNECOLOGIST Tiff Connors MD LAB - CHEMISTRY LEXY HAYDEN Performing Organization Address [facility]/ZIP Co de Phone Number [facility] ([facility]) [address] [place] [address] * VITAMIN D 25-HYDROXY (11/17/2017 8:23 AM PHYSICIAN GYNECOLOGIST) Vitamin D, 25 Hydroxy Total 64 30 - 100 ng/mL [facility] ([facility]) Comment: Vitamin D Status 25-OH Vitamin D: Deficiency: <20 ng/mL Insufficiency: 20 - 29 ng/mL Optimal: > or = 30 ng/mL For 25-OH Vitamin D testing on patients on D2-supplementation and patients for whom quantitation of D2 and D3 fractions is required, the QuestAssureD() 25-OH VIT D, (D2,D3), LC/MS/MS is recommended: order code 13894 (patients >2yrs). For more information on this test, go to: http://education.[employer]faq/EWX859 (This link is being provided for informational/educational purposes only.) REPORT COMMENT: FASTING:NO Test Performed at: [facility] [place] [address] [place] [address] JOSE AYOUB DO,MPH 11/17/2017 8:23 AM PHYSICIAN GYNECOLOGIST 11/17/2017 8:27 AM PHYSICIAN GYNECOLOGIST Tiff Connors MD LAB - CHEMISTRY LEXY HAYDEN [facility] Organization Address City/State/ZIP Co de Phone Number [facility] ([facility]) [address] * (ABNORMAL) RENAL FUNCTION PANEL (11/17/2017 8:23 AM PHYSICIAN GYNECOLOGIST) Glucose 125(H) 65 - 99 mg/dL [facility] [...] approximately 13% higher for people identified as -Australian. eGFR non- 72 > OR = 60 [...] g/dL [facility] ([facility]) Comment: Test Performed at: [facility] [place] [address] JOSE AYOUB DO,MPH 11/17/2017 8:23 AM PHYSICIAN GYNECOLOGIST 11/17/2017 8:27 AM PHYSICIAN GYNECOLOGIST Tiff Connors MD LAB - CHEMISTRY LEXY HAYDEN Performing Organization Address [facility] de Phone Number [facility] ([facility]) [address] [place] [address] * PROSTATE SPECIFIC ANTIGEN SCREEN (11/17/2017 8:23 AM PHYSICIAN GYNECOLOGIST) PSA Total <0.1 ng/mL [facility] ([facility]) Comment: The total PSA value from this assay system is standardized against the WHO standard. The test result will be approximately 20% lower when compared to the equimolar-standardized total PSA (Kisha [place]). Comparison of serial PSA results should be [...] < or = 4.0 Test Performed at: [facility] [employer] [place] [address] JOSE AYOUB DO,MPH 11/17/2017 8:23 AM PHYSICIAN GYNECOLOGIST 11/17/2017 8:27 AM PHYSICIAN GYNECOLOGIST Tiff Connors MD LAB - CHEMISTRY LEXY HAYDEN Performing Organization Address [facility] Co de Phone Number [facility] ([facility]) [address] [place] [address] * CALCIUM URINE RANDOM (11/17/2017 8:23 AM PHYSICIAN GYNECOLOGIST) Calcium/Creatini ne Ratio 130 10 - 320 mg/g creat [facility] ([facility]) Calcium Urine 11.3 mg/dL [facility] ([facility]) Comment: Reference Range Not established Creatinine Urine 87 20 - 320 mg/dL [facility] ([facility]) Comment: Test Performed at: [place] [address] JOSE AYOUB DO,MPH 11/17/2017 8:23 AM PHYSICIAN GYNECOLOGIST 11/17/2017 8:27 AM PHYSICIAN GYNECOLOGIST Tiff Connors MD LAB - URINE CHEMISTR Y ORDERABLES Performing Organization Address [facility]/ZIP Co de Phone Number [facility] ([facility]) [address] * TSH (11/17/2017 8:23 AM PHYSICIAN GYNECOLOGIST) TSH 2.66 0.40 - 4.50 mIU/L [facility] ([facility]) Comment: Test Performed at: [facility] [address] [place] [address] JOSE AYOUB DO,MPH 11/17/2017 8:23 AM PHYSICIAN GYNECOLOGIST 11/17/2017 8:27 AM PHYSICIAN GYNECOLOGIST Tiff Connors MD LAB - CHEMISTRY ORDE RABLES Performing Organization Address [facility] Co de Phone Number [facility] ([facility]) [address] Care Teams Continuing Education Instructor Relationship Specialty Start Date End Date Darryl Baker MD [address] [facility] [address] [place] [address] PCP - General 08/13/17
--- NOTE | 2025-01-11 13:49 | ED.GENADULT ---
HPI - General Adult General Chief complaint: Extremity Problem,Nontraumatic Stated complaint: L hip pain Time Seen by Provider: 01/11/25 12:57 History of Present Illness HPI narrative: 79-year-old female presents to the emergency department for evaluation for left hip pain. Patient reports she has had prior issues with bursitis in that left hip. Patient does have history of pending of that left hip many years ago. Patient states she has had persistent pain in that left hip for months but has not yet had follow-up with Orthopedics. Patient is scheduled to have follow-up and 10 days with Orthopedics. Patient denies any falls or injuries. Patient denies any associated numbness or weakness. Patient states the pain has been slowly worsening. Patient does take [place] for pain control. Patient states she cannot take NSAIDs. Related Data Home Medications ?Medication ?Instructions ?Recorded ?Confirmed ?Last Taken ?Type calcium carbonate (Calci-Mix) 500 mg PO DAILY 10/07/19 11/24/24 Unknown History ergocalciferol (vitamin D2) 1,250 50,000 unit PO WEEKLY 10/07/19 11/24/24 Unknown History mcg (50,000 unit) capsule (Drisdol) hydroxypropyl cellulose 5 mg eye mg ophthalmic (eye) 10/07/19 11/24/24 Unknown History inserts (Lacrisert) sodium chloride 2 % eye drops 1 drop ophthalmic (eye) DAILY 10/07/19 11/24/24 Unknown History (Yecenia 128) timolol 0.5 % eye drops (Betimol) 1 drop ophthalmic (eye) Q12H 10/07/19 11/24/24 Unknown History brimonidine 0.2 % eye drops 1 drop ophthalmic (eye) Q8H 01/05/20 11/24/24 Unknown History white petrolatum-mineral oil 56.8 1 applic LEFT EYE 4-6XD PRN 01/05/20 11/24/24 Unknown History %-42.5 % eye ointment (Refresh Lacri-Lube) famotidine 40 mg tablet (Pepcid) 40 mg PO DAILY 04/28/21 11/24/24 Unknown History ipratropium bromide 21 mcg (0.03 intranasal 08/23/23 11/24/24 Unknown History %) nasal spray alendronate 70 mg tablet 70 mg PO WEEKLY 02/27/24 11/24/24 Unknown History oxycodone-acetaminophen 7.5 mg-325 1 tablet PO Q6H PRN 02/27/24 11/24/24 Unknown History mg tablet pramipexole 0.125 mg tablet 0.25 mg PO QHS 11/24/24 11/24/24 Unknown History Allergies Allergy/AdvReac Type Severity Reaction Status Date / Time Sulfa (Sulfonamide Allergy Unknown Unknown Verified 04/18/24 08:16 Antibiotics) trimethoprim Allergy Unknown Unknown Verified 04/18/24 08:16 Review of Systems Review of Systems: All systems reviewed & are unremarkable except as noted in HPI and below PMFSH Past Medical History Medical History (Updated 01/11/25 @ 13:53 by Gino Delgadillo MD) History of cleft palate History of skin cancer History of high cholesterol 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 Chronic left hip pain Essential hypertension History of breast cancer Skin neoplasm Stage IV hemorrhoids Surgical History Surgical History History of bladder surgery History of repair of congenital cleft palate performed around 1945 History of hysterectomy performed around 1973 History of eye surgery repair of crossed eyes History of cataract surgery Status post surgical removal of malignant neoplasm of skin performed around 2016 History of hip surgery happened in 2011 History of right mastectomy happened in 2012 History of left mastectomy happened in 1989 History of surgery on arm 2019 Family History Family History Sibling Family history of malignant neoplasm of cervix Family history of lung cancer, Onset Age: 59 Heart disease Stomach cancer Brain cancer Diabetes mellitus Arthritis Parkinson disease Father Family history of alcoholism Cirrhosis Mother Family history of arthritis Cerebrovascular accident Daughter Arthritis Sleep apnea Lung cancer Allergies Other Diabetes mellitus Heart disease Lung cancer Brain cancer Stomach cancer Hypertension Cerebrovascular accident Social History Social History Smoking status: Never smoker Alcohol intake: never Do You Feel Safe in your Home?: Yes Lack of Transportation: No Lack of Food: Never True Current Housing: I Have Housing Concerned About Future Housing: No Difficulty Paying Gas/Electric Bills: No Difficulty Paying for Meds: No Education: High School Diploma/GED Living arrangements: with family Additional living arrangements comments: living with her 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 HEAD: normocephalic, atraumatic. EYES: PERRLA/EOMI, conjunctivae clear. NOSE: Normal no drainage EARS:TMS clear with good light reflex. THROAT: Pharynx clear, no exudate. NECK: Supple. No adenopathy, no masses. RESPIRATORY: Airway patent, respirations nonlabored. Clear to auscultation bilaterally, no rales, rhonchi, wheezing. CARDIOVASCULAR: Regular rate and rhythm without murmurs rubs or gallops. ABDOMINAL: Soft, nontender, nondistended, normal bowel sounds MUSCULOSKELETAL: Tenderness to left hip with no evidence ecchymosis, edema, cellulitis, injury NEURO: Alert. Cranial nerves II through XII intact. Good gait. Good coordination SKIN: Warm, dry. Normal Color Course Vital Signs Vital signs: Vital Signs Temperature 97.1 F L 01/11/25 12:05 Pulse Rate 80 01/11/25 12:05 Respiratory Rate 16 01/11/25 12:05 Blood Pressure 153/72 H 01/11/25 12:05 Pulse Oximetry 98 01/11/25 12:05 Oxygen Delivery Room Air 01/11/25 12:05 Temperature 98.0 F 01/11/25 14:09 Pulse Rate 80 01/11/25 14:09 Respiratory Rate 16 01/11/25 14:09 Blood Pressure 140/78 01/11/25 14:09 Pulse Oximetry 98 01/11/25 14:09 Oxygen Delivery Room Air 01/11/25 12:05 Medical Decision Making [facility] Narrative Medical decision making narrative: 79-year-old female present to the emergency department for evaluation for left hip pain. No acute fracture dislocations noted on the x-ray. Patient does describe slowly worsening pain and patient does have extensive history of osteoarthritis. Patient does take hydrocodone for generalized pain. Patient will be started on additional tramadol for pain control. Patient does have follow-up scheduled with Orthopedics. Patient was encouraged to maintain this follow-up appointment in 10 days. Differential Diagnosis Differential Diagnosis: Bursitis, fracture, hip strain, osteoarthritis Vital Signs Vital Signs: Vital Signs Temperature 97.1 F L 01/11/25 12:05 Pulse Rate 80 01/11/25 12:05 Respiratory Rate 16 01/11/25 12:05 Blood Pressure 153/72 H 01/11/25 12:05 Pulse Oximetry 98 01/11/25 12:05 Oxygen Delivery Room Air 01/11/25 12:05 Temperature 98.0 F 01/11/25 14:09 Pulse Rate 80 01/11/25 14:09 Respiratory Rate 16 01/11/25 14:09 Blood Pressure 140/78 01/11/25 14:09 Pulse Oximetry 98 01/11/25 14:09 Oxygen Delivery Room Air 01/11/25 12:05 Imaging Data Radiologist's impression: Impressions Hip/Pelvis X-Ray 01/11/25 13:23 IMPRESSION: No acute osseous abnormality pelvis and left hip. Discharge Plan Discharge Clinical Impression: Arthralgia of left hip Patient Disposition: Home, Self-Care Condition: Stable Instructions: Antibiotic Form Additional Instructions: Home medications for pain control as directed. Tramadol as needed for additional pain control. Have close follow-up with her primary care physician and with Orthopedics. Patient Language: Jamaican Prescriptions: New tramadol 50 mg tablet 50 mg PO Q12H PRN (Reason: pain) 7 Days Qty: 14 0RF No Action famotidine [Pepcid] 40 mg tablet 40 mg PO DAILY ipratropium bromide 21 mcg (0.03 %) spray,non-aerosol intranasal oxycodone-acetaminophen 7.5-325 mg tablet 1 tablet PO Q6H PRN alendronate 70 mg tablet 70 mg PO WEEKLY aspirin [Adult Low Dose Aspirin] 81 mg tablet,delayed release (DR/EC) 81 mg PO DAILY Qty: 30 0RF Betimol 0.5 % drops 1 drop EACH EYE Q12H Calci-Mix 500 mg calcium (1,250 mg) capsule 500 mg PO DAILY Lacrisert 5 mg insert EACH EYE Yecenia 128 2 % drops 1 drop EACH EYE DAILY ergocalciferol (vitamin D2) [Drisdol] 50,000 unit capsule 50,000 unit PO WEEKLY brimonidine 0.2 % drops 1 drop EACH EYE Q8H Refresh Lacri-Lube 56.8-42.5 % ointment 1 applic EACH EYE 4-6XD PRN pramipexole 0.125 mg tablet 0.25 mg PO QHS Follow-up/Referrals: Darryl Baker MD [Primary Care Provider] -
[2025-01-11] MEDS: traMADol HCL (*CRX) 50 MG TABLET PO (13:55)
[2025-01-11 14:09] VITALS: BP 140/78; PULSE 80; RESP 16; TEMP 36.7; O2SAT 98
== END 2025-01-12 00:13 | disposition home or self-care (01) ==
PROVIDERS: Emergency Provider Emergency Medicine; PCP Emergency Medicine
DX: M25.552 Pain in left hip (principal); I10 Essential (primary) hypertension; Z85.3 Personal history of malignant neoplasm of breast; Z85.828 Personal history of other malignant neoplasm of skin
CPT/HCPCS: 73502; 99283; A9270

== ENCOUNTER 2025-05-16 15:59 | Emergency (ER) | payer MEDICARE, SELFPAY ==
--- OUTSIDE RECORDS SUMMARY | 2025-05-16 16:01 | XMS_ITS | Clinical Summary ---
Author Organization [facility] Address [address] [place] [address] Care Team Providers Care Demonstrator Sewing Techniques Name Role Phone Darryl Baker MD Primary Care Provider [phone] Source Comments [facility],non-owned Affiliates and Associated Physician Practices is amultiple site organization consisting of ambulatory clinics and hospital sitesin [place], [place], [place] and [place]. This disclosure is being madepursuant to the Care Everywhere program and may not contain all information available regarding this patient. Last updated 18.[facility] Allergies Active Allergy Reactions Criticality Noted Date Comments Cyclobenzaprine Unknown 05/08/2022 Erythromycin Other Low 11/11/2019 Escitalopram Other Low 11/11/2019 Rash Away Rash Medium 11/09/2022 Sulfamethazine Other Low 03/25/2013 Trimethobenzamide Unknown 03/25/2013 Trimethoprim Unknown 03/25/2013 Medications * Be aware that medications may not be up to date on this document. Alwaysverify current medications with the patient. vitamin D, ergocalciferol, (DRISDOL) 41648 UNITS capsule Take 1 (one) capsule by mouth q7days 05/17/2017 Active HYDROcodone-nimisha taminophen (NORCO) 7.5-325 MG tablet Take 1 (one) [...] maleate (TIMOPTIC) 0.5 % ophthalmic solution 05/02/2022 Active magnesium Cl-Calcium Carbonate (SLOW-MAG) 71.5 mg9 MG tablet Slow-Mag 71.5 mg tablet,delaye d release TAKE ONE TABLET DAILY AT BEDTIME Active amLODIPine (NORVASC) 5 MG tablet Take 1 tablet by mouth once daily Active calcium acetate (PHOSLO) 667 MG tablet Take 2 (two) tablets by mouth 2 times daily Active sodium chloride, hypertonic, (CARLOS 128) 2 % ophthalmic solution Instill 1 (one) drop into left eye at bedtime Active brimonidine (Alphagan) 0.2 % ophthalmic solution 06/30/2022 Active latanoprost (Xalatan) 0.005 % ophthalmic solution 06/30/2022 [...] wit hout current pathological fracture 10/30/2017 Immunizations Immunization Administration Dates Next Due INFLUENZA VACCINE 08/29/2022,08/11/2018 [...] = 0.6 oz pur e alcohol) Comments Unknown Sex and Gender Information Value Date Recorded Sex Assigned at Not on file Legal Sex Female 7:46 PM WIRE RIGGER Gender Identity Not on file Sexual Orientation Not on file 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 on file Not on file Not on file Last Filed Vital Signs Vital Sign Reading Time Taken Comments Blood Pressure 133/78 11/09/2022 8:58 AM WIRE RIGGER Pulse 77 11/09/2022 8:58 AM WIRE RIGGER Temperature 36.7 C (98.1 F) 05/08/2022 12:35 PM CDT Respiratory Rate - - Oxygen Saturation 98% 12/31/2017 8:50 AM WIRE RIGGER Inhaled Oxygen Concentration - - Weight 73 kg (161 lb) 11/09/2022 8:58 AM WIRE RIGGER Height 157.5 cm (5' 2) 11/09/2022 8:58 AM WIRE RIGGER Body Mass Index 29.45 11/09/2022 8:58 AM WIRE RIGGER Plan of Treatment Health Maintenance Due Date Last Done Comments BONE DENSITY TESTING 1945 MEDICARE AWV 12 MONTHS 1945 DTAP/TDAP/TD VACCINES (1 - Tdap) 1963 PNEUMOCOCCAL VACCINE 50+ (1 of 1 - PCV) 1994 ZOSTER VACCINE (1 of 2) 1994 Respiratory Syncytial Virus (RSV) Vaccine Pt: or over 60 yrs (1 - 1-dose 75+ series) 2019 COVID-19 VACCINE (1 - 2023-2 5 season) 2024 DEPRESSION SCREENING 10/29/2024 INFLUENZA VACCINE (#1) 2025 2, 08/11/2018, 09/09/2017 HEPATITIS B VACCINE Aged Out No longe [...] on patient's age to complete this topic Insurance MEDICARE [employer]ET[employer] Care Teams Demonstrator Sewing Techniques Relationship Specialty Start Date End Date Darryl Baker MD [address] [facility] [address] [place] [address] PCP - General 08/13/17
--- OUTSIDE RECORDS SUMMARY | 2025-05-16 16:01 | XMS_ITS | Clinical Summary ---
Author Organization [facility] Address [address] [place] [address] Phone Care Team Providers Care Primary School Teacher Name Role Phone Darryl Baker MD Primary Care Provider [phone] Allergies Active Allergy Reactions Criticality Noted Date Comments Cyclobenzaprine Unknown Erythromycin Base Other (See comments) Low 11/11/19 20 Escitalopram Other (See comments) Low 11/11/2019 Sulfa (Sulfonamide Antibiotics) Other (See comments) Low 03/25/2013 Elevates BP Trimethobenzamide Unknown 03/25/2013 Trimethoprim Unknown 03/25/2013 Zinc Oxide-White Petrolatum Rash Medium 11/09/19 23 Medications ergocalciferol (VITAMIN D) 50,000 unit capsuleIndicati ons:sunday Take 1 capsule (50,000 Units total) by mouth once a week Every 14 days 7 Active timolol (TIMOPTIC) 0.5 % ophthalmic solutionIndicat ions:open angle glaucoma Administer 1 drop into both eyes 2 (two) times a day 9 Active aspirin 81 mg tabletIndicatio ns:primary prevention Take 1 tablet (81 mg total) by mouth every morning Active senna-docusate (PERICOLACE) 8.6-50 mgIndications:c onstipation Take 2 tablets by mouth 2 (two) times a day 60 tablet 2 9 Active brimonidine (ALPHAGAN) 0.2 % ophthalmic solution 9 Active amLODIPine (NORVASC) 2.5 mg tablet Take 4 tablets (10 mg total) by mouth daily 5 9 Active latanoprost (XALATAN) 0.005 % ophthalmic solution 9 Active HYDROcodone-nimisha taminophen (NORCO) 10-325 mg per tablet Take by mouth every 8 hours 25mg daily 0 Active calcium carbonate (CALCIUM 600 ORAL) Take by mouth Active sodium chloride (CARLOS 128 OPHT) Administer into affected eye(s) Active magnesium oxide (MAG-OX) 250 mg (150.8 mg elemental) tabletIndicatio ns:hypomagnesem ia 400 mg daily Active pramipexole (MIRAPEX) 0.5 mg tablet Take 1 tablet (0.5 mg total) by mouth nightly 4 Active alendronate (FOSAMAX) 70 mg tablet TAKE 1 TABLET BY MOUTH EVERY 7 DAYS EVERY MORNING WITH GLASS OF WATER ON AN EMPTY STOMACH AND DO NOT TAKE ANYTHING ELSE OR LIE DOWN FOR 30 MINUTES 12 tablet 3 5 Active Active Problems Problem Noted Date Diagnosed [...] on file Legal Sex Female 12:34 PM TRAFFIC CONTROL FLAGGER Gender Identity Not on file Sexual Orientation Not on file Obstetrics History Last Filed Vital Signs Vital Sign Reading Time Taken Comments Blood Pressure 157/93 11/11/2019 3:31 PM TRAFFIC CONTROL FLAGGER Pulse 79 11/11/2019 3:31 PM TRAFFIC CONTROL FLAGGER Temperature 36.6 C (97.8 F) 11/11/2019 3:31 PM TRAFFIC CONTROL FLAGGER Respiratory Rate 16 11/11/2019 3:31 PM TRAFFIC CONTROL FLAGGER Oxygen Saturation 94% 11/11/2019 3:31 PM TRAFFIC CONTROL FLAGGER Inhaled Oxygen Concentration - - Weight 72.1 kg (159 lb) 07/30/2024 11:00 AM CDT Height 157.5 cm (5' 2) 07/30/2024 11:00 AM CDT Body Mass Index 29.08 07/30/2024 11:00 AM CDT Plan of Treatment Health Maintenance Due Date Last Done Comments Depression Screening 1944 Fall Risk Assessment 1944 DTaP/Tdap/Td Vaccine (1 - Tdap) 1955 Hepatitis B Screening 1962 Pneumococcal vaccine 65+ (1 of 1 - PCV) 1994 Zoster Vaccine (1 of 2) 1994 Well Visit 65+ 2009 Influenza Vaccine (#1) 2025 2, 08/11/2018, 09/09/2017 Osteoporosis Screening-Bone Density Scan 01/24/2026 01/25/2024, 01/23/2023, 01/04/2022, Additional history exists Medical Devices Implanted Type Area Sock Mender Device Identifier Shelf Expiration Date Model / Serial / Lot Allosource [id number] 10cm Frozen Graft Bone Fibula Segment - [id number] Implanted:Qty: 1 on 01/08/2019 by Chauncey Mojica MD at [facility] Left: Humerus Allosource 10/04/2022 [id number] / / [id number] Synthes 241.923 Lcp Combi Philos Long [id number] 10 Hole Shaft Lock Compression - [id number] Implanted:Qty: 1 on 01/08/2019 by Chauncey Mojica MD at [facility] Left: Humerus Synthes I 241.923 / / Synthes 204.828 3.5mm 6mm 28mm 2.5mm Self Tap Small Hexagonal Socket Low Profile - [id number] Implanted:Qty: 3 on 01/08/2019 by Chauncey Mojica MD at [facility] Left: Humerus Synthes I 204.828 / / Synthes 212.110 3.5mm 2.9mm 28mm Self Tap Lock Stardrive Conical Head T15 Full - [id number] Implanted:Qty: 3 on 01/08/2019 by Chauncey Mojica MD at [facility] Left: Humerus Synthes I 212.110 / / Synthes 212.119 3.5mm 2.9mm 45mm Self Tap Lock Stardrive Conical Head T15 Full - [id number] Implanted:Qty: 1 on 01/08/2019 by Chauncey Mojica MD at [facility] Left: Humerus Synthes I 212.119 / / Synthes 212.118 3.5mm 2.9mm 42mm Self Tap Lock Stardrive Conical Head Full Thread - [id number] Implanted:Qty: 2 on 01/08/2019 by Chauncey Mojica MD at [facility] Left: Humerus Synthes I 212.118 / / Synthes 212.112 3.5mm 2.9mm 32mm Self Tap Lock Stardrive Conical Head T15 Full - [id number] Implanted:Qty: 1 on 01/08/2019 by Chauncey Mojica MD at [facility] Left: Humerus Synthes I 212.112 / / [...] Bone mineral density was performed on a [employer] Discovery Densitometer. Based on machine cross-calibration and [...] by the International Society of Clinical Densitometry. [id number] Luz Pineda MD IMG DXA PROCEDURES Final Resu lt from Last 3 Months or Most Recently Relevant to Health Maintenance Insurance AET MEDICARE [facility] AETNA SENIOR SUPPLEMENT Advance Directives For more information, please contact: [phone] * Full Code (Latest Code Status on File) Date Activated Date Inactivated Comments 01/08/2019 9:54 PM 01/09/2019 8:22 PM * Full Code Date Activated Date Inactivated Comments 01/08/2019 9:54 PM 01/08/2019 9:54 PM Care Teams Primary School Teacher Relationship Specialty Start Date End Date Darryl Baker MD PCP - General 09/09/13
--- OUTSIDE RECORDS SUMMARY | 2025-05-16 16:01 | XMS_ITS ---
Author Organization [facility] Address [address] [place] [address] Phone Care Team Providers Care Lumber Handler Name Role Phone Darryl Baker MD Primary [...]
--- OUTSIDE RECORDS SUMMARY | 2025-05-16 16:01 | XMS_ITS | Continuity of Care Document ---
Author Organization [facility] Address [address] [place] [address] [place] [address] Phone Care Team Providers Care Media/Instructional Designer Name Role Phone Jose Alberto Donnelly Unavailable [...] Providers Copied on Encounter [place] [facility] [place] [address] [place] [address] [address], [place], [place], [id number], tel:[phone] [facility] No Information 2201 [address] Cony Abrams. [address] [facility] [address] , [address], [place], [place], [facility], [place]. tel:[phone] [place] [facility] [place] [address] [place] [address] [address], [place], [place], [id number], tel:[phone] [facility] No Information 8-201 0 Cony Abrams. [address] [facility] [address], [address], [place], [address], [place]. tel:[phone] Office/outpat ient Visit, [facility], [address], [place], [place], [id number], [place] tel:[phone] [facility] No Information -201 0 Alley Ayala. [address], [place], [place], [facility], [place]. tel:[phone] Office/outpat ient Visit, [facility], [address] [place] [address] [address], [place], [place], [id number], [place] tel:[phone] [facility] No Information [address] Con[address] Ed[address]. [address] , [address], [place], [place], [facility], [place]. tel:[phone] Office/outpat ient Visit, [facility], [address] [place] [address] [address], [place], [place], [address], [place] tel:[phone] [facility] No Information 4[address] 8 Doiolvin Edchip. [facility] , [address], [place], [place], [facility], [place]. tel:[phone] Office/outpat ient Visit, [facility], [address] [place] [address] [address], [place], [place], [address], [place] tel:[phone] [facility] No Information 2-200 7 Cony Ed[address]. [address] , [address], [place], [place], [facility], [place]. tel:[phone] [facility], [address] [place] [address] [address], [place], [place], [id number], [place] tel:[phone] [facility] No Information 1-200 7 Doisy [address]. [address] , [address], [place], [place], [facility], [place]. tel:[phone] Family History Family Member Type Diagnosis Age At Onset No Information Payers Payer name Insurance type Covered republican ID Authoriza tion(s) No Information Social History [...]
--- OUTSIDE RECORDS SUMMARY | 2025-05-16 16:01 | XMS_ITS | Referral Summary ---
Author Organization [facility] Address [address] [place] [address] Phone Care Team Providers Care Environmental Intern Name Role Phone Darryl Baker MD Primary [...] on file Legal Sex Female 12:34 PM REHAB TRAINER Gender Identity Not on file Sexual Orientation Not on file Last Filed Vital Signs Vital Sign Reading Time Taken Comments Blood Pressure 157/93 11/11/2019 3:31 PM REHAB TRAINER Pulse 79 11/11/2019 3:31 PM REHAB TRAINER Temperature 36.6 C (97.8 F) 11/11/2019 3:31 PM REHAB TRAINER Respiratory Rate 16 11/11/2019 3:31 PM REHAB TRAINER Oxygen Saturation 94% 11/11/2019 3:31 PM REHAB TRAINER Inhaled Oxygen Concentration - - Weight 72.1 kg (159 lb) 07/30/2024 11:00 AM CDT Height 157.5 cm (5' 2) 07/30/2024 11:00 AM CDT Body Mass Index 29.08 07/30/2024 11:00 AM CDT Plan of Treatment Not on file Medical Devices Implanted Type Area Intervention Nurse Device Identifier Shelf Expiration Date Model / Serial / Lot Allosource [id number] 10cm Frozen Graft Bone Fibula Segment - [id number] Implanted:Qty: 1 on 01/08/2019 by Chauncey Mojica MD at [facility] Left: Humerus Allosource 10/04/2022 [id number] / / [id number] Synthes 241.923 Lcp Combi Philos Long [id number] 10 Hole Shaft Lock Compression - [id number] Implanted:Qty: 1 on 01/08/2019 by Chauncey Mojica MD at [facility] Left: Humerus Synthes I 241.923 / / Synthes 204.828 3.5mm 6mm 28mm 2.5mm Self Tap Small Hexagonal Socket Low Profile - [id number] Implanted:Qty: 3 on 01/08/2019 by Chauncey Mojica MD at [facility] Left: Humerus Synthes I 204.828 / / Synthes 212.110 3.5mm 2.9mm 28mm Self Tap Lock Stardrive Conical Head T15 Full - [id number] Implanted:Qty: 3 on 01/08/2019 by Chauncey Mojica MD at [facility] Left: Humerus Synthes I 212.110 / / Synthes 212.119 3.5mm 2.9mm 45mm Self Tap Lock Stardrive Conical Head T15 Full - [id number] Implanted:Qty: 1 on 01/08/2019 by Chauncey Mojica MD at [facility] Left: Humerus Synthes I 212.119 / / Synthes 212.118 3.5mm 2.9mm 42mm Self Tap Lock Stardrive Conical Head Full Thread - [id number] Implanted:Qty: 2 on 01/08/2019 by Chauncey Mojica MD at [facility] Left: Humerus Synthes I 212.118 / / Synthes 212.112 3.5mm 2.9mm 32mm Self Tap Lock Stardrive Conical Head T15 Full - [id number] Implanted:Qty: 1 on 01/08/2019 by Chauncey Mojica MD at [facility] Left: Humerus Synthes I 212.112 / [...] Bone mineral density was performed on a [employer] Discovery Densitometer. Based on machine cross-calibration and [...] mineral density scan were prepared by Vivian Wasserman(Vanna) DOMENICO who is accredited by the International Society of Clinical Densitometry. The overall patient assessment and scan interpretation were performed by Luz Pineda MD who is certified by the International Society of Clinical Densitometry. [id number] Luz Pineda MD IMG DXA PROCEDURES Final Resu lt from Last 3 Months or Most Recently Relevant to Health Maintenance Insurance MEDICARE AETNA [facility] MEDICARE AETNA SENIOR SUPPLEMENT Advance Directives For more information, please contact: [phone] * Full Code (Latest Code Status on File) Date Activated Date Inactivated Comments 01/08/2019 9:54 PM 01/09/2019 8:22 PM * Full Code Date Activated Date Inactivated Comments 01/08/2019 9:54 PM 01/08/2019 9:54 PM Care Teams Environmental Intern Relationship Specialty Start Date End Date Darryl Baker MD PCP - General 09/09/13
--- OUTSIDE RECORDS SUMMARY | 2025-05-16 16:01 | XMS_ITS | Continuity of Care Document ---
Author Organization [facility] Address [address] [place] [address] [place] [address] Phone Care Team Providers Care Master Printer Name Role Phone Darryl Baker MD Unavailable Unavailable Allergies, Adverse Reactions, Alerts Substance Reaction Status Criticality trimethoprim Active No Information Sulfa (Sulfonamide Antibiotics) Active No Information trimethobenzamide Active No Informa tion sulfamethazine Active No Informatio n Medications Medication Instructions Dosage Effective Dates (start - stop) Status Comments Vitamin D2 1,250 mcg (50,000 unit) capsule take 1 capsule by oral route every other week - Active Pepcid 40 mg tablet take 1 tablet by ora l route every day 40 MG - Active pramipexole 1 mg tablet take 1 tablet by oral route every bedtime 1 MG - Active Fosamax 70 mg tablet take 1 tablet by or al route every week in the morning, at least 30 min before first food, beverage, or medication of day 70 MG - Active syringe with needle 1 mL 25 gauge x 1 use with b12 shot monthly - Active cyanocobalamin (vit B-12) 1,000 mcg/mL injection solution inject 1 milliliter by intramuscular route every month 1000 MCG - Active Singulair 10 mg tablet take 1 tablet by oral route every day in the evening 10 MG - Active Procedures Procedure Date OFFICE/OUTPATIENT VISIT, EST Medicare Addendum OFFICE/OUTPATIENT VISIT, [...] EST OFFICE/OUTPATIENT VISIT, EST OFFICE/OUTPATIENT VISIT, EST -2022 OFFICE/OUTPATIENT VISIT, EST OFFICE/OUTPATIENT VISIT, EST OFFICE/OUTPATIENT VISIT, EST OFFICE/OUTPATIENT VISIT, EST OFFICE/OUTPATIENT VISIT, EST -2022 OFFICE/OUTPATIENT VISIT, EST PPPS, subseq visit OFFICE/OUTPATIENT [...] visit OFFICE/OUTPATIENT VISIT, EST OFFICE/OUTPATIENT VISIT, EST -2019 [...] Providers Copied on Encounter OFFICE/OUTPA TIENT VISIT, [facility], [address] [place] [address] Keenan Luna [place], [address], [place] tel:[phone] [facility] pain (chief complaint)glu cose1 (chief complaint)ost eoporosis1 (chief complaint)fat igue1 (chief complaint) OsteoporosisFati gueFibromyalgiaF olate deficiencyHyperg lycemia 5 Samuel Andrews. [address], [place], [place], [address] , [place]. tel:[phone] OFFICE/OUTPA TIENT VISIT, [facility], [address], [place], [place], [address], [place] tel:[phone] [facility] pain (chief complaint)vis ual1 (chief complaint)yaya ght loss1 (chief complaint) Abnormal weight lossFibromyalgia FatigueChange in mental status 5 Samuel Andrews. [address], [place], [place], [address] , [place]. tel:[phone] OFFICE/OUTPA TIENT VISIT, [facility], [address] [facility] [place] [address], [place] tel:[phone] [facility] fibromyalgia1 (chief complaint)hyp ersomnia1 (chief complaint)HTN (chief complaint)hip pain1 (chief complaint) FibromyalgiaEsse ntial (primary) hypertensionFati guePain in left hip 0 5 Samuel Andrews. [address], [place], [place], [address] , [place]. tel:[phone] OFFICE/OUTPA TIENT VISIT, [facility], [address] [facility] [employer] [place], [address], [place] tel:[phone] [facility] RLS (chief complaint)fib romyalgia1 (chief complaint)fat igue1 (chief complaint)VENKATESH D1 (chief complaint) FatigueFibromyal giaRestless Legs SyndromeGERD w/o esophagitis 5 Samuel Andrews. [address], [address], [place], [place], [address] , [place]. tel:[phone] OFFICE/OUTPA TIENT VISIT, [facility], [address] [facility] [employer] [place], [address], [place] tel:[phone] [facility] pain (chief complaint)leg pain1 (chief complaint)fat igue1 (chief complaint) Restless Legs SyndromeFatigueF ibromyalgia 5 Samuel Andrews. [address], [place], [place], [address] , [place]. tel:[phone] OFFICE/OUTPA TIENT VISIT, [facility], [address] [place] [place], [address], [place] tel:[phone] [facility] lightheadness 1 (chief complaint)RLS (chief complaint) HypotensionRestl ess Legs Syndrome 5 Samuel Andrews. [address] [facility] [address] [place], [place], [address] , [place]. tel:[phone] OFFICE/OUTPA TIENT VISIT, [facility], [address] [place] [place], [address], [place] tel:[phone] [facility] pain (chief complaint)cou gh1 (chief complaint)RLS (chief complaint)sle ep apnea1 (chief complaint) FibromyalgiaAcut e bronchitisRestle ss Legs SyndromeObstruct lloyd sleep apnea hypopnea 5 Samuel Andrews. [address] [facility] [place] [address] , [place]. tel:[phone] OFFICE/OUTPA TIENT VISIT, [facility], [address] [place] [place], [address], [place] tel:[phone] [facility] HTN (chief complaint)nec k pain1 (chief complaint)fib romyalgia1 (chief complaint) Essential (primary) hypertensionFibr omyalgiaOther muscle spasm 4 Samuel Andrews. [address] [facility] [place] [address] , [place]. tel:[phone] OFFICE/OUTPA TIENT VISIT, [facility], [address] [place] [place], [address], [place] tel:[phone] [facility] pain (chief complaint)RLS (chief complaint)nec k pain1 (chief complaint) FibromyalgiaRest less Legs SyndromeOther muscle spasm 4 Samuel Garcia [address], [place], [place], [address] , [place]. tel:[phone] OFFICE/OUTPA TIENT VISIT, [facility], [address] [place], [address], [place] tel:[phone] [facility] pain (chief complaint)ost eoporosis1 (chief complaint)VENKATESH D1 (chief complaint) FibromyalgiaOste oporosisGERD w/o esophagitis 4 Samuel Garcia [address], [address] [place], [address] , [place]. [phone] OFFICE/OUTPA TIENT VISIT, [facility], [address] [place] [place], [address], [place] tel:[phone] [facility] pain (chief complaint)HTN (chief complaint)ophelia ma1 (chief complaint)hyp erglycemia1 (chief complaint) EdemaEssential (primary) hypertensionFibr omyalgiaHypergly cemiaRestless legs syndrome 4 Samuel Garcia [address], [address] [place], [address] , [place]. tel:[phone] OFFICE/OUTPA TIENT VISIT, [facility], [address] [place], [address], [place] tel:[phone] [facility] pain (chief complaint)HTN (chief complaint)b12 (chief complaint)dry mouth1 (chief complaint) EdemaEssential (primary) hypertensionCyan ocobalamin deficiencyFibrom yalgiaDry mouth 4 Samuel Garcia [address], [address], [place], [place], [address] , [place]. [phone] OFFICE/OUTPA TIENT VISIT, [facility], [address] [place], [address], [place] tel:[phone] [facility] HTN (chief complaint)HLP (chief complaint)cou gh1 (chief complaint)ane mia1 (chief complaint)DM (chief complaint)fat igue1 (chief complaint) Essential (primary) hypertensionMixe d hyperlipidemiaTy pe 2 diabetes mellitus with diabetic nephropathyAnemi aFatigueCyanocob alamin deficiencyDry mouthFibromyalgi aOsteoporosisChr onic cough 4 Samuel Andrews. [address], [place], [place], [address] , [place]. [phone] OFFICE/OUTPA TIENT VISIT, [facility], [address] [place], [address], [place] tel:[phone] [facility] pain1 (chief complaint)cou gh1 (chief complaint)fat igue1 (chief complaint) FatigueChronic coughEssential (primary) hypertensionFibr omyalgia 4 Samuel Andrews. [address], [place], [place], [address] , [place]. [phone] OFFICE/OUTPA TIENT VISIT, [facility], [address] [place], [address], [place] tel:[phone] [facility] cough1 (chief complaint)RLS (chief complaint)fat igue1 (chief complaint) FatigueMild intermittent asthma, uncomplicatedRes tless Legs Syndrome 4 Samuel Andrews. [address], [place], [place], [address] , [place]. tel:[phone] OFFICE/OUTPA TIENT VISIT, [facility], [address] [place], [address], [place] tel:[phone] [facility] fibromyalgia1 (chief complaint)ost eoporosis1 (chief complaint)cou gh1 (chief complaint)fat igue1 (chief complaint) Mild intermittent asthma, uncomplicatedFat igueFibromyalgia Osteoporosis 4 Samuel Andrews. [address], [place], [place], [address] , [place]. tel:[phone] OFFICE/OUTPA TIENT VISIT, [facility], [address] [facility] [employer] [place], [address], [place] tel:[phone] [facility] osteoporosis1 (chief complaint)dona n (chief complaint)fat igue1 (chief complaint)RLS 1 (chief complaint)cou gh1 (chief complaint) FatigueOsteoporo sisRestless Legs SyndromeFibromya lgiaMild intermittent asthma, uncomplicated Jan- 4 Baker Darryl. [address], [address], [place], [place], [address] , [place]. tel:[phone] OFFICE/OUTPA TIENT VISIT, [facility], [address] [facility] [place], [address], [place] tel:[phone] [facility] pain (chief complaint)ADD (chief complaint)cou gh1 (chief complaint)HTN (chief complaint) Acute bronchitisFibrom yalgiaFatigueObs tructive Sleep Apnea HypopneaEssentia l (primary) hypertension Jan-0 4 Baker Darryl. [address], [address], [place], [place], [address] , [place]. tel:[phone] OFFICE/OUTPA TIENT VISIT, [facility], [address] [facility] [employer] [place], [address], [place] tel:[phone] [facility] pain (chief complaint)fat igue1 (chief complaint) FatigueFibromyal laly Dec- 4 Baker Darryl. [address], [address], [place], [place], [address] , [place]. tel:[phone] OFFICE/OUTPA TIENT VISIT, [facility], [address] [facility] [employer] [place], [address], [place] tel:[phone] [facility] pain1 (chief complaint)leg pain1 (chief complaint)leg weakness1 (chief complaint)fat igue1 (chief complaint) FibromyalgiaRest less Legs SyndromeObstruct lloyd Sleep Apnea HypopneaFatigueP eripheral vascular disease, unspecified 4 Samuel Andrews. [address], [address], [place], [place], [address] , [place]. tel:[phone] OFFICE/OUTPA TIENT VISIT, [facility], [address], [place], [place], [address], [place] tel:[phone] [facility] GERD1 (chief complaint)dona n (chief complaint)leg pain1 (chief complaint)HTN (chief complaint) FibromyalgiaGERD w/o esophagitisRestl ess Legs SyndromeEssentia l (primary) hypertension 4 Samuel Andrews. [address], [address], [place], [place], [address] , [place]. tel:[phone] OFFICE/OUTPA TIENT VISIT, [facility], [address], [place], [place], [address], [place] tel:[phone] [facility] pain (chief complaint)RLS (chief complaint)HTN (chief complaint)VENKATESH D1 (chief complaint) FibromyalgiaRest less Legs SyndromeEssentia l (primary) hypertensionGERD w/o esophagitis 3 Samuel Andrews. [address], [address], [place], [place], [address] , [place]. tel:[phone] OFFICE/OUTPA TIENT VISIT, [facility], [address] [place], [address], [place] tel:[phone] [facility] pain (chief complaint)RLS 1 (chief complaint)sin us (chief complaint) FibromyalgiaChro meera sinusitisRestles s legs syndrome 3 Baker Darryl. [address], [address], [place], [place], [address] , [place]. tel:[phone] OFFICE/OUTPA TIENT VISIT, [facility], [address] [place], [address], [place] tel:[phone] [facility] fibromyalgia1 (chief complaint)RLS 1 (chief complaint)HTN (chief complaint)all ergy1 (chief complaint) Restless Legs SyndromeEssentia l (primary) hypertensionFibr omyalgiaAllergic rhinitis due to pollen 3 Samuel Garcia [address], [place], [place], [address] , [place]. tel:[phone] OFFICE/OUTPA TIENT VISIT, [facility], [address], [place], [place], [address], [place] tel:[phone] [facility] HTN (chief complaint)all ergy1 (chief complaint)RLS (chief complaint)fib romyalgia1 (chief complaint) FibromyalgiaEsse ntial (primary) hypertensionAlle rgic rhinitis due to pollenRestless Legs Syndrome 3 Samuel Garcia [address], [address], [place], [place], [address] , [place]. [phone] OFFICE/OUTPA TIENT VISIT, [facility], [address], [place], [place], [address], [place] tel:[phone] [facility] pain (chief complaint)RLS 1 (chief complaint)all ergy1 (chief complaint)VENKATESH D1 (chief complaint) FibromyalgiaRest less Legs SyndromeGERD w/o esophagitisAller gic rhinitis due to pollenEssential (primary) hypertension 3 Samuel Garcia [address], [address], [place], [place], [address] , [place]. tel:[phone] OFFICE/OUTPA TIENT VISIT, [facility], [address] [place], [address], [place] tel:[phone] [facility] pain (chief complaint)leg 1 (chief complaint)all ergy1 (chief complaint)sle ep apnea1 (chief complaint) Restless Legs SyndromePrimary central sleep apneaFibromyalgi aAllergic rhinitis due to pollen 3 Samuel Garcia [address], [address], [place], [place], [address] , [place]. tel:[phone] OFFICE/OUTPA TIENT VISIT, [facility], [address], [place], [place], [address], [place] tel:[phone] [facility] pain (chief complaint)res tless leg (chief complaint)sle epapnea1 (chief complaint) FibromyalgiaPrim teodora central sleep apneaRestless Legs Syndrome 3 Samuel Garcia [address], [place], [place], [address] , . tel:[phone] OFFICE/OUTPA TIENT VISIT, [facility], [address] [place], [address], [place] tel:[phone] [facility] pain (chief complaint)glu cose1 (chief complaint)ost eoporosis1 (chief complaint)ane mia1 (chief complaint)sic k (chief complaint)HTN (chief complaint) HyperglycemiaRen al diseaseAnemiaOst eoporosisEssenti al (primary) hypertensionAcut e bronchitisPrimar y central sleep apneaFibromyalgi a 3 Samuel Garcia [facility], [place], [place], [address] , [place]. tel:[phone] OFFICE/OUTPA TIENT VISIT, [facility], [address] [place], [address], [place] tel:[phone] [facility] physical (chief complaint) Encounter for general adult medical exam w abnormal findingsOsteopor osisFibromyalgia Primary central sleep apneaEssential (primary) hypertensionGERD w/o esophagitis 3 Samuel Garcia [address], [place], [place], [address] , [place]. tel:[phone] OFFICE/OUTPA TIENT VISIT, [facility], [address] [place], [address], [place] tel:[phone] [facility] osteoporosis1 (chief complaint)dona n (chief complaint)HTN (chief complaint)sle ep apnea1 (chief complaint)VENKATESH D1 (chief complaint) Essential (primary) hypertensionFibr omyalgiaOsteopor osisGERD w/o esophagitisPrima ry central sleep apnea 3 Samuel Andrews. [address], [place], [place], [address] , [place]. tel:[phone] OFFICE/OUTPA TIENT VISIT, [facility], [address], [place], [place], [address], [place] tel:[phone] [facility] HTN (chief complaint)sle ep apnea1 (chief complaint)dona n (chief complaint)all ergy1 (chief complaint) Allergic rhinitis due to pollenEssential (primary) hypertensionFibr omyalgiaPrimary central sleep apnea Dec-0 3 Baker Darryl. [address], [place], [place], [address] , [place]. tel:[phone] OFFICE/OUTPA TIENT VISIT, [facility], [address], [place], [place], [address], [place] tel:[phone] [facility] HTN (chief complaint)sle ep apnea1 (chief complaint)dona n (chief complaint)VENKATESH D1 (chief complaint) FibromyalgiaAlle rgic rhinitis due to pollenGERD w/o esophagitisOsteo porosisPrimary central sleep apneaEssential (primary) hypertension Feb-0 3 Baker Darryl. [address], [place], [place], [address] , [place]. tel:[phone] OFFICE/OUTPA TIENT VISIT, [facility], [address], [place], [place], [address], [place] tel:[phone] [facility] HTN (chief complaint)dona n (chief complaint) Essential (primary) hypertensionFibr omyalgia Antolin-0 3 Baker Darryl. [address], [place], [place], [address] , [place]. tel:[phone] OFFICE/OUTPA TIENT VISIT, [facility], [address], [place], [place], [address], [place] tel:[phone] [facility] HTN (chief complaint)all ergy1 (chief complaint)dona n (chief complaint) FibromyalgiaEsse ntial (primary) hypertensionAlle rgic rhinitis due to pollen Dec-0 2 Baker Darryl. [address], [place], [place], [address] , [place]. tel:[phone] OFFICE/OUTPA TIENT VISIT, [facility], [address], [place], [place], [address], [place] tel:[phone] [facility] HTN (chief complaint)sle ep apnea1 (chief complaint)ost eoporosis1 (chief complaint)VENKATESH D1 (chief complaint)all ergy1 (chief complaint) OsteoporosisPrim teod[place] central sleep apneaEssential (primary) hypertensionFibr omyalgiaAllergic rhinitis due to pollenGERD w/o esophagitis 2 Samuel Andrews. [address], [place], [place], [address] , [place]. tel:[phone] OFFICE/OUTPA TIENT VISIT, [facility], [address], [place], [place], [address], [place] tel:[phone] [facility] pain (chief complaint)sle ep apnea1 (chief complaint) FibromyalgiaPrim teodora central sleep apnea 2 Samuel Andrews. [address], [address], [place], [place], [address] , [place]. tel:[phone] OFFICE/OUTPA TIENT VISIT, [facility], [address], [place], [place], [address], [place] tel:[phone] [facility] pain (chief complaint)sle ep apnea1 (chief complaint)HTN (chief complaint)ost eoporosis1 (chief complaint) OsteoporosisPrim teodora central sleep apneaEssential (primary) hypertensionFibr omyalgia Jun- 2 Samuel Andrews. [address], [address], [place], [place], [address] , [place]. tel:[phone] OFFICE/OUTPA TIENT VISIT, [facility], [address], [place], [place], [address], [place] tel:[phone] [facility] pain (chief complaint)HTN (chief complaint) FibromyalgiaEsse ntial (primary) hypertension 2 Baker Darryl. [address], [address], [place], [place], [address] , [place]. tel:[phone] OFFICE/OUTPA TIENT VISIT, [facility], [address], [place], [place], [address], [place] tel:[phone] [facility] HTN (chief complaint)sle ep apnea1 (chief complaint)dona n1 (chief complaint) Essential (primary) hypertensionFibr omyalgiaPrimary central sleep apneaAllergic rhinitis due to pollen 2 Baker Darryl. [address], [place], [place], [address] , [place]. tel:[phone] OFFICE/OUTPA TIENT VISIT, [facility], [address], [place], [place], [address], [place] tel:[phone] [facility] HTN (chief complaint)stephanie lucination1 (chief complaint) Hypertensive emergencyVisual hallucinations 2 Baker Darryl. [address], [place], [place], [address] , [place]. tel:[phone] OFFICE/OUTPA TIENT VISIT, [facility], [address], [place], [place], [address], [place] tel:[phone] [facility] HTN (chief complaint) Hypertensive emergencyFatigue Dizziness 2 Baker Darryl. [address], [place], [place], [address] , [place]. tel:[phone] OFFICE/OUTPA TIENT VISIT, [facility], [address], [place], [place], [address], [place] tel:[phone] [facility] fibromyalgia1 (chief complaint)sle ep apnea1 (chief complaint)HTN (chief complaint) Essential (primary) hypertensionSlee p apneaFibromyalgi aBenign paroxysmal vertigo, bilateral 2 Baker Darryl. [address], [place], [place], [address] , [place]. tel:[phone] OFFICE/OUTPA TIENT VISIT, [facility], [address], [place], [place], [address], [place] tel:[phone] [facility] pain (chief complaint)diz ziness1 (chief complaint)ins omnia1 (chief complaint)fat igue1 (chief complaint)VENKATESH D1 (chief complaint) Sleep apneaInsomniaDiz zinessGERD w/o esophagitisFibro myalgia 2 Baker Darryl. [address], [place], [place], [address] , [place]. [phone] OFFICE/OUTPA TIENT VISIT, [facility], [address], [place], [place], [address], [place] tel:[phone] [facility] osteoporosis1 (chief complaint)dona n (chief complaint)ins omnia1 (chief complaint)HTN (chief complaint) OsteoporosisEsse ntial (primary) hypertensionFibr omyalgiaInsomnia 2 Samuel Darryl. [address], [place], [place], [address] , [place]. [phone] OFFICE/OUTPA TIENT VISIT, [facility], [address], [place], [place], [address], [place] tel:[phone] [facility] pain (chief complaint)ins omnia1 (chief complaint) FibromyalgiaInso mnia 2 Samuel Darryl. [address], [address], [place], [place], [address] , [place]. tel:[phone] OFFICE/OUTPA TIENT VISIT, [facility], [address] [place], [address], [place] tel:[phone] [facility] pain (chief complaint)ins omnia1 (chief complaint)HTN (chief complaint) DizzinessEssenti al (primary) hypertensionFibr omyalgiaInsomnia 2 Baker Darryl. [address], [place], [place], [address] , [place]. [phone] OFFICE/OUTPA TIENT VISIT, [facility], [address], [place], [place], [address], [place] tel:[phone] [facility] pain (chief complaint)ins omnia1 (chief complaint)lig htheadedness (chief complaint)arm pain1 (chief complaint) Lateral epicondylitis, right elbowFibromyalgi aInsomniaDizzine ss 2 Baker Darryl. [address], [place], [place], [address] , [place]. tel:[phone] OFFICE/OUTPA TIENT VISIT, [facility], [address], [place], [place], [address], [place] tel:[phone] [facility] pain1 (chief complaint)ins omnia1 (chief complaint)diz zy1 (chief complaint)ost eoporosis1 (chief complaint)VENKATESH D1 (chief complaint) DizzinessGERD w/o esophagitisOsteo porosisInsomniaF ibromyalgia 1 Baker Darryl. [address], [place], [place], [address] , [place]. tel:[phone] OFFICE/OUTPA TIENT VISIT, [facility], [address] [place], [address], [place] tel:[phone] [facility] HTN (chief complaint)dona n (chief complaint)ins omnia1 (chief complaint)sin us (chief complaint) FibromyalgiaEsse ntial (primary) hypertensionChro meera sinusitisInsomni a 1 Baker Darryl. [address], [place], [place], [address] , [place]. tel:[phone] OFFICE/OUTPA TIENT VISIT, [facility], [address] [facility] [place], [address], [place] tel:[phone] [facility] sinus1 (chief complaint)HTN (chief complaint)fib romyalgia1 (chief complaint)ins omnia1 (chief complaint) Chronic sinusitisFibromy algiaEssential (primary) hypertensionEdem aInsomniaSolitar y lung nodule 1 Samuel Garcia [address], [address], [place], [place], [address] , [place]. tel:[phone] OFFICE/OUTPA TIENT VISIT, [facility], [address], [place], [place], [address], [place] tel:[phone] [facility] pain (chief complaint)ins omnia1 (chief complaint)HTN (chief complaint)sin us1 (chief complaint) InsomniaFibromya lgiaEssential (primary) hypertensionAlle rgic rhinitisEdema 1 Samuel Garcia [address], [place], [place], [address] , [place]. tel:[phone] OFFICE/OUTPA TIENT VISIT, [facility], [address], [place], [place], [address], [place] tel:[phone] [facility] pain (chief complaint)ins omnia1 (chief complaint)HTN (chief complaint)GED 1 (chief complaint) GERD w/o esophagitisFibro myalgiaInsomniaE ssential (primary) hypertension 1 Samuel Garcia [address], [place], [place], [address] , [place]. tel:[phone] OFFICE/OUTPA TIENT VISIT, [facility], [address] [place], [address], [place] [phone] [facility] insomnia1 (chief complaint)dona n (chief complaint)VENKATESH D1 (chief complaint)HTN (chief complaint) GERD w/o esophagitisFibro myalgiaInsomniaE ssential (primary) hypertension 1 Sameul Garcia [address], [place], [place], [address] , [place]. tel:[phone] OFFICE/OUTPA TIENT VISIT, [facility], [address], [place], [place], [address], [place] tel:[phone] [facility] insomnia1 (chief complaint)dona n1 (chief complaint)VENKATESH D1 (chief complaint) GERD w/o esophagitisConst ipationFibromyal giaInsomnia 1 Samuel Garcia [address], [place], [address] , . tel:[phone] OFFICE/OUTPA TIENT VISIT, [facility], [address] [facility], [address], tel:[phone] [facility] left arm numbness1 (chief complaint)dona n (chief complaint)ins omnia1 (chief complaint)con stipation1 (chief complaint)fat igue1 (chief complaint) ConstipationNeur opathyInsomniaFi bromyalgiaFatigu e 1 Samuel Garcia [facility] [place] [address] , . tel:[phone] OFFICE/OUTPA TIENT VISIT, [facility], [address] [facility] [place], [place], [address], [place] tel:[phone] [facility] pain (chief complaint)ins omnia1 (chief complaint)ost eoporosis1 (chief complaint)diz ziness1 (chief complaint) FibromyalgiaInso mniaOsteoporosis Dizziness 1 Samuel Garcia [address] [facility] [place] [address] , [place]. tel:[phone] OFFICE/OUTPA TIENT VISIT, [facility], [address] [facility] [place], [address], [place] tel:[phone] [facility] pain (chief complaint)ins omnia1 (chief complaint)UTI 1 (chief complaint)ost eoporosis1 (chief complaint) Urinary tract infectionFibromy algiaInsomnia 1 Samuel Garcia [address] [facility] [place], [address] , [place]. tel:[phone] OFFICE/OUTPA TIENT VISIT, [facility], [address] [facility] [place], [place], [address], [place] tel:[phone] [facility] Medicine fibromyalgia1 (chief complaint)ins omnia1 (chief complaint) FibromyalgiaInso mniaUrinary tract infection 1 Samuel Andrews. [address], [address], [place], [place], [address] , [place]. [phone] OFFICE/OUTPA TIENT VISIT, [facility], [address], [place], [place], [address], [place] tel:[phone] [facility] sinus1 (chief complaint) Acute sinusitis 1 Samuel Andrews. [address], [address], [place], [place], [address] , [place]. [phone] OFFICE/OUTPA TIENT VISIT, [facility], [address], [place], [place], [address], [place] tel:[phone] [facility] fibromyalgia1 (chief complaint)ins omnia1 (chief complaint) FibromyalgiaInso mnia 1 Samuel Andrews. [address], [address], [place], [place], [address] , [place]. tel:[phone] Referring Provider: Betty Zelaya [address], [place], [place], [address]. tel:[phone] OFFICE/OUTPA TIENT VISIT, [facility], [address], [place], [place], [address], [place] tel:[phone] [facility] Medicine pain (chief complaint)ins omnia1 (chief complaint) FibromyalgiaInso mnia 0 Samuel Andrews. [address], [address], [place], [place], [address] , [place]. tel:[phone] Referring Provider: Darryl Baker [address], [place], [place], [address]. tel:[phone] OFFICE/OUTPA TIENT VISIT, [facility], [address], [place], [place], [address], [place] tel:[phone] [facility] pain (chief complaint)ins omnia1 (chief complaint)HTN (chief complaint) FibromyalgiaInso mniaEssential (primary) hypertension 0 Samuel Andrews. [address], [address], [place], [place], [address] , [place]. [phone] Referring Provider: Betty eZlaya [address], [place], [place], [address]. tel:[phone] OFFICE/OUTPA TIENT VISIT, [facility], [address], [place], [place], [address], [place] [phone] [facility] Medicine pain (chief complaint)ins omnia1 (chief complaint) FibromyalgiaInso mnia 0 Samuel Andrews. [address], [place], [place], [address] , [place]. [phone] Referring Provider: Betty Zelaya [address], [place], [place], [address]. tel:[phone] OFFICE/OUTPA TIENT VISIT, [facility], [address], [place], [place], [address], [place] tel:[phone] [facility] Medicine pain (chief complaint)ins omnia1 (chief complaint)sle ep apnea1 (chief complaint)hem orrhoid (chief complaint) FibromyalgiaAnem iaInsomniaSleep apneaHemorrhoid 0 Samuel Andrews. [address], [place], [place], [address] , [place]. [phone] Referring Provider: Betty Zelaya [address], [place], [place], [address]. tel:[phone] OFFICE/OUTPA TIENT VISIT, [facility], [address] [place], [address], [place] tel:[phone] [facility] Medicine fibromyalgia1 (chief complaint)ins omnia1 (chief complaint)ost eoporosis1 (chief complaint)hyp onatremia1 (chief complaint)ane mia1 (chief complaint)hem aturia1 (chief complaint) AnemiaHematuriaH yponatremiaInsom niaFibromyalgiaO steoporosis 0 Samuel Andrews. [address], [address], [place], [place], [address] , . [phone] Referring Provider: Betty Zelaya [address], [place], [place], [address]. tel:[phone] OFFICE/OUTPA TIENT VISIT, [facility], [address] [place], [address], [place] tel:[phone] [facility] pain (chief complaint)ins omnia1 (chief complaint)HLP (chief complaint)sle ep apnea1 (chief complaint)sic k (chief complaint)hem orrhoid1 (chief complaint) FibromyalgiaHype rlipidemiaAnemia Sleep apneaHemorrhoidA cute bronchitisInsomn iaHyponatremia 0 Samuel Andrews. [address], [place], [place], [address] , [place]. [phone] Referring Provider: Betty Zelaya [address] [facility] [place], [address]. tel:[phone] OFFICE/OUTPA TIENT VISIT, [facility], [facility] [address] [place], [place], [address], [place] tel:[phone] [facility] HLP (chief complaint)sle ep apnea1 (chief complaint)fib romyalgia1 (chief complaint)ins omnia1 (chief complaint)ane mia1 (chief complaint) AnemiaFibromyalg iaHematuriaHemor rhoidHyperlipide miaSleep apneaInsomniaSol itary lung nodule 0 Samuel Andrews. [address], [address], [place], [place], [address] , [place]. tel:[phone] Referring Provider: Betty Zelaya [address], [place], [place], [address]. tel:[phone] OFFICE/OUTPA TIENT VISIT, [facility], [address] [place], [address], [place] tel:[phone] [facility] Medicine HLP (chief complaint)ane mia1 (chief complaint)ane mia1 (chief complaint)dona n1 (chief complaint)sle ep apnea1 (chief complaint) HyperlipidemiaAn emiaInsomniaHema turiaHemorrhoidS leep apneaFibromyalgi a 0 Samuel Andrews. [address], [place], [place], [address] , [place]. tel:[phone] Referring Provider: Betty Zelaya [address], [place], [place], [address]. tel:[phone] OFFICE/OUTPA TIENT VISIT, [facility], [address], [place], [place], [address], [place] tel:[phone] [facility] sinus1 (chief complaint) Acute sinusitis 0 Samuel Garcia [address], [place], [place], [address] , [place]. tel:[phone] Referring Provider: Betty Zelaya [address], [place], [place], [address]. tel:[phone] OFFICE/OUTPA TIENT VISIT, [facility], [address], [place], [place], [address], [place] tel:[phone] [facility] PHysical (chief complaint) Encounter for general adult medical exam w abnormal findingsFibromya lgiaSleep apneaOsteoporosi sInsomniaEssenti al (primary) hypertension 0 Samuel Garcia [address], [place], [place], [address] , [place]. tel:[phone] Referring Provider: Betty Zelaya [address], [place], [place], [address]. tel:[phone] OFFICE/OUTPA TIENT VISIT, [facility], [address], [place], [place], [address], [place] tel:[phone] [facility] pain (chief complaint)ins omnia1 (chief complaint)sle ep apnea1 (chief complaint) FibromyalgiaSlee p apneaInsomnia Jan- 0 Samuel Andrews. [address], [place], [place], [address] , [place]. tel:[phone] Referring Provider: Betty Zelaya [address], [place], [place], [address]. tel:[phone] OFFICE/OUTPA TIENT VISIT, [facility], [address], [place], [place], [address], [place] tel:[phone] [facility] HTN (chief complaint)fib romyalgia1 (chief complaint)ins omnia1 (chief complaint)sle ep apnea1 (chief complaint)glu cose (chief complaint) InsomniaSleep apneaFibromyalgi aEssential (primary) hypertensionEnco unter for screening for malignant neoplasm of colonHyperglycem ia 0 Samuel Andrews. [address], [place], [place], [address] , [place]. tel:[phone] Referring Provider: Betty Zelaya [address], [place], [place], [address]. tel:[phone] OFFICE/OUTPA TIENT VISIT, [facility], [address] [place], [address], [place] tel:[phone] [facility] fibromyalgia1 (chief complaint)ost eoporosis1 (chief complaint)ins omnia1 (chief complaint)sle ep apnea1 (chief complaint) FibromyalgiaSlee p apneaOsteoporosi sInsomnia Fe 0 Samuel Andrews. [address], [place], [place], [address] , [place]. tel:[phone] Referring Provider: Betty Zelaya [address], [place], [place], [address]. tel:[phone] OFFICE/OUTPA TIENT VISIT, [facility], [address], [place], [place], [address], [place] tel:[phone] [facility] pain (chief complaint)ins omnia1 (chief complaint)sin us (chief complaint)kne e pain1 (chief complaint) FatigueFibromyal giaInsomniaOsteo arthritis of knee, unspecifiedAller gic rhinitis 0 Samuel Garcia [address], [place], [place], [address] , [place]. tel:[phone] Referring Provider: Betty Zelaya [address], [place], [place], [address]. tel:[phone] OFFICE/OUTPA TIENT VISIT, [facility], [address], [place], [place], [address], [place] tel:[phone] [facility] Medicine fibromyalgia1 (chief complaint)ins omnia1 (chief complaint)fat igue1 (chief complaint)sin us1 (chief complaint)HTN (chief complaint) FibromyalgiaInso mniaFatigueAcute sinusitisEssenti al (primary) hypertension 0 Samuel Garcia [address], [place], [place], [address] , [place]. [phone] Referring Provider: Betty Zelaya [address], [place], [place], [address]. tel:[phone] OFFICE/OUTPA TIENT VISIT, [facility], [address], [place], [place], [address], [place] tel:[phone] [facility] sinus allergy1 (chief complaint)dona n (chief complaint)ins omnia1 (chief complaint)fat igue1 (chief complaint) Allergic rhinitisFibromya lgiaInsomniaFati alejandra 9 Samuel Garcia [address], [place], [place], [address] , [place]. tel:[phone] Referring Provider: Betty Zelaya [address], [place], [place], [address]. tel:[phone] OFFICE/OUTPA TIENT VISIT, [facility], [address], [place], [place], [address], [place] tel:[phone] [facility] Medicine HTN (chief complaint)fib romyalgia1 (chief complaint)ins omnia1 (chief complaint)sin us allergy1 (chief complaint) FibromyalgiaInso mniaEssential (primary) hypertensionAlle rgic rhinitis 9 Samuel Andrews. [address], [place], [place], [address] , [place]. tel:[phone] Referring Provider: Betty Zelaya [address], [place], [place], [address]. tel:[phone] OFFICE/OUTPA TIENT VISIT, [facility], [address], [place], [place], [address], [place] tel:[phone] [facility] HTN (chief complaint)ophelia ma1 (chief complaint)chr onic pain1 (chief complaint)ins omnia1 (chief complaint) Essential (primary) hypertensionEdem aFibromyalgiaIns omnia 9 Samuel Andrews. [address], [place], [place], [address] , [place]. tel:[phone] Referring Provider: Betty Zelaya [address], [place], [place], [address]. tel:[phone] OFFICE/OUTPA TIENT VISIT, [facility], [address], [place], [place], [address], [place] tel:[phone] [facility] toe pain1 (chief complaint)fib romyalgia1 (chief complaint)ins omnia1 (chief complaint) FibromyalgiaInso mniaDermatophyto sis of nail 9 Samuel Andrews. [address], [place], [place], [address] , [place]. tel:[phone] Referring Provider: Betty Zelaya [address], [place], [place], [address]. tel:[phone] OFFICE/OUTPA TIENT VISIT, [facility], [address], [place], [place], [address], [place] tel:[phone] [facility] chronic pain1 (chief complaint)ins omnia1 (chief complaint) FibromyalgiaInso mnia Aug-1 6-201 9 Samuel Andrews. [address] [facility] A, [place], [place], [address] , [place]. tel:[phone] Referring Provider: Darryl Baker, Betty [facility] A, [place], [place], [address]. tel:[phone] OFFICE/OUTPA TIENT VISIT, [facility], [address] [place], [address], tel:[phone] [facility] sinusitis1 (chief complaint)HTN (chief complaint)fib romyalgia1 (chief complaint)ins omnia1 (chief complaint) InsomniaFibromya lgiaEssential (primary) hypertensionAcut e sinusitis 9 Samuel Andrews. [address], [address], [place], [place], [address] , [place]. tel:[phone] Referring Provider: Betty Zelaya [place], [address]. tel:[phone] OFFICE/OUTPA TIENT VISIT, [facility], [address] [place], [address], [place] tel:[phone] [facility] HTN (chief complaint)fib romyalgia1 (chief complaint)ins omnia1 (chief complaint) Essential (primary) hypertensionFibr omyalgiaInsomnia 9 Samuel Andrews. [facility], [place], [place], [address] , [place]. tel:[phone] Referring Provider: Betty Zelaya [facility] A, [place], [place], [address]. tel:[phone] OFFICE/OUTPA TIENT VISIT, [facility], [address] [place], [address], [place] tel:[phone] [facility] numbness1 (chief complaint)fib romyalgia1 (chief complaint)anx iety1 (chief complaint)gurinder ral regu (chief complaint) OsteoporosisFibr omyalgiaParesthe quinton of skinInsomniaNonr heumatic mitral valve prolapse 9 Samuel Garcia [address], [place], [place], [address] , [place]. tel:[phone] Referring Provider: Betty Zelaya [facility] A, [place], [place], [address]. tel:[phone] OFFICE/OUTPA TIENT VISIT, [facility], [address], [place], [place], [address], [place] tel:[phone] [facility] numbness1 (chief complaint)chr onic pain (chief complaint)ins omnia1 (chief complaint) FibromyalgiaInso mniaParesthesia of skin 9 Samuel Garcia [address], [place], [place], [address] , [place]. tel:[phone] Referring Provider: Betty Zelaya [address] [facility] A, [place], [place], [address]. tel:[phone] OFFICE/OUTPA TIENT VISIT, [facility], [address], [place], [place], [address], [place] tel:[phone] [facility] PHysical (chief complaint) Encounter for general adult medical exam w abnormal findingsHyperlip idemiaEssential (primary) hypertensionOste oporosisFibromya lgiaInsomnia 9 Samuel Hernández [address], [facility] A, [place], [place], [address] , [place]. tel:[phone] Referring Provider: Betty Zelaya [facility] A, [place], [place], [address]. tel:[phone] OFFICE/OUTPA TIENT VISIT, [facility], [address], [place], [place], [address], [place] tel:[phone] [facility] osteoporosis1 (chief complaint)fib romyalgia1 (chief complaint)sin us1 (chief complaint)HTN (chief complaint)ins omnia1 (chief complaint) FibromyalgiaOste oporosisEssentia l (primary) hypertensionAlle rgic rhinitisInsomnia 9 Samuel Garcia [address], [place], [place], [address] , [place]. tel:[phone] Referring Provider: Betty Zelaya [facility] A, [place], [place], [address]. tel:[phone] OFFICE/OUTPA TIENT VISIT, [facility], [address], [place], [place], [address], [place] tel:[phone] [facility] fibromyalgia1 (chief complaint)anx iety1 (chief complaint)fat igue1 (chief complaint)sin us (chief complaint) Allergic rhinitisFatigueF ibromyalgiaInsom fabiana 9 Samuel Garcia [address] [facility] [address], [place], [place], [address] , [place]. tel:[phone] Referring Provider: Betty Zelaya [facility] A, [place], [place], [address]. tel:[phone] OFFICE/OUTPA TIENT VISIT, [facility], [address], [place], [place], [address], [place] tel:[phone] [facility] sinus allergy1 (chief complaint)chr onic pain (chief complaint)ins omnia1 (chief complaint) InsomniaFibromya lgiaAllergic rhinitis 9 Samuel Garcia [address], [place], [place], [address] , [place]. tel:[phone] Referring Provider: Betty Zelaya [facility] A, [place], [place], [address]. tel:[phone] OFFICE/OUTPA TIENT VISIT, [facility], [address], [place], [place], [address], [place] tel:[phone] [facility] fibromyalgia1 (chief complaint)ins omnia1 (chief complaint)ost eoporosis1 (chief complaint)HTN (chief complaint) OsteoporosisEsse ntial (primary) hypertensionFibr omyalgiaInsomnia 8 Samuel Garcia [address], [place], [place], [address] , [place]. tel:[phone] Referring Provider: Darryl Baker, Betty [address], [place], [place], [address]. tel:[phone] OFFICE/OUTPA TIENT VISIT, [facility], [address], [place], [place], [address], [place] tel:[phone] [facility] fibromyalgia1 (chief complaint)ins omnia1 (chief complaint) FibromyalgiaInso mnia 8 Samuel Andrews. [address], [place], [place], [address] , [place]. tel:[phone] Referring Provider: Betty [address], [place], [place], [address]. tel:[phone] OFFICE/OUTPA TIENT VISIT, [facility], [address], [place], [place], [address], [place] tel:[phone] [facility] hlp (chief complaint)fib romyalgia1 (chief complaint)ins omnia1 (chief complaint) FibromyalgiaHype rlipidemiaInsomn iaPain in left shoulder 8 Samuel Andrews. [address], [place], [place], [address] , [place]. tel:[phone] Referring Provider: Betty [address], [place], [place], [address]. tel:[phone] OFFICE/OUTPA TIENT VISIT, [facility], [address], [place], [place], [address], [place] tel:[phone] [facility] fibromyalgia1 (chief complaint)HTN (chief complaint)ins omnia1 (chief complaint)yaya ght loss1 (chief complaint) Essential (primary) hypertensionFibr omyalgiaAbnormal weight lossInsomnia 8 Samuel Andrews. [address], [place], [place], [address] , [place]. tel:[phone] Referring Provider: Betty Zelaya [address], [place], [place], [address]. tel:[phone] OFFICE/OUTPA TIENT VISIT, [facility], [address], [place], [place], [address], [place] tel:[phone] [facility] arm pain1 (chief complaint)ins omnia1 (chief complaint)fib romyalgia1 (chief complaint)HTN (chief complaint)ost eoporosis1 (chief complaint) Essential (primary) hypertensionOste oporosisPain in left upper armFibromyalgiaI nsomniaHemorrhoi d 8 Samuel Andrews. [address], [place], [place], [address] , [place]. [phone] Referring Provider: Betty Zelaya [address] [facility] A, [place], [place], [address]. tel:[phone] OFFICE/OUTPA TIENT VISIT, [facility], [address] [facility], [place], [place], [address], [place] tel:[phone] [facility] hemorrhoid1 (chief complaint)fib romyalgia1 (chief complaint)anx iety1 (chief complaint)lauren dder prolase1 (chief complaint) FibromyalgiaCyst oceleBenign neoplasm of right kidneyHemorrhoid Insomnia 8 Samuel Garcia [address], [place], [place], [address] , [place]. [phone] Referring Provider: Betty Zelaya [facility] A, [place], [place], [address]. tel:[phone] OFFICE/OUTPA TIENT VISIT, [facility], [address], [place], [place], [address], [place] tel:[phone] [facility] fibromyalgia1 (chief complaint)ins omnia1 (chief complaint)ang iomyolipoma1 (chief complaint)ora l numbness 1 (chief complaint) Benign neoplasm of right kidneyAcute sinusitisFibromy algiaParesthesia of skin 8 Samuel Garcia [address], [place], [place], [address] , [place]. [phone] Referring Provider: Betty Zelaya [address], [place], [place], [address]. tel:[phone] OFFICE/OUTPA TIENT VISIT, [facility], [address], [place], [place], [address], [place] tel:[phone] [facility] fibromyalgia1 (chief complaint)ins omnia1 (chief complaint)gill al cyst1 (chief complaint) FibromyalgiaInso mniaBenign neoplasm of right kidneyCystocele 8 Samuel Andrews. [address], [place], [place], [address] , [place]. tel:[phone] Referring Provider: Darryl Baker, [address], [place], [place], [address]. tel:[phone] OFFICE/OUTPA TIENT VISIT, [facility], [address], [place], [place], [address], [place] tel:[phone] [facility] chronic pain (chief complaint)ins omnia1 (chief complaint)sin us1 (chief complaint) FibromyalgiaInso mniaChronic sinusitis 8 Samuel Andrews. [address], [place], [place], [address] , [place]. tel:[phone] OFFICE/OUTPA TIENT VISIT, [facility], [address], [place], [place], [address], [place] tel:[phone] [facility] Medicine fibromyalgia1 (chief complaint)ost eoporosis1 (chief complaint)sin us1 (chief complaint)ins omnia1 (chief complaint) FibromyalgiaOste oporosisChronic sinusitisInsomni a 8 Samuel Andrews. [address], [place], [place], [address] , [place]. tel:[phone] OFFICE/OUTPA TIENT VISIT, [facility], [address], [place], [place], [address], [place] tel:[phone] [facility] Medicine PHysical (chief complaint) Encounter for general adult medical exam w abnormal findingsFibromya lgiaEssential (primary) hypertensionOste oporosis 2 8 Samuel Andrews. [address], [place], [place], [address] , [place]. tel:[phone] OFFICE/OUTPA TIENT VISIT, [facility], [address], [place], [place], [address], [place] tel:[phone] [facility] sick (chief complaint) Acute bronchitisAcute upper respiratory infection, unspecified 8 Samuel Andrews. [address], [place], [place], [address] , [place]. [phone] Referring Provider: Betty Zel[address], [place], [place], [address]. tel:[phone] OFFICE/OUTPA TIENT VISIT, [facility], [address], [place], [place], [address], [place] tel:[phone] [facility] fibromyalgia1 (chief complaint)ins omnia1 (chief complaint)HTn (chief complaint) FibromyalgiaInso mniaEssential (primary) hypertension 8 Samuel Andrews. [address], [place], [place], [address] , [place]. tel:[phone] OFFICE/OUTPA TIENT VISIT, [facility], [address], [place], [place], [address], [place] tel:[phone] [facility] fibromyalgia1 (chief complaint)ins omnia1 (chief complaint)ost eoporosis1 (chief complaint)col d (chief complaint) OsteoporosisFibr omyalgiaInsomnia Acute upper respiratory infection, unspecified 8 Samuel Andrews. [address], [place], [place], [address] , [place]. tel:[phone] Referring Provider: Betty Zelaya [address], [place], [place], [address]. tel:[phone] OFFICE/OUTPA TIENT VISIT, [facility], [address], [place], [place], [address], [place] tel:[phone] [facility] sob1 (chief complaint)ins omnia1 (chief complaint)fib romyalgia1 (chief complaint) Shortness of breathAcute bronchitisFibrom yalgiaInsomnia Sep- 7 Samuel Andrews. [address], [place], [place], [address] , [place]. tel:[phone] Referring Provider: Darryl Baker, [address], [place], [place], [address]. tel:[phone] OFFICE/OUTPA TIENT VISIT, [facility], [address] [place] [address], [place] tel:[phone] [facility] jonit pain1 (chief complaint)anx iety1 (chief complaint)ost eoporosis1 (chief complaint)brant t pain1 (chief complaint)SOB (chief complaint) Shortness of breathOsteoporos isInsomniaFibrom yalgia 7 Samuel Andrews. [address], [place], [place], [address] , [place]. tel:[phone] Referring Provider: Darryl Baker [address] [facility] [address], [place], [place], [address]. tel:[phone] OFFICE/OUTPA TIENT VISIT, [facility], [address] [place], [address], [place] tel:[phone] [facility] osteoporosis1 (chief complaint)fib romyalgia1 (chief complaint)ins omnia1 (chief complaint)gill al cyst1 (chief complaint) InsomniaFibromya lgiaOsteoporosis Acquired renal cyst 7 Samuel Andrews. [address] [facility] [address], [place], [place], [address] , [place]. tel:[phone] OFFICE/OUTPA TIENT VISIT, [facility], [address] [place] [address], [place] tel:[phone] [facility] fibromyalgia1 (chief complaint)ins omnia1 (chief complaint) FibromyalgiaInso mnia 7 Samuel Garcia [address], [address], [place], [place], [address] , [place]. tel:[phone] OFFICE/OUTPA TIENT VISIT, [facility], [address], [place], [place], [address], [place] tel:[phone] [facility] insomnia1 (chief complaint)fib romyalgia1 (chief complaint)fat igue1 (chief complaint)HTN (chief complaint) FibromyalgiaFati gueInsomniaEssen tial (primary) hypertension Samuel Garcia [address], [address], [place], [place], [address] , [place]. tel:[phone] Referring Provider: Betty Zelaya [address], [place], [place], [address]. tel:[phone] OFFICE/OUTPA TIENT VISIT, [facility], [address], [place], [place], [address], [place] tel:[phone] [facility] Medicine fatigue1 (chief complaint)lef t shoulder pain1 (chief complaint)ost eoporosis1 (chief complaint)fib romyalgia1 (chief complaint)ins omnia1 (chief complaint) FatigueOsteoporo sisFibromyalgiaI nsomnia 7 Samuel Garcia [address], [address], [place], [place], [address] , [place]. tel:[phone] Referring Provider: Betty Zelaya [address], [place], [place], [address]. tel:[phone] OFFICE/OUTPA TIENT VISIT, [facility], [address], [place], [place], [address], [place] tel:[phone] [facility] Medicine fibromyalgia1 (chief complaint)anx iety1 (chief complaint)fat igue1 (chief complaint) FatigueGeneraliz ed anxiety disorderFibromya lgia 7 Samuel Garcia [address], [place], [place], [address] , [place]. tel:[phone] Referring Provider: Betty Zelaya [address], [place], [place], [address]. tel:[phone] OFFICE/OUTPA TIENT VISIT, [facility], [address], [place], [place], [address], [place] tel:[phone] [facility] fibromyalgia1 (chief complaint)ost eoporosis1 (chief complaint)anx iety1 (chief complaint)ski n CA1 (chief complaint) OsteoporosisFibr omyalgiaGenerali zed anxiety disorderBasal cell carcinoma of skin, unspecified February-3 0 7 Samuel Andrews. [address], [place], [place], [address] , [place]. tel:[phone] Referring Provider: Betty Zelaya [address], [place], [place], [address]. tel:[phone] OFFICE/OUTPA TIENT VISIT, [facility], [address], [place], [place], [address], [place] tel:[phone] [facility] osteoporosis1 (chief complaint)HTN (chief complaint)fib romyalgia1 (chief complaint)ins omnia1 (chief complaint) OsteoporosisChro meera pain syndromeGenerali zed anxiety disorderEssentia l (primary) hypertension February-0 2 7 Samuel Andrews. [address], [place], [place], [address] , [place]. [phone] Referring Provider: Betty Zelaya [address], [place], [place], [address]. tel:[phone] OFFICE/OUTPA TIENT VISIT, [facility], [address], [place], [place], [address], [place] tel:[phone] [facility] anxiety1 (chief complaint)fib romyalgia1 (chief complaint) FibromyalgiaGene ralized anxiety disorder Jan-0 201 7 Samuel Anrdews. [address], [place], [place], [address] , [place]. tel:[phone] Referring Provider: Darryl Baker [address], [place], [place], [address]. tel:[phone] OFFICE/OUTPA TIENT VISIT, [facility], [address], [place], [place], [address], [place] tel:[phone] [facility] fibromyalgia1 (chief complaint)anx iety1 (chief complaint) FibromyalgiaGene ralized Anxiety Disorder 7 Samuel Andrews. [address], [place], [place], [address] , [place]. tel:[phone] Referring Provider: Betty Zelaya [address], [place], [place], [address]. tel:[phone] OFFICE/OUTPA TIENT VISIT, [facility], [address], [place], [place], [address], [place] tel:[phone] [facility] jont pain (chief complaint)anx iety1 (chief complaint)ost eoprosis1 (chief complaint) Chronic pain syndromeGenerali zed Anxiety DisorderOsteopor osis 7 Samuel Andrews. [address], [place], [place], [address] , [place]. tel:[phone] Referring Provider: Betty Zelaya [address], [place], [place], [address]. tel:[phone] OFFICE/OUTPA TIENT VISIT, [facility], [address], [place], [place], [address], [place] tel:[phone] [facility] anxiety1 (chief complaint)fib romyalgia (chief complaint)elb ow pain1 (chief complaint)HLP (chief complaint) Chronic pain syndromeGenerali zed Anxiety DisorderPain in right elbow 7 Samuel Andrews. [address], [place], [place], [address] , [place]. tel:[phone] Referring Provider: Betty Zel[address], [place], [place], [address]. tel:[phone] PREV VISIT, EST, 65 & OVER [facility], [address], [place], [place], [address], [place] tel:[phone] [facility] PHysical (chief complaint) Encntr for general adult medical exam w/o abnormal findings 6 Samuel Andrews. [address], [place], [place], [address] , [place]. tel:[phone] Referring Provider: Betty Zelaya [address], [place], [place], [address]. tel:[phone] OFFICE/OUTPA TIENT VISIT, [facility], [address], [place], [address], [place] tel:[phone] [facility] chronic pain1 (chief complaint)anx iety1 (chief complaint) FibromyalgiaGene ralized Anxiety Disorder 6 Samuel Andrews. [address], [place], [place], [address] , [place]. tel:[phone] Referring Provider: Betty Zelaya [address], [place], [place], [address]. tel:[phone] OFFICE/OUTPA TIENT VISIT, [facility], [address], [place], [place], [address], [place] tel:[phone] [facility] fibromyalgia1 (chief complaint)anx iety1 (chief complaint) FibromyalgiaGene ralized Anxiety Disorder 6 Samuel Andrews. [address], [place], [place], [address] , [place]. tel:[phone] Referring Provider: Betty Zel[address], [place], [place], [address]. tel:[phone] OFFICE/OUTPA TIENT VISIT, [facility], [address], [place], [place], [address], [place] tel:[phone] [facility] fibromyalgia1 (chief complaint)anx iety1 (chief complaint)vis ion change (chief complaint) FibromyalgiaGene ralized Anxiety Disorder 6 Samuel Andrews. [address], [place], [address] , [place]. [phone] Referring Provider: Betty Zelaya [address], [place], [place], [address]. tel:[phone] OFFICE/OUTPA TIENT VISIT, [facility], [address], [place], [place], [address], [place] tel:[phone] [facility] neck pain1 (chief complaint) Spasmodic torticollis 0 6 Samuel Andrews. [address], [place], [place], [address] , [place]. tel:[phone] Referring Provider: Betty Zelaya [address], [place], [place], [address]. tel:[phone] OFFICE/OUTPA TIENT VISIT, [facility], [address], [place], [place], [address], [place] tel:[phone] [facility] chronic pain (chief complaint)anx iety1 (chief complaint)HTN (chief complaint) FibromyalgiaGene ralized Anxiety DisorderEssentia l (primary) hypertension 6 Samuel Andrews. [address], [place], [place], [address] , [place]. tel:[phone] Referring Provider: Betty Zelaya [address], [place], [place], [address]. tel:[phone] OFFICE/OUTPA TIENT VISIT, [facility], [address], [place], [place], [address], [place] tel:[phone] [facility] chronic pedro (chief complaint)anx iety1 (chief complaint) Chronic pain syndromeGenerali zed Anxiety Disorder 6 Samuel Andrews. [address], [place], [address] , [place]. tel:[phone] Referring Provider: Betty Zelaya [address], [place], [place], [address]. tel:[phone] OFFICE/OUTPA TIENT VISIT, [facility], [address], [place], [place], [address], [place] tel:[phone] [facility] chrnoic pain (chief complaint)Anx iety1 (chief complaint) FibromyalgiaGene ralized Anxiety Disorder 6 Samuel Andrews. [address], [place], [place], [address] , [place]. tel:[phone] Referring Provider: Betty Zelaya [address], [place], [place], [address]. tel:[phone] OFFICE/OUTPA TIENT VISIT, [facility], [address], [place], [place], [address], [place] tel:[phone] [facility] fibromyalgia (chief complaint)anx iety1 (chief complaint)HTN 1 (chief complaint) FibromyalgiaEsse ntial (primary) hypertensionGene ralized anxiety disorder 6 Samuel Andrews. [address], [place], [place], [address] , [place]. tel:[phone] Referring Provider: Betty Zelaya [address], [place], [place], [address]. tel:[phone] OFFICE/OUTPA TIENT VISIT, [facility], [address], [place], [place], [address], [place] tel:[phone] [facility] back pain1 (chief complaint)anx iety1 (chief complaint) FibromyalgiaGene ralized Anxiety Disorder 6 Samuel Andrews. [address], [place], [place], [address] , [place]. tel:[phone] Referring Provider: Betty Zelaya [address], [place], [place], [address]. tel:[phone] OFFICE/OUTPA TIENT VISIT, [facility], [address], [place], [place], [address], [place] tel:[phone] [facility] HTN (chief complaint)anx iety1 (chief complaint)fib romyalgia (chief complaint)ost eoporosis1 (chief complaint) Other chronic painOsteoporosis Generalized Anxiety DisorderEssentia l (primary) hypertension 6 Samuel Andrews. [address], [place], [place], [address] , [place]. tel:[phone] Referring Provider: Betty Zelaya [facility] A, [place], [place], [address]. tel:[phone] OFFICE/OUTPA TIENT VISIT, [facility], [address] [place], [address], [place] tel:[phone] [facility] HTN1 (chief complaint)fib romyalgia1 (chief complaint)anx iety1 (chief complaint)fat igue1 (chief complaint) FibromyalgiaGene ralized Anxiety DisorderSleep apneaEssential (primary) hypertension 6 Samuel Garcia [address], [place], [place], [address] , [place]. tel:[phone] Referring Provider: Betty Zelaya [facility] A, [place], [place], [address]. tel:[phone] OFFICE/OUTPA TIENT VISIT, [facility], [address] [facility] [place] [address], [place] tel:[phone] [facility] HTN1 (chief complaint)ost eoporosis1 (chief complaint)Fib romyalgia1 (chief complaint)anx iety1 (chief complaint) Essential (primary) hypertensionFibr omyalgiaGenerali zed anxiety disorderOsteopor osis 5 Samuel Andrews. [address], [address], [place], [place], [address] , [place]. tel:[phone] Referring Provider: Betty Zelaya [place], [address]. tel:[phone] OFFICE/OUTPA TIENT VISIT, [facility], [address] [place], [address], [place] tel:[phone] [facility] HTN1 (chief complaint)Anx iety1 (chief complaint)fib romyalgia1 (chief complaint) FibromyalgiaGene ralized anxiety disorderEssentia l (primary) hypertensionAcqu ired renal cyst 5 Samuel Andrews. [address], [place], [place], [address] , [place]. tel:[phone] Referring Provider: Betty Zelaya [address], [place], [place], [address]. tel:[phone] OFFICE/OUTPA TIENT VISIT, [facility], [address], [place], [place], [address], [place] tel:[phone] [facility] insulin resistance1 (chief complaint)anx iety1 (chief complaint)HTN 1 (chief complaint)gill al cyst1 (chief complaint) FibromyalgiaMeta bolic syndromeAcquired renal cystEssential (primary) hypertension 5 Samuel Garcia [address], [place], [place], [address] , [place]. tel:[phone] Referring Provider: Betty Zel[address], [place], [place], [address]. tel:[phone] OFFICE/OUTPA TIENT VISIT, [facility], [address] [place], [address], [place] tel:[phone] [facility] Anxiety (chief complaint)fib romyalgia (chief complaint)glu cose (chief complaint) Dietary surveillance and counselingHyperg lycemiaProteinur iaGeneralized anxiety disorderUnspecif ied essential hypertension 5 Samuel Garcia [address], [place], [place], [address] , [place]. tel:[phone] Referring Provider: Betty Zel[address], [place], [place], [address]. tel:[phone] PREV VISIT, EST, 65 & OVER [facility], [address], [place], [place], [address], [place] tel:[phone] [facility] Physical (chief complaint) Routine medical exam 5 Samuel Garcia [address], [place], [place], [address] , [place]. tel:[phone] Referring Provider: Betty Zelaya [address], [place], [place], [address]. tel:[phone] OFFICE/OUTPA TIENT VISIT, [facility], [address], [place], [place], [address], [place] tel:[phone] [facility] osteoporosis (chief complaint)Crh oinc pain (chief complaint)Anx eity (chief complaint) OsteoporosisFibr omyalgiaGenerali zed anxiety disorder 5 Samuel Andrews. [address], [place], [place], [address] , [place]. tel:[phone] Referring Provider: Betty Zelaya [address], [place], [place], [address]. tel:[phone] OFFICE/OUTPA TIENT VISIT, [facility], [address], [place], [place], [address], [place] tel:[phone] [facility] fibromyalgia (chief complaint)anx iety (chief complaint)ost eoporosis (chief complaint) Dietary surveillance and counselingMyalgi a and myositis, unspecifiedGener alized anxiety disorderMalignan t neoplasm of central portion of female breastOther osteoporosis 5 Samuel Andrews. [address], [place], [place], [address] , [place]. tel:[phone] Referring Provider: Betty Zelaya [address], [place], [place], [address]. tel:[phone] OFFICE/OUTPA TIENT VISIT, [facility], [address], [place], [place], [address], [place] tel:[phone] [facility] sinus symptoms (acute) (chief complaint)chr onic pain (chief complaint)anx iety (chief complaint)ost eoporosis (chief complaint) Other and unspecified diseases of upper respiratory tractInsomnia, OtherOther osteoporosisMyal laly and myositis, unspecified Dec- 5 Samuel Andrews. [address], [place], [place], [address] , [place]. tel:[phone] Referring Provider: Betty Zelaya [address], [place], [place], [address]. tel:[phone] OFFICE/OUTPA TIENT VISIT, [facility], [address], [place], [place], [address], [place] tel:[phone] [facility] osteoporosis (chief complaint)cou gh (chief complaint)dona n (chief complaint)anx iety (chief complaint) Dietary surveillance and counselingOther osteoporosisGene ralized anxiety disorderBronchit is, AcuteOpioid type dependence, unspecified use 5 Samuel Andrews. [address], [place], [place], [address] , [place]. tel:[phone] Referring Provider: Betty Zelaya [facility] [address], [place], [place], [address]. tel:[phone] OFFICE/OUTPA TIENT VISIT, [facility], [address], [place], [place], [address], [place] tel:[phone] [facility] chronic pain (chief complaint)Anx iety (chief complaint)HTN (chief complaint) Dietary surveillance and counselingLumbag oPain in joint involving pelvic region and thighHypertensio n, UnspecifiedGener alized anxiety disorder 5 Samuel Andrews. [address], [place], [place], [address] , [place]. tel:[phone] Referring Provider: Betty Zelaya [address], [place], [place], [address]. [phone] OFFICE/OUTPA TIENT VISIT, [facility], [address] [place], [address], [place] tel:[phone] [facility] chronic pain (chief complaint)anx iety (chief complaint) Dietary surveillance and counselingMyalgi a and myositis, unspecifiedGener alized anxiety disorder 4 Samuel Andrews. [address], [place], [place], [address] , [place]. tel:[phone] Referring Provider: Betty Zelaya [facility] [address], [place], [place], [address]. tel:[phone] OFFICE/OUTPA TIENT VISIT, [facility], [address], [place], [place], [address], [place] tel:[phone] [facility] osteoporosis (chief complaint)chr onic pain (chief complaint)ins omnia (chief complaint)quinten er cyst (chief complaint) Dietary surveillance and counselingOther osteoporosisGene ralized anxiety disorderCHRONIC PAIN NECSynovial cyst of popliteal space 4 Samuel Garcia [address] [facility] [address], [place], [place], [address] , [place]. tel:[phone] Referring Provider: Betty Zelaya [facility] [address], [place], [place], [address]. tel:[phone] OFFICE/OUTPA TIENT VISIT, [facility], [address], [place], [place], [address], [place] tel:[phone] [facility] leg pain (chief complaint)ost eoporosis (chief complaint)HTN (chief complaint) Pain in joint involving lower legOther osteoporosisCHRO MEERA PAIN NECHypertension, Unspecified 4 Samuel Garcia [address], [facility] [address], [place], [place], [address] , [place]. tel:[phone] Referring Provider: Betty Zelaya [facility] [address], [place], [place], [address]. tel:[phone] OFFICE/OUTPA TIENT VISIT, [facility], [address], [place], [place], [address], [place] tel:[phone] [facility] osteoporosis (chief complaint)fib romyalgia (chief complaint)anx iety (chief complaint) Other osteoporosisCHRO MEERA PAIN NECGeneralized anxiety disorder 4 Samuel Garcia [address], [facility] [address], [place], [place], [address] , [place]. tel:[phone] Referring Provider: Darryl Baker, [address], [place], [place], [address]. tel:[phone] OFFICE/OUTPA TIENT VISIT, [facility], [address], [place], [place], [address], [place] tel:[phone] [facility] osteoporosis (chief complaint)HLP (chief complaint)A1c (chief complaint)anx iety (chief complaint) Dietary surveillance and counselingOther osteoporosisOthe r and unspecified hyperlipidemiaHy perglycemiaGener alized anxiety disorder 4 Samuel Andrews. [address], [place], [place], [address] , [place]. [phone] Referring Provider: Betty Zelaya [address], [place], [place], [address]. tel:[phone] PREV VISIT, EST, 65 & OVER [facility], [address], [place], [place], [address], [place] tel:[phone] [facility] Physical (chief complaint) Routine Medical ExamDietary surveillance and counselingRoutin e Medical Exam 4 Samuel Andrews. [address], [address], [place], [place], [address] , [place]. [phone] Referring Provider: Betty Zelaya [address], [place], [place], [address]. tel:[phone] OFFICE/OUTPA TIENT VISIT, [facility], [address], [place], [place], [address], [place] tel:[phone] [facility] HTN (chief complaint)fib romyalgia (chief complaint)Ins omnia (chief complaint) Dietary surveillance and counselingHypert ension, UnspecifiedDizzi nessCHRONIC PAIN NEC 4 Samuel Andrews. [address], [place], [place], [address] , [place]. tel:[phone] Referring Provider: Betty Zelaya [address], [place], [place], [address]. tel:[phone] OFFICE/OUTPA TIENT VISIT, [facility], [address], [place], [place], [address], [place] tel:[phone] [facility] SOB (chief complaint)cho rnic pain (chief complaint)Anx iety (chief complaint)diz ziness (chief complaint) Respiratory abnormality, unspecifiedCHRON IC PAIN NECDizzinessGene ralized anxiety disorder 4 Samuel Andrews. [address], [place], [place], [address] , [place]. tel:[phone] Referring Provider: Darryl Baker, Betty [facility] [address], [place], [place], [address]. tel:[phone] OFFICE/OUTPA TIENT VISIT, [facility], [address], [place], [place], [address], [place] tel:[phone] [facility] fibromyalgia (chief complaint)ins omnia (chief complaint)HTN (chief complaint)ost eoporosis (chief complaint) CHRONIC PAIN NECInsomnia, OtherHypertensio n, UnspecifiedOther osteoporosis 4 Samuel Andrews. [address], [place], [place], [address] , [place]. tel:[phone] Referring Provider: Betty Zelaya [facility] [address], [place], [place], [address]. tel:[phone] OFFICE/OUTPA TIENT VISIT, [facility], [address], [place], [place], [address], [place] tel:[phone] [facility] sinus infection (chief complaint)cho rnic pain (chief complaint)ins omnia (chief complaint)sima st pain (chief complaint) Dietary surveillance and counselingSinusi tis, AcuteInsomnia, OtherCHRONIC PAIN NEC 4 Samuel Andrews. [address], [address], [place], [place], [address] , [place]. tel:[phone] Referring Provider: Betty Zelaya [facility] [address], [place], [place], [address]. tel:[phone] OFFICE/OUTPA TIENT VISIT, [facility], [address], [place], [place], [address], [place] tel:[phone] [facility] chronic pain (chief complaint)ins omnia (chief complaint)sima st pain (chief complaint) Dietary surveillance and counselingInsomn ia, OtherPain in joint involving shoulder regionChest Pain, Unspecified 4 Samuel Andrews. [address], [place], [place], [address] , [place]. tel:[phone] Referring Provider: Betty Zelaya [address], [place], [place], [address]. tel:[phone] OFFICE/OUTPA TIENT VISIT, [facility], [address], [place], [place], [address], [place] tel:[phone] [facility] Insomnia (chief complaint)bethany ulder pain (chief complaint)cho rnic pain (chief complaint)fat igue (chief complaint) Insomnia, OtherFatigue / MalaisePain in joint involving shoulder region 4 Samuel Andrews. [address], [place], [place], [address] , [place]. tel:[phone] Referring Provider: Betty Zelaya [address], [place], [place], [address]. tel:[phone] OFFICE/OUTPA TIENT VISIT, [facility], [address], [place], [place], [address], [place] tel:[phone] [facility] shoulder pain (chief complaint)anx iety (chief complaint) Dietary surveillance and counselingPain in joint involving shoulder region 3 Samuel Andrews. [address], [place], [place], [address] , [place]. tel:[phone] Referring Provider: Betty Zelaya [address], [place], [place], [address]. tel:[phone] OFFICE/OUTPA TIENT VISIT, [facility], [address], [place], [place], [address], [place] tel:[phone] [facility] chronic pain (chief complaint)anx iety (chief complaint)diz ziness (chief complaint) Dietary surveillance and counselingCHRONI C PAIN NECDizziness [address] Samuel Andrews. [address], [address], [place], [place], [address] , [place]. tel:[phone] OFFICE/OUTPA TIENT VISIT, [facility], [address], [place], [place], [address], [place] tel:[phone] [facility] dizziness (chief complaint)chr onic pain (chief complaint) Dietary surveillance and counselingDizzin essCHRONIC PAIN NECGeneralized anxiety disorder 3 Samuel Andrews. [address], [address], [place], [place], [address] , [place]. tel:[phone] OFFICE/OUTPA TIENT VISIT, [facility], [address], [place], [place], [address], [place] tel:[phone] [facility] dizziness (chief complaint) VertigoChest Pain, UnspecifiedDieta ry surveillance and counselingOther osteoporosisMusc le weakness (generalized) 3 Samuel Andrews. [address], [address], [place], [place], [address] , [place]. tel:[phone] Referring Provider: Betty Zelaya [facility] [address], [place], [place], [address]. tel:[phone] OFFICE/OUTPA TIENT VISIT, [facility], [address], [place], [place], [address], [place] tel:[phone] [facility] fibromyalgia (chief complaint)HLP (chief complaint)Hyp erglycemia (chief complaint)sharyn ast CA (chief complaint) Dietary surveillance and counselingOther osteoporosisOthe r and unspecified hyperlipidemiaHy perglycemiaCHRON IC PAIN NEC 3 Samuel Andrews. [address], [address], [place], [place], [address] , [place]. tel:[phone] Referring Provider: Betty Zelaya [address], [place], [place], [address]. tel:[phone] OFFICE/OUTPA TIENT VISIT, [facility], [address], [place], [place], [address], [place] tel:[phone] [facility] breast CA (chief complaint)ost eoporosis (chief complaint)chr onic pain (chief complaint) CHRONIC PAIN NECMalignant neoplasm of central portion of female breastOther osteoporosis 3 Samuel Andrews. [address], [address], [place], [place], [address] , [place]. tel:[phone] Referring Provider: Betty Zelaya [facility] Cheryl, [place], [place], [address]. tel:[phone] OFFICE/OUTPA TIENT VISIT, [facility], [address], [place], [place], [address], [place] tel:[phone] [facility] breast CA (chief complaint)chr onic pain (chief complaint)HTN (chief complaint) Malignant neoplasm of central portion of female breastHypertensi on, UnspecifiedCHRON IC PAIN NEC 3 Samuel Garcia [address], [address], [place], [place], [address] , [place]. tel:[phone] Referring Provider: Betty Zelaya [address], [place], [place], [address]. tel:[phone] OFFICE/OUTPA TIENT VISIT, [facility], [address], [place], [place], [address], [place] tel:[phone] [facility] Breast CA (chief complaint)ost eoporosis (chief complaint)anx iety (chief complaint) Dietary surveillance and counselingMalign ant neoplasm of central portion of female breastOther osteoporosisFati alejandra / Malaise [address], [place], [place], [address] , [place]. tel:[phone] Referring Provider: Betty Zelaya [address], [place], [place], [address]. tel:[phone] [facility], [address], [place], [place], [address], [place] tel:[phone] [facility] Medicine Lump or mass in breast 3 Samuel Andrews. [address], [address], [place], [place], [address] , [place]. tel:[phone] Referring Provider: Betty Zelaya [address], [place], [place], [address]. tel:[phone] PREV VISIT, NEW, 65 & OVER [facility], [address], [place], [place], [address], [place] tel:[phone] [facility] Medicine Physical (chief complaint) Dietary surveillance and counselingRoutin e Medical ExamRoutine Medical Exam 3 Samuel Andrews. [address], [address], [place], [place], [address] , [place]. tel:[phone] Referring Provider: Darryl Baker, [address], [place], [place], [address]. tel:[phone] Family History Family Member Type Diagnosis Age At Onset Father Problem (finding) Alcoholism Father Problem (finding) liver cirrhosis Brother Problem (finding) Unknown Disease Mother Problem (finding) arthritis Brother Problem (finding) No Family history of No history of Other Payers Payer name Insurance type Covered alliance party ID Authoriza tion(s) Medicare Of [place] WPS MB [id number] [employer] Senior Supplemental Ins [id number] Social History Type Description Quantity Date Captured Comments Alcohol Use Details No Caffeine Use Details Unknown Tobacco Use Status Never smoked tobacco 2024 Smoking Status Never smoker Sex Female Vital Signs Date / Time: Height Weight BMI Pulse Rate Blood Pressure Temperature Respiratory Rate Body Surface Area Head Circumference BMI percentile Pulse Ox Inhaled Ox 10:01 AM 62.00 in 149.40 lbs 27.3 3 kg/m eter (2) 63 /min 135/88 mm[Hg] 97.5 F 16 /min Chief Complaint And Reason For Visit From encounter dated '04/15/2025 09:53'. pain (chief complaint). Description: Pt has fibromyalgia and chronic back pain Pt takes norco PRN for pain and doing ok. glucose1 (chief complaint). Description: Pt has mildly high A1c. Pt denies any polyuria, polydipsia. osteoporosis1 (chief complaint). Description: pt has osteoporosis. Pt is on fosamax and calcium andD. Her vitamin D is high Pt has low folate fatigue1 (chief complaint). Description: Pt has chronic fatigue .Pt stopped ritalin in te morning and she did not take seroquel at night .Pt states that she does not want to take above meds anymore Plan Of Treatment Date Type Action Status [...] on due Goal Influenza vaccine. Due on Se due Goal Influenza vaccine. Due on due [...] on due Goal Influenza vaccine. Due on Va due Goal Colonoscopy. Due on due Goal [...] on due Goal Influenza vaccine. Due on Oc due Goal Pneumococcal vaccine. Due on due [...] on due Goal Td vaccine. Due on 19 due Goal Td vaccine. Due on 19 due Goal Depression screening. Due on due [...] on due Goal Td vaccine. Due on 19 due Goal Td vaccine. Due on due [...] on 18 due Goal Colonoscopy. Due on 018 due Goal Zoster vaccine. Due on due Goal Cognitive assessment. Due on due Goal Pneumococcal vaccine. Due on due Goal Sigmoidoscopy. Due on due Goal Influenza vaccine. Due on due Goal FOBT. Due on due Goal Cognitive assessment. Due on due Goal Depression screening. Due on due Goal Td vaccine. Due on 18 due Goal Zoster vaccine. Due on due [...] on 18 due Goal Colonoscopy. Due on 017 due [...] Goal Td vaccine. Due on due Goal Pneumococcal vaccine. [...] Td vaccine. Due on 17 due Goal FOBT. Due on due Goal [...] Goal Td vaccine. Due on due Goal Pneumococcal vaccine. [...] Goal Td vaccine. Due on due Goal Pneumococcal vaccine. [...] Due on due Goal Colonoscopy. Due on 015 due Goal FOBT. Due on due Goal [...] ordered Referral Referred To: Suleman Arteaga [address], [place], [id number] Ordered: Referrals: Allopathic & Osteopathic Physicians : [...] -Podiatric Medicine & Surgery Service Providers : Shipper (related to Dermatophytosis of nail) ordered Referral Referred To: VERN DILL [address] [facility],[address] [place], [place], [phone] Ordered: Referrals: Podiatric Medicine & Surgery Service Providers : Shipper. VERN DILL. Evaluate and treat ordered Referral Ordered: Galo Hagan -Allopathic & Osteopathic Physicians : Internal Medicine : Cardiovascular Disease (related to Nonrheumatic mitral valve prolapse) ordered Referral Referred To: Galo Hagan [address] [place], [place] [id number] Ordered: Referrals: Allopathic & Osteopathic Physicians : Internal Medicine : Cardiovascular Disease. Galo Hagan. Evaluate and treat ordered Referral Referred To: Carlos Acharya MD [address] [place], [place], [id number] Ordered: Referrals: Carlos Acharya MD Evaluate and treat ordered Referral Ordered: CT MAXILLOFACIAL W/O DYE (SINUSES) SF ordered Referral Ordered: CHEST X-RAY PA/LAT TWO-VIEWS ordered Referral Ordered: Tiff Connors (related to Osteoporosis) ordered Referral Referred To: Tiff Connors [address] [place], [place] [id number] Ordered: Referrals: Tiff Connors. Evaluate and treat [...] DOPPLER ECHO EXAM, HEART ordered Referral Ordered: [facility] (related to Malignant neoplasm of central portion of female br) ordered Referral Ordered: Oncology/Sub-specialty (related to Malignant [...] AXIAL ordered Referral Ordered: MAMMOGRAM, SCREENING ordered Appointment Elham uNñez BOOKED History Of Present Illness Encounter Date Complaint History Of Prese nt Illness pain Pt has fibromyal laly and chronic back pain Pt takes norco PRN for pain and doing ok. glucose1 Pt has mildly hi gh A1c. Pt denies any polyuria, polydipsia. osteoporosis1 pt has osteoporo sis. Pt is on fosamax and calcium and D. Her vitamin D is high Pt has low folate fatigue1 Pt has chronic f atigue .Pt stopped ritalin in te morning and she did not take seroquel at night .Pt states that she does not want to take above meds anymore visual1 Pt has chronic i nsomnia and RLS .Pt take mirapex qhs and she still has difficulty falling asleep. Pt has chronic fatigue and she seems mentally declining recently with some confusion. Pt tried to remove the seat belt during traffic light this morning. Pt just feel overall very fatigue. Pt tries to use cpap but she is not compliant to use every night. pain Pt has fibromyal laly and chronic back pain Pt takes norco PRN for pain and doing ok. weight loss1 Pt has been losi ng weight with poor appetite. Pt lost 15 pounds since last month. Pt states that she does not want to eat very much Pt denies any early satiety, nausea and vomiting hip pain1 Pt c/o left hip pain Pt denies any injury ,Pt saw ortho and was referred to PT. fibromyalgia1 Pt has fibromyal laly and chronic back pain Pt takes norco PRN for pain and doing ok. hypersomnia1 Pt has chronic h ypersomnia Pt is on ritalin which does help Pt still feels fatigue towards afternoon but overall she is doing better . HTN Pt has mild HTN today Pt denies any chest pain or headache Pt is not on any bp meds. Her BP tends to fluctuates fibromyalgia1 Pt has fibromyal laly and chronic back pain Pt takes norco PRN for pain and doing ok. RLS Pt has RLS .Pt i s on mirapex and she started neurontin qhs since last week and her RLS is better. 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 Pt failed vyvanse and adderall. Pt has sleep apnea but she does not use cpap nightly. Nuvigil is not covered by insurance. cough1 Pt has persisten t dry cough for several months Pt denies any chest pain or sob or fever or hemoptysis . pt denies any wheezing. Pt did not excelsior picker fluticasone/salmeterol yet due to insurance coverage [...] pt denies any wheezing. Pt did not excelsior picker fluticasone/salmeterol yet fibromyalgia1 Pt has fibromyal [...] not work as well as 10 mg RLS Pt has RLS .Pt s tates that she has the urge to move her leg and also feels some tenderness all over her leg at night. Pt has to move her leg around to help. pt states that requip is not working HTN Pt has HTn. Pt t akes losartan and her bp is stable allergy Pt has chronic s inus allergy .Pt failed flonase and atrovent nasal spray Pt saw keg raiser who recommended sinu surgery but she is [...] the time Pt also never did colonguard. allergy Pt has chronic s inus allergy Pt has chronic running nose. Pt does NOT want nasal inhalers Pt also did not think singulair or OTC anti histamine helped either. Pt has nena with keg raiser specialist next week fibromyalgia Pt has fibromyal laly. Pt takes [...] allergy worse. Pt has not heard from funding specialist yet leg1 Pt has ? restles s leg syndrome .Pt never picked up requip. she does not know why allergy1 Pt has seasonal allergy which is not well controlled. Pt failed flonase and singulair. Pt states that cpap makes the allergy worse. sleep apnea1 Pt has sleep hedge fund principal ea and she has been using cpap [...] has chronic neuropathy sleepapnea1 Pt has sleep hedge fund principal ea Pt started cpap two weeks ago [...] and she is waiting for cpap from [facility]. Pt denies any other complaints osteoporosis Pt has osteoporo sis. Pt just had prolia shot and she had lab done by jamarcus and she was told to cut down [...] or headache sleep apnea1 Pt has sleep hedge fund principal ea. Pt is seeing pulmonary and she [...] her HTN sleep apnea1 Pt has sleep hedge fund principal ea Pt feels fatigue Pt is not [...] t akes norvasc and losartan and her supervisor cab started her on hydralazine recently. Her bp [...] failed neurontin sleep apnea1 Pt has sleep hedge fund principal ea Pt is noncompliant with CPAP. Pt will see sleep specialist soon and she needs a copy of the sleep study results sleep apnea1 Pt has sleep hedge fund principal ea but she could not tolerate CPAP. Pt has nena with cpap specialist in august. Pt still feels fatigue. Pt does have sinus allergy and she is seeing ENT now but she needs to see sleep apnea specialist first before returning to ENT. osteoporosis1 Pt has osteoporo sis. Pt takes [...] to 159. Pt went to see her supervisor cab yesterday and was started on norvasc 5 mg in addition to daily losartan. Her bp is ok today in office . sleep apnea1 Pt has sleep hedge fund principal ea pt could not tolerate cpap. Pt [...] any edema sleep apnea1 Pt has sleep hedge fund principal ea and chronic fatigue and some vertigo [...] prolia every 6 months Pt sees endo GERD1 Pt has GERD Pt t zack pepcid [...] around 130/70. Pt is off norvasc . fibromyalgia1 Pt has fibromyal laly. Pt [...] and her bp was too low and supervisor cab told her to stop norvasc and take [...] left radiculopathy. Pt is seeing ortho at [facility] and she was started on cymbalta 30 mg recently which partially helped her left arm paresthesia. Pt denies any cold extremity or any finger discoloration pain Pt has insomnia Pt takes klonopin qhs prn. . Pt has sleep apnea but she does not use cpap. Pt denies any depression or any suicidal thought. insomnia Pt has insomnia Pt takes klonopin qhs prn. . Pt has sleep apnea but she does not use cpap. Pt denies any depression or any suicidal thought. Pt denies any crying spells constipation1 Pt has chronic c onstipation Pt takes laxative OTC frequently Pt saw her rn neonatal and was started on linzess 72 mcg which caused some diarrhea. Pt denies any abd pain Pt denies any blood in stool. fatigue Pt feels chronic fatigue Pt has significant sleep apnea but she could not tolerate the cpap. Pt denies any sob insomnia1 Pt has insomnia Pt takes klonopin qhs prn. . Pt has sleep apnea but she does not use cpap. Pt denies any depression or any suicidal thought. pain Pt has fibromyal laly. Pt takes norco PRN for pain Pt failed neurontin. Pt failed NSAID and ultram ,Pt doing ok with norco Pt denies any worsening pain osteoporosis Pt has osteoporo sis. Pt takes [...] of taste and smell. Pt wants abx insomnia1 Pt has insomnia Pt takes klonopin qhs prn. . Pt does have some snoring Pt denies any depression or any suicidal thought. Pt is noncompliant with cpap fibromyalgia1 Pt has fibromyal laly. Pt takes [...] [facility] and was told she has osteoporosis hyponatremia1 [...] osteoporosis shot sleep apnea1 Pt has sleep hedge fund principal ea. Pt is still noncompliant with CPAP. [...] suicidal thought sleep apnea1 Pt has sleep hedge fund principal ea. Pt has been using a new [...] she needs heated hose? Pt states that semaj told her she needs that. Pt has [...] lab fasting sleep apnea1 Pt has sleep hedge fund principal ea Pt is waiting for CPAP set [...] suicidal thought sleep apnea1 Pt has sleep hedge fund principal ea Pt feels fatigue and cloudy brained [...] Her sister told me it helped her? Dec-06-2018 fibromyalgia1 Pt has fibromyal laly and chronic [...] pain HTN Pt has HTn. Pt t akes willowvasc and her BP is slightly high. Pt [...] pain oral numbness 1 Pt states that h e wakes up last week and feels some [...] or any suicidal thought fibromyalgia Additional infor mation: Pt has fibromyalgia. Pt atkes norco for [...] spells fibromyalgia Additional infor mation: Pt has fibromyalgia. Pt takes norco for [...] or any suicidasl thought. fibromyalgia Additional infor mation: Pt has fibromyalgia. Pt takes norco PRN [...] denies any other complaints osteoporosis Additional infor mation: Pt has osteoporosis. Pt is taking fosamax [...] suicidal thought Instructions Date Instruction Additional Infor mation Weight management Related to Ins omnia Special diet education Related t o Body mass index (BMI) 25.0-25.9, adult Weight gain advised Related to B sandro mass index (BMI) 24.0-24.9, adult Increase physical activity Relat ed to Allergic rhinitis Weight gain advised Related to B sandro mass index (BMI) 24.0-24.9, adult Medications as instructed Relate d to Fibromyalgia Follow a low sodium diet. [...] surveillance counseling Assessments Type Assessment Date assessment Osteoporosis assessment Fatigue assessment Fibromyalgia assessment Folate deficiency assessment Hyperglycemia Mental Status Date Cognitive Assessment Orientation - [place] ed to time, place, person, situation.
[2025-05-16 16:08] VITALS: BP 160/80; PULSE 90; RESP 20; TEMP 36.4; O2SAT 97
--- NOTE | 2025-05-16 16:56 | ED.GENADULT ---
HPI - General Adult General Chief complaint: Extremity Injury, Upper Stated complaint: L arm pain after broken arm yesterday Time Seen by Provider: 05/16/25 16:25 History of Present Illness HPI narrative: 80-year-old female presents to the emergency department for evaluation for persistent left elbow pain. Patient has had elbow pain for the last 4 days. Patient did have follow-up with urgent care yesterday and was diagnosed with a radial head fracture. Patient reports she was not provided outpatient follow-up with Orthopedics. Patient was provided [place] for pain control. Patient does have a sling that she states is not helping to immobilize the left arm. Patient states he did use ice and did seem to help a small amount. Related Data Home Medications ?Medication ?Instructions ?Recorded ?Confirmed ?Last Taken ?Type hydroxypropyl cellulose 5 mg eye mg ophthalmic (eye) 10/07/19 04/20/25 Unknown History inserts (Lacrisert) sodium chloride 2 % eye drops 1 drop ophthalmic (eye) DAILY 10/07/19 04/20/25 Unknown History (Yecenia 128) timolol 0.5 % eye drops (Betimol) 1 drop ophthalmic (eye) Q12H 10/07/19 04/20/25 Unknown History famotidine 40 mg tablet (Pepcid) 40 mg PO DAILY 04/28/21 04/20/25 Unknown History alendronate 70 mg tablet 70 mg PO WEEKLY 02/27/24 04/20/25 Unknown History calcium carbonate (Calci-Mix) 600 mg PO DAILY 03/04/25 04/20/25 Unknown History hydrocodone 10 mg-acetaminophen 1 tablet PO Q8H PRN 03/04/25 04/20/25 Unknown History 325 mg tablet pramipexole 0.125 mg tablet 1 mg PO QHS 03/04/25 04/20/25 Unknown History Allergies Allergy/AdvReac Type Severity Reaction Status Date / Time Sulfa (Sulfonamide Allergy Unknown Unknown Verified 05/16/25 16:19 Antibiotics) trimethoprim Allergy Unknown Unknown Verified 05/16/25 16:19 Review of Systems Review of Systems: All systems reviewed & are unremarkable except as noted in HPI and below PMFSH Past Medical History Medical History (Updated 05/16/25 @ 17:00 by Gino Delgadillo MD) History of cleft palate History of skin cancer History of high cholesterol 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 Chronic left hip pain Essential hypertension History of breast cancer Skin neoplasm Stage IV hemorrhoids Surgical History Surgical History History of bladder surgery History of repair of congenital cleft palate performed around 1946 History of hysterectomy performed around 1973 History of eye surgery repair of crossed eyes History of cataract surgery Status post surgical removal of malignant neoplasm of skin performed around 2016 History of hip surgery happened in 2011 History of right mastectomy happened in 2012 History of left mastectomy happened in 1989 History of surgery on arm 2019 Family History Family History Sibling Family history of malignant neoplasm of cervix Family history of lung cancer, Onset Age: 59 Heart disease Stomach cancer Brain cancer Diabetes mellitus Arthritis Parkinson disease Father Family history of alcoholism Cirrhosis Mother Family history of arthritis Cerebrovascular accident Daughter Arthritis Sleep apnea Lung cancer Allergies Other Diabetes mellitus Heart disease Lung cancer Brain cancer Stomach cancer Hypertension Cerebrovascular accident Social History Social History Smoking status: Never smoker Alcohol intake: never Current Housing: Decline to Answer Concerned About Future Housing: Decline to Answer Difficulty Paying Gas/Electric Bills: Decline to Answer Difficulty Paying for Meds: Decline to Answer Currently Unemployed: Decline to Answer Education: Decline to Answer Difficulty w/ Childcare or Family Care: Decline to Answer Living arrangements: with family Additional living arrangements comments: living with her 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 HEAD: normocephalic, atraumatic. EYES: PERRLA/EOMI, conjunctivae clear. NOSE: Normal no drainage EARS:TMS clear with good light reflex. THROAT: Pharynx clear, no exudate. NECK: Supple. No adenopathy, no masses. RESPIRATORY: Airway patent, respirations nonlabored. Clear to auscultation bilaterally, no rales, rhonchi, wheezing. CARDIOVASCULAR: Regular rate and rhythm without murmurs rubs or gallops. ABDOMINAL: Soft, nontender, nondistended, normal bowel sounds MUSCULOSKELETAL: Left elbow tenderness to palpation NEURO: Alert. Cranial nerves II through XII intact. Good gait. Good coordination SKIN: Warm, dry. Normal Color Course Vital Signs Vital signs: Vital Signs Temperature 97.6 F 05/16/25 16:08 Pulse Rate 90 05/16/25 16:08 Respiratory Rate 20 05/16/25 16:08 Blood Pressure 160/80 H 05/16/25 16:08 Pulse Oximetry 97 05/16/25 16:08 Temperature 97.6 F 05/16/25 16:08 Pulse Rate 90 05/16/25 16:08 Respiratory Rate 20 05/16/25 16:08 Blood Pressure 160/80 H 05/16/25 16:08 Pulse Oximetry 97 05/16/25 16:08 Medical Decision Making MDM Narrative Medical decision making narrative: 80-year-old female present to the ED for evaluation for left elbow pain. Patient did have a poorly fitting sling. Patient was provided a shoulder immobilizer to provide more support. Patient does have [place] at home for pain control. Patient will be provided a outpatient follow-up with Orthopedics. All questions concerns were addressed patient family are comfortable the plan for discharge and close follow-up. Vital Signs Vital Signs: Vital Signs Temperature 97.6 F 05/16/25 16:08 Pulse Rate 90 05/16/25 16:08 Respiratory Rate 20 05/16/25 16:08 Blood Pressure 160/80 H 05/16/25 16:08 Pulse Oximetry 97 05/16/25 16:08 Temperature 97.6 F 05/16/25 16:08 Pulse Rate 90 05/16/25 16:08 Respiratory Rate 20 05/16/25 16:08 Blood Pressure 160/80 H 05/16/25 16:08 Pulse Oximetry 97 05/16/25 16:08 Discharge Plan Discharge Clinical Impression: Closed fracture of radial head Patient Disposition: Home Condition: Stable Instructions: Antibiotic Form, Elbow Fracture (DC), Shoulder Immobilizer (ED) Additional Instructions: Take your prescribed [place] as directed for pain control. Utilize the sling or the shoulder immobilizer for stability and comfort. Have close follow-up with Orthopedics. Close follow-up with her primary care physician. If you have any worsening symptoms then please call or return to the emergency department. Patient Language: Mosoth[place] Prescriptions: No Action famotidine [Pepcid] 40 mg tablet 40 mg PO DAILY alendronate 70 mg tablet 70 mg PO WEEKLY aspirin [Adult Low Dose Aspirin] 81 mg tablet,delayed release (DR/EC) 81 mg PO DAILY Qty: 30 0RF Betimol 0.5 % drops 1 drop EACH EYE Q12H Lacrisert 5 mg insert EACH EYE Yecenia 128 2 % drops 1 drop EACH EYE DAILY Calci-Mix 500 mg calcium (1,250 mg) capsule 600 mg PO DAILY pramipexole 0.125 mg tablet 1 mg PO QHS hydrocodone-acetaminophen 10-325 mg tablet 1 tablet PO Q8H PRN Follow-up/Referrals: Darryl Baker MD [Primary Care Provider] - Jose Marcano MD [Physician] -
--- OUTSIDE RECORDS SUMMARY | 2025-05-16 17:13 | XMS_ITS | Clinical Summary ---
Author Organization [facility] Address [address] [place] [address] Care Team Providers Care Watermaster Name Role Phone Darryl Baker MD Primary Care Provider [phone] Source Comments [facility],non-owned Affiliates and Associated Physician Practices is amultiple site organization consisting of ambulatory clinics and hospital sitesin [place], [place], [place] and [place]. This disclosure is being madepursuant to the Care Everywhere program and may not contain all information available regarding this patient. Last updated 18.[facility] Allergies Active Allergy Reactions Criticality Noted Date Comments Cyclobenzaprine Unknown 05/08/2022 Erythromycin Other Low 11/11/2019 Escitalopram Other Low 11/11/2019 Rash Away Rash Medium 11/09/2022 Sulfamethazine Other Low 03/25/2013 Trimethobenzamide Unknown 03/25/2013 Trimethoprim Unknown 03/25/2013 Medications * Be aware that medications may not be up to date on this document. Alwaysverify current medications with the patient. 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 on file Not on file Not on file Last Filed Vital Signs Vital Sign Reading Time Taken Comments Blood Pressure 133/78 11/09/2022 8:58 AM CONSERVATION COORDINATOR Pulse 77 11/09/2022 8:58 AM CONSERVATION COORDINATOR Temperature 36.7 C (98.1 F) 05/08/2022 12:35 PM CDT Respiratory Rate - - Oxygen Saturation 98% 12/31/2017 8:50 AM CONSERVATION COORDINATOR Inhaled Oxygen Concentration - - Weight 73 kg (161 lb) 11/09/2022 8:58 AM CONSERVATION COORDINATOR Height 157.5 cm (5' 2) 11/09/2022 8:58 AM CONSERVATION COORDINATOR Body Mass Index 29.45 11/09/2022 8:58 AM CONSERVATION COORDINATOR Plan of Treatment Health Maintenance Due Date [...] this topic Insurance MEDICARE [employer] Care Teams Watermaster Relationship Specialty Start Date End Date Darryl Baker MD [address] [facility] [address] [place] [address] PCP - General 08/13/17
--- OUTSIDE RECORDS SUMMARY | 2025-05-16 17:13 | XMS_ITS | Continuity of Care Document ---
Author Organization [facility] Address [address] [address] [place] [address] Phone Care Team Providers Care Manager Of Corporate Name Role Phone Darryl Baker MD Unavailable [...] use with b12 shot monthly - Active Singulair 10 mg tablet take [...] Providers Copied on Encounter OFFICE/OUTPA TIENT VISIT, [facility], [address] [place] [address] Keenan Luna [place], [address], [place] tel:[phone] [facility] pain (chief complaint)glu cose1 (chief complaint)ost eoporosis1 (chief complaint)fat igue1 (chief complaint) OsteoporosisFati gueFibromyalgiaF olate deficiencyHyperg lycemia 5 Samuel Andrews. [address], [place], [place], [address] , [place]. tel:[phone] OFFICE/OUTPA TIENT VISIT, [facility], [place], [address], [place], [place], [address], [place] tel:[phone] [facility] pain (chief complaint)vis ual1 (chief complaint)yaya ght loss1 (chief complaint) Abnormal weight lossFibromyalgia FatigueChange in mental status 5 Samuel Andrews. [address], [place], [place], [address] , [place]. tel:[phone] OFFICE/OUTPA TIENT VISIT, [facility], [place], [address] [place], [address], [place] tel:[phone] [facility] fibromyalgia1 (chief complaint)hyp ersomnia1 (chief complaint)HTN (chief complaint)hip pain1 (chief complaint) FibromyalgiaEsse ntial (primary) hypertensionFati guePain in left hip 0 5 Samuel Andrews. [address], [place], [place], [address] , [place]. tel:[phone] OFFICE/OUTPA TIENT VISIT, [facility] [place], [address] [place], [address], [place] tel:[phone] [facility] RLS (chief complaint)fib romyalgia1 (chief complaint)fat igue1 (chief complaint)VENKATESH D1 (chief complaint) FatigueFibromyal giaRestless Legs SyndromeGERD w/o esophagitis 5 Samuel Andrews. [address], [place], [place], [address] , [place]. tel:[phone] OFFICE/OUTPA TIENT VISIT, [facility] [place], [address] [place], [address], [place] tel:[phone] [facility] pain (chief complaint)leg pain1 (chief complaint)fat igue1 (chief complaint) Restless Legs SyndromeFatigueF ibromyalgia 5 Samuel Andrews. [address], [place], [place], [address] , [place]. tel:[phone] OFFICE/OUTPA TIENT VISIT, [facility] [place], [address] [place], [address], [place] tel:[phone] [facility] lightheadness 1 (chief complaint)RLS (chief complaint) HypotensionRestl ess Legs Syndrome 5 Samuel Andrews. [address] [address], [place], [place], [address] , [place]. tel:[phone] OFFICE/OUTPA TIENT VISIT, [facility] [place], [address] [place], [address], [place] tel:[phone] [facility] pain (chief complaint)cou gh1 (chief complaint)RLS (chief complaint)sle ep apnea1 (chief complaint) FibromyalgiaAcut e bronchitisRestle ss Legs SyndromeObstruct lloyd sleep apnea hypopnea 5 Samuel Andrews. [address] [facility] [place], [address] , [place]. tel:[phone] OFFICE/OUTPA TIENT VISIT, [facility] [place], [address] [place] [place], [address], [place] tel:[phone] [facility] HTN (chief complaint)nec k pain1 (chief complaint)fib romyalgia1 (chief complaint) Essential (primary) hypertensionFibr omyalgiaOther muscle spasm 4 Samuel Andrews. [address] [facility] [place] [address] , [place]. tel:[phone] OFFICE/OUTPA TIENT VISIT, [facility] [place], [address] [place] [place], [address], [place] tel:[phone] [facility] pain (chief complaint)RLS (chief complaint)nec k pain1 (chief complaint) FibromyalgiaRest less Legs SyndromeOther muscle spasm 4 Samuel Garcia [address], [place], [place], [address] , [place]. tel:[phone] OFFICE/OUTPA TIENT VISIT, [facility] [place], [address] [place], [address], [place] tel:[phone] [facility] pain (chief complaint)ost eoporosis1 (chief complaint)VENKATESH D1 (chief complaint) FibromyalgiaOste oporosisGERD w/o esophagitis 4 Samuel Garcia [address], [address] [place], [address] , [place]. tel:[phone] OFFICE/OUTPA TIENT VISIT, [facility] [place], [address] [place], [address], [place] tel:[phone] [facility] pain (chief complaint)HTN (chief complaint)ophelia ma1 (chief complaint)hyp erglycemia1 (chief complaint) EdemaEssential (primary) hypertensionFibr omyalgiaHypergly cemiaRestless legs syndrome 4 Samuel Garcia [address], [address] [place], [address] , [place]. tel:[phone] OFFICE/OUTPA TIENT VISIT, [facility] [place], [address] [place], [address], [place] tel:[phone] [facility] pain (chief complaint)HTN (chief complaint)b12 (chief complaint)dry mouth1 (chief complaint) EdemaEssential (primary) hypertensionCyan ocobalamin deficiencyFibrom yalgiaDry mouth 4 Samuel Garcia [address], [place], [place], [address] , [place]. [phone] OFFICE/OUTPA TIENT VISIT, [facility] [place], [address] [place], [address], [place] tel:[phone] [facility] HTN (chief complaint)HLP (chief complaint)cou gh1 (chief complaint)ane mia1 (chief complaint)DM (chief complaint)fat igue1 (chief complaint) Essential (primary) hypertensionMixe d hyperlipidemiaTy pe 2 diabetes mellitus with diabetic nephropathyAnemi aFatigueCyanocob alamin deficiencyDry mouthFibromyalgi aOsteoporosisChr onic cough 4 Samuel Andrews. [address], [place], [place], [address] , [place]. [phone] OFFICE/OUTPA TIENT VISIT, [facility] [place], [address], [address], [place] tel:[phone] [facility] pain1 (chief complaint)cou gh1 (chief complaint)fat igue1 (chief complaint) FatigueChronic coughEssential (primary) hypertensionFibr omyalgia 4 Samuel Andrews. [address], [place], [place], [address] , [place]. [phone] OFFICE/OUTPA TIENT VISIT, [facility] [place], [address] [place], [address], [place] tel:[phone] [facility] cough1 (chief complaint)RLS (chief complaint)fat igue1 (chief complaint) FatigueMild intermittent asthma, uncomplicatedRes tless Legs Syndrome 4 Samuel Andrews. [address], [place], [place], [address] , [place]. tel:[phone] OFFICE/OUTPA TIENT VISIT, [facility] [place], [address] [place], [address], [place] tel:[phone] [facility] fibromyalgia1 (chief complaint)ost eoporosis1 (chief complaint)cou gh1 (chief complaint)fat igue1 (chief complaint) Mild intermittent asthma, uncomplicatedFat igueFibromyalgia Osteoporosis 4 Samuel Andrews. [address], [place], [place], [address] , [place]. tel:[phone] OFFICE/OUTPA TIENT VISIT, [facility] [place], [address] [place], [address], [place] tel:[phone] [facility] Medicine osteoporosis1 (chief complaint)dona n (chief complaint)fat igue1 (chief complaint)RLS 1 (chief complaint)cou gh1 (chief complaint) FatigueOsteoporo sisRestless Legs SyndromeFibromya lgiaMild intermittent asthma, uncomplicated Jan- 4 Baker Darryl. [address], [address], [place], [place], [address] , [place]. tel:[phone] OFFICE/OUTPA TIENT VISIT, [facility] [place], [address] [place], [address], [place] tel:[phone] [facility] pain (chief complaint)ADD (chief complaint)cou gh1 (chief complaint)HTN (chief complaint) Acute bronchitisFibrom yalgiaFatigueObs tructive Sleep Apnea HypopneaEssentia l (primary) hypertension Jan-0 4 Baker Darryl. [address], [address], [place], [place], [address] , [place]. tel:[phone] OFFICE/OUTPA TIENT VISIT, [facility] [place], [address] [place], [address], [place] tel:[phone] [facility] pain (chief complaint)fat igue1 (chief complaint) FatigueFibromyal laly Dec- 4 Baker Darryl. [address], [address], [place], [place], [address] , [place]. tel:[phone] OFFICE/OUTPA TIENT VISIT, [facility] [place], [address] [place], [address], [place] tel:[phone] [facility] Medicine pain1 (chief complaint)leg pain1 (chief complaint)leg weakness1 (chief complaint)fat igue1 (chief complaint) FibromyalgiaRest less Legs SyndromeObstruct lloyd Sleep Apnea HypopneaFatigueP eripheral vascular disease, unspecified 4 Samuel Andrews. [address], [place], [place], [address] , [place]. tel:[phone] OFFICE/OUTPA TIENT VISIT, [facility] [place], [address], [place], [place], [address], [place] tel:[phone] [facility] GERD1 (chief complaint)dona n (chief complaint)leg pain1 (chief complaint)HTN (chief complaint) FibromyalgiaGERD w/o esophagitisRestl ess Legs SyndromeEssentia l (primary) hypertension 4 Samuel Andrews. [address], [address], [place], [place], [address] , [place]. tel:[phone] OFFICE/OUTPA TIENT VISIT, [facility] [place], [address], [place], [place], [address], [place] tel:[phone] [facility] pain (chief complaint)RLS (chief complaint)HTN (chief complaint)VENKATESH D1 (chief complaint) FibromyalgiaRest less Legs SyndromeEssentia l (primary) hypertensionGERD w/o esophagitis 3 Samuel Andrews. [address], [address], [place], [place], [address] , [place]. tel:[phone] OFFICE/OUTPA TIENT VISIT, [facility] [place], [address] [place], [address], [place] tel:[phone] [facility] pain (chief complaint)RLS 1 (chief complaint)sin us (chief complaint) FibromyalgiaChro meera sinusitisRestles s legs syndrome 3 Baker Darryl. [address], [place], [place], [address] , [place]. tel:[phone] OFFICE/OUTPA TIENT VISIT, [facility] [place], [address] [place], [address], [place] tel:[phone] [facility] fibromyalgia1 (chief complaint)RLS 1 (chief complaint)HTN (chief complaint)all ergy1 (chief complaint) Restless Legs SyndromeEssentia l (primary) hypertensionFibr omyalgiaAllergic rhinitis due to pollen 3 Samuel Garcia [address], [place], [place], [address] , [place]. tel:[phone] OFFICE/OUTPA TIENT VISIT, [facility] [place], [address], [place], [place], [address], [place] tel:[phone] [facility] HTN (chief complaint)all ergy1 (chief complaint)RLS (chief complaint)fib romyalgia1 (chief complaint) FibromyalgiaEsse ntial (primary) hypertensionAlle rgic rhinitis due to pollenRestless Legs Syndrome 3 Samuel Garcia [address], [address], [place], [place], [address] , [place]. [phone] OFFICE/OUTPA TIENT VISIT, [facility] [place], [address], [place], [place], [address], [place] tel:[phone] [facility] pain (chief complaint)RLS 1 (chief complaint)all ergy1 (chief complaint)VENKATESH D1 (chief complaint) FibromyalgiaRest less Legs SyndromeGERD w/o esophagitisAller gic rhinitis due to pollenEssential (primary) hypertension 3 Samuel Garcia [address], [address], [place], [place], [address] , [place]. tel:[phone] OFFICE/OUTPA TIENT VISIT, [facility] [place], [address] [place], [address], [place] tel:[phone] [facility] pain (chief complaint)leg 1 (chief complaint)all ergy1 (chief complaint)sle ep apnea1 (chief complaint) Restless Legs SyndromePrimary central sleep apneaFibromyalgi aAllergic rhinitis due to pollen 3 Samuel Garcia [address], [place], [place], [address] , [place]. tel:[phone] OFFICE/OUTPA TIENT VISIT, [facility] [place], [address], [place], [place], [address], [place] tel:[phone] [facility] pain (chief complaint)res tless leg (chief complaint)sle epapnea1 (chief complaint) FibromyalgiaPrim teodora central sleep apneaRestless Legs Syndrome 3 Samuel Garcia [address], [place], [place], [address] , . tel:[phone] OFFICE/OUTPA TIENT VISIT, [facility] [place], [address] [place], [address], [place] tel:[phone] [facility] pain (chief complaint)glu cose1 (chief complaint)ost eoporosis1 (chief complaint)ane mia1 (chief complaint)sic k (chief complaint)HTN (chief complaint) HyperglycemiaRen al diseaseAnemiaOst eoporosisEssenti al (primary) hypertensionAcut e bronchitisPrimar y central sleep apneaFibromyalgi a 3 Samuel Garcia [address] [facility] [address], [place], [place], [address] , [place]. tel:[phone] OFFICE/OUTPA TIENT VISIT, [facility] [place], [address] [place], [address], [place] tel:[phone] [facility] physical (chief complaint) Encounter for general adult medical exam w abnormal findingsOsteopor osisFibromyalgia Primary central sleep apneaEssential (primary) hypertensionGERD w/o esophagitis 3 Samuel Garcia [address], [place], [place], [address] , [place]. tel:[phone] OFFICE/OUTPA TIENT VISIT, [facility] [place], [address] [place], [address], [place] tel:[phone] [facility] osteoporosis1 (chief complaint)dona n (chief complaint)HTN (chief complaint)sle ep apnea1 (chief complaint)VENKATESH D1 (chief complaint) Essential (primary) hypertensionFibr omyalgiaOsteopor osisGERD w/o esophagitisPrima ry central sleep apnea 3 Samuel Andrews. [address], [place], [place], [address] , [place]. tel:[phone] OFFICE/OUTPA TIENT VISIT, [facility] [place], [address], [place], [place], [address], [place] tel:[phone] [facility] HTN (chief complaint)sle ep apnea1 (chief complaint)dona n (chief complaint)all ergy1 (chief complaint) Allergic rhinitis due to pollenEssential (primary) hypertensionFibr omyalgiaPrimary central sleep apnea Dec-0 3 Baker Darryl. [address], [place], [place], [address] , [place]. tel:[phone] OFFICE/OUTPA TIENT VISIT, [facility] [place], [address], [place], [place], [address], [place] tel:[phone] [facility] HTN (chief complaint)sle ep apnea1 (chief complaint)dona n (chief complaint)VENKATESH D1 (chief complaint) FibromyalgiaAlle rgic rhinitis due to pollenGERD w/o esophagitisOsteo porosisPrimary central sleep apneaEssential (primary) hypertension Feb-0 3 Baker Darryl. [address], [place], [place], [address] , [place]. tel:[phone] OFFICE/OUTPA TIENT VISIT, [facility] [place], [address], [place], [place], [address], [place] tel:[phone] [facility] HTN (chief complaint)dona n (chief complaint) Essential (primary) hypertensionFibr omyalgia Antolin-0 3 Baker Darryl. [address], [place], [place], [address] , [place]. tel:[phone] OFFICE/OUTPA TIENT VISIT, [facility] [place], [address], [place], [place], [address], [place] tel:[phone] [facility] HTN (chief complaint)all ergy1 (chief complaint)dona n (chief complaint) FibromyalgiaEsse ntial (primary) hypertensionAlle rgic rhinitis due to pollen Dec-0 2 Baker Darryl. [address], [place], [place], [address] , [place]. tel:[phone] OFFICE/OUTPA TIENT VISIT, [facility] [place], [address], [place], [place], [address], [place] tel:[phone] [facility] HTN (chief complaint)sle ep apnea1 (chief complaint)ost eoporosis1 (chief complaint)VENKATESH D1 (chief complaint)all ergy1 (chief complaint) OsteoporosisPrim teodora central sleep apneaEssential (primary) hypertensionFibr omyalgiaAllergic rhinitis due to pollenGERD w/o esophagitis 2 Samuel Andrews. [address], [place], [place], [address] , [place]. tel:[phone] OFFICE/OUTPA TIENT VISIT, [facility] [place], [address], [place], [place], [address], [place] tel:[phone] [facility] pain (chief complaint)sle ep apnea1 (chief complaint) FibromyalgiaPrim teodora central sleep apnea 2 Samuel Andrews. [address], [place], [place], [address] , [place]. tel:[phone] OFFICE/OUTPA TIENT VISIT, [facility] [place], [address], [place], [place], [address], [place] tel:[phone] [facility] pain (chief complaint)sle ep apnea1 (chief complaint)HTN (chief complaint)ost eoporosis1 (chief complaint) OsteoporosisPrim teodora central sleep apneaEssential (primary) hypertensionFibr omyalgia Jun- 2 Samuel Andrews. [address], [place], [place], [address] , [place]. tel:[phone] OFFICE/OUTPA TIENT VISIT, [facility] [place], [address], [place], [place], [address], [place] tel:[phone] [facility] pain (chief complaint)HTN (chief complaint) FibromyalgiaEsse ntial (primary) hypertension 2 Baker Darryl. [address], [place], [place], [address] , [place]. tel:[phone] OFFICE/OUTPA TIENT VISIT, [facility] [place], [address], [place], [place], [address], [place] tel:[phone] [facility] HTN (chief complaint)sle ep apnea1 (chief complaint)dona n1 (chief complaint) Essential (primary) hypertensionFibr omyalgiaPrimary central sleep apneaAllergic rhinitis due to pollen 2 Baker Darryl. [address], [place], [place], [address] , [place]. tel:[phone] OFFICE/OUTPA TIENT VISIT, [facility] [place], [address], [place], [place], [address], [place] tel:[phone] [facility] HTN (chief complaint)stephanie lucination1 (chief complaint) Hypertensive emergencyVisual hallucinations 2 Baker Darryl. [address], [place], [place], [address] , [place]. tel:[phone] OFFICE/OUTPA TIENT VISIT, [facility] [place], [address], [place], [place], [address], [place] tel:[phone] [facility] HTN (chief complaint) Hypertensive emergencyFatigue Dizziness 2 Baker Darryl. [address], [place], [place], [address] , [place]. tel:[phone] OFFICE/OUTPA TIENT VISIT, [facility] [place], [address], [place], [place], [address], [place] tel:[phone] [facility] fibromyalgia1 (chief complaint)sle ep apnea1 (chief complaint)HTN (chief complaint) Essential (primary) hypertensionSlee p apneaFibromyalgi aBenign paroxysmal vertigo, bilateral 2 Baker Darryl. [address], [place], [place], [address] , [place]. tel:[phone] OFFICE/OUTPA TIENT VISIT, [facility] [place], [address], [place], [place], [address], [place] tel:[phone] [facility] pain (chief complaint)diz ziness1 (chief complaint)ins omnia1 (chief complaint)fat igue1 (chief complaint)VENKATESH D1 (chief complaint) Sleep apneaInsomniaDiz zinessGERD w/o esophagitisFibro myalgia 2 Baker Darryl. [address], [place], [place], [address] , [place]. [phone] OFFICE/OUTPA TIENT VISIT, [facility] [place], [address], [place], [place], [address], [place] tel:[phone] [facility] osteoporosis1 (chief complaint)dona n (chief complaint)ins omnia1 (chief complaint)HTN (chief complaint) OsteoporosisEsse ntial (primary) hypertensionFibr omyalgiaInsomnia 2 Samuel Darryl. [address], [place], [place], [address] , [place]. [phone] OFFICE/OUTPA TIENT VISIT, [facility] [place], [address], [place], [place], [address], [place] tel:[phone] [facility] pain (chief complaint)ins omnia1 (chief complaint) FibromyalgiaInso mnia 2 Samuel Darryl. [address], [place], [place], [address] , [place]. tel:[phone] OFFICE/OUTPA TIENT VISIT, [facility] [place], [address] [place], [address], [place] tel:[phone] [facility] pain (chief complaint)ins omnia1 (chief complaint)HTN (chief complaint) DizzinessEssenti al (primary) hypertensionFibr omyalgiaInsomnia 2 Baker Darryl. [address], [place], [place], [address] , [place]. [phone] OFFICE/OUTPA TIENT VISIT, [facility] [place], [address], [place], [place], [address], [place] tel:[phone] [facility] pain (chief complaint)ins omnia1 (chief complaint)lig htheadedness (chief complaint)arm pain1 (chief complaint) Lateral epicondylitis, right elbowFibromyalgi aInsomniaDizzine ss 2 Baker Darryl. [address], [place], [place], [address] , [place]. tel:[phone] OFFICE/OUTPA TIENT VISIT, [facility] [place], [address], [place], [place], [address], [place] tel:[phone] [facility] pain1 (chief complaint)ins omnia1 (chief complaint)diz zy1 (chief complaint)ost eoporosis1 (chief complaint)VENKATESH D1 (chief complaint) DizzinessGERD w/o esophagitisOsteo porosisInsomniaF ibromyalgia 1 Baker Darryl. [address], [place], [place], [address] , [place]. tel:[phone] OFFICE/OUTPA TIENT VISIT, [facility] [place], [address] [place], [address], [place] tel:[phone] [facility] HTN (chief complaint)dona n (chief complaint)ins omnia1 (chief complaint)sin us (chief complaint) FibromyalgiaEsse ntial (primary) hypertensionChro meera sinusitisInsomni a 1 Baker Darryl. [address], [place], [place], [address] , [place]. tel:[phone] OFFICE/OUTPA TIENT VISIT, [facility] [place], [address] [place], [address], [place] tel:[phone] [facility] [facility] sinus1 (chief complaint)HTN (chief complaint)fib romyalgia1 (chief complaint)ins omnia1 (chief complaint) Chronic sinusitisFibromy algiaEssential (primary) hypertensionEdem aInsomniaSolitar y lung nodule 1 Samuel Garcia [address], [address], [place], [place], [address] , [place]. tel:[phone] OFFICE/OUTPA TIENT VISIT, [facility], [place], [address], [place], [place], [address], [place] tel:[phone] [facility] pain (chief complaint)ins omnia1 (chief complaint)HTN (chief complaint)sin us1 (chief complaint) InsomniaFibromya lgiaEssential (primary) hypertensionAlle rgic rhinitisEdema 1 Samuel Garcia [address], [address], [place], [place], [address] , [place]. tel:[phone] OFFICE/OUTPA TIENT VISIT, [facility] [place], [address], [place], [place], [address], [place] tel:[phone] [facility] pain (chief complaint)ins omnia1 (chief complaint)HTN (chief complaint)GED 1 (chief complaint) GERD w/o esophagitisFibro myalgiaInsomniaE ssential (primary) hypertension 1 Samuel Garcia [address], [address], [place], [place], [address] , [place]. tel:[phone] OFFICE/OUTPA TIENT VISIT, [facility] [place], [address] [place], [address], [place] tel:[phone] [facility] insomnia1 (chief complaint)dona n (chief complaint)VENKATESH D1 (chief complaint)HTN (chief complaint) GERD w/o esophagitisFibro myalgiaInsomniaE ssential (primary) hypertension 1 Samuel Garcia [address], [address], [place], [place], [address] , [place]. tel:[phone] OFFICE/OUTPA TIENT VISIT, [facility] [place], [address], [place], [place], [address], [place] tel:[phone] [facility] insomnia1 (chief complaint)dona n1 (chief complaint)VENKATESH D1 (chief complaint) GERD w/o esophagitisConst ipationFibromyal giaInsomnia 1 Samuel Garcia [address] [place], [place], [address] , . tel:[phone] OFFICE/OUTPA TIENT VISIT, [facility] [place], [address] [place], [address], tel:[phone] [facility] left arm numbness1 (chief complaint)dona n (chief complaint)ins omnia1 (chief complaint)con stipation1 (chief complaint)fat igue1 (chief complaint) ConstipationNeur opathyInsomniaFi bromyalgiaFatigu e 1 Samuel Garcia [address] [facility] [place], [address] , . tel:[phone] OFFICE/OUTPA TIENT VISIT, [facility] [place], [address] [place], [address], [place] tel:[phone] [facility] pain (chief complaint)ins omnia1 (chief complaint)ost eoporosis1 (chief complaint)diz ziness1 (chief complaint) FibromyalgiaInso mniaOsteoporosis Dizziness 1 Samuel Garcia [address] [facility] [place] [address] , [place]. tel:[phone] OFFICE/OUTPA TIENT VISIT, [facility] [place], [address] [place], [address], [place] tel:[phone] [facility] pain (chief complaint)ins omnia1 (chief complaint)UTI 1 (chief complaint)ost eoporosis1 (chief complaint) Urinary tract infectionFibromy algiaInsomnia 1 Samuel Garcia [address] [facility] [place] [address] , [place]. tel:[phone] OFFICE/OUTPA TIENT VISIT, [facility] [place], [address] [facility] [place], [address], [place] tel:[phone] [facility] Medicine fibromyalgia1 (chief complaint)ins omnia1 (chief complaint) FibromyalgiaInso mniaUrinary tract infection 1 Samuel Andrews. [address], [address], [place], [place], [address] , [place]. [phone] OFFICE/OUTPA TIENT VISIT, [facility] [place], [address], [place], [place], [address], [place] tel:[phone] [facility] sinus1 (chief complaint) Acute sinusitis 1 Samuel Andrews. [address], [address], [place], [place], [address] , [place]. [phone] OFFICE/OUTPA TIENT VISIT, [facility] [place], [address], [place], [place], [address], [place] tel:[phone] [facility] fibromyalgia1 (chief complaint)ins omnia1 (chief complaint) FibromyalgiaInso mnia 1 Samuel Andrews. [address], [address], [place], [place], [address] , [place]. tel:[phone] Referring Provider: Betty Zelaya [address], [place], [place], [address]. tel:[phone] OFFICE/OUTPA TIENT VISIT, [facility] [place], [address], [place], [place], [address], [place] tel:[phone] [facility] Medicine pain (chief complaint)ins omnia1 (chief complaint) FibromyalgiaInso mnia 0 Samuel Andrews. [address], [address], [place], [place], [address] , [place]. tel:[phone] Referring Provider: Darryl Baker [address], [place], [place], [address]. tel:[phone] OFFICE/OUTPA TIENT VISIT, [facility] [place], [address], [place], [place], [address], [place] tel:[phone] [facility] pain (chief complaint)ins omnia1 (chief complaint)HTN (chief complaint) FibromyalgiaInso mniaEssential (primary) hypertension 0 Samuel Andrews. [address], [address], [place], [place], [address] , [place]. [phone] Referring Provider: Betty Zelaya [address], [place], [place], [address]. tel:[phone] OFFICE/OUTPA TIENT VISIT, [facility] [place], [address], [place], [place], [address], [place] [phone] [facility] Medicine pain (chief complaint)ins omnia1 (chief complaint) FibromyalgiaInso mnia 0 Samuel Andrews. [address], [address], [place], [place], [address] , [place]. [phone] Referring Provider: Betty Zelaya [address], [place], [place], [address]. tel:[phone] OFFICE/OUTPA TIENT VISIT, [facility] [place], [address], [place], [place], [address], [place] tel:[phone] [facility] Medicine pain (chief complaint)ins omnia1 (chief complaint)sle ep apnea1 (chief complaint)hem orrhoid (chief complaint) FibromyalgiaAnem iaInsomniaSleep apneaHemorrhoid 0 Samuel Andrews. [address], [address], [place], [place], [address] , [place]. [phone] Referring Provider: Betty Zelaya [address], [place], [place], [address]. tel:[phone] OFFICE/OUTPA TIENT VISIT, [facility] [place], [address] [place], [address], [place] tel:[phone] [facility] Medicine fibromyalgia1 (chief complaint)ins omnia1 (chief complaint)ost eoporosis1 (chief complaint)hyp onatremia1 (chief complaint)ane mia1 (chief complaint)hem aturia1 (chief complaint) AnemiaHematuriaH yponatremiaInsom niaFibromyalgiaO steoporosis 0 Samuel Andrews. [address], [address], [place], [place], [address] , . tel: [phone] Referring Provider: Betty Zelaya [address], [place], [place], [address]. tel:[phone] OFFICE/OUTPA TIENT VISIT, [facility] [place], [address] [place], [address], [place] tel:[phone] [facility] pain (chief complaint)ins omnia1 (chief complaint)HLP (chief complaint)sle ep apnea1 (chief complaint)sic k (chief complaint)hem orrhoid1 (chief complaint) FibromyalgiaHype rlipidemiaAnemia Sleep apneaHemorrhoidA cute bronchitisInsomn iaHyponatremia 0 Samuel Andrews. [address], [address], [place], [place], [address] , [place]. [phone] Referring Provider: Betty Zelaya [address] [facility] [place], [address]. tel:[phone] OFFICE/OUTPA TIENT VISIT, [facility] [place], [facility] [address] [place], [place], [address], [place] tel:[phone] [facility] HLP (chief complaint)sle ep apnea1 (chief complaint)fib romyalgia1 (chief complaint)ins omnia1 (chief complaint)ane mia1 (chief complaint) AnemiaFibromyalg iaHematuriaHemor rhoidHyperlipide miaSleep apneaInsomniaSol itary lung nodule 0 Samuel Andrews. [address], [address], [place], [place], [address] , [place]. tel:[phone] Referring Provider: Betty Zelaya [address], [place], [place], [address]. tel:[phone] OFFICE/OUTPA TIENT VISIT, [facility] [place], [address] [place], [address], [place] tel:[phone] [facility] Medicine HLP (chief complaint)ane mia1 (chief complaint)ane mia1 (chief complaint)dona n1 (chief complaint)sle ep apnea1 (chief complaint) HyperlipidemiaAn emiaInsomniaHema turiaHemorrhoidS leep apneaFibromyalgi a 0 Samuel Andrews. [address], [address], [place], [place], [address] , [place]. tel:[phone] Referring Provider: Betty Zel[address], [place], [place], [address]. tel:[phone] OFFICE/OUTPA TIENT VISIT, [facility] [place], [address], [place], [place], [address], [place] tel:[phone] [facility] sinus1 (chief complaint) Acute sinusitis 0 Samuel Garcia [address], [address], [place], [place], [address] , [place]. tel:[phone] Referring Provider: Betty Zelaya [address], [place], [place], [address]. tel:[phone] OFFICE/OUTPA TIENT VISIT, [facility] [place], [address], [place], [place], [address], [place] tel:[phone] [facility] PHysical (chief complaint) Encounter for general adult medical exam w abnormal findingsFibromya lgiaSleep apneaOsteoporosi sInsomniaEssenti al (primary) hypertension 0 Samuel Garcia [address], [address], [place], [place], [address] , [place]. tel:[phone] Referring Provider: Betty Zelaya [address], [place], [place], [address]. tel:[phone] OFFICE/OUTPA TIENT VISIT, [facility] [place], [address], [place], [place], [address], [place] tel:[phone] [facility] pain (chief complaint)ins omnia1 (chief complaint)sle ep apnea1 (chief complaint) FibromyalgiaSlee p apneaInsomnia Jan- 0 Samuel Andrews. [address], [address], [place], [place], [address] , [place]. tel:[phone] Referring Provider: Betty Zelaya [address], [place], [place], [address]. tel:[phone] OFFICE/OUTPA TIENT VISIT, [facility] [place], [address], [place], [place], [address], [place] tel:[phone] [facility] HTN (chief complaint)fib romyalgia1 (chief complaint)ins omnia1 (chief complaint)sle ep apnea1 (chief complaint)glu cose (chief complaint) InsomniaSleep apneaFibromyalgi aEssential (primary) hypertensionEnco unter for screening for malignant neoplasm of colonHyperglycem ia 0 Samuel Andrews. [address], [address], [place], [place], [address] , [place]. tel:[phone] Referring Provider: Betty Zelaya [address], [place], [place], [address]. tel:[phone] OFFICE/OUTPA TIENT VISIT, [facility] [place], [address] [place], [address], [place] tel:[phone] [facility] fibromyalgia1 (chief complaint)ost eoporosis1 (chief complaint)ins omnia1 (chief complaint)sle ep apnea1 (chief complaint) FibromyalgiaSlee p apneaOsteoporosi sInsomnia Fe 0 Samuel Andrews. [address], [address], [place], [place], [address] , [place]. tel:[phone] Referring Provider: Betty Zelaya [address], [place], [place], [address]. tel:[phone] OFFICE/OUTPA TIENT VISIT, [facility] [place], [address], [place], [place], [address], [place] tel:[phone] [facility] pain (chief complaint)ins omnia1 (chief complaint)sin us (chief complaint)kne e pain1 (chief complaint) FatigueFibromyal giaInsomniaOsteo arthritis of knee, unspecifiedAller gic rhinitis 0 Samuel Garcia [address], [address], [place], [place], [address] , [place]. tel:[phone] Referring Provider: Betty Zelaya [address], [place], [place], [address]. tel:[phone] OFFICE/OUTPA TIENT VISIT, [facility] [place], [address], [place], [place], [address], [place] tel:[phone] [facility] Medicine fibromyalgia1 (chief complaint)ins omnia1 (chief complaint)fat igue1 (chief complaint)sin us1 (chief complaint)HTN (chief complaint) FibromyalgiaInso mniaFatigueAcute sinusitisEssenti al (primary) hypertension 0 Samuel Garcia [address], [address], [place], [place], [address] , [place]. [phone] Referring Provider: Betty Zelaya [address], [place], [place], [address]. tel:[phone] OFFICE/OUTPA TIENT VISIT, [facility] [place], [address], [place], [place], [address], [place] tel:[phone] [facility] sinus allergy1 (chief complaint)dona n (chief complaint)ins omnia1 (chief complaint)fat igue1 (chief complaint) Allergic rhinitisFibromya lgiaInsomniaFati alejandra 9 Samuel Garcia [address], [address], [place], [place], [address] , [place]. tel:[phone] Referring Provider: Betty Zelaya [address], [place], [place], [address]. tel:[phone] OFFICE/OUTPA TIENT VISIT, [facility] [place], [address], [place], [place], [address], [place] tel:[phone] [facility] Medicine HTN (chief complaint)fib romyalgia1 (chief complaint)ins omnia1 (chief complaint)sin us allergy1 (chief complaint) FibromyalgiaInso mniaEssential (primary) hypertensionAlle rgic rhinitis 9 Samuel Andrews. [address], [address], [place], [place], [address] , [place]. tel:[phone] Referring Provider: Betty Zelaya [address], [place], [place], [address]. tel:[phone] OFFICE/OUTPA TIENT VISIT, [facility] [place], [address], [place], [place], [address], [place] tel:[phone] [facility] HTN (chief complaint)ophelia ma1 (chief complaint)chr onic pain1 (chief complaint)ins omnia1 (chief complaint) Essential (primary) hypertensionEdem aFibromyalgiaIns omnia 9 Samuel Andrews. [address], [address], [place], [place], [address] , [place]. tel:[phone] Referring Provider: Betty Zelaya [address], [place], [place], [address]. tel:[phone] OFFICE/OUTPA TIENT VISIT, [facility] [place], [address], [place], [place], [address], [place] tel:[phone] [facility] toe pain1 (chief complaint)fib romyalgia1 (chief complaint)ins omnia1 (chief complaint) FibromyalgiaInso mniaDermatophyto sis of nail 9 Samuel Andrews. [address], [place], [place], [address] , [place]. tel:[phone] Referring Provider: Betty Zelaya [address], [place], [place], [address]. tel:[phone] OFFICE/OUTPA TIENT VISIT, [facility] [place], [address], [place], [place], [address], [place] tel:[phone] [facility] chronic pain1 (chief complaint)ins omnia1 (chief complaint) FibromyalgiaInso mnia Aug-1 6-201 9 Samuel Andrews. [address] [facility] A, [place], [place], [address] , [place]. tel:[phone] Referring Provider: Darryl Baker, Betty [facility] A, [place], [place], [address]. tel:[phone] OFFICE/OUTPA TIENT VISIT, [facility] [place], [address] [place], [address], tel:[phone] [facility] sinusitis1 (chief complaint)HTN (chief complaint)fib romyalgia1 (chief complaint)ins omnia1 (chief complaint) InsomniaFibromya lgiaEssential (primary) hypertensionAcut e sinusitis 9 Samuel Andrews. [address], [place], [place], [address] , [place]. tel:[phone] Referring Provider: Betty Zelaya [place], [address]. tel:[phone] OFFICE/OUTPA TIENT VISIT, [facility] [place], [address] [place], [address], [place] tel:[phone] [facility] HTN (chief complaint)fib romyalgia1 (chief complaint)ins omnia1 (chief complaint) Essential (primary) hypertensionFibr omyalgiaInsomnia 9 Samuel Andrews. [address] [facility], [place], [place], [address] , [place]. tel:[phone] Referring Provider: Betty Zelaya [facility] A, [place], [place], [address]. tel:[phone] OFFICE/OUTPA TIENT VISIT, [facility] [place], [address] [place], [address], [place] tel:[phone] [facility] numbness1 (chief complaint)fib romyalgia1 (chief complaint)anx iety1 (chief complaint)gurinder ral regu (chief complaint) OsteoporosisFibr omyalgiaParesthe quinton of skinInsomniaNonr heumatic mitral valve prolapse 9 Samuel Garcia [address], [address], [place], [place], [address] , [place]. tel:[phone] Referring Provider: Betty Zelaya [facility] A, [place], [place], [address]. tel:[phone] OFFICE/OUTPA TIENT VISIT, [facility] [place], [address], [place], [place], [address], [place] tel:[phone] [facility] numbness1 (chief complaint)chr onic pain (chief complaint)ins omnia1 (chief complaint) FibromyalgiaInso mniaParesthesia of skin 9 Samuel Garcia [address], [address], [place], [place], [address] , [place]. tel:[phone] Referring Provider: Betty Zelaya [address] [facility] A, [place], [place], [address]. tel:[phone] OFFICE/OUTPA TIENT VISIT, [facility] [place], [address], [place], [place], [address], [place] tel:[phone] [facility] PHysical (chief complaint) Encounter for general adult medical exam w abnormal findingsHyperlip idemiaEssential (primary) hypertensionOste oporosisFibromya lgiaInsomnia 9 Samuel Hernández [address], [facility] A, [place], [place], [address] , [place]. tel:[phone] Referring Provider: Betty Zelaya [facility] A, [place], [place], [address]. tel:[phone] OFFICE/OUTPA TIENT VISIT, [facility] [place], [address], [place], [place], [address], [place] tel:[phone] [facility] osteoporosis1 (chief complaint)fib romyalgia1 (chief complaint)sin us1 (chief complaint)HTN (chief complaint)ins omnia1 (chief complaint) FibromyalgiaOste oporosisEssentia l (primary) hypertensionAlle rgic rhinitisInsomnia 9 Samuel Garcia [address], [address], [place], [place], [address] , [place]. tel:[phone] Referring Provider: Betty Zelaya [facility] A, [place], [place], [address]. tel:[phone] OFFICE/OUTPA TIENT VISIT, [facility] [place], [address], [place], [place], [address], [place] tel:[phone] [facility] fibromyalgia1 (chief complaint)anx iety1 (chief complaint)fat igue1 (chief complaint)sin us (chief complaint) Allergic rhinitisFatigueF ibromyalgiaInsom fabiana 9 Samuel Garcia [address] [facility] [address], [place], [place], [address] , [place]. tel:[phone] Referring Provider: Betty Zelaya [facility] A, [place], [place], [address]. tel:[phone] OFFICE/OUTPA TIENT VISIT, [facility] [place], [address], [place], [place], [address], [place] tel:[phone] [facility] sinus allergy1 (chief complaint)chr onic pain (chief complaint)ins omnia1 (chief complaint) InsomniaFibromya lgiaAllergic rhinitis 9 Samuel Garcia [address], [address], [place], [place], [address] , [place]. tel:[phone] Referring Provider: Betty Zelaya [facility] A, [place], [place], [address]. tel:[phone] OFFICE/OUTPA TIENT VISIT, [facility] [place], [address], [place], [place], [address], [place] tel:[phone] [facility] fibromyalgia1 (chief complaint)ins omnia1 (chief complaint)ost eoporosis1 (chief complaint)HTN (chief complaint) OsteoporosisEsse ntial (primary) hypertensionFibr omyalgiaInsomnia 8 Samuel Garcia [address], [place], [place], [address] , [place]. tel:[phone] Referring Provider: Darryl Baker, Betty [address], [place], [place], [address]. tel:[phone] OFFICE/OUTPA TIENT VISIT, [facility] [place], [address], [place], [place], [address], [place] tel:[phone] [facility] fibromyalgia1 (chief complaint)ins omnia1 (chief complaint) FibromyalgiaInso mnia 8 Samuel Andrews. [address], [address], [place], [place], [address] , [place]. tel:[phone] Referring Provider: Betty Zelaya [address], [place], [place], [address]. tel:[phone] OFFICE/OUTPA TIENT VISIT, [facility] [place], [address], [place], [place], [address], [place] tel:[phone] [facility] hlp (chief complaint)fib romyalgia1 (chief complaint)ins omnia1 (chief complaint) FibromyalgiaHype rlipidemiaInsomn iaPain in left shoulder 8 Samuel Andrews. [address], [address], [place], [place], [address] , [place]. tel:[phone] Referring Provider: Betty Zelaya [address], [place], [place], [address]. tel:[phone] OFFICE/OUTPA TIENT VISIT, [facility] [place], [address], [place], [place], [address], [place] tel:[phone] [facility] fibromyalgia1 (chief complaint)HTN (chief complaint)ins omnia1 (chief complaint)yaya ght loss1 (chief complaint) Essential (primary) hypertensionFibr omyalgiaAbnormal weight lossInsomnia 8 Samuel Andrews. [address], [place], [place], [address] , [place]. tel:[phone] Referring Provider: Betty Zelaya [address], [place], [place], [address]. tel:[phone] OFFICE/OUTPA TIENT VISIT, [facility] [place], [address], [place], [place], [address], [place] tel:[phone] [facility] arm pain1 (chief complaint)ins omnia1 (chief complaint)fib romyalgia1 (chief complaint)HTN (chief complaint)ost eoporosis1 (chief complaint) Essential (primary) hypertensionOste oporosisPain in left upper armFibromyalgiaI nsomniaHemorrhoi d 8 Samuel Andrews. [address], [place], [place], [address] , [place]. [phone] Referring Provider: Betty Zelaya [address] [facility] [address], [place], [place], [address]. tel:[phone] OFFICE/OUTPA TIENT VISIT, [facility] [place], [address], [place], [place], [address], [place] tel:[phone] [facility] hemorrhoid1 (chief complaint)fib romyalgia1 (chief complaint)anx iety1 (chief complaint)lauren dder prolase1 (chief complaint) FibromyalgiaCyst oceleBenign neoplasm of right kidneyHemorrhoid Insomnia 8 Samuel Garcia [address], [place], [place], [address] , [place]. [phone] Referring Provider: Betty Zelaya [facility], [place], [place], [address]. tel:[phone] OFFICE/OUTPA TIENT VISIT, [facility], [place], [facility], [address], [place], [place], [address], [place] tel:[phone] [facility] fibromyalgia1 (chief complaint)ins omnia1 (chief complaint)ang iomyolipoma1 (chief complaint)ora l numbness 1 (chief complaint) Benign neoplasm of right kidneyAcute sinusitisFibromy algiaParesthesia of skin 8 Samuel Garcia [address], [place], [place], [address] , [place]. [phone] Referring Provider: Betty Zelaya [address], [place], [place], [address]. tel:[phone] OFFICE/OUTPA TIENT VISIT, [facility], [place], [address], [place], [place], [address], [place] tel:[phone] [facility] fibromyalgia1 (chief complaint)ins omnia1 (chief complaint)gill al cyst1 (chief complaint) FibromyalgiaInso mniaBenign neoplasm of right kidneyCystocele 8 Samuel Andrews. [address], [place], [place], [address] , [place]. tel:[phone] Referring Provider: Darryl Baker, [address], [place], [place], [address]. tel:[phone] OFFICE/OUTPA TIENT VISIT, [facility], [place], [address], [place], [place], [address], [place] tel:[phone] [facility] chronic pain (chief complaint)ins omnia1 (chief complaint)sin us1 (chief complaint) FibromyalgiaInso mniaChronic sinusitis 8 Samuel Andrews. [address], [address], [place], [place], [address] , [place]. tel:[phone] OFFICE/OUTPA TIENT VISIT, [facility] [place], [address], [place], [place], [address], [place] tel:[phone] [facility] Medicine fibromyalgia1 (chief complaint)ost eoporosis1 (chief complaint)sin us1 (chief complaint)ins omnia1 (chief complaint) FibromyalgiaOste oporosisChronic sinusitisInsomni a 8 Samuel Andrews. [address], [address], [place], [place], [address] , [place]. tel:[phone] OFFICE/OUTPA TIENT VISIT, [facility] [place], [address], [place], [place], [address], [place] tel:[phone] [facility] Medicine PHysical (chief complaint) Encounter for general adult medical exam w abnormal findingsFibromya lgiaEssential (primary) hypertensionOste oporosis 2 8 Samuel Andrews. [address], [address], [place], [place], [address] , [place]. tel:[phone] OFFICE/OUTPA TIENT VISIT, [facility] [place], [address], [place], [place], [address], [place] tel:[phone] [facility] sick (chief complaint) Acute bronchitisAcute upper respiratory infection, unspecified 8 Samuel Andrews. [address], [address], [place], [place], [address] , [place]. [phone] Referring Provider: Betty Zelaya [address], [place], [place], [address]. tel:[phone] OFFICE/OUTPA TIENT VISIT, [facility], [place], [address], [place], [place], [address], [place] tel:[phone] [facility] fibromyalgia1 (chief complaint)ins omnia1 (chief complaint)HTn (chief complaint) FibromyalgiaInso mniaEssential (primary) hypertension 8 Samuel Andrews. [address], [place], [place], [address] , [place]. tel:[phone] OFFICE/OUTPA TIENT VISIT, [facility] [place], [address], [place], [place], [address], [place] tel:[phone] [facility] fibromyalgia1 (chief complaint)ins omnia1 (chief complaint)ost eoporosis1 (chief complaint)col d (chief complaint) OsteoporosisFibr omyalgiaInsomnia Acute upper respiratory infection, unspecified 8 Samuel Andrews. [address], [place], [place], [address] , [place]. tel:[phone] Referring Provider: Betty Zelaya [address], [place], [place], [address]. tel:[phone] OFFICE/OUTPA TIENT VISIT, [facility] [place], [address], [place], [place], [address], [place] tel:[phone] [facility] sob1 (chief complaint)ins omnia1 (chief complaint)fib romyalgia1 (chief complaint) Shortness of breathAcute bronchitisFibrom yalgiaInsomnia Sep- 7 Samuel Andrews. [address], [place], [place], [address] , [place]. tel:[phone] Referring Provider: Darryl Baker, [address], [place], [place], [address]. tel:[phone] OFFICE/OUTPA TIENT VISIT, [facility], [place], [address] [place], [address], [place] tel:[phone] [facility] jonit pain1 (chief complaint)anx iety1 (chief complaint)ost eoporosis1 (chief complaint)brant t pain1 (chief complaint)SOB (chief complaint) Shortness of breathOsteoporos isInsomniaFibrom yalgia 7 Samuel Andrews. [address], [place], [place], [address] , [place]. tel:[phone] Referring Provider: Darryl Baker [address] [facility], [place], [place], [address]. tel:[phone] OFFICE/OUTPA TIENT VISIT, [facility] [place], [address] [place], [address], [place] tel:[phone] [facility] osteoporosis1 (chief complaint)fib romyalgia1 (chief complaint)ins omnia1 (chief complaint)gill al cyst1 (chief complaint) InsomniaFibromya lgiaOsteoporosis Acquired renal cyst 7 Samuel Andrews. [address] [facility] [address], [place], [place], [address] , [place]. tel:[phone] OFFICE/OUTPA TIENT VISIT, [facility] [place], [address] [place], [address], [place] tel:[phone] [facility] fibromyalgia1 (chief complaint)ins omnia1 (chief complaint) FibromyalgiaInso mnia 7 Samuel Garcia [address], [address], [place], [place], [address] , [place]. tel:[phone] OFFICE/OUTPA TIENT VISIT, [facility] [place], [address], [place], [place], [address], [place] tel:[phone] [facility] insomnia1 (chief complaint)fib romyalgia1 (chief complaint)fat igue1 (chief complaint)HTN (chief complaint) FibromyalgiaFati gueInsomniaEssen tial (primary) hypertension Samuel Garcia [address], [place], [place], [address] , [place]. tel:[phone] Referring Provider: Betty Zelaya [address], [place], [place], [address]. tel:[phone] OFFICE/OUTPA TIENT VISIT, [facility] [place], [address], [place], [place], [address], [place] tel:[phone] [facility] Medicine fatigue1 (chief complaint)lef t shoulder pain1 (chief complaint)ost eoporosis1 (chief complaint)fib romyalgia1 (chief complaint)ins omnia1 (chief complaint) FatigueOsteoporo sisFibromyalgiaI nsomnia 7 Samuel Garcia [address], [address], [place], [place], [address] , [place]. tel:[phone] Referring Provider: Betty Zelaya [address], [place], [place], [address]. tel:[phone] OFFICE/OUTPA TIENT VISIT, [facility] [place], [address], [place], [place], [address], [place] tel:[phone] [facility] Medicine fibromyalgia1 (chief complaint)anx iety1 (chief complaint)fat igue1 (chief complaint) FatigueGeneraliz ed anxiety disorderFibromya lgia 7 Samuel Garcia [address], [place], [place], [address] , [place]. tel:[phone] Referring Provider: Betty Zelaya [address], [place], [place], [address]. tel:[phone] OFFICE/OUTPA TIENT VISIT, [facility] [place], [address], [place], [place], [address], [place] tel:[phone] [facility] fibromyalgia1 (chief complaint)ost eoporosis1 (chief complaint)anx iety1 (chief complaint)ski n CA1 (chief complaint) OsteoporosisFibr omyalgiaGenerali zed anxiety disorderBasal cell carcinoma of skin, unspecified February-3 0 7 Samuel Andrews. [address], [place], [place], [address] , [place]. [phone] Referring Provider: Betty Zelaya [address], [place], [place], [address]. tel:[phone] OFFICE/OUTPA TIENT VISIT, [facility] [place], [address], [place], [place], [address], [place] tel:[phone] [facility] osteoporosis1 (chief complaint)HTN (chief complaint)fib romyalgia1 (chief complaint)ins omnia1 (chief complaint) OsteoporosisChro meera pain syndromeGenerali zed anxiety disorderEssentia l (primary) hypertension February-0 2 7 Samuel Andrews. [address], [place], [place], [address] , [place]. [phone] Referring Provider: Betty Zelaya [address], [place], [place], [address]. tel:[phone] OFFICE/OUTPA TIENT VISIT, [facility] [place], [address], [place], [place], [address], [place] tel:[phone] [facility] anxiety1 (chief complaint)fib romyalgia1 (chief complaint) FibromyalgiaGene ralized anxiety disorder Jan-0 201 7 Samuel Andrews. [address], [address], [place], [place], [address] , [place]. tel:[phone] Referring Provider: Darryl Baker [address], [place], [place], [address]. tel:[phone] OFFICE/OUTPA TIENT VISIT, [facility] [place], [address], [place], [place], [address], [place] tel:[phone] [facility] fibromyalgia1 (chief complaint)anx iety1 (chief complaint) FibromyalgiaGene ralized Anxiety Disorder 7 Samuel Andrews. [address], [place], [place], [address] , [place]. tel:[phone] Referring Provider: Betty Zelaya [address], [place], [place], [address]. tel:[phone] OFFICE/OUTPA TIENT VISIT, [facility] [place], [address], [place], [place], [address], [place] tel:[phone] [facility] jont pain (chief complaint)anx iety1 (chief complaint)ost eoprosis1 (chief complaint) Chronic pain syndromeGenerali zed Anxiety DisorderOsteopor osis 7 Samuel Andrews. [address], [place], [place], [address] , [place]. tel:[phone] Referring Provider: Betty Zelaya [address], [place], [place], [address]. tel:[phone] OFFICE/OUTPA TIENT VISIT, [facility] [place], [address], [place], [place], [address], [place] tel:[phone] [facility] anxiety1 (chief complaint)fib romyalgia (chief complaint)elb ow pain1 (chief complaint)HLP (chief complaint) Chronic pain syndromeGenerali zed Anxiety DisorderPain in right elbow 7 Samuel Andrews. [address], [address], [place], [place], [address] , [place]. tel:[phone] Referring Provider: Betty Zelaya [address], [place], [address]. tel:[phone] PREV VISIT, EST, 65 & OVER [facility], [address], [place], [place], [address], [place] tel:[phone] [facility] PHysical (chief complaint) Encntr for general adult medical exam w/o abnormal findings 6 Samuel Andrews. [address], [place], [place], [address] , [place]. tel:[phone] Referring Provider: Betty Zelaya [address], [place], [place], [address]. tel:[phone] OFFICE/OUTPA TIENT VISIT, [facility] [place], [address], [place], [place], [address], [place] tel:[phone] [facility] chronic pain1 (chief complaint)anx iety1 (chief complaint) FibromyalgiaGene ralized Anxiety Disorder 6 Samuel Andrews. [address], [place], [place], [address] , [place]. tel:[phone] Referring Provider: Btety Zelaya [address], [place], [place], [address]. tel:[phone] OFFICE/OUTPA TIENT VISIT, [facility] [place], [address], [place], [place], [address], [place] tel:[phone] [facility] fibromyalgia1 (chief complaint)anx iety1 (chief complaint) FibromyalgiaGene ralized Anxiety Disorder 6 Samuel Andrews. [address], [place], [place], [address] , [place]. tel:[phone] Referring Provider: Betty Zelaya [address], [place], [place], [address]. tel:[phone] OFFICE/OUTPA TIENT VISIT, [facility] [place], [address], [place], [place], [address], [place] tel:[phone] [facility] fibromyalgia1 (chief complaint)anx iety1 (chief complaint)vis ion change (chief complaint) FibromyalgiaGene ralized Anxiety Disorder 6 Samuel Andrews. [address], [place], [place], [address] , [place]. [phone] Referring Provider: Betty Zelaya [address], [place], [place], [address]. tel:[phone] OFFICE/OUTPA TIENT VISIT, [facility] [place], [address], [place], [place], [address], [place] tel:[phone] [facility] neck pain1 (chief complaint) Spasmodic torticollis 0 6 Samuel Andrews. [address], [place], [place], [address] , [place]. tel:[phone] Referring Provider: Betty Zelaya [address], [place], [place], [address]. tel:[phone] OFFICE/OUTPA TIENT VISIT, [facility] [place], [address], [place], [place], [address], [place] tel:[phone] [facility] chronic pain (chief complaint)anx iety1 (chief complaint)HTN (chief complaint) FibromyalgiaGene ralized Anxiety DisorderEssentia l (primary) hypertension 6 Samuel Andrews. [address], [place], [place], [address] , [place]. tel:[phone] Referring Provider: Betty Zelaya [address], [place], [place], [address]. tel:[phone] OFFICE/OUTPA TIENT VISIT, [facility] [place], [address], [place], [place], [address], [place] tel:[phone] [facility] chronic pedro (chief complaint)anx iety1 (chief complaint) Chronic pain syndromeGenerali zed Anxiety Disorder 6 Samuel Andrews. [address], [place], [place], [address] , [place]. tel:[phone] Referring Provider: Betty Zelaya [address], [place], [place], [address]. tel:[phone] OFFICE/OUTPA TIENT VISIT, [facility] [place], [address], [place], [place], [address], [place] tel:[phone] [facility] chrnoic pain (chief complaint)Anx iety1 (chief complaint) FibromyalgiaGene ralized Anxiety Disorder 6 Samuel Andrews. [address], [place], [place], [address] , [place]. tel:[phone] Referring Provider: Betty Zelaya [address], [place], [place], [address]. tel:[phone] OFFICE/OUTPA TIENT VISIT, [facility] [place], [address], [place], [place], [address], [place] tel:[phone] [facility] fibromyalgia (chief complaint)anx iety1 (chief complaint)HTN 1 (chief complaint) FibromyalgiaEsse ntial (primary) hypertensionGene ralized anxiety disorder 6 Samuel Andrews. [address], [place], [place], [address] , [place]. tel:[phone] Referring Provider: Betty Zelaya [address], [place], [place], [address]. tel:[phone] OFFICE/OUTPA TIENT VISIT, [facility] [place], [address], [place], [place], [address], [place] tel:[phone] [facility] back pain1 (chief complaint)anx iety1 (chief complaint) FibromyalgiaGene ralized Anxiety Disorder 6 Samuel Andrews. [address], [place], [place], [address] , [place]. tel:[phone] Referring Provider: Betty Zelaya [address], [place], [place], [address]. tel:[phone] OFFICE/OUTPA TIENT VISIT, [facility] [place], [address], [place], [place], [address], [place] tel:[phone] [facility] HTN (chief complaint)anx iety1 (chief complaint)fib romyalgia (chief complaint)ost eoporosis1 (chief complaint) Other chronic painOsteoporosis Generalized Anxiety DisorderEssentia l (primary) hypertension 6 Samuel Andrews. [address], [place], [place], [address] , [place]. tel:[phone] Referring Provider: Betty Zelaya [facility], [place], [place], [address]. tel:[phone] OFFICE/OUTPA TIENT VISIT, [facility] [place], [address] [place], [address], [place] tel:[phone] [facility] HTN1 (chief complaint)fib romyalgia1 (chief complaint)anx iety1 (chief complaint)fat igue1 (chief complaint) FibromyalgiaGene ralized Anxiety DisorderSleep apneaEssential (primary) hypertension 6 Samuel Garcia [address], [address], [place], [place], [address] , [place]. tel:[phone] Referring Provider: Betty Zelaya [facility], [place], [place], [address]. tel:[phone] OFFICE/OUTPA TIENT VISIT, [facility] [place], [address] [facility] [place], [address], [place] tel:[phone] [facility] HTN1 (chief complaint)ost eoporosis1 (chief complaint)Fib romyalgia1 (chief complaint)anx iety1 (chief complaint) Essential (primary) hypertensionFibr omyalgiaGenerali zed anxiety disorderOsteopor osis 5 Samuel Andrews. [address], [place], [place], [address] , [place]. tel:[phone] Referring Provider: Betty Zelaya [place], [address]. tel:[phone] OFFICE/OUTPA TIENT VISIT, [facility] [place], [address] [place], [address], [place] tel:[phone] [facility] HTN1 (chief complaint)Anx iety1 (chief complaint)fib romyalgia1 (chief complaint) FibromyalgiaGene ralized anxiety disorderEssentia l (primary) hypertensionAcqu ired renal cyst 5 Samuel Andrews. [address], [address], [place], [place], [address] , [place]. tel:[phone] Referring Provider: Betty Zelaya [address], [place], [place], [address]. tel:[phone] OFFICE/OUTPA TIENT VISIT, [facility] [place], [address], [place], [place], [address], [place] tel:[phone] [facility] insulin resistance1 (chief complaint)anx iety1 (chief complaint)HTN 1 (chief complaint)gill al cyst1 (chief complaint) FibromyalgiaMeta bolic syndromeAcquired renal cystEssential (primary) hypertension 5 Samuel Garcia [address], [address], [place], [place], [address] , [place]. tel:[phone] Referring Provider: Betty Zelaya [address], [place], [address]. tel:[phone] OFFICE/OUTPA TIENT VISIT, [facility] [place], [address] [place], [address], [place] tel:[phone] [facility] Anxiety (chief complaint)fib romyalgia (chief complaint)glu cose (chief complaint) Dietary surveillance and counselingHyperg lycemiaProteinur iaGeneralized anxiety disorderUnspecif ied essential hypertension 5 Samuel Garcia [address], [place], [place], [address] , [place]. tel:[phone] Referring Provider: Betty Zelaya [address], [place], [place], [address]. tel:[phone] PREV VISIT, EST, 65 & OVER [facility], [address], [place], [place], [address], [place] tel:[phone] [facility] Physical (chief complaint) Routine medical exam 5 Samuel Garcia [address], [address], [place], [place], [address] , [place]. tel:[phone] Referring Provider: Betty Zelaya [address], [place], [place], [address]. tel:[phone] OFFICE/OUTPA TIENT VISIT, [facility] [place], [address], [place], [place], [address], [place] tel:[phone] [facility] osteoporosis (chief complaint)Crh oinc pain (chief complaint)Anx eity (chief complaint) OsteoporosisFibr omyalgiaGenerali zed anxiety disorder 5 Samuel Andrews. [address], [address], [place], [place], [address] , [place]. tel:[phone] Referring Provider: Betty Zelaya [address], [place], [place], [address]. tel:[phone] OFFICE/OUTPA TIENT VISIT, [facility] [place], [address], [place], [place], [address], [place] tel:[phone] [facility] fibromyalgia (chief complaint)anx iety (chief complaint)ost eoporosis (chief complaint) Dietary surveillance and counselingMyalgi a and myositis, unspecifiedGener alized anxiety disorderMalignan t neoplasm of central portion of female breastOther osteoporosis 5 Samuel Andrews. [address], [address], [place], [place], [address] , [place]. tel:[phone] Referring Provider: Betty Zelaya [address], [place], [place], [address]. tel:[phone] OFFICE/OUTPA TIENT VISIT, [facility] [place], [address], [place], [place], [address], [place] tel:[phone] [facility] sinus symptoms (acute) (chief complaint)chr onic pain (chief complaint)anx iety (chief complaint)ost eoporosis (chief complaint) Other and unspecified diseases of upper respiratory tractInsomnia, OtherOther osteoporosisMyal laly and myositis, unspecified Dec- 5 Samuel Andrews. [address], [place], [place], [address] , [place]. tel:[phone] Referring Provider: Betty Zelaya [address], [place], [place], [address]. tel:[phone] OFFICE/OUTPA TIENT VISIT, [facility] [place], [address], [place], [place], [address], [place] tel:[phone] [facility] osteoporosis (chief complaint)cou gh (chief complaint)dona n (chief complaint)anx iety (chief complaint) Dietary surveillance and counselingOther osteoporosisGene ralized anxiety disorderBronchit is, AcuteOpioid type dependence, unspecified use 5 Samuel Andrews. [address], [address], [place], [place], [address] , [place]. tel:[phone] Referring Provider: Betty Zelaya [facility], [place], [place], [address]. tel:[phone] OFFICE/OUTPA TIENT VISIT, [facility] [place], [address], [place], [place], [address], [place] tel:[phone] [facility] chronic pain (chief complaint)Anx iety (chief complaint)HTN (chief complaint) Dietary surveillance and counselingLumbag oPain in joint involving pelvic region and thighHypertensio n, UnspecifiedGener alized anxiety disorder 5 Samuel Andrews. [address], [address], [place], [place], [address] , [place]. tel:[phone] Referring Provider: Betty Zelaya [address], [place], [place], [address]. tel:[phone] OFFICE/OUTPA TIENT VISIT, [facility] [place], [address] [place], [address], [place] tel:[phone] [facility] chronic pain (chief complaint)anx iety (chief complaint) Dietary surveillance and counselingMyalgi a and myositis, unspecifiedGener alized anxiety disorder 4 Samuel Andrews. [address], [address], [place], [place], [address] , [place]. tel:[phone] Referring Provider: Betty Zelaya [facility], [place], [place], [address]. tel:[phone] OFFICE/OUTPA TIENT VISIT, [facility] [place], [address], [place], [place], [address], [place] tel:[phone] [facility] osteoporosis (chief complaint)chr onic pain (chief complaint)ins omnia (chief complaint)quinten er cyst (chief complaint) Dietary surveillance and counselingOther osteoporosisGene ralized anxiety disorderCHRONIC PAIN NECSynovial cyst of popliteal space 4 Samuel Garcia [address] [facility], [place], [place], [address] , [place]. tel:[phone] Referring Provider: Betty Zelaya [facility], [place], [place], [address]. tel:[phone] OFFICE/OUTPA TIENT VISIT, [facility] [place], [address], [place], [place], [address], [place] tel:[phone] [facility] leg pain (chief complaint)ost eoporosis (chief complaint)HTN (chief complaint) Pain in joint involving lower legOther osteoporosisCHRO MEERA PAIN NECHypertension, Unspecified 4 Samuel Garcia [address], [facility] A, [place], [place], [address] , [place]. tel:[phone] Referring Provider: Betty Zelaya [facility], [place], [place], [address]. tel:[phone] OFFICE/OUTPA TIENT VISIT, [facility] [place], [address], [place], [place], [address], [place] tel:[phone] [facility] osteoporosis (chief complaint)fib romyalgia (chief complaint)anx iety (chief complaint) Other osteoporosisCHRO MEERA PAIN NECGeneralized anxiety disorder 4 Samuel Garcia [address], [facility] [address], [place], [place], [address] , [place]. tel:[phone] Referring Provider: Darryl Baker, [address], [place], [place], [address]. tel:[phone] OFFICE/OUTPA TIENT VISIT, [facility] [place], [address], [place], [place], [address], [place] tel:[phone] [facility] osteoporosis (chief complaint)HLP (chief complaint)A1c (chief complaint)anx iety (chief complaint) Dietary surveillance and counselingOther osteoporosisOthe r and unspecified hyperlipidemiaHy perglycemiaGener alized anxiety disorder 4 Samuel Andrews. [address], [address], [place], [place], [address] , [place]. [phone] Referring Provider: Betty Zelaya [address], [place], [place], [address]. tel:[phone] PREV VISIT, EST, 65 & OVER [facility], [address], [place], [place], [address], [place] tel:[phone] [facility] Physical (chief complaint) Routine Medical ExamDietary surveillance and counselingRoutin e Medical Exam 4 Samuel Andrews. [address], [place], [place], [address] , [place]. [phone] Referring Provider: Betty Zelaya [address], [place], [place], [address]. tel:[phone] OFFICE/OUTPA TIENT VISIT, [facility] [place], [address], [place], [place], [address], [place] tel:[phone] [facility] HTN (chief complaint)fib romyalgia (chief complaint)Ins omnia (chief complaint) Dietary surveillance and counselingHypert ension, UnspecifiedDizzi nessCHRONIC PAIN NEC 4 Samuel Andrews. [address], [address], [place], [place], [address] , [place]. tel:[phone] Referring Provider: Betty Zelaya [address], [place], [place], [address]. tel:[phone] OFFICE/OUTPA TIENT VISIT, [facility] [place], [address], [place], [place], [address], [place] tel:[phone] [facility] SOB (chief complaint)cho rnic pain (chief complaint)Anx iety (chief complaint)diz ziness (chief complaint) Respiratory abnormality, unspecifiedCHRON IC PAIN NECDizzinessGene ralized anxiety disorder 4 Samuel Andrews. [address], [address], [place], [place], [address] , [place]. tel:[phone] Referring Provider: Darryl Baker, Betty [facility], [place], [place], [address]. tel:[phone] OFFICE/OUTPA TIENT VISIT, [facility] [place], [address], [place], [place], [address], [place] tel:[phone] [facility] fibromyalgia (chief complaint)ins omnia (chief complaint)HTN (chief complaint)ost eoporosis (chief complaint) CHRONIC PAIN NECInsomnia, OtherHypertensio n, UnspecifiedOther osteoporosis 4 Samuel Andrews. [address], [address], [place], [place], [address] , [place]. tel:[phone] Referring Provider: Betty Zelaya [facility], [place], [place], [address]. tel:[phone] OFFICE/OUTPA TIENT VISIT, [facility] [place], [address], [place], [place], [address], [place] tel:[phone] [facility] sinus infection (chief complaint)cho rnic pain (chief complaint)ins omnia (chief complaint)sima st pain (chief complaint) Dietary surveillance and counselingSinusi tis, AcuteInsomnia, OtherCHRONIC PAIN NEC 4 Samuel Andrews. [address], [address], [place], [place], [address] , [place]. tel:[phone] Referring Provider: Betty Zelaya [facility], [place], [place], [address]. tel:[phone] OFFICE/OUTPA TIENT VISIT, [facility] [place], [address], [place], [place], [address], [place] tel:[phone] [facility] chronic pain (chief complaint)ins omnia (chief complaint)sima st pain (chief complaint) Dietary surveillance and counselingInsomn ia, OtherPain in joint involving shoulder regionChest Pain, Unspecified 4 Samuel Andrews. [address], [address], [place], [place], [address] , [place]. tel:[phone] Referring Provider: Betty Zelaya [address], [place], [place], [address]. tel:[phone] OFFICE/OUTPA TIENT VISIT, [facility] [place], [address], [place], [place], [address], [place] tel:[phone] [facility] Insomnia (chief complaint)bethayn ulder pain (chief complaint)cho rnic pain (chief complaint)fat igue (chief complaint) Insomnia, OtherFatigue / MalaisePain in joint involving shoulder region 4 Samuel Andrews. [address], [address], [place], [place], [address] , [place]. tel:[phone] Referring Provider: Betty Zelaya [address], [place], [place], [address]. tel:[phone] OFFICE/OUTPA TIENT VISIT, [facility] [place], [address], [place], [place], [address], [place] tel:[phone] [facility] shoulder pain (chief complaint)anx iety (chief complaint) Dietary surveillance and counselingPain in joint involving shoulder region 3 Samuel Andrews. [address], [address], [place], [place], [address] , [place]. tel:[phone] Referring Provider: Betty Zelaya [address], [place], [place], [address]. tel:[phone] OFFICE/OUTPA TIENT VISIT, [facility] [place], [address], [place], [place], [address], [place] tel:[phone] [facility] chronic pain (chief complaint)anx iety (chief complaint)diz ziness (chief complaint) Dietary surveillance and counselingCHRONI C PAIN NECDizziness 3 Samuel Andrews. [address], [place], [place], [address] , [place]. tel:[phone] OFFICE/OUTPA TIENT VISIT, [facility] [place], [address], [place], [place], [address], [place] tel:[phone] [facility] dizziness (chief complaint)chr onic pain (chief complaint) Dietary surveillance and counselingDizzin essCHRONIC PAIN NECGeneralized anxiety disorder 3 Samuel Andrews. [address], [address], [place], [place], [address] , [place]. tel:[phone] OFFICE/OUTPA TIENT VISIT, [facility] [place], [address], [place], [place], [address], [place] tel:[phone] [facility] dizziness (chief complaint) VertigoChest Pain, UnspecifiedDieta ry surveillance and counselingOther osteoporosisMusc le weakness (generalized) 3 Samuel Andrews. [address], [place], [place], [address] , [place]. tel:[phone] Referring Provider: Betty Zelaya [facility], [place], [place], [address]. tel:[phone] OFFICE/OUTPA TIENT VISIT, [facility] [place], [address], [place], [place], [address], [place] tel:[phone] [facility] fibromyalgia (chief complaint)HLP (chief complaint)Hyp erglycemia (chief complaint)sharyn ast CA (chief complaint) Dietary surveillance and counselingOther osteoporosisOthe r and unspecified hyperlipidemiaHy perglycemiaCHRON IC PAIN NEC 3 Samuel Andrews. [address], [place], [place], [address] , [place]. tel:[phone] Referring Provider: Betty Zelaya [address], [place], [place], [address]. tel:[phone] OFFICE/OUTPA TIENT VISIT, [facility] [place], [address], [place], [place], [address], [place] tel:[phone] [facility] breast CA (chief complaint)ost eoporosis (chief complaint)chr onic pain (chief complaint) CHRONIC PAIN NECMalignant neoplasm of central portion of female breastOther osteoporosis 3 Samuel Andrews. [address], [place], [place], [address] , [place]. tel:[phone] Referring Provider: Betty Zelaya [facility] Cheryl, [place], [place], [address]. tel:[phone] OFFICE/OUTPA TIENT VISIT, [facility] [place], [address], [place], [place], [address], [place] tel:[phone] [facility] breast CA (chief complaint)chr onic pain (chief complaint)HTN (chief complaint) Malignant neoplasm of central portion of female breastHypertensi on, UnspecifiedCHRON IC PAIN NEC 3 Samuel Garcia [address], [place], [place], [address] , [place]. tel:[phone] Referring Provider: Betty Zelaya [address], [place], [place], [address]. tel:[phone] OFFICE/OUTPA TIENT VISIT, [facility] [place], [address], [place], [place], [address], [place] tel:[phone] [facility] Breast CA (chief complaint)ost eoporosis (chief complaint)anx iety (chief complaint) Dietary surveillance and counselingMalign ant neoplasm of central portion of female breastOther osteoporosisFati alejandra / Malaise [address], [place], [place], [address] , [place]. tel:[phone] Referring Provider: Betty [address], [place], [place], [address]. tel:[phone] [facility], [address], [place], [place], [address], [place] tel:[phone] [facility] Lump or mass in breast 3 Samuel Andrews. [address], [place], [place], [address] , [place]. tel:[phone] Referring Provider: Betty Zelaya [address], [place], [place], [address]. tel:[phone] PREV VISIT, NEW, 65 & OVER [facility], [address], [place], [place], [address], [place] tel:[phone] [facility] Physical (chief complaint) Dietary surveillance and counselingRoutin e Medical ExamRoutine Medical Exam 3 Samuel Andrews. [address], [place], [place], [address] , [place]. tel:[phone] Referring Provider: Darryl Baker, [address], [place], [place], [address]. tel:[phone] Family History Family Member Type Diagnosis Age At Onset Father Problem (finding) Alcoholism Father Problem (finding) liver cirrhosis Brother Problem (finding) Unknown Disease Mother Problem (finding) arthritis Brother Problem (finding) No Family history of No history of Other Payers Payer name Insurance type Covered libertarian ID Authoriza tion(s) Medicare Of [place] WPS MB [id number] Aetna Senior Supplemental Ins [id number] Social History Type Description Quantity Date Captured [...] on due Goal Influenza vaccine. Due on Pa due Goal Colonoscopy. Due on due Goal [...] ordered Referral Referred To: Suleman Arteaga [address] [place], [place], [id number] Ordered: Referrals: Allopathic & Osteopathic Physicians : [...] -Podiatric Medicine & Surgery Service Providers : Rendering Equipment Tender (related to Dermatophytosis of nail) ordered Referral Referred To: VENR DILL [address] [facility] [place], [place], [id number] Ordered: Referrals: Podiatric Medicine & Surgery Service Providers : Rendering Equipment Tender. VERN DILL. Evaluate and treat ordered Referral Ordered: Galo Hagan -Allopathic & Osteopathic Physicians : Internal Medicine : Cardiovascular Disease (related to Nonrheumatic mitral valve prolapse) ordered Referral Referred To: Galo Hagan [address] [place], [place] [id number] Ordered: Referrals: Allopathic & Osteopathic Physicians : Internal Medicine : Cardiovascular Disease. Galo Hagan. Evaluate and treat ordered Referral Referred To: Carlos Acharya MD [address] [place], [place], [address] Ordered: Referrals: Carlos Acharya MD Evaluate and treat ordered Referral Ordered: CT MAXILLOFACIAL W/O DYE (SINUSES) SF ordered Referral Ordered: CHEST X-RAY PA/LAT TWO-VIEWS ordered Referral Ordered: Tiff Connors (related to Osteoporosis) ordered Referral Referred To: Tiff Connors [address] [place], [place] [id number] Ordered: Referrals: Tiff Connors. 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 Pt failed vyvanse and adderall. Pt has sleep apnea but she does not use cpap nightly. Nuvigil is not covered by insurance. cough1 Pt has persisten t dry cough for several months Pt denies any chest pain or sob or fever or hemoptysis . pt denies any wheezing. Pt did not continuous pickling line pickler helper fluticasone/salmeterol yet due to insurance coverage issue. [...] pt denies any wheezing. Pt did not continuous pickling line pickler helper fluticasone/salmeterol yet fibromyalgia1 Pt has fibromyal laly [...] flonase and atrovent nasal spray Pt saw rn cvor who recommended sinu surgery but she is [...] histamine helped either. Pt has nena with rn cvor specialist next week fibromyalgia Pt has fibromyal [...] allergy worse. Pt has not heard from certification and selection specialist yet leg1 Pt has ? restles s leg syndrome .Pt never picked up requip. she does not know why allergy1 Pt has seasonal allergy which is not well controlled. Pt failed flonase and singulair. Pt states that cpap makes the allergy worse. sleep apnea1 Pt has sleep manager corporate ea and she has been using cpap [...] has chronic neuropathy sleepapnea1 Pt has sleep manager corporate ea Pt started cpap two weeks ago [...] and she is waiting for cpap from [facility]. Pt denies any other complaints [...] or headache sleep apnea1 Pt has sleep manager corporate ea. Pt is seeing pulmonary and she [...] her HTN sleep apnea1 Pt has sleep manager corporate ea Pt feels fatigue Pt is not [...] t akes norvasc and losartan and her direct chill casting operator started her on hydralazine recently. Her bp [...] failed neurontin sleep apnea1 Pt has sleep manager corporate ea Pt is noncompliant with CPAP. Pt will see sleep specialist soon and she needs a copy of the sleep study results sleep apnea1 Pt has sleep manager corporate ea but she could not tolerate CPAP. [...] to 159. Pt went to see her direct chill casting operator yesterday and was started on norvasc 5 mg in addition to daily losartan. Her bp is ok today in office . sleep apnea1 Pt has sleep manager corporate ea pt could not tolerate cpap. Pt [...] any edema sleep apnea1 Pt has sleep manager corporate ea and chronic fatigue and some vertigo [...] and her bp was too low and direct chill casting operator told her to stop norvasc and take [...] left radiculopathy. Pt is seeing ortho at [facility] and she was started on cymbalta [...] takes laxative OTC frequently Pt saw her legal records manager and was started on linzess 72 mcg [...] osteoporosis shot sleep apnea1 Pt has sleep manager corporate ea. Pt is still noncompliant with CPAP. [...] suicidal thought sleep apnea1 Pt has sleep manager corporate ea. Pt has been using a new [...] lab fasting sleep apnea1 Pt has sleep manager corporate ea Pt is waiting for CPAP set [...] suicidal thought sleep apnea1 Pt has sleep manager corporate ea Pt feels fatigue and cloudy brained [...] thought Instructions Date Instruction Additional Infor mation Special diet education Related t o Body [...] Mental Status Date Cognitive Assessment Orientation - [place] ed to time, place, person, situation.
--- OUTSIDE RECORDS SUMMARY | 2025-05-16 17:13 | XMS_ITS ---
Author Organization [facility] Address [address] [place] [address] Phone Care Team Providers Care Screw Machine Hand Name Role Phone Darryl Baker MD Primary [...]
--- OUTSIDE RECORDS SUMMARY | 2025-05-16 17:13 | XMS_ITS | Continuity of Care Document ---
Author Organization [facility] Address [id number] [place] [address] [place] [address] Phone Care Team Providers Care Employee'S Representative Name Role Phone Jose Alberto Donnelly Unavailable [...] Providers Copied on Encounter [place]pat [place], [facility] [place] [address] [place] [address] [address], [place], [place], [address], tel:[phone] [facility] [place] No Information 2[address] 0 Cony Abrams. [address] [facility] [address] , [address], [place], [place], [facility], [place]. tel:[phone] Office/outpat ient [place], [facility] [place] [address] [place] [address] [address], [place], [place], [address], tel:[phone] [facility] [place][note 2] No Information 8-201 0 Cony Abrams. [address] [facility] [address], [address], [place], [address], [place]. tel:[phone] Office/outpat ient Visit, [facility], [address], [place], [place], [address], [place] tel:[phone] [facility] [place] No Information -201 0 Alley Ayala. [address], [place], [place], [facility], [place]. tel:[phone] Office/outpat ient Visit, [facility], [address] [place] [address] [address], [place], [place], [address], [place] tel:[phone] [facility] No Information 1200 8 Cony Edchip. [address] , [address], [place], [place], [facility], [place]. tel:[phone] Office/outpat ient Visit, [facility], [address] [place] [address] [address], [place], [place], [address], [place] tel:[phone] [facility] [place] No Information 4[address] Doiolvin Edchip. [facility] , [address], [place], [place], [facility], [place]. tel:[phone] Office/outpat ient Visit, [facility], [address] [place] [address] [address], [place], [place], [address], [place] tel:[phone] [facility] [place] No Information 2-200 7 Cony Edchip. [address] , [address], [place], [place], [facility], [place]. tel:[phone] [facility], [address] [place] [address] [address], [place], [place], [address], [place] tel:[phone] [facility] No Information 1-200 7 Doisy Edchip. [address] , [address], [place], [place], [facility], [place]. tel:[phone] Family History Family Member Type Diagnosis Age [...]
--- OUTSIDE RECORDS SUMMARY | 2025-05-16 17:13 | XMS_ITS | Referral Summary ---
Author Organization [facility] Address [address] [place] [address] Phone Care Team Providers Care Heavy Equipment Engine Mechanic Name Role Phone Darryl Baker MD [...] on file Legal Sex Female 12:34 PM SOAKER SODA WORKER Gender Identity Not on file Sexual Orientation Not on file Last Filed Vital Signs Vital Sign Reading Time Taken Comments Blood Pressure 157/93 11/11/2019 3:31 PM SOAKER SODA WORKER Pulse 79 11/11/2019 3:31 PM SOAKER SODA WORKER Temperature 36.6 C (97.8 F) 11/11/2019 3:31 PM SOAKER SODA WORKER Respiratory Rate 16 11/11/2019 3:31 PM SOAKER SODA WORKER Oxygen Saturation 94% 11/11/2019 3:31 PM SOAKER SODA WORKER Inhaled Oxygen Concentration - - Weight 72.1 kg (159 lb) 07/30/2024 11:00 AM CDT Height 157.5 cm (5' 2) 07/30/2024 11:00 AM CDT Body Mass Index 29.08 07/30/2024 11:00 AM CDT Plan of Treatment Not on file Medical Devices Implanted Type Area Narrow Fabric Calenderer Device Identifier Shelf Expiration Date Model / Serial / Lot Allosource [id number] 10cm Frozen Graft Bone Fibula Segment - [id number] Implanted:Qty: 1 on 01/08/2019 by Chauncey Mojica MD at [facility] Left: Humerus Allosource 10/04/2022 [id number] / / [id number] Synthes 241.923 Lcp Combi Philos Long [id number] 10 Hole Shaft Lock Compression - [id number] Implanted:Qty: 1 on 01/08/2019 by Chauncey Mojica MD at [facility] Left: Humerus Synthes I 241.923 / / Synthes 204.828 3.5mm 6mm 28mm 2.5mm Self Tap Small Hexagonal Socket Low Profile - [id number] Implanted:Qty: 3 on 01/08/2019 by Chauncey Mojica MD at [facility] Left: Humerus Synthes I 204.828 / / Synthes 212.110 3.5mm 2.9mm 28mm Self Tap Lock Stardrive Conical Head T15 Full - [id number] Implanted:Qty: 3 on 01/08/2019 by Chauncey Mojica MD at [facility] Left: Humerus Synthes I 212.110 / / Synthes 212.119 3.5mm 2.9mm 45mm Self Tap Lock Stardrive Conical Head T15 Full - [id number] Implanted:Qty: 1 on 01/08/2019 by Chauncey Mojica MD at [facility] Left: Humerus Synthes I 212.119 / / Synthes 212.118 3.5mm 2.9mm 42mm Self Tap Lock Stardrive Conical Head Full Thread - [id number] Implanted:Qty: 2 on 01/08/2019 by Chauncey Mojica MD at [facility] Left: Humerus Synthes I 212.118 / / Synthes 212.112 3.5mm 2.9mm 32mm Self Tap Lock Stardrive Conical Head T15 Full - [id number] Implanted:Qty: 1 on 01/08/2019 by Chauncey Mojica MD at [facility] Left: Humerus Synthes I 212.112 / / [...] Bone mineral density was performed on a [email or web address] Discovery Densitometer. Based on machine cross-calibration and [...] by the International Society of Clinical Densitometry. [id number] Luz Pineda MD IMG DXA PROCEDURES Final Resu lt from Last 3 Months or Most Recently Relevant to Health Maintenance [place] [address] [employer] [facility] MEDICARE [employer] SENIOR SUPPLEMENT Advance Directives For more information, please contact: [phone] * Full Code (Latest Code Status on File) Date Activated Date Inactivated Comments 01/08/2019 9:54 PM 01/09/2019 8:22 PM * Full Code Date Activated Date Inactivated Comments 01/08/2019 9:54 PM 01/08/2019 9:54 PM Care Teams Heavy Equipment Engine Mechanic Relationship Specialty Start Date End Date Darryl Baker MD PCP - General 09/09/13
--- OUTSIDE RECORDS SUMMARY | 2025-05-16 17:13 | XMS_ITS | Clinical Summary ---
Author Organization [facility] Address [address] [place] [address] Phone Care Team Providers Care Motorcycle Police Officer Name Role Phone Darryl Baker MD Primary Care Provider [phone] Allergies Active Allergy Reactions Criticality Noted Date [...] on file Legal Sex Female 12:34 PM LAP CHECKER Gender Identity Not on file Sexual Orientation Not on file Obstetrics History Last Filed Vital Signs Vital Sign Reading Time Taken Comments Blood Pressure 157/93 11/11/2019 3:31 PM LAP CHECKER Pulse 79 11/11/2019 3:31 PM LAP CHECKER Temperature 36.6 C (97.8 F) 11/11/2019 3:31 PM LAP CHECKER Respiratory Rate 16 11/11/2019 3:31 PM LAP CHECKER Oxygen Saturation 94% 11/11/2019 3:31 PM LAP CHECKER Inhaled Oxygen Concentration - - Weight 72.1 [...] history exists Medical Devices Implanted Type Area Software Systems Architect Device Identifier Shelf Expiration Date Model / Serial / Lot Allosource [id number] 10cm Frozen Graft Bone Fibula Segment - [id number] Implanted:Qty: 1 on 01/08/2019 by Chauncey Mojica MD at [facility] Left: Humerus Allosource 10/04/2022 [id number] / / [id number] Synthes 241.923 Lcp Combi Philos Long [id number] 10 Hole Shaft Lock Compression - [id number] Implanted:Qty: 1 on 01/08/2019 by Chauncey Mojica MD at [facility] Left: Humerus Synthes I 241.923 / / Synthes 204.828 3.5mm 6mm 28mm 2.5mm Self Tap Small Hexagonal Socket Low Profile - [id number] Implanted:Qty: 3 on 01/08/2019 by Chauncey Mojica MD at [facility] Left: Humerus Synthes I 204.828 / / Synthes 212.110 3.5mm 2.9mm 28mm Self Tap Lock Stardrive Conical Head T15 Full - [id number] Implanted:Qty: 3 on 01/08/2019 by Chauncey Mojica MD at [facility] Left: Humerus Synthes I 212.110 / / Synthes 212.119 3.5mm 2.9mm 45mm Self Tap Lock Stardrive Conical Head T15 Full - [id number] Implanted:Qty: 1 on 01/08/2019 by Chauncey Mojica MD at [facility] Left: Humerus Synthes I 212.119 / / Synthes 212.118 3.5mm 2.9mm 42mm Self Tap Lock Stardrive Conical Head Full Thread - [id number] Implanted:Qty: 2 on 01/08/2019 by Chauncey Mojica MD at [facility] Left: Humerus Synthes I 212.118 / / Synthes 212.112 3.5mm 2.9mm 32mm Self Tap Lock Stardrive Conical Head T15 Full - [id number] Implanted:Qty: 1 on 01/08/2019 by Chauncey Mojica MD at [facility] Left: Humerus Synthes I 212.112 / [...] Bone mineral density was performed on a [employer] Discovery Densitometer. Based on machine cross-calibration and [...] by the International Society of Clinical Densitometry. [id number] Luz Pineda MD IMG DXA PROCEDURES Final Resu lt from Last 3 Months or Most Recently Relevant to Health Maintenance Insurance AET MEDICARE [facility] AETNA SENIOR SUPPLEMENT Advance Directives For more information, please contact: [phone] * Full Code (Latest Code Status on File) Date Activated Date Inactivated Comments 01/08/2019 9:54 PM 01/09/2019 8:22 PM * Full Code Date Activated Date Inactivated Comments 01/08/2019 9:54 PM 01/08/2019 9:54 PM Care Teams Motorcycle Police Officer Relationship Specialty Start Date End Date Darryl Baker MD PCP - General 09/09/13
--- NOTE | 2025-05-16 17:17 | PC.NURSE ---
Shoulder immobilizer placed on patients left arm. Patient educated on use.
== END 2025-05-16 17:18 | disposition home or self-care (01) ==
LOC: ANHED 17:10
PROVIDERS: Emergency Provider Emergency Medicine; PCP Emergency Medicine
DX: S52.122A Displaced fracture of head of left radius, initial encounter for closed fracture (principal); I10 Essential (primary) hypertension; E78.00 Pure hypercholesterolemia, unspecified; Z85.3 Personal history of malignant neoplasm of breast; Z85.828 Personal history of other malignant neoplasm of skin; Z90.710 Acquired absence of both cervix and uterus; Z90.11 Acquired absence of right breast and nipple; X58.XXXA Exposure to other specified factors, initial encounter
CPT/HCPCS: 99282; 99284

== ENCOUNTER 2025-05-20 15:16 | Outpatient (CLI) | payer MEDICARE, SELFPAY ==
--- NOTE | ~2025-05-20 | CT_ITS ---
EXAMINATION: CT elbow LT wo con DATE: 05/20/2025 15:51 INDICATION: Left elbow pain TECHNIQUE: High resolution computed tomography (CT) of the left elbow was performed without intraveno us contrast. Additional sagittal and coronal reconstructions were performed. Automated exposure contr ol and iterative reconstruction technique were employed. The dose-length product was 575.40 mGy-cm. COMPARISON: Radiograph dated 07/25/2020 and 05/15/2025 FINDINGS: Incompletely visualized old healed fracture of the mid left humeral diaphysis with incorporated intra medullary bone graft and anterior plate and screw fixation which is in near-anatomic alignment. No ac nestor fracture. 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 No elbow joint effusion. Nonspecific stranding in the subcutaneous ti ssues along the dorsal aspect of the proximal forearm. No discrete fluid collection to suggest absces s or distended olecranon bursa. IMPRESSION: 1. Old healed internally fixed left humeral diaphyseal fracture. No acute osseous abnormality. 2. 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 2. Nonspecific stranding in the subcutaneous fat posterior to the elbow without discrete fluid collec tion which could be infectious, inflammatory or post traumatic in etiology. Reviewed, dictated and finalized at location A. IMPRESSION: 1. Old healed internally fixed left humeral diaphyseal fracture. No acute osseo us abnormality. 2. 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 2. Nonspecific stranding in the subcutaneous fat posterior to the elbow without discrete fluid collection which could be infectious, inflammatory or post trau matic in etiology.
--- OUTSIDE RECORDS SUMMARY | 2025-05-20 15:20 | XMS_ITS | Clinical Summary ---
Author Organization [facility] Address [address] [place] [address] Care Team Providers Care Dental Instructor Name Role Phone Darryl Baker MD Primary Care Provider Source Comments [facility],non-owned Affiliates and Associated Physician Practices is amultiple site organization consisting of ambulatory clinics and hospital sitesin [place], [place], [place] and [place]. This disclosure is being madepursuant to the Care Everywhere program and may not contain all information available regarding this patient. Last updated 18.[facility] Allergies Active Allergy Reactions Criticality Noted Date Comments Cyclobenzaprine Unknown 05/08/2022 Erythromycin Other Low 11/11/2019 Escitalopram Other Low 11/11/2019 Rash Away Rash Medium 11/09/2022 Sulfamethazine Other Low 03/25/2013 Trimethobenzamide Unknown 03/25/2013 Trimethoprim Unknown 03/25/2013 Medications * Be aware that medications may not be up to date on this document. Alwaysverify current medications with the patient. 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 on file Not on file Not on file Last Filed Vital Signs Vital Sign Reading Time Taken Comments Blood Pressure 133/78 11/09/2022 8:58 AM PETROLEUM GEOLOGIST Pulse 77 11/09/2022 8:58 AM PETROLEUM GEOLOGIST Temperature 36.7 C (98.1 F) 05/08/2022 12:35 PM CDT Respiratory Rate - - Oxygen Saturation 98% 12/31/2017 8:50 AM PETROLEUM GEOLOGIST Inhaled Oxygen Concentration - - Weight 73 kg (161 lb) 11/09/2022 8:58 AM PETROLEUM GEOLOGIST Height 157.5 cm (5' 2) 11/09/2022 8:58 AM PETROLEUM GEOLOGIST Body Mass Index 29.45 11/09/2022 8:58 AM PETROLEUM GEOLOGIST Plan of Treatment Health Maintenance Due Date [...] this topic Insurance MEDICARE AETNA Care Teams Dental Instructor Relationship Specialty Start Date End Date Darryl Baker MD [address] [facility] [address] [place] [address] PCP - General 08/13/17
--- OUTSIDE RECORDS SUMMARY | 2025-05-20 15:20 | XMS_ITS | Clinical Summary ---
Author Organization [facility] Address [address] [place] [address] Phone Care Team Providers Care Health Tech Name Role Phone Darryl Baker MD Primary [...] on file Legal Sex Female 12:34 PM RICE DRIER OPERATOR Gender Identity Not on file Sexual Orientation Not on file Obstetrics History Last Filed Vital Signs Vital Sign Reading Time Taken Comments Blood Pressure 157/93 11/11/2019 3:31 PM RICE DRIER OPERATOR Pulse 79 11/11/2019 3:31 PM RICE DRIER OPERATOR Temperature 36.6 C (97.8 F) 11/11/2019 3:31 PM RICE DRIER OPERATOR Respiratory Rate 16 11/11/2019 3:31 PM RICE DRIER OPERATOR Oxygen Saturation 94% 11/11/2019 3:31 PM RICE DRIER OPERATOR Inhaled Oxygen Concentration - - Weight [...] history exists Medical Devices Implanted Type Area Fall Internship Device Identifier Shelf Expiration Date Model / Serial / Lot Allosource [id number] 10cm Frozen Graft Bone Fibula Segment - [id number] Implanted:Qty: 1 on 01/08/2019 by Chauncey Mojica MD at [facility] Left: Humerus Allosource 10/04/2022 [id number] / / [id number] Synthes 241.923 Lcp Combi Philos Long [id number] 10 Hole Shaft Lock Compression - [id number] Implanted:Qty: 1 on 01/08/2019 by Chauncey Mojica MD at [facility] Left: Humerus Synthes I 241.923 / / Synthes 204.828 3.5mm 6mm 28mm 2.5mm Self Tap Small Hexagonal Socket Low Profile - [id number] Implanted:Qty: 3 on 01/08/2019 by Chauncey Mojica MD at [facility] Left: Humerus Synthes I 204.828 / / Synthes 212.110 3.5mm 2.9mm 28mm Self Tap Lock Stardrive Conical Head T15 Full - [id number] Implanted:Qty: 3 on 01/08/2019 by Chauncey Mojica MD at [facility] Left: Humerus Synthes I 212.110 / / Synthes 212.119 3.5mm 2.9mm 45mm Self Tap Lock Stardrive Conical Head T15 Full - [id number] Implanted:Qty: 1 on 01/08/2019 by Chauncey Mojica MD at [facility] Left: Humerus Synthes I 212.119 / / Synthes 212.118 3.5mm 2.9mm 42mm Self Tap Lock Stardrive Conical Head Full Thread - [id number] Implanted:Qty: 2 on 01/08/2019 by Chauncey Mojica MD at [facility] Left: Humerus Synthes I 212.118 / / Synthes 212.112 3.5mm 2.9mm 32mm Self Tap Lock Stardrive Conical Head T15 Full - [id number] Implanted:Qty: 1 on 01/08/2019 by Chauncey Mojica MD at [facility] Left: Humerus Synthes I 212.112 / [...] Bone mineral density was performed on a [employer] Discovery Densitometer. Based on machine cross-calibration and [...] by the International Society of Clinical Densitometry. [id number] Luz Pineda MD IMG DXA PROCEDURES Final Resu lt from Last 3 Months or Most Recently Relevant to Health Maintenance Insurance AET MEDICARE [facility] AETNA SENIOR SUPPLEMENT Advance Directives For more information, please contact: [phone] * Full Code (Latest Code Status on File) Date Activated Date Inactivated Comments 01/08/2019 9:54 PM 01/09/2019 8:22 PM * Full Code Date Activated Date Inactivated Comments 01/08/2019 9:54 PM 01/08/2019 9:54 PM Care Teams Health Tech Relationship Specialty Start Date End Date Darryl Baker MD PCP - General 09/09/13
--- OUTSIDE RECORDS SUMMARY | 2025-05-20 15:20 | XMS_ITS | Continuity of Care Document ---
Author Organization [facility] Address [address] [place] [address] [place] [address] Phone Care Team Providers Care Lapel Padder Blindstitch Name Role Phone Jose Alberto Donnelly Unavailable [...] Providers Copied on Encounter Office/outpat ient Visit, [facility], [address] [place] [address] [address], [place], [place], [id number], tel:[phone] [facility] [place] No Information [address]. [address] [facility] [address] , [address], [place], [place], [facility][note 3], [place]. tel:[phone] Office/outpat ient Visit, [facility], [address] [place] [address] [address], [place], [place], [id number], tel:[phone] SEC [facility] No Information [phone] 0 [address]. [address] [facility] [address], [address], [place], [address], [place]. tel:[phone] Office/outpat ient Visit, [facility], [address], [place], [place], [id number], [place] tel:[phone] [facility] [place] No Information -[phone] 0 Alley Ayala. [address], [place], [place], [facility][note 3], [place]. tel:[phone] [facility], [address] [place] [address] [address], [place], [place], [id number], [place] tel:[phone] [facility] No Information [address]. [address] , [address], [place], [place], [facility][note 3], [place]. tel:[phone] Office/outpat ient Visit, [facility], [address] [place] [address] [address], [place], [place], [id number], [place] tel:[phone] [facility] [place] No Information [address] Doiolvin Edchip. Count includes the [facility] , [address], [place], [place], [facility][note 3], [place]. tel:[phone] Office/outpat ient Visit, [facility], [address] [place] [address] [address], [place], [place], [id number], [place] tel:[phone] [facility] [place] No Information 2-[address] 7 [address]. [address] , [address], [place], [place], [facility][note 3], [place]. tel:[phone] [facility], [address] [place] [address] [address], [place], [place], [id number], [place] tel:[phone] [facility] No Information 1-[address] 7 [address]. [address] , [address], [place], [place], [facility][note 3], [place]. tel:[phone] Family History Family Member Type Diagnosis Age At Onset No Information Payers Payer name Insurance type Covered democrat ID Authoriza tion(s) No Information Social History [...]
--- OUTSIDE RECORDS SUMMARY | 2025-05-20 15:20 | XMS_ITS | Continuity of Care Document ---
Author Organization [facility] Address [address] [place] [address] [place] [address] Phone Care Team Providers Care Vice President Of Academic Affairs Name Role Phone Darryl Baker MD Unavailable Unavailable Allergies, Adverse Reactions, Alerts Substance Reaction Status Criticality trimethoprim Active No Information Sulfa (Sulfonamide Antibiotics) Active No Information trimethobenzamide Active No Informa tion sulfamethazine Active No Informatio n Medications Medication Instructions Dosage Effective Dates (start - stop) Status Comments hydrocodone 10 mg-acetaminophen 325 mg tablet take 1 by Oral route 3 times every day as needed 1 - Active PRN for pain, avoid driving or operate machines indomethacin 50 mg capsule take 1 capsule by oral route 3 times every day with food 50 MG - Active Vitamin D2 1,250 mcg (50,000 [...] VISIT, EST Medicare Addendum OFFICE/OUTPATIENT VISIT, EST -2023 OFFICE/OUTPATIENT VISIT, EST OFFICE/OUTPATIENT VISIT, EST OFFICE/OUTPATIENT [...] EST OFFICE/OUTPATIENT VISIT, EST OFFICE/OUTPATIENT VISIT, EST -2020 OFFICE/OUTPATIENT VISIT, EST OFFICE/OUTPATIENT VISIT, EST OFFICE/OUTPATIENT VISIT, EST OFFICE/OUTPATIENT VISIT, EST OFFICE/OUTPATIENT VISIT, EST OFFICE/OUTPATIENT VISIT, EST OFFICE/OUTPATIENT VISIT, EST OFFICE/OUTPATIENT VISIT, EST -2019 OFFICE/OUTPATIENT VISIT, EST OFFICE/OUTPATIENT VISIT, EST -2019 OFFICE/OUTPATIENT VISIT, EST OFFICE/OUTPATIENT VISIT, EST -2019 OFFICE/OUTPATIENT VISIT, EST OFFICE/OUTPATIENT VISIT, EST OFFICE/OUTPATIENT VISIT, EST OFFICE/OUTPATIENT VISIT, EST PPPS, initial visit OFFICE/OUTPATIENT VISIT, EST OFFICE/OUTPATIENT [...] EST OFFICE/OUTPATIENT VISIT, EST OFFICE/OUTPATIENT VISIT, EST -2015 OFFICE/OUTPATIENT VISIT, EST OFFICE/OUTPATIENT VISIT, EST OFFICE/OUTPATIENT VISIT, EST OFFICE/OUTPATIENT VISIT, EST OFFICE/OUTPATIENT VISIT, EST OFFICE/OUTPATIENT VISIT, EST OFFICE/OUTPATIENT VISIT, EST OFFICE/OUTPATIENT VISIT, EST OFFICE/OUTPATIENT VISIT, EST -2014 OFFICE/OUTPATIENT VISIT, EST OFFICE/OUTPATIENT VISIT, EST OFFICE/OUTPATIENT VISIT, EST -2014 PREV VISIT, EST, 65 & OVER -2014 OFFICE/OUTPATIENT VISIT, EST OFFICE/OUTPATIENT VISIT, EST -2014 OFFICE/OUTPATIENT VISIT, EST -2014 OFFICE/OUTPATIENT VISIT, EST -2014 OFFICE/OUTPATIENT VISIT, EST OFFICE/OUTPATIENT VISIT, EST -2013 OFFICE/OUTPATIENT VISIT, EST -2013 OFFICE/OUTPATIENT VISIT, EST OFFICE/OUTPATIENT VISIT, EST -2013 OFFICE/OUTPATIENT VISIT, EST -2013 PREV VISIT, EST, 65 & OVER -2013 OFFICE/OUTPATIENT VISIT, EST -2013 OFFICE/OUTPATIENT VISIT, EST -2013 OFFICE/OUTPATIENT VISIT, EST OFFICE/OUTPATIENT VISIT, EST -2013 OFFICE/OUTPATIENT VISIT, EST -2013 OFFICE/OUTPATIENT VISIT, EST -2013 OFFICE/OUTPATIENT VISIT, EST OFFICE/OUTPATIENT VISIT, EST -2012 OFFICE/OUTPATIENT VISIT, EST OFFICE/OUTPATIENT VISIT, EST -2012 OFFICE/OUTPATIENT VISIT, EST OFFICE/OUTPATIENT VISIT, EST OFFICE/OUTPATIENT VISIT, EST OFFICE/OUTPATIENT VISIT, EST PREV VISIT, NEW, 65 & OVER Advance Directives Directive Yes / No Effective Date File Name No Information Encounters Encounter Description Practice Location Reason(s) For Visit Diagnoses Date Provider Providers Copied on Encounter OFFICE/OUTPA TIENT VISIT, [facility], [address], [place], [place], [address], [place] tel:[phone] [facility] pain (chief complaint) FibromyalgiaPain in left elbow 5 Samuel Andrews. [address], [place], [place], [address] , [place]. tel:[phone] OFFICE/OUTPA TIENT VISIT, [facility], [address], [place], [place], [address], [place] tel:[phone] [facility] Medicine pain (chief complaint)glu cose1 (chief complaint)ost eoporosis1 (chief complaint)fat igue1 (chief complaint) OsteoporosisFati gueFibromyalgiaF olate deficiencyHyperg lycemia 5 Samuel Andrews. [address], [place], [place], [address] , [place]. tel:[phone] OFFICE/OUTPA TIENT VISIT, [facility], [address], [place], [place], [address], [place] tel:[phone] [facility] pain (chief complaint)vis ual1 (chief complaint)yaya ght loss1 (chief complaint) Abnormal weight lossFibromyalgia FatigueChange in mental status 5 Samuel Andrews. [address], [place], [place], [address] , [place]. tel:[phone] OFFICE/OUTPA TIENT VISIT, [facility], [address] [place] [address], [place] tel:[phone] [facility] fibromyalgia1 (chief complaint)hyp ersomnia1 (chief complaint)HTN (chief complaint)hip pain1 (chief complaint) FibromyalgiaEsse ntial (primary) hypertensionFati guePain in left hip 5 Samuel Andrews. [address], [place], [place], [address] , [place]. tel:[phone] OFFICE/OUTPA TIENT VISIT, [facility], [address], [place], [place], [address], [place] tel:[phone] [facility] RLS (chief complaint)fib romyalgia1 (chief complaint)fat igue1 (chief complaint)VENKATESH D1 (chief complaint) FatigueFibromyal giaRestless Legs SyndromeGERD w/o esophagitis 5 Samuel Andrews. [address], [place], [place], [address] , [place]. tel:[phone] OFFICE/OUTPA TIENT VISIT, [facility], [address], [place], [place], [address], [place] tel:[phone] [facility] pain (chief complaint)leg pain1 (chief complaint)fat igue1 (chief complaint) Restless Legs SyndromeFatigueF ibromyalgia 5 Samuel Andrews. [address], [place], [place], [address] , [place]. tel:[phone] OFFICE/OUTPA TIENT VISIT, [facility], [address], [place], [place], [address], [place] tel:[phone] [facility] lightheadness 1 (chief complaint)RLS (chief complaint) HypotensionRestl ess Legs Syndrome 5 Samuel Andrews. [address], [place], [place], [address] , [place]. tel:[phone] OFFICE/OUTPA TIENT VISIT, [facility], [address] [place], [address], [place] tel:[phone] [facility] pain (chief complaint)cou gh1 (chief complaint)RLS (chief complaint)sle ep apnea1 (chief complaint) FibromyalgiaAcut e bronchitisRestle ss Legs SyndromeObstruct lloyd sleep apnea hypopnea 5 Samuel Andrews. [address], [place], [place], [address] , [place]. tel:[phone] OFFICE/OUTPA TIENT VISIT, [facility], [address] [place], [place], [address], [place] tel:[phone] [facility] HTN (chief complaint)nec k pain1 (chief complaint)fib romyalgia1 (chief complaint) Essential (primary) hypertensionFibr omyalgiaOther muscle spasm 4 Samuel Andrews. [address], [place], [place], [address] , [place]. tel:[phone] OFFICE/OUTPA TIENT VISIT, [facility], [address] [place], [address], [place] tel:[phone] [facility] pain (chief complaint)RLS (chief complaint)nec k pain1 (chief complaint) FibromyalgiaRest less Legs SyndromeOther muscle spasm 4 Samuel Andrews. [address], [place], [place], [address] , [place]. tel:[phone] OFFICE/OUTPA TIENT VISIT, [facility], [address] [place], [address], [place] tel:[phone] [facility] pain (chief complaint)ost eoporosis1 (chief complaint)VENKATESH D1 (chief complaint) FibromyalgiaOste oporosisGERD w/o esophagitis 4 Samuel Andrews. [address], [place], [place], [address] , [place]. tel:[phone] OFFICE/OUTPA TIENT VISIT, [facility], [address] [place], [address], [place] tel:[phone] [facility] pain (chief complaint)HTN (chief complaint)ophelia ma1 (chief complaint)hyp erglycemia1 (chief complaint) EdemaEssential (primary) hypertensionFibr omyalgiaHypergly cemiaRestless legs syndrome 4 Samuel Andrews. [address], [place], [place], [address] , [place]. [phone] OFFICE/OUTPA TIENT VISIT, [facility], [address] [place], [address], [place] tel:[phone] [facility] pain (chief complaint)HTN (chief complaint)b12 (chief complaint)dry mouth1 (chief complaint) EdemaEssential (primary) hypertensionCyan ocobalamin deficiencyFibrom yalgiaDry mouth 4 Samuel Garcia [address] [place], [address] , [place]. [phone] OFFICE/OUTPA TIENT VISIT, [facility], [address] [place], [address], [place] tel:[phone] [facility] HTN (chief complaint)HLP (chief complaint)cou gh1 (chief complaint)ane mia1 (chief complaint)DM (chief complaint)fat igue1 (chief complaint) Essential (primary) hypertensionMixe d hyperlipidemiaTy pe 2 diabetes mellitus with diabetic nephropathyAnemi aFatigueCyanocob alamin deficiencyDry mouthFibromyalgi aOsteoporosisChr onic cough 4 Samuel Garcia [address], [place], [place], [address] , [place]. [phone] OFFICE/OUTPA TIENT VISIT, [facility], [address] [place], [address], [place] tel:[phone] [facility] pain1 (chief complaint)cou gh1 (chief complaint)fat igue1 (chief complaint) FatigueChronic coughEssential (primary) hypertensionFibr omyalgia 4 Samuel Garcia [address] [place], [address] , [place]. tel:[phone] OFFICE/OUTPA TIENT VISIT, [facility], [address] [place], [address], [place] tel:[phone] [facility] cough1 (chief complaint)RLS (chief complaint)fat igue1 (chief complaint) FatigueMild intermittent asthma, uncomplicatedRes tless Legs Syndrome 4 Bakre Darryl. [address] [facility] [address], [place], [place], [address] , [place]. tel:[phone] OFFICE/OUTPA TIENT VISIT, [facility], [address] [employer] [place], [address], [place] [phone] [facility] fibromyalgia1 (chief complaint)ost eoporosis1 (chief complaint)cou gh1 (chief complaint)fat igue1 (chief complaint) Mild intermittent asthma, uncomplicatedFat igueFibromyalgia Osteoporosis 4 Baker Darryl. [address] [facility] [address], [place], [place], [address] , [place]. tel:[phone] OFFICE/OUTPA TIENT VISIT, [facility], [address] [employer] [place], [address], [place] tel:[phone] [facility] osteoporosis1 (chief complaint)dona n (chief complaint)fat igue1 (chief complaint)RLS 1 (chief complaint)cou gh1 (chief complaint) FatigueOsteoporo sisRestless Legs SyndromeFibromya lgiaMild intermittent asthma, uncomplicated 4 Baker Darryl. [address] [facility] [address], [place], [place], [address] , [place]. tel:[phone] OFFICE/OUTPA TIENT VISIT, [facility], [address] [place], [address], [place] tel:[phone] [facility] pain (chief complaint)ADD (chief complaint)cou gh1 (chief complaint)HTN (chief complaint) Acute bronchitisFibrom yalgiaFatigueObs tructive Sleep Apnea HypopneaEssentia l (primary) hypertension Jan-0 4 Samuel Andrews. [address], [place], [place], [address] , [place]. tel:[phone] OFFICE/OUTPA TIENT VISIT, [facility], [address] [place], [address], [place] tel:[phone] [facility] pain (chief complaint)fat igue1 (chief complaint) FatigueFibromyal laly 4 Samuel Andrews. [address], [place], [place], [address] , [place]. tel:[phone] OFFICE/OUTPA TIENT VISIT, [facility], [address], [place], [place], [address], [place] tel:[phone] [facility] pain1 (chief complaint)leg pain1 (chief complaint)leg weakness1 (chief complaint)fat igue1 (chief complaint) FibromyalgiaRest less Legs SyndromeObstruct lloyd Sleep Apnea HypopneaFatigueP eripheral vascular disease, unspecified 4 Samuel Andrews. [address], [place], [place], [address] , [place]. tel:[phone] OFFICE/OUTPA TIENT VISIT, [facility], [address], [place], [place], [address], [place] tel:[phone] [facility] GERD1 (chief complaint)dona n (chief complaint)leg pain1 (chief complaint)HTN (chief complaint) FibromyalgiaGERD w/o esophagitisRestl ess Legs SyndromeEssentia l (primary) hypertension 4 Samuel Andrews. [address], [place], [place], [address] , [place]. tel:[phone] OFFICE/OUTPA TIENT VISIT, [facility], [address], [place], [place], [address], [place] tel:[phone] [facility] pain (chief complaint)RLS (chief complaint)HTN (chief complaint)VENKATESH D1 (chief complaint) FibromyalgiaRest less Legs SyndromeEssentia l (primary) hypertensionGERD w/o esophagitis 3 Samuel Andrews. [address], [place], [place], [address] , [place]. tel:[phone] OFFICE/OUTPA TIENT VISIT, [facility], [address], [place], [place], [address], [place] tel:[phone] [facility] pain (chief complaint)RLS 1 (chief complaint)sin us (chief complaint) FibromyalgiaChro meera sinusitisRestles s legs syndrome 3 Samuel Andrews. [address], [place], [place], [address] , [place]. tel:[phone] OFFICE/OUTPA TIENT VISIT, [facility], [address], [place], [place], [address], [place] tel:[phone] [facility] fibromyalgia1 (chief complaint)RLS 1 (chief complaint)HTN (chief complaint)all ergy1 (chief complaint) Restless Legs SyndromeEssentia l (primary) hypertensionFibr omyalgiaAllergic rhinitis due to pollen 3 Samuel Andrews. [address], [place], [place], [address] , [place]. tel: [phone] OFFICE/OUTPA TIENT VISIT, [facility], [address], [place], [place], [address], [place] tel:[phone] [facility] HTN (chief complaint)all ergy1 (chief complaint)RLS (chief complaint)fib romyalgia1 (chief complaint) FibromyalgiaEsse ntial (primary) hypertensionAlle rgic rhinitis due to pollenRestless Legs Syndrome 3 Samuel Andrews. [address], [place], [place], [address] , [place]. tel:[phone] OFFICE/OUTPA TIENT VISIT, [facility], [address], [place], [place], [address], [place] tel:[phone] [facility] pain (chief complaint)RLS 1 (chief complaint)all ergy1 (chief complaint)VENKATESH D1 (chief complaint) FibromyalgiaRest less Legs SyndromeGERD w/o esophagitisAller gic rhinitis due to pollenEssential (primary) hypertension 3 Samuel Andrews. [address], [place], [place], [address] , [place]. tel:[phone] OFFICE/OUTPA TIENT VISIT, [facility], [address] [place], [address], [place] tel:[phone] [facility] pain (chief complaint)leg 1 (chief complaint)all ergy1 (chief complaint)sle ep apnea1 (chief complaint) Restless Legs SyndromePrimary central sleep apneaFibromyalgi aAllergic rhinitis due to pollen 3 Samuel Andrews. [address], [place], [place], [address] , [place]. tel:[phone] OFFICE/OUTPA TIENT VISIT, [facility], [address] [place], [address], [place] tel:[phone] [facility] pain (chief complaint)res tless leg (chief complaint)sle epapnea1 (chief complaint) FibromyalgiaPrim teodora central sleep apneaRestless Legs Syndrome 3 Samuel Andrews. [address], [place], [place], [address] , [place]. tel:[phone] OFFICE/OUTPA TIENT VISIT, [facility], [address] [place], [address], [place] tel:[phone] [facility] pain (chief complaint)glu cose1 (chief complaint)ost eoporosis1 (chief complaint)ane mia1 (chief complaint)sic k (chief complaint)HTN (chief complaint) HyperglycemiaRen al diseaseAnemiaOst eoporosisEssenti al (primary) hypertensionAcut e bronchitisPrimar y central sleep apneaFibromyalgi a 3 Samuel Andrews. [address], [place], [place], [address] , [place]. tel:[phone] OFFICE/OUTPA TIENT VISIT, [facility], [address] [place], [address], [place] tel:[phone] [facility] Medicine physical (chief complaint) Encounter for general adult medical exam w abnormal findingsOsteopor osisFibromyalgia Primary central sleep apneaEssential (primary) hypertensionGERD w/o esophagitis February-0 3 Samuel Andrews. [address], [place], [place], [address] , [place]. tel:[phone] OFFICE/OUTPA TIENT VISIT, [facility], [address], [place], [place], [address], [place] tel:[phone] [facility] osteoporosis1 (chief complaint)dona n (chief complaint)HTN (chief complaint)sle ep apnea1 (chief complaint)VENKATESH D1 (chief complaint) Essential (primary) hypertensionFibr omyalgiaOsteopor osisGERD w/o esophagitisPrima ry central sleep apnea Jan-0 3 Samuel Garcia [address], [place], [place], [address] , [place]. [phone] OFFICE/OUTPA TIENT VISIT, [facility], [address], [place], [place], [address], [place] tel:[phone] [facility] HTN (chief complaint)sle ep apnea1 (chief complaint)dona n (chief complaint)all ergy1 (chief complaint) Allergic rhinitis due to pollenEssential (primary) hypertensionFibr omyalgiaPrimary central sleep apnea Dec-0 3 Samuel Garcia [address], [place], [place], [address] , [place]. tel:[phone] OFFICE/OUTPA TIENT VISIT, [facility], [address], [place], [place], [address], [place] tel:[phone] [facility] HTN (chief complaint)sle ep apnea1 (chief complaint)dona n (chief complaint)VENKATESH D1 (chief complaint) FibromyalgiaAlle rgic rhinitis due to pollenGERD w/o esophagitisOsteo porosisPrimary central sleep apneaEssential (primary) hypertension Feb-0 2 3 Samuel Andrews. [address], [place], [place], [address] , [place]. tel:[phone] OFFICE/OUTPA TIENT VISIT, [facility], [address], [place], [place], [address], [place] tel:[phone] [facility] HTN (chief complaint)dona n (chief complaint) Essential (primary) hypertensionFibr omyalgia 3 Baker Darryl. [address], [place], [place], [address] , [place]. tel:[phone] OFFICE/OUTPA TIENT VISIT, [facility], [address], [place], [place], [address], [place] tel:[phone] [facility] HTN (chief complaint)all ergy1 (chief complaint)dona n (chief complaint) FibromyalgiaEsse ntial (primary) hypertensionAlle rgic rhinitis due to pollen 2 Samuel Andrews. [address], [place], [place], [address] , [place]. tel:[phone] OFFICE/OUTPA TIENT VISIT, [facility], [address], [place], [place], [address], [place] tel:[phone] [facility] HTN (chief complaint)sle ep apnea1 (chief complaint)ost eoporosis1 (chief complaint)VENKATESH D1 (chief complaint)all ergy1 (chief complaint) OsteoporosisPrim teodora central sleep apneaEssential (primary) hypertensionFibr omyalgiaAllergic rhinitis due to pollenGERD w/o esophagitis 2 Samuel Andrews. [address], [place], [place], [address] , [place]. tel:[phone] OFFICE/OUTPA TIENT VISIT, [facility], [address], [place], [place], [address], [place] tel:[phone] [facility] pain (chief complaint)sle ep apnea1 (chief complaint) FibromyalgiaPrim teodora central sleep apnea 2 Samuel Andrews. [address], [place], [place], [address] , [place]. tel:[phone] OFFICE/OUTPA TIENT VISIT, [facility], [address], [place], [place], [address], [place] tel:[phone] [facility] pain (chief complaint)sle ep apnea1 (chief complaint)HTN (chief complaint)ost eoporosis1 (chief complaint) OsteoporosisPrim teodora central sleep apneaEssential (primary) hypertensionFibr omyalgia Sep- 2 Samuel Andrews. [address], [place], [place], [address] , [place]. [phone] OFFICE/OUTPA TIENT VISIT, [facility], [address], [place], [place], [address], [place] tel:[phone] [facility] pain (chief complaint)HTN (chief complaint) FibromyalgiaEsse ntial (primary) hypertension 2 Samuel Andrews. [address], [place], [place], [address] , [place]. [phone] OFFICE/OUTPA TIENT VISIT, [facility], [address], [place], [place], [address], [place] tel:[phone] [facility] HTN (chief complaint)sle ep apnea1 (chief complaint)dona n1 (chief complaint) Essential (primary) hypertensionFibr omyalgiaPrimary central sleep apneaAllergic rhinitis due to pollen 2 Samuel Andrews. [address], [place], [place], [address] , [place]. [phone] OFFICE/OUTPA TIENT VISIT, [facility], [address], [place], [place], [address], [place] tel:[phone] [facility] HTN (chief complaint)stephanie lucination1 (chief complaint) Hypertensive emergencyVisual hallucinations 2 Samuel Andrews. [address], [place], [place], [address] , [place]. tel:[phone] OFFICE/OUTPA TIENT VISIT, [facility], [address], [place], [place], [address], [place] tel:[phone] [facility] HTN (chief complaint) Hypertensive emergencyFatigue Dizziness 2 Samuel Andrews. [address], [place], [place], [address] , [place]. tel:[phone] OFFICE/OUTPA TIENT VISIT, [facility], [address] [place], [address], [place] tel:[phone] [facility] fibromyalgia1 (chief complaint)sle ep apnea1 (chief complaint)HTN (chief complaint) Essential (primary) hypertensionSlee p apneaFibromyalgi aBenign paroxysmal vertigo, bilateral 2 Samuel Andrews. [address], [place], [place], [address] , [place]. tel:[phone] OFFICE/OUTPA TIENT VISIT, [facility], [address], [place], [place], [address], [place] tel:[phone] [facility] pain (chief complaint)diz ziness1 (chief complaint)ins omnia1 (chief complaint)fat igue1 (chief complaint)VENKATESH D1 (chief complaint) Sleep apneaInsomniaDiz zinessGERD w/o esophagitisFibro myalgia 2 Samuel Andrews. [address], [place], [place], [address] , [place]. tel:[phone] OFFICE/OUTPA TIENT VISIT, [facility], [address] [place], [address], [place] tel:[phone] [facility] osteoporosis1 (chief complaint)dona n (chief complaint)ins omnia1 (chief complaint)HTN (chief complaint) OsteoporosisEsse ntial (primary) hypertensionFibr omyalgiaInsomnia 2 Samuel Andrews. [address], [place], [place], [address] , [place]. tel:[phone] OFFICE/OUTPA TIENT VISIT, [facility], [address] [place], [address], [place] tel:[phone] [facility] pain (chief complaint)ins omnia1 (chief complaint) FibromyalgiaInso mnia Dec- 2 Samuel Andrews. [address], [place], [place], [address] , [place]. tel:[phone] OFFICE/OUTPA TIENT VISIT, [facility], [address], [place], [place], [address], [place] tel:[phone] [facility] pain (chief complaint)ins omnia1 (chief complaint)HTN (chief complaint) DizzinessEssenti al (primary) hypertensionFibr omyalgiaInsomnia Feb- 0- 2 Samuel Andrews. [address], [place], [place], [address] , [place]. tel:[phone] OFFICE/OUTPA TIENT VISIT, [facility], [address] [place], [address], [place] tel:[phone] [facility] pain (chief complaint)ins omnia1 (chief complaint)lig htheadedness (chief complaint)arm pain1 (chief complaint) Lateral epicondylitis, right elbowFibromyalgi aInsomniaDizzine ss 2 Samuel Andrews. [address], [place], [place], [address] , [place]. tel:[phone] OFFICE/OUTPA TIENT VISIT, [facility], [address] [place], [address], [place] tel:[phone] [facility] pain1 (chief complaint)ins omnia1 (chief complaint)diz zy1 (chief complaint)ost eoporosis1 (chief complaint)VENKATESH D1 (chief complaint) DizzinessGERD w/o esophagitisOsteo porosisInsomniaF ibromyalgia Sep- 1 Samuel Andrews. [address], [place], [place], [address] , [place]. tel:[phone] OFFICE/OUTPA TIENT VISIT, [facility], [address] [place], [address], [place] tel:[phone] [facility] HTN (chief complaint)dona n (chief complaint)ins omnia1 (chief complaint)sin us (chief complaint) FibromyalgiaEsse ntial (primary) hypertensionChro meera sinusitisInsomni a 1 Samuel Garcia [address], [place], [place], [address] , [place]. tel:[phone] OFFICE/OUTPA TIENT VISIT, [facility], [address] [place], [address], [place] tel:[phone] [facility] sinus1 (chief complaint)HTN (chief complaint)fib romyalgia1 (chief complaint)ins omnia1 (chief complaint) Chronic sinusitisFibromy algiaEssential (primary) hypertensionEdem aInsomniaSolitar y lung nodule 1 Samuel Garcia [address], [address], [place], [place], [address] , [place]. tel:[phone] OFFICE/OUTPA TIENT VISIT, [facility], [address], [place], [place], [address], [place] tel:[phone] [facility] pain (chief complaint)ins omnia1 (chief complaint)HTN (chief complaint)sin us1 (chief complaint) InsomniaFibromya lgiaEssential (primary) hypertensionAlle rgic rhinitisEdema 1 Samuel Garcia [address], [address], [place], [place], [address] , [place]. tel:[phone] OFFICE/OUTPA TIENT VISIT, [facility], [address], [place], [place], [address], [place] tel:[phone] [facility] pain (chief complaint)ins omnia1 (chief complaint)HTN (chief complaint)GED 1 (chief complaint) GERD w/o esophagitisFibro myalgiaInsomniaE ssential (primary) hypertension 1 Samuel Garcia [address], [address], [place], [place], [address] , [place]. tel:[phone] OFFICE/OUTPA TIENT VISIT, [facility], [address] [place], [address], tel:[phone] [facility] insomnia1 (chief complaint)dona n (chief complaint)VENKATESH D1 (chief complaint)HTN (chief complaint) GERD w/o esophagitisFibro myalgiaInsomniaE ssential (primary) hypertension 1 Samuel Garcia [address], [address], [place], [place], [address] , [place]. tel:[phone] OFFICE/OUTPA TIENT VISIT, [facility], [address] [place], [address], tel:[phone] [facility] insomnia1 (chief complaint)dona n1 (chief complaint)VENKATESH D1 (chief complaint) GERD w/o esophagitisConst ipationFibromyal giaInsomnia 1 Samuel Garcia [address], [address], [place], [place], [address] , [place]. tel:[phone] OFFICE/OUTPA TIENT VISIT, [facility], [address] [place], [address], tel:[phone] [facility] left arm numbness1 (chief complaint)dona n (chief complaint)ins omnia1 (chief complaint)con stipation1 (chief complaint)fat igue1 (chief complaint) ConstipationNeur opathyInsomniaFi bromyalgiaFatigu e 1 Samuel Garcia [address], [place], [place], [address] , [place]. tel:[phone] OFFICE/OUTPA TIENT VISIT, [facility], [address] [place], [address], tel:[phone] [facility] pain (chief complaint)ins omnia1 (chief complaint)ost eoporosis1 (chief complaint)diz ziness1 (chief complaint) FibromyalgiaInso mniaOsteoporosis Dizziness 1 Baker Darryl. [address], [address], [place], [place], [address] , [place]. tel:[phone] OFFICE/OUTPA TIENT VISIT, [facility], [address], [place], [place], [address], [place] tel:[phone] [facility] pain (chief complaint)ins omnia1 (chief complaint)UTI 1 (chief complaint)ost eoporosis1 (chief complaint) Urinary tract infectionFibromy algiaInsomnia 1 Samuel Garcia [address], [address], [place], [place], [address] , [place]. tel:[phone] OFFICE/OUTPA TIENT VISIT, [facility], [address], [place], [place], [address], [place] tel:[phone] [facility] fibromyalgia1 (chief complaint)ins omnia1 (chief complaint) FibromyalgiaInso mniaUrinary tract infection 1 Samuel Garcia [address], [place], [place], [address] , [place]. tel:[phone] OFFICE/OUTPA TIENT VISIT, [facility], [address], [place], [place], [address], [place] tel:[phone] [facility] sinus1 (chief complaint) Acute sinusitis 1 Samuel Garcia [address], [address], [place], [place], [address] , [place]. tel:[phone] OFFICE/OUTPA TIENT VISIT, [facility], [address], [place], [place], [address], [place] tel:[phone] [facility] fibromyalgia1 (chief complaint)ins omnia1 (chief complaint) FibromyalgiaInso mnia 1 Samuel Garcia [address], [place], [place], [address] , [place]. tel:[phone] Referring Provider: Darryl Baker [address], [place], [place], [address]. tel:[phone] OFFICE/OUTPA TIENT VISIT, [facility], [address], [place], [place], [address], [place] tel:[phone] [facility] pain (chief complaint)ins omnia1 (chief complaint) FibromyalgiaInso mnia Sep- 0 Samuel Andrews. [address], [place], [place], [address] , [place]. tel:[phone] Referring Provider: Darryl Baker, [address], [place], [place], [address]. tel:[phone] OFFICE/OUTPA TIENT VISIT, [facility], [address], [place], [place], [address], [place] tel:[phone] [facility] pain (chief complaint)ins omnia1 (chief complaint)HTN (chief complaint) FibromyalgiaInso mniaEssential (primary) hypertension 0 Samuel Andrews. [address], [place], [place], [address] , [place]. tel:[phone] Referring Provider: Betty Zelaya [address], [place], [place], [address]. tel:[phone] OFFICE/OUTPA TIENT VISIT, [facility], [address], [place], [place], [address], [place] tel:[phone] [facility] pain (chief complaint)ins omnia1 (chief complaint) FibromyalgiaInso mnia 0 Samuel Andrews. [address], [place], [place], [address] , [place]. tel:[phone] Referring Provider: Betty Zel[address], [place], [place], [address]. tel:[phone] OFFICE/OUTPA TIENT VISIT, [facility], [address], [place], [place], [address], [place] tel:[phone] [facility] pain (chief complaint)ins omnia1 (chief complaint)sle ep apnea1 (chief complaint)hem orrhoid (chief complaint) FibromyalgiaAnem iaInsomniaSleep apneaHemorrhoid 0 Samuel Andrews. [address], [place], [place], [address] , [place]. tel:[phone] Referring Provider: Darryl Baker, [address] [facility] A, [place], [place], [address]. tel:[phone] OFFICE/OUTPA TIENT VISIT, [facility], [address] [place], [address], [place] tel:[phone] [facility] fibromyalgia1 (chief complaint)ins omnia1 (chief complaint)ost eoporosis1 (chief complaint)hyp onatremia1 (chief complaint)ane mia1 (chief complaint)hem aturia1 (chief complaint) AnemiaHematuriaH yponatremiaInsom niaFibromyalgiaO steoporosis 0 Samuel Andrews. [address], [facility] A, [place], [place], [address] , [place]. tel:[phone] Referring Provider: Betty Zelaya [facility] [place], [address]. tel:[phone] OFFICE/OUTPA TIENT VISIT, [facility], [address] [place] [address] [address] [place], [place], [address], [place] tel:[phone] [facility] pain (chief complaint)ins omnia1 (chief complaint)HLP (chief complaint)sle ep apnea1 (chief complaint)sic k (chief complaint)hem orrhoid1 (chief complaint) FibromyalgiaHype rlipidemiaAnemia Sleep apneaHemorrhoidA cute bronchitisInsomn iaHyponatremia 0 Samuel Andrews. [address], [facility] [place], [address] , [place]. tel:[phone] Referring Provider: Darryl Baker [address] [facility] A, [place], [place], [address]. tel:[phone] OFFICE/OUTPA TIENT VISIT, [facility], [address] [place], [address], [place] tel:[phone] [facility] HLP (chief complaint)sle ep apnea1 (chief complaint)fib romyalgia1 (chief complaint)ins omnia1 (chief complaint)ane mia1 (chief complaint) AnemiaFibromyalg iaHematuriaHemor rhoidHyperlipide miaSleep apneaInsomniaSol itary lung nodule 0 Samuel Andrews. [address], [place], [place], [address] , [place]. tel:[phone] Referring Provider: Betty Zelaya [address], [place], [place], [address]. tel:[phone] OFFICE/OUTPA TIENT VISIT, [facility], [address], [place], [place], [address], [place] tel:[phone] [facility] HLP (chief complaint)ane mia1 (chief complaint)ane mia1 (chief complaint)dona n1 (chief complaint)sle ep apnea1 (chief complaint) HyperlipidemiaAn emiaInsomniaHema turiaHemorrhoidS leep apneaFibromyalgi a 0 Samuel Andrews. [address], [place], [place], [address] , [place]. tel:[phone] Referring Provider: Betty Zelaya [address], [place], [place], [address]. tel:[phone] OFFICE/OUTPA TIENT VISIT, [facility], [address], [place], [place], [address], [place] tel:[phone] [facility] sinus1 (chief complaint) Acute sinusitis 0 Samuel Anderws. [address], [place], [place], [address] , [place]. tel:[phone] Referring Provider: Betty Zel[address], [place], [place], [address]. tel:[phone] OFFICE/OUTPA TIENT VISIT, [facility], [address], [place], [place], [address], [place] tel:[phone] [facility] PHysical (chief complaint) Encounter for general adult medical exam w abnormal findingsFibromya lgiaSleep apneaOsteoporosi sInsomniaEssenti al (primary) hypertension 0 Samuel Andrews. [address], [place], [place], [address] , [place]. tel:[phone] Referring Provider: Betty Zelaya [address], [place], [place], [address]. tel:[phone] OFFICE/OUTPA TIENT VISIT, [facility], [address], [place], [place], [address], [place] tel:[phone] [facility] pain (chief complaint)ins omnia1 (chief complaint)sle ep apnea1 (chief complaint) FibromyalgiaSlee p apneaInsomnia 0 Samuel Andrews. [address], [place], [place], [address] , [place]. tel:[phone] Referring Provider: Betty Zelaya [address], [place], [place], [address]. tel:[phone] OFFICE/OUTPA TIENT VISIT, [facility], [address], [place], [place], [address], [place] tel:[phone] [facility] HTN (chief complaint)fib romyalgia1 (chief complaint)ins omnia1 (chief complaint)sle ep apnea1 (chief complaint)glu cose (chief complaint) InsomniaSleep apneaFibromyalgi aEssential (primary) hypertensionEnco unter for screening for malignant neoplasm of colonHyperglycem ia 0 Samuel Andrews. [address], [place], [place], [address] , [place]. tel:[phone] Referring Provider: Betty Zelaya [address], [place], [place], [address]. tel:[phone] OFFICE/OUTPA TIENT VISIT, [facility], [address], [place], [place], [address], [place] tel:[phone] [facility] fibromyalgia1 (chief complaint)ost eoporosis1 (chief complaint)ins omnia1 (chief complaint)sle ep apnea1 (chief complaint) FibromyalgiaSlee p apneaOsteoporosi sInsomnia Nov- 0 Samuel Garcia [address], [address], [place], [place], [address] , [place]. tel:[phone] Referring Provider: Betty Zelaya [address], [place], [place], [address]. tel:[phone] OFFICE/OUTPA TIENT VISIT, [facility], [address], [place], [place], [address], [place] tel:[phone] [facility] pain (chief complaint)ins omnia1 (chief complaint)sin us (chief complaint)kne e pain1 (chief complaint) FatigueFibromyal giaInsomniaOsteo arthritis of knee, unspecifiedAller gic rhinitis 0 Samuel Garcia [address], [address], [place], [place], [address] , [place]. tel:[phone] Referring Provider: Betty Zelaya [address], [place], [place], [address]. tel:[phone] OFFICE/OUTPA TIENT VISIT, [facility], [address], [place], [place], [address], [place] tel:[phone] [facility] fibromyalgia1 (chief complaint)ins omnia1 (chief complaint)fat igue1 (chief complaint)sin us1 (chief complaint)HTN (chief complaint) FibromyalgiaInso mniaFatigueAcute sinusitisEssenti al (primary) hypertension 0 Samuel Garcia [address], [address], [place], [place], [address] , [place]. tel:[phone] Referring Provider: Betty Zelaya [address], [place], [place], [address]. tel:[phone] OFFICE/OUTPA TIENT VISIT, [facility], [address], [place], [place], [address], [place] tel:[phone] [facility] sinus allergy1 (chief complaint)dona n (chief complaint)ins omnia1 (chief complaint)fat igue1 (chief complaint) Allergic rhinitisFibromya lgiaInsomniaFati alejandra Sep- 9 Samuel Andrews. [address], [address], [place], [place], [address] , [place]. [phone] Referring Provider: Darryl Baker, [address], [place], [place], [address]. tel:[phone] OFFICE/OUTPA TIENT VISIT, [facility], [address], [place], [place], [address], [place] tel:[phone] [facility] HTN (chief complaint)fib romyalgia1 (chief complaint)ins omnia1 (chief complaint)sin us allergy1 (chief complaint) FibromyalgiaInso mniaEssential (primary) hypertensionAlle rgic rhinitis 9 Samuel Andrews. [address], [address], [place], [place], [address] , [place]. [phone] Referring Provider: Betty Zelaya [facility] [address], [place], [place], [address]. tel:[phone] OFFICE/OUTPA TIENT VISIT, [facility], [address] [place], [address], [place] tel:[phone] [facility] HTN (chief complaint)ophelia ma1 (chief complaint)chr onic pain1 (chief complaint)ins omnia1 (chief complaint) Essential (primary) hypertensionEdem aFibromyalgiaIns omnia 9 Samuel Andrews. [address], [place], [place], [address] , [place]. tel:[phone] Referring Provider: Betty [address], [place], [place], [address]. tel:[phone] OFFICE/OUTPA TIENT VISIT, [facility], [address], [place], [place], [address], [place] tel:[phone] [facility] toe pain1 (chief complaint)fib romyalgia1 (chief complaint)ins omnia1 (chief complaint) FibromyalgiaInso mniaDermatophyto sis of nail 9 Samuel Andrews. [address], [address], [place], [place], [address] , [place]. tel:[phone] Referring Provider: Darryl Baker, [address], [place], [place], [address]. tel:[phone] OFFICE/OUTPA TIENT VISIT, [facility], [address], [place], [place], [address], [place] tel:[phone] [facility] chronic pain1 (chief complaint)ins omnia1 (chief complaint) FibromyalgiaInso mnia 9 Samuel Andrews. [address], [address], [place], [place], [address] , [place]. tel:[phone] Referring Provider: Betty Zelaya [address], [place], [place], [address]. tel:[phone] OFFICE/OUTPA TIENT VISIT, [facility], [address], [place], [place], [address], [place] tel:[phone] [facility] sinusitis1 (chief complaint)HTN (chief complaint)fib romyalgia1 (chief complaint)ins omnia1 (chief complaint) InsomniaFibromya lgiaEssential (primary) hypertensionAcut e sinusitis 9 Samuel Andrews. [address], [place], [place], [address] , [place]. tel:[phone] Referring Provider: Betty Zelaya [address], [place], [place], [address]. tel:[phone] OFFICE/OUTPA TIENT VISIT, [facility], [address], [place], [place], [address], [place] tel:[phone] [facility] HTN (chief complaint)fib romyalgia1 (chief complaint)ins omnia1 (chief complaint) Essential (primary) hypertensionFibr omyalgiaInsomnia 0 9 Samuel Andrews. [address], [place], [place], [address] , [place]. tel:[phone] Referring Provider: Betty Zelaya [address] [facility] A, [place], [place], [address]. tel:[phone] OFFICE/OUTPA TIENT VISIT, [facility], [address], [place], [place], [address], [place] tel:[phone] [facility] numbness1 (chief complaint)fib romyalgia1 (chief complaint)anx iety1 (chief complaint)gurinder ral regu (chief complaint) OsteoporosisFibr omyalgiaParesthe quinton of skinInsomniaNonr heumatic mitral valve prolapse 9 Samuel Andrews. [address] [facility] [address], [place], [place], [address] , [place]. tel:[phone] Referring Provider: Betty Zelaya [facility] A, [place], [place], [address]. tel:[phone] OFFICE/OUTPA TIENT VISIT, [facility], [address] [place], [address], [place] tel:[phone] [facility] numbness1 (chief complaint)chr onic pain (chief complaint)ins omnia1 (chief complaint) FibromyalgiaInso mniaParesthesia of skin 9 Samuel Andrews. [address], [facility] A, [place], [place], [address] , [place]. tel:[phone] Referring Provider: Betty Zelaya [address] [facility] A, [place], [place], [address]. tel:[phone] OFFICE/OUTPA TIENT VISIT, [facility], [address] [place], [address], [place] tel:[phone] [facility] PHysical (chief complaint) Encounter for general adult medical exam w abnormal findingsHyperlip idemiaEssential (primary) hypertensionOste oporosisFibromya lgiaInsomnia 9 Samuel Garcia [address], [address], [place], [place], [address] , [place]. tel:[phone] Referring Provider: Betty Zelaya [address], [place], [place], [address]. tel:[phone] OFFICE/OUTPA TIENT VISIT, [facility], [address], [place], [place], [address], [place] tel:[phone] [facility] osteoporosis1 (chief complaint)fib romyalgia1 (chief complaint)sin us1 (chief complaint)HTN (chief complaint)ins omnia1 (chief complaint) FibromyalgiaOste oporosisEssentia l (primary) hypertensionAlle rgic rhinitisInsomnia 9 Samuel Garcia [address], [address], [place], [place], [address] , [place]. tel:[phone] Referring Provider: Betty Zelaya [facility] A, [place], [place], [address]. tel:[phone] OFFICE/OUTPA TIENT VISIT, [facility], [address] [place], [address], [place] tel:[phone] [facility] fibromyalgia1 (chief complaint)anx iety1 (chief complaint)fat igue1 (chief complaint)sin us (chief complaint) Allergic rhinitisFatigueF ibromyalgiaInsom fabiana 9 Samuel Garcia [address], [address], [place], [place], [address] , [place]. tel:[phone] Referring Provider: Betty Zelaya [address], [place], [place], [address]. tel:[phone] OFFICE/OUTPA TIENT VISIT, [facility], [address] [place], [address], [place] tel:[phone] [facility] sinus allergy1 (chief complaint)chr onic pain (chief complaint)ins omnia1 (chief complaint) InsomniaFibromya lgiaAllergic rhinitis 9 Samuel Andrews. [address], [address], [place], [place], [address] , [place]. tel:[phone] Referring Provider: Betty Zelaya [address], [place], [place], [address]. tel:[phone] OFFICE/OUTPA TIENT VISIT, [facility], [address], [place], [place], [address], [place] tel:[phone] [facility] fibromyalgia1 (chief complaint)ins omnia1 (chief complaint)ost eoporosis1 (chief complaint)HTN (chief complaint) OsteoporosisEsse ntial (primary) hypertensionFibr omyalgiaInsomnia 8 Samuel Andrews. [address], [place], [place], [address] , [place]. tel:[phone] Referring Provider: Betty Zelaya [facility] A, [place], [place], [address]. tel:[phone] OFFICE/OUTPA TIENT VISIT, [facility], [address], [place], [place], [address], [place] tel:[phone] [facility] fibromyalgia1 (chief complaint)ins omnia1 (chief complaint) FibromyalgiaInso mnia 8 Samuel Andrews. [address], [address], [place], [place], [address] , [place]. tel:[phone] Referring Provider: Betty Zelaya [address], [place], [place], [address]. tel:[phone] OFFICE/OUTPA TIENT VISIT, [facility], [address], [place], [place], [address], [place] tel:[phone] [facility] hlp (chief complaint)fib romyalgia1 (chief complaint)ins omnia1 (chief complaint) FibromyalgiaHype rlipidemiaInsomn iaPain in left shoulder 8 Samuel Andrews. [address], [place], [place], [address] , [place]. tel:[phone] Referring Provider: Betty Zelaya [facility] A, [place], [place], [address]. tel:[phone] OFFICE/OUTPA TIENT VISIT, [facility], [address] [facility] [place], [address], [place] tel:[phone] [facility] fibromyalgia1 (chief complaint)HTN (chief complaint)ins omnia1 (chief complaint)yaya ght loss1 (chief complaint) Essential (primary) hypertensionFibr omyalgiaAbnormal weight lossInsomnia 8 Samuel Garcia [address], [address], [place], [place], [address] , [place]. tel:[phone] Referring Provider: Darryl Baker [address] [facility] A, [place], [place], [address]. tel:[phone] OFFICE/OUTPA TIENT VISIT, [facility], [address] [facility] [place], [address], [place] tel:[phone] [facility] arm pain1 (chief complaint)ins omnia1 (chief complaint)fib romyalgia1 (chief complaint)HTN (chief complaint)ost eoporosis1 (chief complaint) Essential (primary) hypertensionOste oporosisPain in left upper armFibromyalgiaI nsomniaHemorrhoi d 8 Samuel Hernández [address], [place], [place], [address] , [place]. [phone] Referring Provider: Darryl Baker [address] [facility] A, [place], [place], [address]. tel:[phone] OFFICE/OUTPA TIENT VISIT, [facility], [address], [place], [place], [address], [place] tel:[phone] [facility] hemorrhoid1 (chief complaint)fib romyalgia1 (chief complaint)anx iety1 (chief complaint)lauren dder prolase1 (chief complaint) FibromyalgiaCyst oceleBenign neoplasm of right kidneyHemorrhoid Insomnia 0 8 Samuel Garcia [address], [address], [place], [place], [address] , [place]. tel:[phone] Referring Provider: Betty Zelaya [address], [place], [place], [address]. tel:[phone] OFFICE/OUTPA TIENT VISIT, [facility], [address], [place], [place], [address], [place] tel:[phone] [facility] fibromyalgia1 (chief complaint)ins omnia1 (chief complaint)ang iomyolipoma1 (chief complaint)ora l numbness 1 (chief complaint) Benign neoplasm of right kidneyAcute sinusitisFibromy algiaParesthesia of skin Mar- 8 Samuel Andrews. [address], [place], [place], [address] , [place]. tel:[phone] Referring Provider: Betty Zelaya [address], [place], [place], [address]. tel:[phone] OFFICE/OUTPA TIENT VISIT, [facility], [address], [place], [place], [address], [place] tel:[phone] [facility] fibromyalgia1 (chief complaint)ins omnia1 (chief complaint)gill al cyst1 (chief complaint) FibromyalgiaInso mniaBenign neoplasm of right kidneyCystocele 8 Samuel Andrews. [address], [place], [place], [address] , [place]. tel:[phone] Referring Provider: Betty Zelaya [address], [place], [place], [address]. tel:[phone] OFFICE/OUTPA TIENT VISIT, [facility], [address], [place], [place], [address], [place] tel:[phone] [facility] chronic pain (chief complaint)ins omnia1 (chief complaint)sin us1 (chief complaint) FibromyalgiaInso mniaChronic sinusitis Jan- 8 Samuel Andrews. [address], [address], [place], [place], [address] , [place]. tel:[phone] OFFICE/OUTPA TIENT VISIT, [facility], [address], [place], [place], [address], [place] tel:[phone] [facility] fibromyalgia1 (chief complaint)ost eoporosis1 (chief complaint)sin us1 (chief complaint)ins omnia1 (chief complaint) FibromyalgiaOste oporosisChronic sinusitisInsomni a Dec-3 0-201 8 Samuel Andrews. [address], [place], [place], [address] , [place]. tel:[phone] OFFICE/OUTPA TIENT VISIT, [facility], [address] [address], [place], [place], [address], [place] tel:[phone] [facility] Medicine PHysical (chief complaint) Encounter for general adult medical exam w abnormal findingsFibromya lgiaEssential (primary) hypertensionOste oporosis Dec-0 2201 8 Samuel Andrews. [address], [place], [place], [address] , [place]. tel:[phone] OFFICE/OUTPA TIENT VISIT, [facility], [address], [place], [place], [address], [place] tel:[phone] [facility] Medicine sick (chief complaint) Acute bronchitisAcute upper respiratory infection, unspecified Feb-0 8-201 8 Samuel Andrews. [address], [place], [place], [address] , [place]. tel:[phone] Referring Provider: Darryl Baker, [address], [place], [place], [address]. tel:[phone] OFFICE/OUTPA TIENT VISIT, [facility], [address], [place], [place], [address], [place] tel:[phone] [facility] Medicine fibromyalgia1 (chief complaint)ins omnia1 (chief complaint)HTn (chief complaint) FibromyalgiaInso mniaEssential (primary) hypertension Feb-0 1-201 8 Samuel Andrews. [address], [place], [place], [address] , [place]. tel:[phone] OFFICE/OUTPA TIENT VISIT, [facility], [address], [place], [place], [address], [place] tel:[phone] [facility] fibromyalgia1 (chief complaint)ins omnia1 (chief complaint)ost eoporosis1 (chief complaint)col d (chief complaint) OsteoporosisFibr omyalgiaInsomnia Acute upper respiratory infection, unspecified 8 Samuel Andrews. [address], [place], [place], [address] , [place]. tel:[phone] Referring Provider: Betty Zelaya [address], [place], [place], [address]. tel:[phone] OFFICE/OUTPA TIENT VISIT, [facility], [address], [place], [place], [address], [place] tel:[phone] [facility] sob1 (chief complaint)ins omnia1 (chief complaint)fib romyalgia1 (chief complaint) Shortness of breathAcute bronchitisFibrom yalgiaInsomnia Sep-0 6 7 Samuel Andrews. [address], [place], [place], [address] , [place]. tel:[phone] Referring Provider: Betty Zelaya [address], [place], [place], [address]. tel:[phone] OFFICE/OUTPA TIENT VISIT, [facility], [address], [place], [place], [address], [place] tel:[phone] [facility] jonit pain1 (chief complaint)anx iety1 (chief complaint)ost eoporosis1 (chief complaint)brant t pain1 (chief complaint)SOB (chief complaint) Shortness of breathOsteoporos isInsomniaFibrom yalgia 8201 7 Samuel Andrews. [address], [place], [place], [address] , [place]. tel:[phone] Referring Provider: Betty Zelaya [address], [place], [place], [address]. tel:[phone] OFFICE/OUTPA TIENT VISIT, [facility], [address], [place], [place], [address], [place] tel:[phone] [facility] osteoporosis1 (chief complaint)fib romyalgia1 (chief complaint)ins omnia1 (chief complaint)gill al cyst1 (chief complaint) InsomniaFibromya lgiaOsteoporosis Acquired renal cyst 7 Samuel Garcia [address], [place], [place], [address] , [place]. tel:[phone] OFFICE/OUTPA TIENT VISIT, [facility], [address], [place], [place], [address], [place] tel:[phone] [facility] fibromyalgia1 (chief complaint)ins omnia1 (chief complaint) FibromyalgiaInso mnia 7 Samuel Garcia [address], [place], [place], [address] , [place]. tel:[phone] OFFICE/OUTPA TIENT VISIT, [facility], [address], [place], [place], [address], [place] tel:[phone] [facility] insomnia1 (chief complaint)fib romyalgia1 (chief complaint)fat igue1 (chief complaint)HTN (chief complaint) FibromyalgiaFati gueInsomniaEssen tial (primary) hypertension 7 Samuel Garcia [address], [place], [place], [address] , [place]. tel:[phone] Referring Provider: Darryl Baker, [address], [place], [place], [address]. tel:[phone] OFFICE/OUTPA TIENT VISIT, [facility], [address] [place] [place], [address], [place] tel:[phone] [facility] fatigue1 (chief complaint)lef t shoulder pain1 (chief complaint)ost eoporosis1 (chief complaint)fib romyalgia1 (chief complaint)ins omnia1 (chief complaint) FatigueOsteoporo sisFibromyalgiaI nsomnia 7 Samuel Garcia [address], [place], [place], [address] , [place]. tel:[phone] Referring Provider: Betty Zelaya [facility] A, [place], [place], [address]. tel:[phone] OFFICE/OUTPA TIENT VISIT, [facility], [address] [place], [address], [place] tel:[phone] [facility] fibromyalgia1 (chief complaint)anx iety1 (chief complaint)fat igue1 (chief complaint) FatigueGeneraliz ed anxiety disorderFibromya lgia Samuel Garcia [address], [place], [place], [address] , [place]. [phone] Referring Provider: Betty Zelaya [facility], [place], [place], [address]. tel:[phone] OFFICE/OUTPA TIENT VISIT, [facility], [address], [place], [place], [address], [place] tel:[phone] [facility] fibromyalgia1 (chief complaint)ost eoporosis1 (chief complaint)anx iety1 (chief complaint)ski n CA1 (chief complaint) OsteoporosisFibr omyalgiaGenerali zed anxiety disorderBasal cell carcinoma of skin, unspecified Samuel Garcia [address] [facility] [address], [place], [place], [address] , [place]. tel:[phone] Referring Provider: Betty Zelaya [facility] A, [place], [place], [address]. tel:[phone] OFFICE/OUTPA TIENT VISIT, [facility], [address] [employer] [place], [address], [place] tel:[phone] [facility] osteoporosis1 (chief complaint)HTN (chief complaint)fib romyalgia1 (chief complaint)ins omnia1 (chief complaint) OsteoporosisChro meera pain syndromeGenerali zed anxiety disorderEssentia l (primary) hypertension 7 Baker Darryl. [address], [place], [place], [address] , [place]. [phone] Referring Provider: Betty Zelaya [address], [place], [place], [address]. tel:[phone] OFFICE/OUTPA TIENT VISIT, [facility], [address], [place], [place], [address], [place] [phone] [facility] anxiety1 (chief complaint)fib romyalgia1 (chief complaint) FibromyalgiaGene ralized anxiety disorder Apr-0 7 Samuel Andrews. [address], [place], [place], [address] , [place]. [phone] Referring Provider: Betty Zelaya [address], [place], [place], [address]. tel:[phone] OFFICE/OUTPA TIENT VISIT, [facility], [address], [place], [place], [address], [place] [phone] [facility] fibromyalgia1 (chief complaint)anx iety1 (chief complaint) FibromyalgiaGene ralized Anxiety Disorder Mar-0 7 Samuel Andrews. [address], [place], [place], [address] , [place]. [phone] Referring Provider: Betty Zelaya [address], [place], [place], [address]. tel:[phone] OFFICE/OUTPA TIENT VISIT, [facility], [address], [place], [place], [address], [place] [phone] [facility] jont pain (chief complaint)anx iety1 (chief complaint)ost eoprosis1 (chief complaint) Chronic pain syndromeGenerali zed Anxiety DisorderOsteopor osis Fe-0 7 Samuel Andrews. [address], [place], [place], [address] , [place]. [phone] Referring Provider: Betty Zelaya [address], [place], [place], [address]. tel:[phone] OFFICE/OUTPA TIENT VISIT, [facility], [address], [place], [place], [address], [place] tel:[phone] [facility] anxiety1 (chief complaint)fib romyalgia (chief complaint)elb ow pain1 (chief complaint)HLP (chief complaint) Chronic pain syndromeGenerali zed Anxiety DisorderPain in right elbow 7 Samuel Andrews. [address], [place], [place], [address] , [place]. tel:[phone] Referring Provider: Darryl Baker [address], [place], [place], [address]. tel:[phone] PREV VISIT, EST, 65 & OVER [facility], [address], [place], [place], [address], [place] tel:[phone] [facility] PHysical (chief complaint) Encntr for general adult medical exam w/o abnormal findings 6 Samuel Andrews. [address], [place], [place], [address] , [place]. tel:[phone] Referring Provider: Betty Zelaya [address], [place], [place], [address]. tel:[phone] OFFICE/OUTPA TIENT VISIT, [facility], [address], [place], [place], [address], [place] tel:[phone] [facility] chronic pain1 (chief complaint)anx iety1 (chief complaint) FibromyalgiaGene ralized Anxiety Disorder 6 Samuel Andrews. [address], [place], [place], [address] , [place]. tel:[phone] Referring Provider: Betty Zelaya [address], [place], [place], [address]. tel:[phone] OFFICE/OUTPA TIENT VISIT, [facility], [address], [place], [place], [address], [place] tel:[phone] [facility] fibromyalgia1 (chief complaint)anx iety1 (chief complaint) FibromyalgiaGene ralized Anxiety Disorder 6 Samuel Andrews. [address], [place], [place], [address] , [place]. tel:[phone] Referring Provider: Betty Zelaya [address], [place], [place], [address]. tel:[phone] OFFICE/OUTPA TIENT VISIT, [facility], [address], [place], [place], [address], [place] tel:[phone] [facility] fibromyalgia1 (chief complaint)anx iety1 (chief complaint)vis ion change (chief complaint) FibromyalgiaGene ralized Anxiety Disorder 6 Samuel Andrews. [address], [place], [place], [address] , [place]. tel:[phone] Referring Provider: Betty Zelaya [address], [place], [place], [address]. tel:[phone] OFFICE/OUTPA TIENT VISIT, [facility], [address], [place], [place], [address], [place] tel:[phone] [facility] neck pain1 (chief complaint) Spasmodic torticollis 0 6 Samuel Garcia [address], [place], [place], [address] , [place]. [phone] Referring Provider: Betty Zelaya [address], [place], [place], [address]. tel:[phone] OFFICE/OUTPA TIENT VISIT, [facility], [address], [place], [place], [address], [place] tel:[phone] [facility] chronic pain (chief complaint)anx iety1 (chief complaint)HTN (chief complaint) FibromyalgiaGene ralized Anxiety DisorderEssentia l (primary) hypertension 6 Samuel Andrews. [address], [place], [place], [address] , [place]. [phone] Referring Provider: Betty Zelaya [address], [place], [place], [address]. tel:[phone] OFFICE/OUTPA TIENT VISIT, [facility], [address], [place], [place], [address], [place] tel:[phone] [facility] chronic pedro (chief complaint)anx iety1 (chief complaint) Chronic pain syndromeGenerali zed Anxiety Disorder 6 Samuel Andrews. [address], [place], [place], [address] , [place]. tel:[phone] Referring Provider: Betty Zelaya [address], [place], [place], [address]. tel:[phone] OFFICE/OUTPA TIENT VISIT, [facility], [address], [place], [place], [address], [place] tel:[phone] [facility] chrnoic pain (chief complaint)Anx iety1 (chief complaint) FibromyalgiaGene ralized Anxiety Disorder 6 Samuel Andrews. [address], [place], [place], [address] , [place]. tel:[phone] Referring Provider: Betty Zelaya [address], [place], [place], [address]. tel:[phone] OFFICE/OUTPA TIENT VISIT, [facility], [address], [place], [place], [address], [place] tel:[phone] [facility] fibromyalgia (chief complaint)anx iety1 (chief complaint)HTN 1 (chief complaint) FibromyalgiaEsse ntial (primary) hypertensionGene ralized anxiety disorder 6 Samuel Andrews. [address], [place], [place], [address] , [place]. tel:[phone] Referring Provider: Betty Zelaya [address], [place], [place], [address]. tel:[phone] OFFICE/OUTPA TIENT VISIT, [facility], [address], [place], [place], [address], [place] tel:[phone] [facility] back pain1 (chief complaint)anx iety1 (chief complaint) FibromyalgiaGene ralized Anxiety Disorder 6 Samuel Andrews. [address], [place], [place], [address] , [place]. tel:[phone] Referring Provider: Betty Zelaya [address], [place], [place], [address]. tel:[phone] OFFICE/OUTPA TIENT VISIT, [facility], [address], [place], [place], [address], [place] tel:[phone] [facility] HTN (chief complaint)anx iety1 (chief complaint)fib romyalgia (chief complaint)ost eoporosis1 (chief complaint) Other chronic painOsteoporosis Generalized Anxiety DisorderEssentia l (primary) hypertension 6 Samuel Andrews. [address], [place], [place], [address] , [place]. tel:[phone] Referring Provider: Betty Zelaya [address], [place], [place], [address]. tel:[phone] OFFICE/OUTPA TIENT VISIT, [facility], [address] [place], [address], [place] tel:[phone] [facility] HTN1 (chief complaint)fib romyalgia1 (chief complaint)anx iety1 (chief complaint)fat igue1 (chief complaint) FibromyalgiaGene ralized Anxiety DisorderSleep apneaEssential (primary) hypertension 6 Samuel Andrews. [address], [place], [place], [address] , [place]. tel:[phone] Referring Provider: Betty Zelaya [address], [place], [place], [address]. tel:[phone] OFFICE/OUTPA TIENT VISIT, [facility], [address], [place], [place], [address], [place] tel:[phone] [facility] HTN1 (chief complaint)ost eoporosis1 (chief complaint)Fib romyalgia1 (chief complaint)anx iety1 (chief complaint) Essential (primary) hypertensionFibr omyalgiaGenerali zed anxiety disorderOsteopor osis 5 Samuel Andrews. [address], [place], [place], [address] , [place]. tel:[phone] Referring Provider: Darryl Baker, [address] [facility] A, [place], [place], [address]. tel:[phone] OFFICE/OUTPA TIENT VISIT, [facility], [address], [place], [place], [address], [place] tel:[phone] [facility] HTN1 (chief complaint)Anx iety1 (chief complaint)fib romyalgia1 (chief complaint) FibromyalgiaGene ralized anxiety disorderEssentia l (primary) hypertensionAcqu ired renal cyst 5 Samuel Andrews. [address], [place], [place], [address] , [place]. tel:[phone] Referring Provider: Betty Zelaya [facility] A, [place], [place], [address]. tel:[phone] OFFICE/OUTPA TIENT VISIT, [facility], [address] [place], [address], [place] tel:[phone] [facility] insulin resistance1 (chief complaint)anx iety1 (chief complaint)HTN 1 (chief complaint)gill al cyst1 (chief complaint) FibromyalgiaMeta bolic syndromeAcquired renal cystEssential (primary) hypertension 0 5 Samuel Andrews. [address], [place], [place], [address] , [place]. tel:[phone] Referring Provider: Betty Zelaya [address], [place], [place], [address]. tel:[phone] OFFICE/OUTPA TIENT VISIT, [facility], [address], [place], [place], [address], [place] tel:[phone] [facility] Anxiety (chief complaint)fib romyalgia (chief complaint)glu cose (chief complaint) Dietary surveillance and counselingHyperg lycemiaProteinur iaGeneralized anxiety disorderUnspecif ied essential hypertension 5 Samuel Andrews. [address], [place], [place], [address] , [place]. [phone] Referring Provider: Darryl Baker, [address], [place], [place], [address]. tel:[phone] PREV VISIT, EST, 65 & OVER [facility], [address], [place], [place], [address], [place] tel:[phone] [facility] Physical (chief complaint) Routine medical exam 5 Samuel Andrews. [address], [place], [place], [address] , [place]. [phone] Referring Provider: Darryl Baker [address] [facility] A, [place], [place], [address]. tel:[phone] OFFICE/OUTPA TIENT VISIT, [facility], [address], [place], [place], [address], [place] tel:[phone] [facility] osteoporosis (chief complaint)Crh oinc pain (chief complaint)Anx eity (chief complaint) OsteoporosisFibr omyalgiaGenerali zed anxiety disorder 5 Samuel Andrews. [address], [place], [place], [address] , [place]. tel:[phone] Referring Provider: Betty Zelaya [address], [place], [place], [address]. tel:[phone] OFFICE/OUTPA TIENT VISIT, [facility], [address], [place], [place], [address], [place] tel:[phone] [facility] fibromyalgia (chief complaint)anx iety (chief complaint)ost eoporosis (chief complaint) Dietary surveillance and counselingMyalgi a and myositis, unspecifiedGener alized anxiety disorderMalignan t neoplasm of central portion of female breastOther osteoporosis 5 Samuel Andrews. [address], [place], [place], [address] , [place]. tel:[phone] Referring Provider: Betty Zelaya [facility] [address], [place], [place], [address]. tel:[phone] OFFICE/OUTPA TIENT VISIT, [facility], [address] [place] [place], [address], [place] tel:[phone] [facility] sinus symptoms (acute) (chief complaint)chr onic pain (chief complaint)anx iety (chief complaint)ost eoporosis (chief complaint) Other and unspecified diseases of upper respiratory tractInsomnia, OtherOther osteoporosisMyal laly and myositis, unspecified 5 Samuel Andrews. [address], [place], [place], [address] , [place]. tel:[phone] Referring Provider: Btety Zelaya [facility], [address]. tel:[phone] OFFICE/OUTPA TIENT VISIT, [facility], [address] [place] [place], [address], [place] tel:[phone] [facility] osteoporosis (chief complaint)cou gh (chief complaint)dona n (chief complaint)anx iety (chief complaint) Dietary surveillance and counselingOther osteoporosisGene ralized anxiety disorderBronchit is, AcuteOpioid type dependence, unspecified use 5 Samuel Andrews. [address], [facility] A, [place], [place], [address] , [place]. tel:[phone] Referring Provider: Betty Zelaya [facility] A, [place], [place], [address]. tel:[phone] OFFICE/OUTPA TIENT VISIT, [facility], [address] [place], [address], [place] tel:[phone] [facility] chronic pain (chief complaint)Anx iety (chief complaint)HTN (chief complaint) Dietary surveillance and counselingLumbag oPain in joint involving pelvic region and thighHypertensio n, UnspecifiedGener alized anxiety disorder 5 Samuel Andrews. [address], [place], [place], [address] , [place]. tel:[phone] Referring Provider: Betty Zelaya [address], [place], [place], [address]. tel:[phone] OFFICE/OUTPA TIENT VISIT, [facility], [address], [place], [place], [address], [place] tel:[phone] [facility] chronic pain (chief complaint)anx iety (chief complaint) Dietary surveillance and counselingMyalgi a and myositis, unspecifiedGener alized anxiety disorder 4 Samuel Andrews. [address], [place], [place], [address] , [place]. tel:[phone] Referring Provider: Betty Zelaya [facility], [place], [place], [address]. tel:[phone] OFFICE/OUTPA TIENT VISIT, [facility], [address], [place], [place], [address], [place] tel:[phone] [facility] osteoporosis (chief complaint)chr onic pain (chief complaint)ins omnia (chief complaint)quinten er cyst (chief complaint) Dietary surveillance and counselingOther osteoporosisGene ralized anxiety disorderCHRONIC PAIN NECSynovial cyst of popliteal space 0 4 Samuel Andrews. [address], [place], [place], [address] , [place]. tel:[phone] Referring Provider: Betty Zelaya [address], [place], [place], [address]. tel:[phone] OFFICE/OUTPA TIENT VISIT, [facility], [address], [place], [place], [address], [place] tel:[phone] [facility] leg pain (chief complaint)ost eoporosis (chief complaint)HTN (chief complaint) Pain in joint involving lower legOther osteoporosisCHRO MEERA PAIN NECHypertension, Unspecified 4 Samuel Andrews. [address], [place], [place], [address] , [place]. tel:[phone] Referring Provider: Betty Zelaya [address], [place], [place], [address]. tel:[phone] OFFICE/OUTPA TIENT VISIT, [facility], [address], [place], [place], [address], [place] tel:[phone] [facility] osteoporosis (chief complaint)fib romyalgia (chief complaint)anx iety (chief complaint) Other osteoporosisCHRO MEERA PAIN NECGeneralized anxiety disorder 4 Samuel Andrews. [address], [place], [place], [address] , [place]. tel:[phone] Referring Provider: Betty Zelaya [address], [place], [place], [address]. tel:[phone] OFFICE/OUTPA TIENT VISIT, [facility], [address], [place], [place], [address], [place] tel:[phone] [facility] osteoporosis (chief complaint)HLP (chief complaint)A1c (chief complaint)anx iety (chief complaint) Dietary surveillance and counselingOther osteoporosisOthe r and unspecified hyperlipidemiaHy perglycemiaGener alized anxiety disorder 4 Samuel Andrews. [address], [place], [place], [address] , [place]. tel:[phone] Referring Provider: Betty Zelaya [address], [place], [place], [address]. tel:[phone] PREV VISIT, EST, 65 & OVER [facility], [address], [place], [place], [address], [place] tel:[phone] [facility] Physical (chief complaint) Routine Medical ExamDietary surveillance and counselingRoutin e Medical Exam 4 Samuel Andrews. [address], [place], [place], [address] , [place]. tel:[phone] Referring Provider: Betty [address], [place], [place], [address]. tel:[phone] OFFICE/OUTPA TIENT VISIT, [facility], [address], [place], [place], [address], [place] tel:[phone] [facility] HTN (chief complaint)fib romyalgia (chief complaint)Ins omnia (chief complaint) Dietary surveillance and counselingHypert ension, UnspecifiedDizzi nessCHRONIC PAIN NEC 4 Samuel Andrews. [address], [place], [place], [address] , [place]. tel:[phone] Referring Provider: Betty Zelaya [facility] A, [place], [place], [address]. tel:[phone] OFFICE/OUTPA TIENT VISIT, [facility], [address], [place], [place], [address], [place] tel:[phone] [facility] SOB (chief complaint)cho rnic pain (chief complaint)Anx iety (chief complaint)diz ziness (chief complaint) Respiratory abnormality, unspecifiedCHRON IC PAIN NECDizzinessGene ralized anxiety disorder 4 Samuel Andrews. [address], [place], [place], [address] , [place]. tel: [phone] Referring Provider: Betty Zelaya [facility] A, [place], [place], [address]. tel:[phone] OFFICE/OUTPA TIENT VISIT, [facility], [address], [place], [place], [address], [place] tel:[phone] [facility] fibromyalgia (chief complaint)ins omnia (chief complaint)HTN (chief complaint)ost eoporosis (chief complaint) CHRONIC PAIN NECInsomnia, OtherHypertensio n, UnspecifiedOther osteoporosis 4 Samuel Andrews. [address], [place], [place], [address] , [place]. tel:[phone] Referring Provider: Betty Zelaya [address], [place], [place], [address]. tel:[phone] OFFICE/OUTPA TIENT VISIT, [facility], [address], [place], [place], [address], [place] tel:[phone] [facility] sinus infection (chief complaint)cho rnic pain (chief complaint)ins omnia (chief complaint)sima st pain (chief complaint) Dietary surveillance and counselingSinusi tis, AcuteInsomnia, OtherCHRONIC PAIN NEC 4 Samuel Andrews. [address], [place], [place], [address] , [place]. [phone] Referring Provider: Betty Zelaya [address], [place], [place], [address]. tel:[phone] OFFICE/OUTPA TIENT VISIT, [facility], [address], [place], [place], [address], [place] tel:[phone] [facility] chronic pain (chief complaint)ins omnia (chief complaint)sima st pain (chief complaint) Dietary surveillance and counselingInsomn ia, OtherPain in joint involving shoulder regionChest Pain, Unspecified 4 Samuel Andrews. [address], [place], [place], [address] , [place]. [phone] Referring Provider: Betty Zelaya [address], [place], [place], [address]. tel:[phone] OFFICE/OUTPA TIENT VISIT, [facility], [address], [place], [place], [address], [place] tel:[phone] [facility] Insomnia (chief complaint)bethany ulder pain (chief complaint)cho rnic pain (chief complaint)fat igue (chief complaint) Insomnia, OtherFatigue / MalaisePain in joint involving shoulder region [address], [place], [place], [address] , [place]. tel:[phone] Referring Provider: Betty Zelaya [address], [place], [place], [address]. tel:[phone] OFFICE/OUTPA TIENT VISIT, [facility], [address], [place], [place], [address], [place] tel:[phone] [facility] shoulder pain (chief complaint)anx iety (chief complaint) Dietary surveillance and counselingPain in joint involving shoulder region 3 Samuel Andrews. [address], [place], [place], [address] , [place]. tel:[phone] Referring Provider: Darryl Baker, [address], [place], [place], [address]. tel:[phone] OFFICE/OUTPA TIENT VISIT, [facility], [address], [place], [place], [address], [place] tel:[phone] [facility] chronic pain (chief complaint)anx iety (chief complaint)diz ziness (chief complaint) Dietary surveillance and counselingCHRONI C PAIN NECDizziness 3 Samuel Garcia [address], [place], [place], [address] , [place]. tel:[phone] OFFICE/OUTPA TIENT VISIT, [facility], [address], [place], [place], [address], [place] tel:[phone] [facility] dizziness (chief complaint)chr onic pain (chief complaint) Dietary surveillance and counselingDizzin essCHRONIC PAIN NECGeneralized anxiety disorder 3 Samuel Garcia [address], [place], [place], [address] , [place]. tel:[phone] OFFICE/OUTPA TIENT VISIT, [facility], [address] [place] [address], [place] tel:[phone] [facility] dizziness (chief complaint) VertigoChest Pain, UnspecifiedDieta ry surveillance and counselingOther osteoporosisMusc le weakness (generalized) 3 Samuel Andrews. [address], [place], [place], [address] , [place]. tel:[phone] Referring Provider: Betty Zelaya [facility] [address], [place], [place], [address]. tel:[phone] OFFICE/OUTPA TIENT VISIT, [facility], [address], [place], [place], [address], [place] tel:[phone] [facility] fibromyalgia (chief complaint)HLP (chief complaint)Hyp erglycemia (chief complaint)sharyn ast CA (chief complaint) Dietary surveillance and counselingOther osteoporosisOthe r and unspecified hyperlipidemiaHy perglycemiaCHRON IC PAIN NEC Sep-0 4 3 Samuel Andrews. [address] [facility] [address], [place], [place], [address] , [place]. tel:[phone] Referring Provider: Betty Zelaya [facility] [address], [place], [place], [address]. tel:[phone] OFFICE/OUTPA TIENT VISIT, [facility], [address], [place], [place], [address], [place] tel:[phone] [facility] breast CA (chief complaint)ost eoporosis (chief complaint)chr onic pain (chief complaint) CHRONIC PAIN NECMalignant neoplasm of central portion of female breastOther osteoporosis Aug- 3 Samuel Andrews. [address], [place], [place], [address] , [place]. [phone] Referring Provider: Betty Zelaya [address], [place], [place], [address]. tel:[phone] OFFICE/OUTPA TIENT VISIT, [facility], [address], [place], [place], [address], [place] tel:[phone] [facility] breast CA (chief complaint)chr onic pain (chief complaint)HTN (chief complaint) Malignant neoplasm of central portion of female breastHypertensi on, UnspecifiedCHRON IC PAIN NEC 3 Samuel Garcia [address], [place], [place], [address] , [place]. [phone] Referring Provider: Darryl Baker, [address], [place], [place], [address]. tel:[phone] OFFICE/OUTPA TIENT VISIT, EST [facility], [address], [place], [place], [address], [place] tel:[phone] [facility] Breast CA (chief complaint)ost eoporosis (chief complaint)anx iety (chief complaint) Dietary surveillance and counselingMalign ant neoplasm of central portion of female breastOther osteoporosisFati alejandra / Malaise 3 Samuel Andrews. [address], [place], [place], [address] , [place]. tel:[phone] Referring Provider: Darryl Baker, [address], [place], [place], [address]. tel:[phone] [facility], [address], [place], [place], [address], [place] tel:[phone] [facility] Lump or mass in breast 3 Samuel Andrews. [address], [place], [place], [address] , [place]. tel:[phone] Referring Provider: Betty Zelaya [address], [place], [place], [address]. tel:[phone] PREV VISIT, NEW, 65 & OVER [facility], [address], [place], [place], [address], [place] tel:[phone] [facility] Physical (chief complaint) Dietary surveillance and counselingRoutin e Medical ExamRoutine Medical Exam 3 Samuel Andrews. [address], [place], [place], [address] , [place]. tel:[phone] Referring Provider: Darryl Baker, [address], [place], [place], [address]. 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) Medicare Of [place] WP MB [id number] Aetna Senior [facility] Ins CI [id number] Social History Type Description Quantity Date Captured Comments Alcohol Use Details No Caffeine Use Details Unknown Tobacco Use Status Never smoked tobacco 2024 Smoking Status Never smoker Sex Female Vital Signs Date / Time: Height Weight BMI Pulse Rate Blood Pressure Temperature Respiratory Rate Body Surface Area Head Circumference BMI percentile Pulse Ox Inhaled Ox 9:27 AM 62.00 in 148.20 lbs 27.1 1 kg/m eter (2) 93 /min 130/80 mm[Hg] 94.3 F 16 /min Chief Complaint And Reason For Visit From encounter dated 05/19/2025 09:26'. pain (chief complaint). Description: Pt has fibromyalgia and chronic back pain Pt takes norco PRN for pain and doing ok. Pt c/o acute onset of left elbow pain without any injury several days ago Pt went to urgent care and had x ray done which showed closed left elbow fracture. Pt is wearing sling now Pt followed up with ortho and was told there is no fracture and she was given steroid for arthritis. Pt denies any injury Plan Of Treatment Date Type Action Status Goal Td vaccine. Due on due Goal [...] on due Goal Td vaccine. Due on 24 due Goal Cognitive assessment. Due on due [...] on due Goal Influenza vaccine. Due on Ma due Goal Td vaccine. Due on due [...] Due on due Goal Colonoscopy. Due on 023 due Goal Influenza vaccine. Due on due Goal Influenza vaccine. Due on due Goal Colonoscopy. Due on 023 due Goal Pneumococcal vaccine. Due on due [...] Influenza vaccine. Due on Ap due Goal FOBT. Due on due Goal [...] Influenza vaccine. Due on Va due Goal Influenza vaccine. Due on due [...] Goal Colonoscopy. Due on 016 due Goal Depression screening. Due on due [...] on 15 due Goal Colonoscopy. Due on 015 due Goal Sigmoidoscopy. Due on due Goal [...] ordered Referral Referred To: Suleman Arteaga [address] [place], [place], [id number] Ordered: Referrals: Allopathic & Osteopathic Physicians : [...] -Podiatric Medicine & Surgery Service Providers : Draw Frame Runner (related to Dermatophytosis of nail) ordered Referral Referred To: VERN DILL [address] [facility],[address] [place], [place], [phone] Ordered: Referrals: Podiatric Medicine & Surgery Service Providers : Draw Frame Runner. VERN DILL. Evaluate and treat ordered Referral Ordered: Galo Hagan -Allopathic & Osteopathic Physicians : Internal Medicine : Cardiovascular Disease (related to Nonrheumatic mitral valve prolapse) ordered Referral Referred To: Galo Hagan [address] [place], [place] [id number] Ordered: Referrals: Allopathic & Osteopathic Physicians : Internal Medicine : Cardiovascular Disease. Galo Hagan. Evaluate and treat ordered Referral Referred To: Carlos Mcdaniel MD [address] [place], [place], [address] Ordered: Referrals: Carlos Mcdaniel MD Evaluate and treat ordered Referral Ordered: CT MAXILLOFACIAL W/O DYE (SINUSES) SF ordered Referral Ordered: CHEST X-RAY PA/LAT TWO-VIEWS ordered Referral Ordered: Tiff Connors (related to Osteoporosis) ordered Referral Referred To: Tiff Connors [address] [place], [place] [id number] Ordered: Referrals: Tiff Connors. Evaluate and treat [...] PRN for pain and doing ok. Pt c/o acute onset of left elbow pain without any injury several days ago Pt went to urgent care and had x ray done which showed closed left elbow fracture. Pt is wearing sling now Pt followed up with ortho and was told there is no fracture and she was given steroid for arthritis. Pt denies any injury pain Pt has fibromyal laly and chronic [...] denies any early satiety, nausea and vomiting fibromyalgia1 Pt has fibromyal laly and chronic [...] bp meds. 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 Pt denies any polyuria polydipsia b12 Pt has b12 defic iency and chronic fatigue Pt started B12 injection last month and she notices more energy. Pt pain Pt has fibromyal laly and chronic back pain Pt takes norco PRN for pain and doing ok. Pt failed neurontin HTN Pt has HTN, Pt t akes norvasc and her bp is ok, however, pt notices bilateral LE swelling since several weeks ago Pt denies any chest pain or sob Pt denies any calf pain . dry mouth1 Pt states that d ry mouth better since off adderall anemia1 Pt has mild anem ia with [...] also has dry mouth since starting adderall HTN Pt has HTN Pt ta [...] own and she did not want it. 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 Pt failed vyvanse and adderall. Pt has sleep apnea but she does not use cpap nightly. Nuvigil is not covered by insurance. cough1 Pt has persisten t dry cough for several months Pt denies any chest pain or sob or fever or hemoptysis . pt denies any wheezing. Pt did not meat pickler fluticasone/salmeterol yet due to insurance coverage issue. [...] pt denies any wheezing. Pt did not meat pickler fluticasone/salmeterol yet fibromyalgia1 Pt has fibromyal laly and chronic back pain Pt states that percocet makes her drowsy and she wants to go back to norco osteoporosis1 Pt has osteoporo sis Pt unable to tolerate fosamax and prolia. Pt takes calcium and D only .Pt is not doing weight bearing exercise pain Pt has fibromyal laly. Pt takes [...] denies any sob pt denies any wheezing osteoporosis1 Pt has osteoporo sis. Pt failed prolia which caused diffuse bone pain Pt stopped prolia and she was started on fosamax recently but is causing her to have nausea and stomach upset after the shot. HTN Pt has HTN pt ta kes losartan and her bp is borderline high today Pt denies any chest pain or headache. cough1 Pt c/o persisten t dry and productive cough for one week Pt denies any wheezing or sob Pt denies any chest pain .Pt states that she coughs all day and all night Pt states that her has similar symptoms. Pt denies any fever. Pt denies any sore throat, sinus symptoms ADD Pt has chronic f atigue and [...] flonase and atrovent nasal spray Pt saw inbound customer service agent who recommended sinu surgery but she is [...] histamine helped either. Pt has nena with inbound customer service agent specialist next week fibromyalgia Pt has fibromyal [...] allergy worse. Pt has not heard from employee relations specialist yet allergy1 Pt has seasonal allergy which is not well controlled. Pt failed flonase and singulair. Pt states that cpap makes the allergy worse. leg1 Pt has ? restles s leg syndrome .Pt never picked up requip. 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 Pt denies any other complaints sleep apnea Pt had in lab sl eep study done and she states that she had a horrible night doing the study. GERD PIt has been eat ing ice cream every night .Pt notices slightly more belching at night. pt takes pepcid. Pt denies any abd pain osteoporosis Pt has osteoporo sis. Pt just [...] so she did not pick it up HTN Pt has HTN Pt ta kes hydralazine and losartan and she is very confused and she is not sure if she is taking bystolic. Her bp is ok now and her bp throughout the day is still around 145-150/90 per patient. Pt denies any chest pain or sob or headache sleep apnea1 Pt has sleep roof promenade tile setter ea. Pt is seeing pulmonary and she decides to do CPAP titration study soon. allergy Pt has sinus all ergy. Pt uses nasal spray Pt stopped singulair which did not help Pt states that she is doing ok. pain Pt has fibromyal laly. Pt takes norco PRN for pain Pt failed neurontin. Pt failed NSAID and ultram ,Pt doing ok with norco Pt denies any worsening pain. GERD Pt has chronic G ERD. Pt doing [...] her HTN sleep apnea1 Pt has sleep roof promenade tile setter ea Pt feels fatigue Pt is not [...] t akes norvasc and losartan and her agency cashier started her on hydralazine recently. Her bp is running high in the morning at home around 160/98. Pt denies any chest pain or headache. pain Pt has fibromyal laly. Pt takes norco PRN for pain Pt failed neurontin. Pt failed NSAID and ultram ,Pt doing ok with norco Pt denies any worsening pain. allergy1 Pt has chronic s inus allergy Pt failed flonase and multiple other nasal spray. Pt takes anti-histamine but she thinks that it is raising her bp. Pt takes singulair and doing much better. HTN Pt has HTN. Pt t akes losartan and norvasc and her bp is persistently high, especially in the morning Pt denies any chest pain or headache. Pt takes losartan in the morning and norvasc at night. pain Pt has fibromyal laly. 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 Pt will see sleep specialist soon and she needs a copy of the sleep study results sleep apnea1 Pt has sleep roof promenade tile setter ea but she could not tolerate CPAP. [...] needs to take clonidine x 2 during s month when her bp went up to 159. Pt went to see her agency cashier yesterday and was started on norvasc 5 mg in addition to daily losartan. Her bp is ok today in office . sleep apnea1 Pt has sleep roof promenade tile setter ea pt could not tolerate cpap. Pt [...] with norco Pt denies any worsening pain hallucination1 Pt has been seei ng things [...] .pt denies any chest pain HTN Pt has HTN, Pt t [...] dose in ER. 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 pt [...] prolia every 6 months Pt sees endo pain1 Pt has fibromyal laly. Pt takes [...] ENT next week Pt denies any epistaxis HTN Pt has HTN Pt ta kes losartan/hctz since last month and LE edema improved. Her bp is around 130/70. Pt is off norvasc . sinus1 Pt has chronic s inus congestion Pt had sinus CT done which showed mastoiditis and also turbinate hypertrophy. Pt takes flonase and astelin nasal spray but she still has difficulty breathing her nose. Pt denies any nasal bleeding fibromyalgia1 Pt has fibromyal laly. Pt takes [...] and her bp was too low and agency cashier told her to stop norvasc and take [...] any suicidal thought. Pt has mild anxiety insomnia1 Pt has insomnia Pt takes klonopin qhs prn. . Pt has sleep apnea but she does not use cpap. Pt denies any depression or any suicidal thought. Pt has mild anxiety pain1 Pt has fibromyal laly. Pt takes norco PRN for pain Pt failed neurontin. Pt failed NSAID and ultram ,Pt doing ok with norco Pt denies any worsening pain GERD1 Pt has intermitt ent GERD, especially at night and also chronic constipation for at least 3 months Pt is also mildly anemic. Pt denies any weight loss or abd pain pt also has bloating. Pt denies any blood in stool insomnia Pt has insomnia Pt takes klonopin qhs prn. . Pt has sleep apnea but she does not use cpap. Pt denies any depression or any suicidal thought. Pt denies any crying spells constipation Pt has chronic c onstipation Pt takes laxative OTC frequently Pt saw her metal fence erector and was started on linzess 72 mcg which caused some diarrhea. Pt denies any abd pain Pt denies any blood in stool. fatigue Pt feels chronic fatigue Pt has significant sleep apnea but she could not tolerate the cpap. Pt denies any sob left arm numbness1 Pt c/o chroni c left arm and hand numbness and tingling. Pt had NCS which was normal Pt does have neck pain with mild left radiculopathy. Pt is seeing ortho at [facility] and she was started on cymbalta [...] Pt denies any flank pain, fever, chill fibromyalgia1 Pt has fibromyal laly. Pt takes norco PRN for pain Pt failed neurontin. Pt failed NSAID and ultram ,Pt doing ok with norco Pt denies any worsening pain insomnia1 Pt has insomnia Pt takes klonopin qhs prn. . Pt does have some snoring Pt denies any depression or any suicidal thought. sinus1 Pt c/o acute ons et of [...] with norco Pt denies any worsening pain HLP Pt has HLP pt to ok zocor for one week and she stopped it again Pt feels that she has some myalgia but she is not sure if it is from zocor or her osteoporosis shot sleep apnea1 Pt has sleep roof promenade tile setter ea. Pt is still noncompliant with CPAP. sick Pt c/o productiv e coughing with green phlegm, mild sinus congestion pt denies any fever, chill, sore throat or any sob. Pt denies any headache or GI symptoms. her has similar symptoms and was tested negative for COVID-19. hemorrhoid1 Pt has not made nena with Dr mcdaniel yet. Pt denies any rectal bleeding Pt is noncompliant insomnia1 Pt has insomnia Pt takes klonopin qhs prn and doing ok Pt does have some snoring Pt denies any depression or any suicidal thought HLP Pt states that s he has [...] suicidal thought sleep apnea1 Pt has sleep roof promenade tile setter ea. 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 Pt is on calcium and D Pt is trying weight bearing exercise .Pt just had bone density last week by bone specialist and was told improving fibromyalgia1 Pt has fibromyal laly. Pt takes norco PRN for pain Pt failed neurontin knee pain1 Pt has bilateral knee pain Pt sees ortho currently Pt failed steroid injection. Pt told me previous ortho does not want her to get knee replacement. Her current ortho told her that her previous MD did want to do knee replacement. Pt is confused sinus Pt continues to have clear nasal drainage despite using atrovent nasal spray. Pt denies any purulent sinus drainage pain Pt has fibromyal laly pt takes [...] takes Klonopin qhs PRN and doing ok fibromyalgia1 Pt has chronic f ibromyalgia and neck and back pain Pt denies any worsening pain, pt failed NSAID and ultram Pt takes norco for pain Pt failed neurontin. Pt denies any loss of bladder control toe pain1 pt has chronic b ilateral big toenail thickness and she has hard time cutting both and she has some big toe pain on both side. pt denies any injury or numbness. Pt states that the big toenail pushes against the shoes all the time. insomnia1 Pt has insomnia Pt takes klonopin [...] or waking up at night with sob HTN Pt takes losarta n and norvasc [...] has mild fatigue due to chronic condition sinusitis1 Pt c/o acute sin us pain, purulent drainage, sinus pain for one week Pt denies any sore throat Pt has difficulty breathing through her nose. Pt denies any sore throat or fever Pt denies any coughing. pt is using anti histamine and flonase which helped slightly insomnia1 Pt has chronic i nsomnia. Pt [...] sinus with flonase. Pt denies any bleeding. sinus Pt has chronic s inus congestion. Pt has nasal congestion all the time. Pt has hard time breath through her nose Pt states that xyzal has not helped. Pt denies any purulent sinus drainage. Pt denies any sore throat fibromyalgia1 Pt has fibromyal laly. Pt has [...] wake up at night for sob sinus allergy1 Pt has chronic s inus allergy. Pt has sinus congestion. Pt does not like flonase or any type of nasal spray. Pt wants to try xyzal. Her sister told me it helped her? chronic pain Pt has chronic f ibromyalgia and back and neck pain. Pt has left shoulder and upper arm pain. Pt is seeing ortho. Pt is wearing left upper arm splint, Pt denies any hand numbness or tingling insomnia1 Pt has insomnia. pt takes klonopin qhs PRn and doing ok. Pt denies any depression or any suicidal thought fibromyalgia1 Pt has fibromyal ally and chronic neck and back pain. Pt [...] Pt denies any chest pain or headache insomnia1 pt has insomnia and she takes klonopin qhs PRn and doing ok. Pt denies any depression or any suicidal thought. fibromyalgia1 Pt has chronic f ibromyalgia and back pain. Pt denies any worsening pain Pt denies any loss of bladder control hlp Pt has mild HLP pt does [...] norco PRN for pain and doing ok sinus1 Pt has chronic s inus congestion. Pt has difficulty breathing through her nose. Pt does not want to do sinus CT. Pt states that she does not want surgery insomnia1 Pt has insomnia and anxiety ,Pt takes klonopin qhs PRN and doing ok. Pt denies any depression or any suicidal thought. Pt denies any crying spells insomnia1 Pt has chronic i nsomnia. Pt takes klonopin qhs PRN and doing ok. Pt denies any depression or any suicidal thought sinus1 Pt has chronic s inus congestion [...] hearing again. Pt denies any ear pain osteoporosis1 Pt has osteoporo sis. Pt is seeing bone specialist and she is back on fosamax and calcium and D now. Pt was told to try weight bearing exercise fibromyalgia1 Pt has fibromyal laly. Pt takes norco PRN for pain. Pt doing ok PHysical p[t needs annual physical. Pt has [...] denies any depression or any suicidal thought sob1 Pt feels mild so b sometimes with exertion. Pt has normal chset xray. pt denies any chset pain. Pt states that venotlin helps. Pt wants another one called in so she can get it before insurance run out. pt c/o coughing up phlegm for one week, worse at night. fibromyalgia1 Pt has fibromyal laly and chronic neck and back pain. Her neck and t spine xray showed arthritis change. Pt takes norco PRn for pain and doing ok jonit pain1 Pt has fibromyal laly Pt [...] has angiomyolipoma. pt denies any flank pain insomnia1 Pt has insomnia Pt takes klonpin PRN qhs and doing ok Pt denies any snoring, Pt feels tired a lot throughout the day fibromyalgia1 Pt has fibromyal laly. Pt has chronic upper back and shoulder and low back muscle pain. Pt deneis any worsening pain. Pt takes norco and flexeril PRN for pain and doing ok insomnia1 Pt has insomnia. Pt takes klonpin [...] and losartan. Pt denies any other complaints anxiety1 Pt has anxiety a nd insomnia. pt takes klonpin PRN. Pt doing ok. Pt denies any depression or any suicidal thought chronic pain1 Pt has chronic l ow back and muscle pain. pt has fibromyalgia. Pt states that mobic did help at the beginning. but not anymore fibromyalgia1 Pt has fibromyal laly and diffuse [...] doing ok. Pt denies any wrosening pain May-17-2016 Anxiety1 Pt has chronic a nxiety. Pt denies any depression or any suicidal thought. Pt takes klonpin and doing ok. Pt denies any crying spells HTN1 Pt has HTN. Pt t akes losartan. Pt denies any chest pain or headache fibromyalgia Additional infor mation: Pt has chronic fibromyalgia and back pain. Pt takes norco for pain. Pt does not want to try neurontin. anxiety1 Pt has chronic a nxeity and insomnia. Pt takes klonopin qhs PRN and doing ok Pt denies any crying spells anxiety1 Pt has chronic a nxiety. Pt denie any depression or any suicidal thought. Pt takes klonpin pRN and doing ok back pain1 Pt has fibromyal laly and chronic low back pain. pt denies any sciatica pt denies any loss of bowel or bladder control HTN Pt has HTN. Pt t akes [...] not have any microalbumin in her urine fibromyalgia Additional infor mation: Pt has fibromyalgia. Pt takes norco PRN for pain Pt denies any worsening pain. glucose Pt has mild elev ated glucose and and proteinuria. Pt denies any polyguria, polydipsia Anxiety The patient pres ents with anxious/fearful thoughts but denies fatigue. The patient denies any vomiting. Additional information: Pt has chronic anxiety and insomnia. Pt takes klonpin. Pt denies any depression or any suicidasl thought. Physical Pt needs annual physical. Pt has [...] as instructed Relate d to Fibromyalgia Weight management Related to Ins omnia Special diet education Related t o Body mass index (BMI) 24.0-24.9, adult Increase physical activity Relat ed to Insomnia Increase activity. Related to Es sential (primary) [...] physical activity Relat ed to Acute bronchitis Medications as instructed Relate d to Fibromyalgia [...] rtness of breath Weight management Related to Ins omnia Increase physical activity Relat ed to Insomnia Weight management Related to Ins omnia Increase physical activity Relat ed to Insomnia Prescribed Activity and Exercise Education Related to [...] surveillance counseling Assessments Type Assessment Date assessment Fibromyalgia assessment Pain in left elbow Mental Status Date Cognitive Assessment Orientation - [place] ed to time, place, person, situation.
--- OUTSIDE RECORDS SUMMARY | 2025-05-20 15:20 | XMS_ITS ---
Author Organization [facility] Address [address] [place] [address] Phone Care Team Providers Care Senior Test Analyst Name Role Phone Darryl Baker MD Primary [...]
--- OUTSIDE RECORDS SUMMARY | 2025-05-20 15:20 | XMS_ITS | Referral Summary ---
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 FITTER Pulse 79 11/11/2019 3:31 PM HAMMER FITTER Temperature 36.6 C (97.8 F) 11/11/2019 3:31 PM HAMMER FITTER Respiratory Rate 16 11/11/2019 3:31 PM HAMMER FITTER Oxygen Saturation 94% 11/11/2019 3:31 PM HAMMER FITTER Inhaled Oxygen Concentration - - Weight 72.1 kg (159 lb) 07/30/2024 11:00 AM CDT Height 157.5 cm (5' 2) 07/30/2024 11:00 AM CDT Body Mass Index 29.08 07/30/2024 11:00 AM CDT Plan of Treatment Not on file Medical Devices Implanted Type Area Rn Clinical Device Identifier Shelf Expiration Date Model / Serial / Lot Allosource [id number] 10cm Frozen Graft Bone Fibula Segment - [id number] Implanted:Qty: 1 on 01/08/2019 by Chauncey Mojica MD at [facility] Left: Humerus Allosource 10/04/2022 [id number] / / [id number] Synthes 241.923 Lcp Combi Philos Long [id number] 10 Hole Shaft Lock Compression - [id number] Implanted:Qty: 1 on 01/08/2019 by Chauncey Mojica MD at [facility] Left: Humerus Synthes I 241.923 / / Synthes 204.828 3.5mm 6mm 28mm 2.5mm Self Tap Small Hexagonal Socket Low Profile - [id number] Implanted:Qty: 3 on 01/08/2019 by Chauncey Mojica MD at [facility] Left: Humerus Synthes I 204.828 / / Synthes 212.110 3.5mm 2.9mm 28mm Self Tap Lock Stardrive Conical Head T15 Full - [id number] Implanted:Qty: 3 on 01/08/2019 by Chauncey Mojica MD at [facility] Left: Humerus Synthes I 212.110 / / Synthes 212.119 3.5mm 2.9mm 45mm Self Tap Lock St[employer]rive Conical Head T15 Full - [id number] Implanted:Qty: 1 on 01/08/2019 by Chauncey Mojica MD at [facility] Left: Humerus Synthes I 212.119 / / Synthes 212.118 3.5mm 2.9mm 42mm Self Tap Lock [employer]rive Conical Head Full Thread - [id number] Implanted:Qty: 2 on 01/08/2019 by Chauncey Mojica MD at [facility] Left: Humerus Synthes I 212.118 / / Synthes 212.112 3.5mm 2.9mm 32mm Self Tap Lock [employer]rive Conical Head T15 Full - [id number] Implanted:Qty: 1 on 01/08/2019 by Chauncey Mojica MD at [facility] Left: Humerus Synthes I 212.112 / [...] Bone mineral density was performed on a [employer] Discovery Densitometer. Based on machine cross-calibration and [...] by the International Society of Clinical Densitometry. [id number] Luz Pineda MD IMG DXA PROCEDURES Final Resu lt from Last 3 Months or Most Recently Relevant to Health Maintenance Insurance MEDICARE [employer] [facility] MEDICARE [employer] SENIOR SUPPLEMENT Advance Directives For more information, please contact: [phone] * Full Code (Latest Code Status on File) Date Activated Date Inactivated Comments 01/08/2019 9:54 PM 01/09/2019 8:22 PM * Full Code Date Activated Date Inactivated Comments 01/08/2019 9:54 PM 01/08/2019 9:54 PM Care Teams Software Configuration Manager Relationship Specialty Start Date End Date Darryl Baker MD PCP - General 09/09/13
[2025-05-20 15:44] LABS: Hematocrit 33.1 % (37.0-47.0); Hemoglobin 10.8 g/dL (12.0-15.0); Immature Granulocyte Percent A 0.5 % (0-0.5); Lymphocytes Absolute Auto 1.19 K/mm3 (0.9-3.2); Mean Corpuscular HGB Conc 32.6 g/dl (32-36); Mean Corpuscular Hemoglobin 29.1 pg (26-34); Mean Corpuscular Volume 89.2 fl (80-100); Nucleated Red Blood Cells Absolute Auto 0.000 K/mm3 (0.0-0.012); Nucleated Red Blood Cells Perc 0.0 % (0.0-0.2); Platelet Count Result 256 k/mm3 (150-375); Red Blood Count 3.71 M/mm3 (4.2-5.4); White Blood Count 9.3 K/mm3 (4.5-10.0)
[2025-05-20 16:11] LABS: CRP 3.0 mg/dL (<1.0); Uric Acid 3.6 mg/dL (2.5-7.5)
[2025-05-21 15:09] LABS: Anti-CCP Ab, IgG/IgA 7 units (0-19)
== END 2025-05-20 15:17 | disposition home or self-care (01) ==
PROVIDERS: PCP Emergency Medicine; Visit Provider Orthopaedic Surgery
DX: M25.522 Pain in left elbow (principal)
CPT/HCPCS: 36415; 73200; 84550; 85025; 85652; 86140; 86200; 86430